=== PATIENT | female | born 1990 | race Caucasian/White ===

== ENCOUNTER 2023-07-27 19:50 | Outpatient (REF) | payer BC, SELFPAY ==
[2023-08-01 12:14] LABS: Age Gdln ACOG Testing Note (.); HPV Aptima Negative (Negative); IGP, Aptima HPV, rfx 16/18,45 Note (.)
== END 2023-07-27 19:51 | disposition home or self-care (01) ==
LOC: LAB 19:50
PROVIDERS: Visit Provider Obstetrics & Gynecology
DX: Z01.419 Encounter for gynecological examination (general) (routine) without abnormal findings (principal)
CPT/HCPCS: 87624; G0145

== ENCOUNTER 2024-01-03 12:29 | Outpatient (OUT) | payer BC, SELFPAY ==
--- OUTSIDE RECORDS SUMMARY | 2024-01-03 12:45 | XMS_ITS | CCD ---
Author Organization [facility] Care Team Providers Care Making Machine Operator Name Role Phone CARMEN VOGT Consulting Unavailable DEL, DR DAVID Perez Admitting Unavailable BELDON, CARMEN Primary Care Unavailable DEL, DR DAVID Perez Attending Unavailable JAMMIE, DR RONALD Perez Attending Unavailable JAMMIE, DR RONALD Perez Consulting Unavailable BELDON, CARMEN Primary Care Unavailable JAMMIE, DR RONALD Perez Admitting Unavailable CECE, DR CLOUD Attending Unavailable CECE, DR CLOUD Consulting Unavailable CECE, DR CLOUD Admitting Unavailable BELDON, CARMEN Primary Care Unavailable BELDON, CARMEN Primary Care Unavailable DEL, DR DAVID Perez Attending Unavailable DEL, DR DAVID Perez Consulting Unavailable DEL, DR DAVID Perez Admitting Unavailable Ronald AGUDELO Primary Care Physician [phone] NONE, XXXX Primary Care Physician UnavailCrystal Koehler Primary Care Physician [phone] Unavailable Primary Care Provider UnavailCHRISTAL Laura Attending Unavailable CHRISTAL DIANE Attending Unavailable AI BELLE Attending Unavailable Crystal Wolff Admitting Unavailable NewCrystal dawn Attending Unavailable LEESA SOSA Attending Unavailabl LEESA Shannon Attending Unavailabl Marissa Machado Attending Unavailable Cuba Koo Attending Unavailable Crystal Wolff Attending Unavailable Crystal Wolff Attending Unavailable Crystal Wolff Attending Unavailable Christal Diane Referring Unavailable Christal Diane Attending Unavailable Christal Diane Admitting Unavailable LEESA SOSA Attending UnavailLEESA Morales Admitting Unavailabl e Allergies Allergy Classification Reported Allergen(s) Allergy Type Date of Onset Reaction(s) Facility (1 source) Brompheniramine / Phenylpropanolamine Drug Allergy [facility] Repository (10 sources) Brompheniramine / Dextromethorphan / Phenylephrine; Translations: [brompheniramine/DM/ph enylephrine] Drug Allergy Weal (disorder) [facility] [place] Work Phone: (2 sources) Acetaminophen / diphenhydrAMINE / Phenylephrine Drug Allergy 10-04-19 [facility] Work Phone: (2 sources) Simple Syrup Propensity to adverse reactions 07-20-20 Unknown [facility] Healthcare Medications Current Medications Medication Drug Class(es) Dates Sig (Normalized) Sig (Original) amoxicillin 500 mg oral capsule (1 source) Penicillin-class Antibacterial Start: 09-02-2022 End: 09-12-2022 take 1 capsule by mouth every twelve hours amoxicillin 500 mg Cap 500 mg = 1 cap(s), Oral, q12hr, X 10 day(s), # 20 cap(s), Refills(s) 0, Pharmacy: [facility]/pharmacy #[id number], 178, cm, 09/02/22 12:01:00 EST, Height/Length Dosing, 102, kg, 09/02/22 12:01:00 EST, Weight Dosing Start Date: 09/02/22 Stop Date: 09/12/22 Status: Ordered baclofen 10 mg oral tablet (2 sources) gamma-Aminobutyric Acid-ergic Agonist Start: 2023 End: 05-15-2023 take 1 tablet by mouth three times daily baclofen 10 mg Tab 10 mg = 1 tab(s), Oral, TID, X 10 day(s), # 30 tab(s), Refills(s) 0, Pharmacy: [facility]/pharmacy #[id number], 178, cm, 05/05/23 12:17:00 EDT, Height/Length Dosing, 95.4, kg, 05/05/23 12:17:00 EDT, Weight Dosing Start Date: 05/05/23 Stop Date: 05/15/23 Status: Ordered busPIRone hydrochloride 5 mg oral tablet (1 source) Start: 10-26-2023 take 1 tablet by mouth twice daily busPIRone 5 mg Tab 5 mg = 1 tab(s), Oral, BID, Refills(s) 0 Start Date: 10/26/23 Status: Ordered cefuroxime 500 mg oral tablet (1 source) Cephalosporin Antibacterial Start: 09-07-2023 End: 09-14-2023 take 1 tablet by mouth twice daily cefuroxime 500 mg oral tablet 500 mg = 1 tab(s), Oral, BID, X 7 day(s), # 14 tab(s), Refills(s) 0, Pharmacy: [facility]/pharmacy #[id number], 178, cm, 09/07/23 11:44:00 EST, Height/Length Dosing, 105.9, kg, 09/07/23 11:44:00 EST, Weight Dosing Start Date: 09/07/23 Stop Date: 09/14/23 Status: Ordered copper 313 mg drug implant (6 sources) Copper-containing Intrauterine Device Start: 01-14-2020 ParaGard intrauteral device Refill(s) 0 Start Date: 01/14/20 Status: Ordered doxycycline hyclate 100 mg oral capsule (1 source) Tetracycline-class Drug Start: 08-28-2023 End: 09-04-2023 take 1 capsule by mouth twice daily doxycycline hyclate 100 mg Cap 100 mg = 1 cap(s), Oral, BID, X 7 day(s), # 14 cap(s), Refills(s) 0, Pharmacy: [facility]/pharmacy #[id number], 178, cm, 08/28/23 12:08:00 EST, Height/Length Dosing, 104, kg, 08/28/23 12:08:00 EST, Weight Dosing Start Date: 08/28/23 Stop Date: 09/04/23 Status: Ordered fluticasone propionate 0.05 mg/actuat metered dose nasal spray (5 sources) Corticosteroid Start: 09-22-2023 Flonase 0.05 mg/inh [place] 2 spray(s), Nasal, Daily, 16 gram, Refill(s) 5, each nostril, [facility]/pharmacy #[id number], 178, cm, 09/07/23 11:44:00 EST, Height/Length Dosing, 105.9, kg, 09/07/23 11:44:00 EST, Weight Dosing Start Date: 09/22/23 Status: Ordered Start: 08-28-2023 take 2 spray(s) nasa l route in the morning fluticasone (Flonase Allergy Relief) 50 MCG/ACT nasal spray Administer 2 sprays into affected nostril(s) in the morning. 0 08/28/2023 Active Start: 08-28-2023 Flonase 0.05 m g/inh [place] 2 spray(s), Nasal, Daily, 16 gram, Refill(s) 1, each nostril, [facility]/pharmacy #[id number], 178, cm, 08/28/23 12:08:00 EST, Height/Length Dosing, 104, kg, 08/28/23 12:08:00 EST, Weight Dosing Start Date: 08/28/23 Status: Ordered liothyronine sodium 0.005 mg oral tablet (6 sources) l-Triiodothyronine Start: 12-18-2021 take 1 tablet by mouth once daily liothyronine 5 mcg Tab 5 mcg = 1 tab(s), Oral, Daily, # 30 tab(s), Refills(s) 2, [id number] 178, cm, 12/18/21 13:00:00 EDT, Height/Length Dosing, 97.7, kg, 12/18/21 13:04:00 EDT, Weight Dosing Start Date: 12/18/21 Status: Ordered Start: 12-18-2021 take 1 tablet by yovani th once daily liothyronine 5 mcg Tab 5 mcg = 1 tab(s), Oral, Daily, # 30 tab(s), Refills(s) 2, [id number] 178, cm, 12/18/21 13:00:00 EDT, Height/Length Dosing, 97.7, kg, 12/18/21 13:04:00 EDT, Weight Dosing Start Date: 12/18/21 Status: Ordered ParaGard intrauteral device (1 source) Start: 01-14-2020 ParaGard intrauteral device Refill(s) 0 Start Date: 01/14/20 Status: Ordered phentermine hydrochloride 37.5 mg oral tablet (1 source) Sympathomimetic Amine Anorectic Start: 10-26-2023 take 1 tablet by mouth once daily phentermine 37.5 mg Tab 37.5 mg = 1 tab(s), Oral, Daily, # 30 tab(s), Refills(s) 0, Pharmacy: [facility], 178, cm, 10/26/23 11:33:00 EST, Height/Length Dosing, 106.2, kg, 10/26/23 11:33:00 EST, Weight Dosing Start Date: 10/26/23 Status: Ordered valACYclovir 1000 mg oral tablet (1 source) Herpesvirus Nucleoside Analog DNA Polymerase Inhibitor, Herpes Simplex Virus Nucleoside Analog DNA Polymerase Inhibitor, Herpes Zoster Virus Nucleoside Analog DNA Polymerase Inhibitor Start: 03-15-2023 End: 03-18-2023 take 2 tablets by mouth every twelve hours valacyclovir 1 g Tab 2 gm = 2 tab(s), Oral, q12hr, X 1 day(s), # 4 tab(s), Refills(s) 2, Pharmacy: [facility] #[id number], 178, cm, 03/15/23 16:13:00 EDT, Height/Length Dosing, 100.4, kg, 03/15/23 16:13:00 EDT, Weight Dosing Start Date: 03/15/23 Stop Date: 03/18/23 Status: Ordered Completed/Discontinued Medications Medication Drug Class(es) Dates Sig (Normalized) Sig (Original) amoxicillin 875 mg / clavulanate 125 mg oral tablet (2 sources) Penicillin-class Antibacterial Start: 10-26-2023 take 1 tablet by mouth once daily at bedtime amoxicillin-clav ulanate 875 mg-125 mg Tab 875 mg, Oral, q12hr, TAKE 1 TABLET (875 MG) BY MOUTH EVERY DAY IN THE MORNING AND AT BEDTIME Start Date: 10/26/23 Status: Ordered Start: 07-25-2023 End: 08-04-2023 Augmentin 875 mg-125 mg Tab 1 tab(s), Oral, BID for 10 day(s), 20 tab(s), Refill(s) 0, [facility] #[id number], 178, cm, 07/25/23 17:14:00 EST, Height/Length Dosing, 101.4, kg, 07/25/23 17:14:00 EST, Weight Dosing Start Date: 07/25/23 Stop Date: 08/04/23 Status: Ordered Problems Active Problems Problem Classification Problem Date Documented Date Episodic/Chronic Anxiety disorders (15 sources) Generalized anxiety disorder; Translations: [Anxiety] Onset: 10-04-2023 09-24-2021 Chronic Bacterial infection; unspecified site (1 source) Bacterial infectious disease; Translations: [Other specified bacterial agents as the cause of diseases classified elsewhere] Onset: 07-25-2023 Episodic Malaise and fatigue (11 sources) Other fatigue; Translations: [Fatigue] Onset: 12-10-2021 Resolved: 10-04-2023 07-17-2020 Episodic Menstrual disorders (11 sources) Irregular periods; Translations: [Irregular menstruation, unspecified] Onset: 10-04-2023 Resolved: 10-04-2023 09-25-2021 Chronic Mood disorders (4 sources) Depressive disorder; Translations: [Depression] Onset: 10-04-2023 09-07-2023 Chronic Nutritional deficiencies (1 source) Vitamin D deficiency, unspecified; Translations: [VITAMIN D DEFICIENCY UNSPECIFIED] Onset: 12-10-2021 Chronic Other circulatory disease (11 sources) Raynaud's phenomenon; Translations: [Raynaud's syndrome without gangrene] Onset: 10-04-2023 09-24-2021 Chronic Other non-traumatic joint disorders (11 sources) Hip pain; Translations: [Pain in right hip] Onset: 10-04-2023 07-17-2020 Episodic Other nutritional; endocrine; and metabolic disorders (12 sources) Body mass index 30+ - obesity 07-17-2020 Chronic Other nutritional; endocrine; and metabolic disorders (5 sources) Obese class I; Translations: [Body mass index (BMI) 32.0-32.9, adult] Onset: 09-02-2022 Chronic Other nutritional; endocrine; and metabolic disorders (1 source) Obesity; Translations: [Other obesity due to excess calories] Onset: 08-28-2023 Chronic Other nutritional; endocrine; and metabolic disorders (3 sources) Obesity caused by energy imbalance 08-28-2023 Chronic Other nutritional; endocrine; and metabolic disorders (1 source) Abnormal weight gain; Translations: [ABNORMAL WEIGHT GAIN] Onset: 12-10-2021 Episodic Other nutritional; endocrine; and metabolic disorders (8 sources) Weight gain 09-24-2021 Episodic Other screening for suspected conditions (not mental disorders or infectious disease) (14 sources) Encounter for screening for malignant neoplasm of cervix; Translations: [Thyroid function tests abnormal] Onset: 07-30-2021 Resolved: 10-04-2023 Episodic Other skin disorders (1 source) Nonscarring hair loss, unspecified; Translations: [NONSCARRING HAIR LOSS UNSPECIFIED] Onset: 12-10-2021 Episodic Other skin disorders (1 source) Xerosis cutis; Translations: [XEROSIS CUTIS] Onset: 12-10-2021 Episodic Other skin disorders (11 sources) Acne; Translations: [Acne, unspecified] Onset: 10-04-2023 09-25-2021 Episodic Other skin disorders (6 sources) Dry skin 09-24-2021 Episodic Other skin disorders (13 sources) Loss of hair; Translations: [Nonscarring hair loss, unspecified] Onset: 10-04-2023 Resolved: 10-04-2023 09-24-2021 Episodic Other upper respiratory disease (4 sources) Seasonal allergy; Translations: [Other seasonal allergic rhinitis] Onset: 10-04-2023 09-07-2023 Chronic Other upper respiratory disease (4 sources) Nasal discharge; Translations: [Other specified disorders of nose and nasal sinuses] Onset: 10-04-2023 09-07-2023 Episodic Other upper respiratory infections (2 sources) Chronic sinusitis; Translations: [Chronic sinusitis, unspecified] Onset: 10-04-2023 10-04-2023 Chronic Residual codes; unclassified (4 sources) Family history of breast cancer; Translations: [Family history of malignant neoplasm of breast] Onset: 10-04-2023 09-07-2023 Episodic Screening and history of mental health and substance abuse codes (4 sources) H/O: Disorder; Translations: [Personal history of nicotine dependence] Onset: 08-28-2023 Episodic Spondylosis; intervertebral disc disorders; other back problems (11 sources) Prolapsed lumbar intervertebral disc; Translations: [Other intervertebral disc displacement, lumbar region] Onset: 10-04-2023 08-19-2020 Chronic Spondylosis; intervertebral disc disorders; other back problems (20 sources) Low back pain; Translations: [Spinal stenosis of lumbar region] Onset: 10-04-2023 07-17-2020 Episodic Sprains and strains (9 sources) Sprain of foot; Translations: [Sprain of left foot] Onset: 2023 2023 Episodic Substance-related disorders (12 sources) Cigarette smoker ; Translations: [Nicotine dependence] Onset: 09-02-2022 01-14-2020 Chronic Unclassified (17 sources) Patient encounter status 07-17-2020 Unclassified (4 sources) Puncture wound of left foot 07-25-2023 Viral infection (12 sources) Human papilloma virus infection; Translations: [Herpesviral vesicular dermatitis] Onset: 03-15-2023 01-14-2020 Episodic Past or Other Problems Problem Classification Problem Date Documented Date Episodic/Chronic Open wounds of extremities (2 sources) Puncture wound of left foot; Translations: [Puncture wound without foreign body, left foot, initial encounter] Onset: 10-04-2023 Resolved: 10-04-2023 10-04-2023 Episodic Other upper respiratory infections (5 sources) Streptococcal sore throat; Translations: [Streptococcal pharyngitis] Onset: 09-02-2022 Resolved: 10-04-2023 Episodic Results Test Name Value Interpretation Reference Range Facility CT Maxillofacial w/o Contras ton 11-08-2023 CT Maxillofacial w/o Contrast Exam Date/Time: 11/07/2023 12:22 EDT Reason for Exam: [id number] Report IMPRESSION: RIGHT MAXILLARY SINUSITIS. CT MAXILLOFACIAL WITHOUT INTRAVENOUS CONTRAST MEDIUM. History: Chronic sinus infection.. Technical factors: CT maxillofacial was obtained and formatted as 1 mm contiguous axial images. Sagittal and coronal reconstruction obtained during postprocessing. Metallic cutaneous marker placed over right cheek. Comparison: None. Findings: Bilateral genital coronal sinus hypoplasia. Bilateral ethmoid, bilateral sphenoid, and left maxillary sinuses patent. Near-complete opacification right maxillary sinus. Nasal septum midline. Patent left ostiomeatal complex. Metallic cutaneous marker lies just lateral to right zygomatic maxillary junction. Mucosal thickening right ostiomeatal complex. Bilateral aeration mastoid air cells. Bilateral ocular globes, extraocular muscles, optic nerves, retrobulbar fat without anomaly. No fracture. No bone lesion. All CT scans at this facility use dose modulation, iterative reconstruction, and/or weight based dosing when appropriate to reduce radiation dose to as low as reasonably achievable. Report Ordering Provider: Christal Diane FINAL REPORT Dictated: 11/08/2023 6:19 pm Braden Harris MD Signed (Electronic Signature): 11/08/2023 6:19 pm Signed by: Braden Harris MD Transcribed by: TONI Technologist: [place] [facility] Consent for Treatmenton 10-27 Consent for Treatment [id number] #1.00TIFF [facility] Physician Orderon 11-04-2023 Physician Order [id number] #1.00TIFF [facility] Ambulatory Visit Summaryon 0 10-26-2023 Ambulatory Visit Summary COOPER SAGASTUMESSICA Elizabeth :1990 Visit Date:10/26/2023 Ambulatory Visit Instructions Your Diagnosis Encounter for weight management Weight gain BMI 33.0-33.9,adult Non-smoker Your Care Team Attending Physician - Crystal Motta Primary Care Physician - Crystal Motta This Is Your Medications List amoxicillin-clavulan ate (amoxicillin-clavula masood 875 mg-125 mg Tab) busPIRone (busPIRone 5 mg Tab) fluticasone nasal (Flonase 0.05 mg/inh [place]) Procedures Performed Insertion of IUD, LEEP (Loop electrosurgical excision procedure) of cervix. Discharge Vitals Heart Rate (Peripheral) 80 Respiratory Rate 18 Blood Pressure 128/78 Height 178 cm Height 70 in Weight 106.2 kg Weight 233.64 lb BMI 33.52 What to do next Scheduled Follow-Up Appointments Tuesday 12:00 PM EDT With: Where: [facility] 2023 11:20 AM EDT With: Crystal Motta Where: [facility] Family Medicine Office/Clini c Noteon 10-26-2023 Family Medicine Office/Clinic Note HPI Staff Bonita is a 33 year old female presenting for 1 month follow up SUDEEP 09/07/23 Nasal Drainage has been on 3 different ATB and given Kenalog injection if not any better will refer to ENT Pt saw ENT 10/07/23 and was started on Amoxicillin-Clavulan ate 875-125 BID for 1 month, has a CT scan on 11/07/23 and follow up appointment on 11/08/23 Pt states continues to have sinus pressure but doesn't have the foul smelling drainage is gone. pt would like to discuss weight loss options History of Present Illness pt presents today for weight management Review of Systems PHQ Score Initial Depression Screen Score: 0 SCORE ROS - Provider Constitutional: no fever, no chills, no sweats, no fatigue Respiratory: no shortness of breath, no cough, no orthopnea, no wheezing. Cardiovascular: no chest pain, no palpitations, no edema. Neurologic: no headache, no dizziness, no numbness, no weakness. Physical Exam Vitals & Measurements HR: 80(Peripheral) RR: 18 BP: 128/78 SpO2: 98% HT: 70 in HT: 178 cm WT: 106.2 kg WT: 233.64 lb BMI: 33.52 General: alert, no acute distress ENMT: oral mucosa moist, no pharyngeal erythema or exudate Cardiovascular: regular rate and rhythm, normal peripheral perfusion Respiratory: Lungs CTA, respirations non labored Extremities: no deformity, no trauma Neurological: oriented x 4, LOC appropriate for age, CN II-XII intact, motor strength equal & normal bilaterally, speech normal Assessment/Plan 1. Encounter for weight management (Z76.89: Persons encountering health services in other specified circumstances) pt wants to discuss losing weight. discussed options. will start adipex. medication agreement signed. all questions answered. RTC 4 weeks Ordered: phentermine, 37.5 mg = 1 tab(s), Oral, Daily, # 30 tab(s), Refills(s) 0, Pharmacy: [facility] #72, 178, cm, 10/26/23 11:33:00 EST, Height/Length Dosing, 106.2, kg, 10/26/23 11:33:00 EST, Weight Dosing 2. Weight gain (R63.5: Abnormal weight gain) pt having trouble losing weight Ordered: phentermine, 37.5 mg = 1 tab(s), Oral, Daily, # 30 tab(s), Refills(s) 0, Pharmacy: [facility], 178, cm, 10/26/23 11:33:00 EST, Height/Length Dosing, 106.2, kg, 10/26/23 11:33:00 EST, Weight Dosing 3. BMI 33.0-33.9,adult (Z68.33: Body mass index [BMI] 33.0-33.9, adult) BMI education complete Ordered: phentermine, 37.5 mg = 1 tab(s), Oral, Daily, # 30 tab(s), Refills(s) 0, Pharmacy: [facility], 178, cm, 10/26/23 11:33:00 EST, Height/Length Dosing, 106.2, kg, 10/26/23 11:33:00 EST, Weight Dosing 4. Non-smoker (Z78.9: Other specified health status) continue not smoking Ordered: phentermine, 37.5 mg = 1 tab(s), Oral, Daily, # 30 tab(s), Refills(s) 0, Pharmacy: [facility], 178, cm, 10/26/23 11:33:00 EST, Height/Length Dosing, 106.2, kg, 10/26/23 11:33:00 EST, Weight Dosing Follow-up No qualifying data available Problem List/Past Medical History Ongoing Abnormal thyroid function test Acne Anxiety BMI 32.0-32.9,adult Cigarette smoker Depression Encounter for weight management Family history of breast cancer Fatigue Former smoker Generalized anxiety disorder Hair loss Hair thinning Hip pain, bilateral HPV in female Irregular menses Low back pain Lumbar canal stenosis Lumbar herniated disc Nasal drainage Obesity due to excess calories Puncture wound of left foot Raynaud phenomenon Screening mammogram for breast cancer Seasonal allergies Sprain of left foot Weight gain Wellness examination Historical No qualifying data Procedure/Surgical History Insertion of IUD, LEEP (Loop electrosurgical excision procedure) of cervix. Medications amoxicillin-clavulan ate 875 mg-125 mg Tab, 875 mg, Oral, q12hr busPIRone 5 mg Tab, 5 mg= 1 tab(s), Oral, BID Flonase 0.05 mg/inh [place], 2 spray(s), Nasal, Daily, 5 refills phentermine 37.5 mg Tab, 37.5 mg= 1 tab(s), Oral, Daily Allergies Dimetapp Cold & Cough (Hives) Social History Alcohol - Denies Alcohol Use, 07/23/2020 Substance Abuse - Denies Substance Abuse, 01/14/2020 Tobacco - Denies Tobacco Use, 07/25/2023 Former smoker, quit more than 30 days ago Tobacco Use:. Never Smokeless Tobacco Use:. Cigarettes, Household tobacco concerns: No., 10/26/2023 Family History Cancer: Aunt and Uncle. Drug abuse: Mother. Drug overdose: Mother. Primary malignant neoplasm of female breast: Mother, Aunt and Grandparent. Thyroid Disease: Father. Immunizations Vaccine Date Status Comments influenza virus vaccine, inactivated - Not Given Patient Refuses SARS-CoV-2 mRNA (tozinameran 5y-11y) vac - Not Given Patient Refuses influenza virus vaccine, inactivated - Not Given Postpone due to refusal SARS-CoV-2 mRNA (tozinameran 5y-11y) vac - Not Given Postpone due to refusal measles/mumps/rubell a virus vaccine 01/16/2002 Recorded measles/mumps/rubell a virus vaccine 08/15/1991 Recorded Hib, unspecified fo (more content not included)... [facility] Comment on above: Result Comment: Elec tronically Signed By: New BECERRIL, Crystal Bernabe\.br\Date and Time Signed: 10/26/23 11:59 EST Medication Consenton Medication Consent [id number] #1.00TIFF [facility] Consultation Noteon 10-07-19 Consultation Note [id number] #1.00TIFF [facility] Physician Orderon 10-07-2023 Physician Order [id number] #1.00TIFF [facility] Physician Referralon 024 Physician Referral [id number] 1#1.00TIFF [facility] Physician Referralon 024 Physician Referral [id number] 0#1.00TIFF [facility] Ambulatory Visit Summaryon 0 09-07-2023 Ambulatory Visit Summary BONITA SAGASTUME :1990 Visit Date:09/07/2023 Ambulatory Visit Instructions Your Diagnosis Wellness examination Anxiety Depression Nasal drainage Seasonal allergies Family history of breast cancer Screening mammogram for breast cancer Fatigue Hair thinning Weight gain BMI 33.0-33.9,adult Non-smoker Your Care Team Attending Physician - Crystal Motta Primary Care Physician - Crystal Motta This Is Your Medications List cefuroxime (cefuroxime 500 mg oral tablet) fluticasone nasal (Flonase 0.05 mg/inh [place]) Procedures Performed Insertion of IUD, LEEP (Loop electrosurgical excision procedure) of cervix. Discharge Vitals Heart Rate (Peripheral) 74 Respiratory Rate 18 Blood Pressure 118/80 Height 178 cm Height 70 in Weight 105.9 kg Weight 232.98 lb BMI 33.42 What to do next Scheduled Follow-Up Appointments Tuesday 11:20 AM EST With: Crystal Motta Where: [facility] Invalid Interpretation Code Anxiety [facility] Auto Diffon 09-07-2023 Basophils/100 WBC (Bld) 0.3 % Normal 0.0-2.0 [facility] Comment on above: Order Comment: Order Added by Discern Expert. Performed By: #### 2 [id number] ####[facility] [id number] [place] [address] Basophils/Leukocytes Auto (Bld) [Pure # fraction] 0.0 E9/L Normal 0.0-0.2 [facility] Comment on above: Order Comment: Order Added by Discern Expert. Performed By: #### 2 [id number] ####[facility] [id number] [place] [address] Eosinophils/100 WBC (Bld) 2.8 % Normal 0.0-8.0 [facility] Comment on above: Order Comment: Order Added by Discern Expert. Performed By: #### 2 [id number] ####[address] [address] Eosinophils/Leukocyte s Auto (Bld) [Pure # fraction] 0.2 E9/L Normal 0.0-0.5 [facility] Comment on above: Order Comment: Order Added by Discern Expert. Performed By: #### 2 [id number] ####[address] [address] Lymphocytes/100 WBC (Bld) 29.8 % Normal 14.0-50.0 [facility] Comment on above: Order Comment: Order Added by Discern Expert. Performed By: #### 2 [id number] ####[address] [address] Lymphocytes/Leukocyte s Auto (Bld) [Pure # fraction] 2.0 E9/L Normal 1.0-4.0 [facility] Comment on above: Order Comment: Order Added by Discern Expert. Performed By: #### 2 349749, 3210496, 4143874, 20738345, 1810204, 3059112 ####[address] [address] Monocytes/100 WBC (Bld) 14.7 % High 4.0-14.0 [facility] Comment on above: Order Comment: Order Added by Discern Expert. Performed By: #### 2 359473, 7089519, 3732778, 67394045, 8781867, 7553331 ####[address] [address] Monocytes/Leukocytes Auto (Bld) [Pure # fraction] 1.0 E9/L Normal 0.2-1.0 [facility] Comment on above: Order Comment: Order Added by Discern Expert. Performed By: #### 2 067257, 0518514, 7887409, 73808337, 1551049, 6207013 ####[address] [place] [address] Neutrophils/100 WBC (Bld) 52.4 % Normal 36.0-75.0 [facility] Comment on above: Order Comment: Order Added by Discern Expert. Performed By: #### 2 015510, 3783786, 3429478, 32985873, 2044061, 9597924 ####[address] [place] [address] Neutrophils/Leukocyte s Auto (Bld) [Pure # fraction] 3.5 E9/L Normal 2.0-7.5 [facility] Comment on above: Order Comment: Order Added by Discern Expert. Performed By: #### 2 589230, 8196375, 3134274, 58918205, 9422120, 2463906 ####[address] [address] CBC w/ Auto Diffon Erythrocyte distribution width (RBC) [Ratio] 13.8 % Normal 10.9-14.2 [facility] Comment on above: Performed By: #### 2 129664, 5154436, 4713807, 29770118, 9646187, 4892343 ####[address] [address] Hematocrit (Bld) [Volume fraction] 40.5 % Normal 34.0-46.0 [facility] Comment on above: Performed By: #### 2 073287, 8814429, 3881893, 13348759, 2492509, 1584847 ####[facility] [address] [place] [address] Hemoglobin (Bld) [Mass/Vol] 13.4 g/dL Normal 12.0-16.0 [facility] Comment on above: Performed By: #### 2 099723, 1376649, 2434698, 28294235, 3537149, 5049533 ####[address] [place] [address] MCH (RBC) [Entitic mass] 30.0 pg Normal 27.0-34.0 [facility] Comment on above: Performed By: #### 2 599731, 4746885, 2565646, 39342143, 7728674, 6544643 ####[address] MCHC (RBC) [Mass/Vol] 33.1 g/dL Normal 31.4-36.0 [facility] Comment on above: Performed By: #### 2 619160, 5367330, 7714594, 47707042, 1337368, 9573954 ####[address] MCV (RBC) [Entitic vol] 90.6 fL Normal 80.0-100.0 [facility] Comment on above: Performed By: #### 2 079989, 7572973, 5161020, 03299112, 9404743, 1482230 ####[address] Platelet mean volume (Bld) [Entitic vol] 8.8 fL Normal 6.4-10.8 [facility] Comment on above: Performed By: #### 2 821408, 2577537, 9480562, 16728888, 0929016, 5975644 ####[address] [address] Platelets (Bld) [#/Vol] 232.0 E9/L Normal 150.0-500.0 [facility] Comment on above: Performed By: #### 2 892751, 8652001, 9674361, 96127238, 6844257, 3533778 ####[address] [address] RBC (Bld) [#/Vol] 4.5 E12/L Normal 4.3-5.9 [facility] Comment on above: Performed By: #### 2 705494, 4688423, 9616842, 08844250, 1258970, 5776637 ####[address] [address] WBC corrected for nucl RBC Auto (Bld) [#/Vol] 6.7 E9/L Normal 4.0-11.0 [facility] Comment on above: Performed By: #### 2 014058, 8034014, 7233651, 19182655, 6522530, 9554683 ####[facility] [address] [place] [address] CHEMISTRYOrdered By: SYSTEM SYSTEM on 09-07-2023 Albumin [Mass/Vol] 3.7 g/dL Normal 3.3 - 5.0 gm/dL Remisol Chem Albumin/Globulin [Mass ratio] 1.4 {ratio} Normal 1.1 - 2.2 [facility] Alk Phos 67 [iU]/d Normal 21 - 98 Int._Unit/L Remisol Chem ALT 20 [iU]/d Normal 6 - 46 Int._Unit/L Remisol Chem Anion gap [Moles/Vol] 9 mmol/L Normal 6 - 16 mEq/L R emisol Chem AST 19 [iU]/d Normal 5 - 43 Int._Unit/L Remisol Chem Bili Total 0.3 mg/dL Normal 0.0 - 1.1 mg/dL [facility] Calcium [Mass/Vol] 9.0 mg/dL Normal 8.9 - 11. 1 mg/dL [facility] Chloride [Moles/Vol] 108 mmol/L Normal 101 - 1 11 mmol/L [facility] Cholesterol [Mass/Vol] 128 mg/dL Normal 120 - 200 mg/dL [facility] Cholesterol in HDL [Mass/Vol] 61 mg/dL Invalid Interpretation Code Rem[facility] Comment on above: Result Comment: '>= 60 LOW RISK' '<= 40 HIGH RISK' Cholesterol in LDL [Mass/Vol] 61 mg/dL Normal <=129mg/dL [facility] Cholesterol in VLDL [Mass/Vol] 10 mg/dL Normal 7 - 40 mg/dL [facility] CO2 [Moles/Vol] 25 mmol/L Normal 21 - 31 mmol/L [facility] Creatinine [Mass/Vol] 0.9 mg/dL Normal 0.5 - 1.3 mg/dL [facility] eGFR mL/min/1.73 m2 Normal >=59mL/min/1. 73 m2 [facility] Globulin (S) [Mass/Vol] 2.7 g/dL Normal 1.4 - 4.0 gm/dL [facility] Glucose [Mass/Vol] 75 mg/dL Normal 55 - 199 mg/dL [facility] Potassium [Moles/Vol] 4.0 mmol/L Normal 3.5 - 5.3 mmol/L [facility] Protein [Mass/Vol] 6.4 g/dL Normal 6.0 - 7.8 gm/dL [facility] Sodium [Moles/Vol] 138 mmol/L Normal 135 - 145 mmol/L [facility] Triglyceride [Mass/Vol] 48 mg/dL Normal <=149mg/dL [facility] TSH Qn 0.80 m[IU]/L Normal 0.34 - 5.60 mcIU/mL [facility] Urea nitrogen [Mass/Vol] 16 mg/dL Normal 5 - 21 mg/dL [facility] Urea nitrogen/Creatinine [Mass ratio] 18 mg/mg Normal 10 - 20 [facility] CMPon 09-07-2023 Albumin [Mass/Vol] 3.7 g/dL Normal 3.3-5.0 [facility] Comment on above: Performed By: #### 2 319282, 5708385, 4576389, 42872325, 9353565, 5068695 ####[facility] [address] [place] [address] Albumin/Globulin [Mass ratio] 1.4 {ratio} Normal 1.1-2.2 [facility] Comment on above: Performed By: #### 2 011699, 5457797, 6829468, 68589791, 8960946, 6108243 ####[facility] [address] [place] [address] Alk Phos 67 Int._Unit/L Normal 21-98 [facility] Comment on above: Performed By: #### 2 435296, 0679280, 1493483, 07479652, 7659132, 4684231 ####[facility] [address] [place] [address] ALT 20 Int._Unit/L Normal 6-46 [facility] Comment on above: Performed By: #### 2 047446, 1357154, 9882019, 91444582, 2643997, 9090487 ####[facility] [address] [place] [address] Anion gap [Moles/Vol] 9 mmol/L Normal 6-16 [facility] Comment on above: Performed By: #### 2 708049, 9781413, 9828998, 46788960, 2882106, 0570340 ####[address] [address] AST 19 Int._Unit/L Normal 5-43 [facility] Comment on above: Performed By: #### 2 710203, 7679234, 9796975, 61321129, 6867566, 7365324 ####[address] [address] Bili Total 0.3 mg/dL Normal 0.0-1.1 [facility] Comment on above: Performed By: #### 2 861390, 6672856, 7526318, 98448315, 8676114, 0500880 ####[address] [place] [id number] BUN/Creat Ratio 18 No Units Normal 10-20 [facility] Comment on above: Performed By: #### 2 262755, 5019097, 2596886, 41376779, 5010062, 2897728 ####[address] [address] Calcium [Mass/Vol] 9.0 mg/dL Normal 8.9-11.1 [facility] Comment on above: Performed By: #### 2 256331, 8932595, 5576225, 20930142, 1708205, 9101933 ####[address] [place] [address] Chloride [Moles/Vol] 108 mmol/L Normal 101-111 [facility] Comment on above: Performed By: #### 2 579239, 7228024, 4140038, 36408007, 9058242, 0501733 ####[facility] [address] [place] [address] CO2 [Moles/Vol] 25 mmol/L Normal 21-31 [facility] Comment on above: Performed By: #### 2 028069, 1777027, 3409194, 33312710, 7205780, 0969864 ####[facility] [address] [place] [address] Creatinine [Mass/Vol] 0.9 mg/dL Normal 0.5-1.3 [facility] Comment on above: Performed By: #### 2 303315, 2271101, 7453682, 56463716, 9116444, 5306488 ####[facility] [address] [place] [address] Globulin (S) [Mass/Vol] 2.7 g/dL Normal 1.4-4.0 [facility] Comment on above: Performed By: #### 2 567590, 1725933, 2162126, 09881666, 8096525, 1860880 ####[facility] [address] [place] [address] Glucose [Mass/Vol] 75 mg/dL Normal 55-199 [facility] Comment on above: Performed By: #### 2 373061, 0247143, 7338882, 73005844, 7065086, 2579699 ####[facility] [address] [place] [address] Potassium [Moles/Vol] 4.0 mmol/L Normal 3.5-5.3 [facility] Comment on above: Performed By: #### 2 702562, 6317960, 5444282, 93308813, 8732430, 3892124 ####[facility] [address] [place] [address] Protein [Mass/Vol] 6.4 g/dL Normal 6.0-7.8 [facility] Comment on above: Performed By: #### 2 378911, 2246067, 3826584, 91607051, 6224120, 7238450 ####[facility] [address] [place] [address] Sodium [Moles/Vol] 138 mmol/L Normal 135-145 [facility] Comment on above: Performed By: #### 2 479973, 2745803, 9631478, 45412373, 4019055, 8434432 ####[facility] [address] [place] [address] Urea nitrogen [Mass/Vol] 16 mg/dL Normal 5-21 [facility] Comment on above: Performed By: #### 2 692902, 6598768, 8457935, 89164804, 3059447, 8574099 ####[facility] [address] [place] [address] Consenton 09-07-2023 Consent [id number]# 1.00TIFF Normal [facility] Family Medicine Office/Clini c Noteon 09-07-2023 Family Medicine Office/Clinic Note HPI Staff Bonita is a 33 year old female presenting to establish Establish Care: History: Any previous diagnosis: History of seeing any specialist: When was your last doctors visit: Last provider: Dr Agudelo Any recent labs: none in the last year Health Maintenance UTD: Colonoscopy: no Mammogram: no , Breast cancer runs high on mom's side, would like [facility] Pelvic/Pap: 07/2023 normal, Dr belle Acute: Current issues/complaints: Respiratory C/O: Onset: 2 months ago Body aches: no Chest congestion: no Chills: no Cough: no Sputum production: no Sore throat: Ear complaints: no bilateral ears feel full , 2 days ago hurt pulse in right ear , no discharge Eye itching/watering: no Fever: no Headache: no Nasal congestion: yes Nasal discharge: yes clear/ yellow Post nasal drainage: yes Poor appetite: no Reduced activity: no Sinus pain/pressure: yes Sneezing: no Wheezing: no Ill contacts: no Remedies tried: antibiotic 2 rounds, Flonase, allergy medication Questions/Concerns: pt had went to urgent care twice and has been on 2 rounds of antibiotics. pt denies of having any Kenalog injections. pt would like to discuss anxiety depression, would like referral to see a counselor. pt states she did take on a new position with work and is getting along fine with people at work but having a hard time at home and life feels over whelming. MARIPOSA: 19 PHQ-9: History of Present Illness pt presents today to establish care and for wellness visit. Review of Systems PHQ Score Initial Depression Screen Score: 5 SCORE Detailed Depression Screen Score: 16 Total Depression Screen Score: 21 ROS - Provider Constitutional: no fever, no chills, no sweats, no fatigue Respiratory: no shortness of breath, yes cough, no orthopnea, no wheezing. nasal congestion, foul smell in nose and bad tasts (like infection)when swallowing phlegm Cardiovascular: no chest pain, no palpitations, no edema. Neurologic: no headache, no dizziness, no numbness, no weakness. anxiety and depression tender breasts Physical Exam Vitals & Measurements HR: 74(Peripheral) RR: 18 BP: 118/80 SpO2: 99% HT: 70 in HT: 178 cm WT: 105.9 kg WT: 232.98 lb BMI: 33.42 General: alert, no acute distress ENMT: oral mucosa moist, no pharyngeal erythema or exudate, sinus tenderness Cardiovascular: regular rate and rhythm, normal peripheral perfusion Respiratory: Lungs CTA, respirations non labored Extremities: no deformity, no trauma Neurological: oriented x 4, LOC appropriate for age, CN II-XII intact, motor strength equal & normal bilaterally, speech normal Assessment/Plan 1. Wellness examination (Z00.00: Encounter for general adult medical examination without abnormal findings) pt presents today to establish care. due for wellness labs. pt has several complaints today. will draw labs and address some of the issues. Ordered: cefuroxime, 500 mg = 1 tab(s), Oral, BID, X 7 day(s), # 14 tab(s), Refills(s) 0, Pharmacy: [facility]/pharmacy #[id number], 178, cm, 09/07/23 11:44:00 EST, Height/Length Dosing, 105.9, kg, 09/07/23 11:44:00 EST, Weight Dosing triamcinolone, 40 mg = 1 mL, Injection, IntraMuscular, Once, Stop date 09/07/23 12:49:00 EST, Routine, Start date 09/07/23 12:49:00 EST, 09/07/23 12:49:00 EST CBC w/ Auto Diff Comprehensive Metabolic Panel [facility] External Ambulatory Referral Lab Specimen Collect 34539 Lipid Panel Thyroid Stimulating Hormone 2. Anxiety (F41.9: Anxiety disorder, unspecified) pt c/o worsening anxiety and depression. MARIPOSA and PQH -9 are positive today. her mother at an early age of over dose. but sttes her mom was bipolar and schizophrenic. She is requesting referral to psych and for counseling. will send to [facility] for referral. does not want to start medication at this time. Ordered: cefuroxime, 500 mg = 1 tab(s), Oral, BID, X 7 day(s), # 14 tab(s), Refills(s) 0, Pharmacy: [facility]/pharmacy #[id number], 178, cm, 09/07/23 11:44:00 EST, Height/Length Dosing, 105.9, kg, 09/07/23 11:44:00 EST, Weight Dosing triamcinolone, 40 mg = 1 mL, Injection, IntraMuscular, Once, Stop date 09/07/23 12:49:00 EST, Routine, Start date 09/07/23 12:49:00 EST, 09/07/23 12:49:00 EST CBC w/ Auto Diff Comprehensive Metabolic Panel [facility] External Ambulatory Referral Lab Specimen Collect 10410 Lipid Panel Thyroid Stimulating Hormone 3. Depression (F32.A: Depression, unspecified) see above Ordered: cefuroxime, 500 mg = 1 tab(s), Oral, BID, X 7 day(s), # 14 tab(s), Refills(s) 0, Pharmacy: [facility]/pharmacy #[id number], 178, cm, 09/07/23 11:44:00 EST, Height/Length Dosing, 105.9, kg, 09/07/23 11:44:00 EST, Weight Dosing triamcinolone, 40 mg = 1 mL, Injection, IntraMuscular, Once, Stop date 09/07/23 12:49:00 EST, Routine, Start date 09/07/23 12:49:00 EST, 09/07/23 12:49:00 EST CBC w/ Auto Diff Comprehensive Metabolic Panel [facility] External Ambulatory Referral Lab Specimen Collect 20950 Lipid Panel Thyroid Stimulating Hormone 4. Nasal drain (more content not included)... Normal [facility] Comment on above: Result Comment: Elec tronically Signed By: Crystal Motta\.albertina\Date and Time Signed: 09/07/23 16:30 EST HEMATOLOGYOrdered By: SYSTEM SYSTEM on 09-07-2023 Basophils/100 WBC (Bld) 0.3 % Normal 0.0 - 2.0 % [facility] Basophils/Leukocytes Auto (Bld) [Pure # fraction] 0.0 E9/L Normal 0.0 - 0.2 E9/L [facility] Eosinophils/100 WBC (Bld) 2.8 % Normal 0.0 - 8.0 % [facility] Eosinophils/Leukocyte s Auto (Bld) [Pure # fraction] 0.2 E9/L Normal 0.0 - 0.5 E9/L [facility] Lymphocytes/100 WBC (Bld) 29.8 % Normal 14.0 - 50.0 % [facility] Lymphocytes/Leukocyte s Auto (Bld) [Pure # fraction] 2.0 E9/L Normal 1.0 - 4.0 E9/L [facility] Monocytes/100 WBC (Bld) 14.7 % High 4.0 - 14.0 % [facility] Monocytes/Leukocytes Auto (Bld) [Pure # fraction] 1.0 E9/L Normal 0.2 - 1.0 E9/L [facility] Neutrophils/100 WBC (Bld) 52.4 % Normal 36.0 - 75.0 % [facility] Neutrophils/Leukocyte s Auto (Bld) [Pure # fraction] 3.5 E9/L Normal 2.0 - 7.5 E9/L [facility] HEMATOLOGYOrdered By: Rochelle Holguin on 09-07-2023 Erythrocyte distribution width (RBC) [Ratio] 13.8 % Normal 10.9 - 14.2 % [facility] Hematocrit (Bld) [Volume fraction] 40.5 % Normal 34.0 - 46.0 % [facility] Hemoglobin (Bld) [Mass/Vol] 13.4 g/dL Normal 12.0 - 16.0 gm/dL [facility] MCH (RBC) [Entitic mass] 30.0 pg Normal 27.0 - 34.0 pg [facility] MCHC (RBC) [Mass/Vol] 33.1 g/dL Normal 31.4 - 36.0 gm/dL [facility] MCV (RBC) [Entitic vol] 90.6 fL Normal 80.0 - 100.0 fL [facility] Platelet mean volume (Bld) [Entitic vol] 8.8 fL Normal 6.4 - 10.8 fL [facility] Platelets (Bld) [#/Vol] 232.0 E9/L Normal 150.0 - 500.0 E9/L [facility] RBC (Bld) [#/Vol] 4.5 E12/L Normal 4.3 - 5.9 E12/L [facility] WBC corrected for nucl RBC Auto (Bld) [#/Vol] 6.7 E9/L Normal 4.0 - 11.0 E9/L [facility] Lipid Panelon 09-07-2023 Cholesterol [Mass/Vol] 128 mg/dL Normal 120-200 [facility] Comment on above: Performed By: #### 2 593267, 3048825, 4050117, 18811711, 7853046, 2688926 ####[facility] [address] [place] [address] Cholesterol in HDL [Mass/Vol] 61 mg/dL Invalid Interpretation Code [facility] Comment on above: Result Comment: '>= 60 LOW RISK' '<= 40 HIGH RISK' Performed By: #### 2 666474, 7856741, 7623242, 97889506, 7423167, 1242607 ####[facility] [address] [place] [address] Cholesterol in LDL [Mass/Vol] 61 mg/dL Normal <=129 [facility] Comment on above: Performed By: #### 2 601095, 9629529, 5740490, 26184721, 1097775, 6275091 ####[facility] [address] [place] [address] Cholesterol in VLDL [Mass/Vol] 10 mg/dL Normal 7-40 [facility] Comment on above: Performed By: #### 2 321829, 7704175, 1995189, 25895022, 4572304, 8660653 ####[facility] [address] [place] [address] Triglyceride [Mass/Vol] 48 mg/dL Normal <=149 [facility] Comment on above: Performed By: #### 2 753839, 1884081, 3711154, 50135931, 3518444, 3196766 ####[facility] [address] [place] [address] Physician Orderon 09-07-2023 Physician Order [id number]# 1.00TIFF Normal [facility] TSHon 09-07-2023 TSH Qn 0.80 m[IU]/L Normal 0.34-5.60 [facility] Comment on above: Performed By: #### 2 051516, 7610247, 6649233, 96177662, 4550865, 3749501 ####[facility] [address] [place] [address] eGFRon 09-07-2023 GFR/1.73 sq M.predicted among non-blacks MDRD (S/P/Bld) [Vol rate/Area] mL/min/{1.73_m2} Normal >=59 [facility] Comment on above: Order Comment: Order added by Discern Expert. Performed By: #### 2 514303, 5572901, 1886227, 77475488, 2910722, 5564146 ####[facility] [address] [place] [address] Family Medicine Office/Clini c Noteon 08-28-2023 Family Medicine Office/Clinic Note Chief Complaint sinus infection that is not going away HPI Staff Bonita is a 33 year old female here for a sinus infection was seen here July 25 for a sinus infection and symptoms have not gotten any better symptoms for over a month headache, sinus pressure, nasal drainage, stuffy nose History of Present Illness TANIKABONITA is a 33 Years White Female presenting to clinic today with sinus issues seen 07/25/23 with same symptoms given augmentin x10 days per patient, symptoms have not improved postnasal drip worsening no fever, chills, difficulty breathing taking allergy med daily, sinus rinse daily Review of Systems PHQ Score Initial Depression Screen Score: 0 SCORE Negative except as above Physical Exam Vitals & Measurements T: 36.6 ?C(Oral) HR: 59(Peripheral) BP: 114/70 SpO2: 96% HT: 70 in HT: 178 cm WT: 104 kg WT: 228.8 lb BMI: 32.82 Gen: No acute distress, sitting comfortably in chair HEENT: Posterior pharynx slightly erythematous, moist mucous membranes, TMs and external ear canals normal, +tender b/l maxillary sinus tenderness, no tonsillar enlargement Cardio: RRR, no murmur/rubs/gallops Resp: CTAB, no wheezing/rales/rhonc hi Assessment/Plan 1. Chronic sinusitis of both maxillary sinuses (J32.0: Chronic maxillary sinusitis) doxycycline x7 days prescribed flonase prescribed trial mucinex drink plenty of fluids use humidifier make appt with PCP if no improvement Ordered: doxycycline, 100 mg = 1 cap(s), Oral, BID, X 7 day(s), # 14 cap(s), Refills(s) 0, Pharmacy: [facility]/pharmacy #[id number], 178, cm, 08/28/23 12:08:00 EST, Height/Length Dosing, 104, kg, 08/28/23 12:08:00 EST, Weight Dosing fluticasone nasal, 2 spray(s), Nasal, Daily, 16 gram, Refill(s) 1, each nostril, [facility]/pharmacy #[id number], 178, cm, 08/28/23 12:08:00 EST, Height/Length Dosing, 104, kg, 08/28/23 12:08:00 EST, Weight Dosing 2. BMI 32.0-32.9,adult (Z68.32: Body mass index [BMI] 32.0-32.9, adult) The standard range for ages 18 and older is >=18.5 and < 25 kg/m2. Your BMI today was above this range, this falls in the overweight to obese category and there are medical benefits to weight loss. We can offer counselling, referral, and/or medical support in addressing this problem. Your BMI and weight management will be followed at subsequent visits. Ordered: Body Mass Index (BMI) documented 3008F 3. Obesity due to excess calories (E66.09: Other obesity due to excess calories) increase whole foods, decrease processed foods exercise at least 2.5 hours weekly 4. Former smoker (Z87.891: Personal history of nicotine dependence) stable Follow-up With When Contact Information Janna Koo MD, FAM, MED Only if needed [address] [place] [phone] Additional Instructions: Problem List/Past Medical History Ongoing Abnormal thyroid function test Acne BMI 32.0-32.9,adult Cigarette smoker Former smoker Generalized anxiety disorder Hair loss Hip pain, bilateral HPV in female Irregular menses Low back pain Lumbar canal stenosis Lumbar herniated disc Obesity due to excess calories Puncture wound of left foot Raynaud phenomenon Sprain of left foot Historical No qualifying data Procedure/Surgical History Insertion of IUD, LEEP (Loop electrosurgical excision procedure) of cervix. Medications doxycycline hyclate 100 mg Cap, 100 mg= 1 cap(s), Oral, BID Flonase 0.05 mg/inh [place], 2 spray(s), Nasal, Daily, 1 refills ParaGard intrauteral device Allergies Dimetapp Cold & Cough (Hives) Social History Alcohol - Denies Alcohol Use, 07/23/2020 Substance Abuse - Denies Substance Abuse, 01/14/2020 Tobacco - Denies Tobacco Use, 07/25/2023 Former smoker, quit more than 30 days ago Tobacco Use:. Never Smokeless Tobacco Use:. Cigarettes, 08/28/2023 Family History Drug abuse: Mother. Drug overdose: Mother. Thyroid Disease: Father. Immunizations Vaccine Date Status Comments influenza virus vaccine, inactivated - Not Given Patient Refuses SARS-CoV-2 mRNA (tozinameran 5y-11y) vac - Not Given Patient Refuses influenza virus vaccine, inactivated - Not Given Postpone due to refusal SARS-CoV-2 mRNA (tozinameran 5y-11y) vac - Not Given Postpone due to refusal measles/mumps/rubell a virus vaccine 01/16/2002 Recorded measles/mumps/rubell a virus vaccine 08/15/1991 Recorded Hib, unspecified formulation 08/15/1991 Recorded Hib, unspecified formulation [address] [facility] Comment on above: Result Comment: Elec tronically Signed By: Janna Koo MD\.br\Date and Time Signed: 08/28/23 12:37 EST Ambulatory Visit Summaryon 1 09-24-2022 Ambulatory Visit Summary BONITA SAGASTUME :1990 Visit Date:07/25/2023 Ambulatory Visit Instructions Your Diagnosis Body mass index [BMI] 32.0-32.9, adult Your Care Team Attending Physician - IAN LANDERS, ANASTACIO Primary Care Physician - NONE, XXXX This Is Your Medications List copper (ParaGard intrauteral device) liothyronine (liothyronine 5 mcg Tab) Procedures Performed Insertion of IUD, LEEP (Loop electrosurgical excision procedure) of cervix. Discharge Vitals Temperature (Oral) 36.6 ?C Heart Rate (Peripheral) 71 Blood Pressure 118/76 Height 178 cm Height 70 in Weight 101.4 kg Weight 223.08 lb BMI 32 Medications What How Much When Instructions Unchanged copper (ParaGard intrauteral device) Unchanged liothyronine (liothyronine 5 mcg Tab) 1 Tablets By Mouth Every day Allergies Dimetapp Cold & Cough (Hives) Problems Ongoing - Any problem that you are currently receiving treatment for. Abnormal thyroid function test Acne BMI 30.0-30.9,adult Body mass index (BMI) of 31.0 to 31.9 in adult Cigarette smoker Dry skin Fatigue Generalized anxiety disorder Hair loss Hip pain, bilateral HPV in female Irregular menses Low back pain Lumbar canal stenosis Lumbar herniated disc Preventative health care Raynaud phenomenon Screening for cardiovascular condition Sprain of left foot Weight gain Patient Survey You may receive a survey via text or e-mail asking about your office visit. Please share your experience with us by completing your survey. We appreciate your feedback and thank you for choosing us for your care. [facility] Family Medicine Office/Clini c Noteon 07-25-2023 Family Medicine Office/Clinic Note Chief Complaint Current pt headache, sinus congestion, ear pain HPI Staff Bonita, 33 yo female here today with sinus infection Symptoms began about 2 wks ago Complains of sinus congestion, ear pain, headache, Pt has taken mucinex History of Present Illness Reviewed and agree with above documented HPI by medical imaging technologist. Portions of this record may have been created with voice recognition artificial intelligence software, specifically [employer], [employer] and or [employer]. Substitutions may have occurred due to the inherent limitations of voice recognition and artificial intelligence software. Patient is a 33-year-old female who presents to convenient care, for sinus pressure, sinus drainage, bilateral ear pressure, sinus headache, patient states she does have a history of sinus infection, symptoms for started she has been taking mqdd-hnh-zcgktga Mucinex without any relief, states she has not had a cough, states symptoms started greater than 2 weeks ago, states that she has been eating and drinking, has her sense of taste and smell intact, not concerned about being exposed to COVID-19, or strep throat. Patient denies any worsening headache of her life, dizziness, fevers, chills, nausea or vomiting, difficulty swallowing, sore throat, cough, chest pain, shortness of breath, dyspnea exertion, or weakness. Review of Systems PHQ Score Initial Depression Screen Score: 0 SCORE Physical Exam Vitals & Measurements T: 36.6 ?C(Oral) HR: 71(Peripheral) BP: 118/76 SpO2: 97% HT: 70 in HT: 178 cm WT: 101.4 kg WT: 223.08 lb BMI: 32 General: Well developed, well nourished, in no acute distress, patient does appears ill but not septic, no respiratory distress is noted. Patient answers questions appropriately and in complete sentences, and follows commands appropriately. Head/Face: Normocephalic/atraum atic, positive frontal sinus tenderness positive maxillary sinus tenderness with pressure and palpation. No facial swelling or cellulitis. Eyes: Pupils equal, round, and reactive to light. Conjunctivae and sclerae normal, Ears: TMs are bulging, left greater than right, no signs otitis media or otitis externa. Hearing is intact. Nose: No deformity, discharge, inflammation, or lesions Mouth: Mucous membranes moist. Normal oropharynx, and posterior pharynx postnasal drip with erythremia and without exudates, lesions, or enlarge tonsils. Neck: anterior cervical adenopathy L side no other adenopathy. Lungs: Normal respiratory effort, respiratory wheezing noted in all lung sharma, without any Rales, crackles, or decreased breath sounds. Cardio: regular rate and rhythm, no murmur, no chest pain. No chest wall tenderness. Extremity: Patient is able to move all 4 extremities equally without any pain or weakness. Neurologic: Grossly normal Skin: No rashes, ulcerations, or suspicious lesions Lymph Nodes: no lad Mental Status: alert, active Assessment/Plan No swabs were indicated at this time. 33-year-old female presents to [facility], for acute bacterial sinusitis, symptoms started over 2 weeks ago, patient did not appear ill or septic, no respiratory disorder or difficulty swallowing was noted. Patient instructed take icxk-biv-yukppau ibuprofen Tylenol together every 8 hours with food, for body aches, headaches, fevers. Drink plenty water stay hydrated. Given a prescription for Augmentin. Follow-up with primary care provider. 1. Acute bacterial sinusitis (J01.90: Acute sinusitis, unspecified) See above Ordered: amoxicillin-clavulan ate, 1 tab(s), Oral, BID for 10 day(s), 20 tab(s), Refill(s) 0, [id number], 178, cm, 07/25/23 17:14:00 EST, Height/Length Dosing, 101.4, kg, 07/25/23 17:14:00 EST, Weight Dosing 2. Body mass index [BMI] 32.0-32.9, adult (Z68.32: Body mass index [BMI] 32.0-32.9, adult) The standard range for ages 18 and older is >=18.5 and < 25 kg/m2. Your BMI today was above this range, this falls in the overweight to obese category and there are medical benefits to weight loss. We can offer counselling, referral, and/or medical support in addressing this problem. Your BMI and weight management will be followed at subsequent visits. Other specified bacterial agents as the cause of diseases classified elsewhere (B96.89: Other specified bacterial agents as the cause of diseases classified elsewhere) Follow-up With When Contact Information NONE, XXXX [phone] Additional Instructions: Patient Education BMI for Adults Sinus Infection, Adult, Qgna-an-Ocxq Problem List/Past Medical History Ongoing Abnormal thyroid function test Acne Acute bacterial sinusitis BMI 30.0-30.9,adult Body mass index (BMI) of 31.0 to 31.9 in adult Cigarette smoker Dry skin Fatigue Generalized anxiety disorder Hair loss Hip pain, bilateral HPV in female Irregular menses Low back pain Lumbar canal stenosis Lumbar herniated disc Preventative health care Raynaud p (more content not included)... [facility] Comment on above: Result Comment: Elec tronically Signed By: ANASTACIO SOSA PA-C\.albertina\Date and Time Signed: 07/25/23 17:27 EST Patient Educationon 07-25-20 Patient Education Infectious Disease Sinus Infection, Adult A sinus infection is soreness and swelling (inflammation) of your sinuses. Sinuses are hollow spaces in the bones around your face. They are located: ? Around your eyes. ? In the middle of your forehead. ? Behind your nose. ? In your cheekbones. Your sinuses and nasal passages are lined with a fluid called mucus. Mucus drains out of your sinuses. Swelling can trap mucus in your sinuses. This lets germs (bacteria, virus, or fungus) grow, which leads to infection. Most of the time, this condition is caused by a virus. What are the causes? ? Allergies. ? Asthma. ? Germs. ? Things that block your nose or sinuses. ? Growths in the nose (nasal polyps). ? Chemicals or irritants in the air. ? A fungus. This is rare. What increases the risk? ? Having a weak body defense system (immune system). ? Doing a lot of swimming or diving. ? Using nasal sprays too much. ? Smoking. What are the signs or symptoms? The main symptoms of this condition are pain and a feeling of pressure around the sinuses. Other symptoms include: ? Stuffy nose (congestion). This may make it hard to breathe through your nose. ? Runny nose (drainage). ? Soreness, swelling, and warmth in the sinuses. ? A cough that may get worse at night. ? Being unable to smell and taste. ? Mucus that collects in the throat or the back of the nose (postnasal drip). This may cause a sore throat or bad breath. ? Being very tired (fatigued). ? A fever. How is this diagnosed? ? Your symptoms. ? Your medical history. ? A physical exam. ? Tests to find out if your condition is short-term (acute) or long-term (chronic). Your doctor may: ? Check your nose for growths (polyps). ? Check your sinuses using a tool that has a light on one end (endoscope). ? Check for allergies or germs. ? Do imaging tests, such as an MRI or CT scan. How is this treated? Treatment for this condition depends on the cause and whether it is short-term or long-term. ? If caused by a virus, your symptoms should go away on their own within 10 days. You may be given medicines to relieve symptoms. They include: ? Medicines that shrink swollen tissue in the nose. ? A spray that treats swelling of the nostrils. ? Rinses that help get rid of thick mucus in your nose (nasal saline washes). ? Medicines that treat allergies (antihistamines). ? Uycb-wpm-stjsolv pain relievers. ? If caused by bacteria, your doctor may wait to see if you will get better without treatment. You may be given antibiotic medicine if you have: ? A very bad infection. ? A weak body defense system. ? If caused by growths in the nose, surgery may be needed. Follow these instructions at home: Medicines ? Take, use, or apply uxnk-wnn-utchcxx and prescription medicines only as told by your doctor. These may include nasal sprays. ? If you were prescribed an antibiotic medicine, take it as told by your doctor. Do not stop taking it even if you start to feel better. Hydrate and humidify ? Drink enough water to keep your pee (urine) pale yellow. ? Use a cool mist humidifier to keep the humidity level in your home above 50%. ? Breathe in steam for 10?15 minutes, 3?4 times a day, or as told by your doctor. You can do this in the bathroom while a hot shower is running. ? Try not to spend time in cool or dry air. Rest ? Rest as much as you can. ? Sleep with your head raised (elevated). ? Make sure you get enough sleep each night. General instructions ? Put a warm, moist washcloth on your face 3?4 times a day, or as often as told by your doctor. ? Use nasal saline washes as often as told by your doctor. ? Wash your hands often with soap and water. If you cannot use soap and water, use hand weigh and charge worker. ? Do not smoke. Avoid being around people who are smoking (secondhand smoke). ? Keep all follow-up visits. Contact a doctor if: ? You have a fever. ? Your symptoms get worse. ? Your symptoms do not get better within 10 days. Get help right away if: ? You have a very bad headache. ? You cannot stop vomiting. ? You have very bad pain or swelling around your face or eyes. ? You have trouble seeing. ? You feel confused. ? Your neck is stiff. ? You have trouble breathing. These symptoms may be an emergency. Get help right away. Call 911. ? Do not wait to see if the symptoms will go away. ? Do not drive yourself to the hospital. Summary ? A sinus infection is swelling of your sinuses. Sinuses are hollow spaces in the bones around your face. ? This condition is caused by tissues in your nose that become inflamed or swollen. This traps germs. These can lead to infection. ? If you were prescribed an antibiotic medicine, take it as told by your doctor. Do not stop taking it even if you start to feel better. ? Keep all follow-up visits (more content not included)... Normal [facility] Family Medicine Office/Clini c Corey 2023 Family Medicine Office/Clinic Note Chief Complaint EST pain in ball of left foot HPI Staff 33 year old female presents with ball of foot pain 2 - 3 days ago the ball of her foot is hurting to walk on it states she wears steal toe boots 13 hours a day for work History of Present Illness Reviewed and agree with above documented HPI by medical imaging technologist. Portions of this record may have been created with voice recognition artificial intelligence software, specifically [employer], [employer] and or [employer]. Substitutions may have occurred due to the inherent limitations of voice recognition and artificial intelligence software. Patient is a 33-year-old female with no significant past medical history, presents to [facility], for left foot pain, started about 2 to 3 days ago, patient states she does wear steel toed, states she works 13-hour shifts, 6 days a week, for the past 2 to 3 days she has been doing some prolonged walking, states she has no significant history of injury or trauma, most of the pain from prolonged walking. Patient states the pain is mostly on her ball of her foot, only on her left foot but not the right foot. Patient states she has no significant past medical history with left foot injury or surgical procedures. Patient denies any fevers, chills, nausea, right foot pain, any other musculoskeletal pain, sore throat, cough, chest pain, shortness of breath, or weakness. Review of Systems PHQ Score Initial Depression Screen Score: 0 Physical Exam Vitals & Measurements T: 37 ?C(Oral) HR: 62(Peripheral) BP: 120/78 SpO2: 98% HT: 70 in HT: 178 cm WT: 95.4 kg WT: 209.88 lb BMI: 30.11 General: Well developed, well nourished, in no acute distress patient does not appear ill or septic. Head/Face: Normocephalic/atraum atic no upper respiratory infections noted. Lungs: Normal respiratory effort and clear to auscultation throughout, no wheezing, no rales Cardio: regular rate and rhythm, no murmur Pulses: Normal capillary refill Extremity: No clubbing, cyanosis, edema, or deformity, with normal ROM in both upper and lower bilateral extremities thickened swollen of the ball of the left foot, plantar surface, compared to the right, tender on exam, the skin is slightly red, without ecchymosis or abrasions or puncture wounds. Patient is able to her toes, has flexion extension intact. With no worsening pain. There is no pain that radiates to the top of the foot or toes. Foot exam is within normal limits. No other musculoskeletal tenderness noted on examination. The skin is intact again without any ecchymosis, red streaks, swelling, edema, crepitus, deformity, dislocation, or cellulitis noted on examination. Patient is neurovascular intact. Neurologic: Grossly normal Skin: No rashes, ulcerations, or suspicious lesions Lymph Nodes: no lad Mental Status: not assessed Assessment/Plan Left foot imaging for any possible acute findings. Patient declines any pain medication at this time. Reassessed patient at the return for imaging, states she has no worsening pain. Discussed with patient no acute findings noted imaging, read by the radiologist. 33-year-old female presented to [facility], for left foot sprain, secondary to prolonged walking, and standing, no history injuries or trauma, no cellulitis, crepitus, deformity, bony tenderness, dislocation, edema, joint bleeding, or cellulitis noted on examination. No puncture wounds, abrasions, or ulcerations were noted on examination. Patient was given a prescription of baclofen, instructed on ice therapy, consider purchasing a new pair of boots or buying insults or her new boot, patient agreed with plan. Patient was given a work excuse note. 1. Sprain of left foot (S93.602A: Unspecified sprain of left foot, initial encounter) See above Ordered: baclofen, 10 mg = 1 tab(s), Oral, TID, X 10 day(s), # 30 tab(s), Refills(s) 0, Pharmacy: [facility]/pharmacy #[id number], 178, cm, 05/05/23 12:17:00 EDT, Height/Length Dosing, 95.4, kg, 05/05/23 12:17:00 EDT, Weight Dosing XR Foot 3+ Views Left 2. BMI 30.0-30.9,adult (Z68.30: Body mass index [BMI] 30.0-30.9, adult) The standard range for ages 18 and older is >=18.5 and < 25 kg/m2. Your BMI today was above this range, this falls in the overweight to obese category and there are medical benefits to weight loss. We can offer counselling, referral, and/or medical support in addressing this problem. Your BMI and weight management will be followed at subsequent visits. Follow-up With When Contact Information NONE, XXXX [phone] Additional Instructions: Patient Education BMI for Adults Foot Sprain Problem List/Past Medical History Ongoing Abnormal thyroid function test Acne BMI 30.0-30.9,adult Body mass index (BMI) of 31.0 to 31.9 in adult Cigarette smoker Dry skin Fatigue Generalized anxiety disorder Hair loss Hip pain, bilateral HPV in female Irregular menses Low back pain Lumbar canal stenosis Lumbar herniated disc P (more content not included)... Normal [facility] Comment on above: Result Comment: Elec tronically Signed By: IAN LANDERS, ANASTACIO\.br\Date and Time Signed: 05/05/23 14:21 EDT Patient Educationon 05-05-20 Patient Education Nutrition BMI for Adults What is BMI? Body mass index (BMI) is a number that is calculated from a person's weight and height. BMI can help estimate how much of a person's weight is composed of fat. BMI does not measure body fat directly. Rather, it is an alternative to procedures that directly measure body fat, which can be difficult and expensive. BMI can help identify people who may be at higher risk for certain medical problems. What are BMI measurements used for? BMI is used as a screening tool to identify possible weight problems. It helps determine whether a person is obese, overweight, a healthy weight, or underweight. BMI is useful for: ? Identifying a weight problem that may be related to a medical condition or may increase the risk for medical problems. ? Promoting changes, such as changes in diet and exercise, to help reach a healthy weight. BMI screening can be repeated to see if these changes are working. How is BMI calculated? BMI involves measuring your weight in relation to your height. Both height and weight are measured, and the BMI is calculated from those numbers. This can be done either in [place] ([place] or metric measurements. Note that charts and online BMI calculators are available to help you find your BMI quickly and easily without having to do these calculations yourself. To calculate your BMI in [place] measurements: 1. Measure your weight in pounds (lb). 2. Multiply the number of pounds by 703. ? For example, for a person who weighs 180 lb, multiply that number by 703, which equals 126,540. 3. Measure your height in inches. Then multiply that number by itself to get a measurement called inches squared. ? For example, for a person who is 70 inches tall, the inches squared measurement is 70 inches x 70 inches, which equals 4,900 inches squared. 4. Divide the total from step 2 (number of lb x 703) by the total from step 3 (inches squared): 126,540 ? 4,900 = 25.8. This is your BMI. To calculate your BMI in metric measurements: 1. Measure your weight in kilograms (kg). 2. Measure your height in meters (m). Then multiply that number by itself to get a measurement called meters squared. ? For example, for a person who is 1.75 m tall, the meters squared measurement is 1.75 m x 1.75 m, which is equal to 3.1 meters squared. 3. Divide the number of kilograms (your weight) by the meters squared number. In this example: 70 ? 3.1 = 22.6. This is your BMI. What do the results mean? BMI charts are used to identify whether you are underweight, normal weight, overweight, or obese. The following guidelines will be used: ? Underweight: BMI less than 18.5. ? Normal weight: BMI between 18.5 and 24.9. ? Overweight: BMI between 25 and 29.9. ? Obese: BMI of 30 or above. Keep these notes in mind: ? Weight includes both fat and muscle, so someone with a muscular build, such as an athlete, may have a BMI that is higher than 24.9. In cases like these, BMI is not an accurate measure of body fat. ? To determine if excess body fat is the cause of a BMI of 25 or higher, further assessments may need to be done by a health care provider. ? BMI is usually interpreted in the same way for men and women. Where to find more information For more information about BMI, including tools to quickly calculate your BMI, go to these websites: ? Centers for Disease Control and Prevention: www.cdc.gov ? [place] [employer]: www.heart.org ? National Heart, Lung, and Blood [place]: www.nhlbi.nih.gov Summary ? Body mass index (BMI) is a number that is calculated from a person's weight and height. ? BMI may help estimate how much of a person's weight is composed of fat. BMI can help identify those who may be at higher risk for certain medical problems. ? BMI can be measured using Ivorian measurements or metric measurements. ? BMI charts are used to identify whether you are underweight, normal weight, overweight, or obese. This information is not intended to replace advice given to you by your health care provider. Make sure you discuss any questions you have with your health care provider. Document Revised: 05/07/2020 Document Reviewed: 03/14/2020 [employer] Patient Education ? 2022 [employer] Orthopedics Foot Sprain A foot sprain is an injury to one of the ligaments in the feet. Ligaments are strong tissues that connect bones to each other. The ligament can be stretched too much. In some cases, it may tear. A tear can be either partial or complete. The severity of the sprain depends on how much of the ligament was damaged or torn. What are the causes? This condition is usually caused by suddenly twisting or pivoting your foot. What increases the risk? You are more likely to develop this condition if: ? You play a sport, such as basketball or football. ? You exercise or play a sport without first warming up your muscles. ? Y (more content not included)... Normal [facility] Provider Letteron 2023 Provider Letter 2023 BONITA BERRIOSLLNER [address] [place] [address] [place] [id number] : 1990 To Whom It May Concern, Please excuse above patient from work. Date of Illness: From: 2023 To: 05/08/2023 May Return to Work On: 05/09 Sincerely, GEREMIAS CASTRO [facility] [address] [place] [address], [place] [address] [facility] XR Foot 3+ Views Lefton XR Foot 3+ Views Left Exam Date/Time: 2023 12:45 EDT Reason for Exam: Pain, Non Traumatic Report IMPRESSION: No acute osseous findings. EXAMINATION/TECHNIQU E: XR Foot 3+ Views Left HISTORY: Pain on the ball of the left foot for 3 days. No recent injury. Wears steel toe boots. COMPARISON: None RESULT: No acute fracture. No dislocation. Joint spaces appear maintained with small osteophytes at the first MTP joint and within the midfoot. Small posterior calcaneal enthesophyte. Soft tissues unremarkable. No other significant abnormality. Ordering Provider: ANASTACIO SOSA FINAL REPORT Dictated: 2023 12:48 pm Bebeto Quintero MD. Signed (Electronic Signature): 2023 12:48 pm Signed by: Bebeto Quintero MD Transcribed by: TONI Technologist: MAGGIE Technical Comments Radiation Dose: Ka,r in mGy = . DAP = . Normal [facility] Ambulatory Visit Summaryon 0 03-15-2023 Ambulatory Visit Summary BONITA SAGASTUME :1990 Visit Date:03/15/2023 Ambulatory Visit Instructions Your Diagnosis Herpes labialis Body mass index (BMI) of 31.0 to 31.9 in adult Your Care Team Attending Physician - Marissa JETT CNP Primary Care Physician - Ronald AGUDELO DO This Is Your Medications List valacyclovir (valacyclovir 1 g Tab) Contact prescribing physician if questions or concerns copper (ParaGard intrauteral device) liothyronine (liothyronine 5 mcg Tab) Procedures Performed Insertion of IUD, LEEP (Loop electrosurgical excision procedure) of cervix. Discharge Vitals Temperature (Oral) 36.5 ?C Heart Rate (Peripheral) 62 Blood Pressure 112/72 Height 178 cm Height 70 in Weight 100.4 kg Weight 220.88 lb BMI 31.69 What to do next You Need to Schedule the Following Appointments Follow Up with Ronald AGUDELO DO, FAM When: Where: [address] [place] [address]- Medications What How Much When Instructions New valacyclovir (valacyclovir 1 g Tab) 2 Tablets By Mouth Every 12 hours Duration: 1 Days Refills: 2 Pickup at [facility] #[id number] Unchanged copper (ParaGard intrauteral device) Contact prescribing physician if questions or concerns Unchanged liothyronine (liothyronine 5 mcg Tab) 1 Tablets By Mouth Every day Contact prescribing physician if questions or concerns Pharmacy Information [facility] #[id number]: [address] [place], [place] [id number] [phone] Allergies Dimetapp Cold & Cough (Hives) Problems Ongoing - Any problem that you are currently receiving treatment for. Abnormal thyroid function test Acne Body mass index (BMI) of 31.0 to 31.9 in adult Cigarette smoker Dry skin Fatigue Generalized anxiety disorder Hair loss Hip pain, bilateral HPV in female Irregular menses Low back pain Lumbar canal stenosis Lumbar herniated disc Preventative health care Raynaud phenomenon Screening for cardiovascular condition Weight gain Education Materials Cold Sore A cold sore, also called a fever blister, is a small, fluid-filled sore that forms inside of the mouth or on the lips, gums, nose, chin, or cheeks. Cold sores can spread to other parts of the body, such as the eyes, fingers, or genitals. Cold sores can spread from person to person (are contagious) until the sores crust over completely. Most cold sores go away within 2 weeks. What are the causes? Cold sores are caused by a virus (herpes simplex virus type 1, HSV-1). The virus can spread from person to person through close contact, such as through: ? Kissing. ? Touching the affected area. ? Sharing personal items such as lip balm, razors, a drinking glass, or eating utensils. What increases the risk? ? Being tired, stressed, or sick. ? Having your period (menstruating). ? Being . ? Taking certain medicines. ? Being out in cold weather or getting too much sun. What are the signs or symptoms? Symptoms of a cold sore go through different stages: ? Tingling, itching, or burning is felt 1?2 days before the cold sore appears. ? Fluid-filled blisters appear on the lips, inside the mouth, on the nose, or on the cheeks. ? The blisters start to ooze clear fluid. ? The blisters dry up, and a yellow crust appears in their place. ? The crust falls off. In some cases, other symptoms can develop along with cold sores. These can include: ? Fever. ? Sore throat. ? Headache. ? Muscle aches. ? Swollen neck glands. How is this treated? There is no cure for cold sores or the virus that causes them. There is also no vaccine to prevent the virus. Most cold sores go away on their own without treatment within 2 weeks. Your doctor may prescribe medicines to: ? Help with pain. ? Keep the virus from growing. ? Help you heal faster. Medicines may be in the form of creams, gels, pills, or a shot. Follow these instructions at home: Medicines ? Take or apply nmhb-uuw-mpubkte and prescription medicines only as told by your doctor. ? Use a cotton-tip swab to apply creams or gels to your sores. ? Ask your doctor if you can take lysine supplements. These may help with healing. Sore care ? Do not touch the sores or pick the scabs. ? Wash your hands often with soap and water for at least 20 seconds. Do not touch your eyes without washing your hands first. ? Keep the sores clean and dry. ? If told, put ice on the sores. To do this: ? Put ice in a plastic bag. ? Place a towel between your skin and the bag. ? Leave the ice on for 20 minutes, 2?3 times a day. ? Take off the ice if your skin turns bright red. This is very important. If you cannot feel pain, heat, or cold, you have a greater risk of damage to the area. Eating and drinking ? Eat a soft, bland diet. Avoid eating hot, co (more content not included)... Normal [facility] Medicine Office/Clini c Noteon 03-15-2023 Family Medicine Office/Clinic Note Chief Complaint cold sore on bottom lip HPI Staff 32 yr old female here for cold sore on bottom lip Denies other symptoms hx of cold sores History of Present Illness I have reviewed and verified the staff HPI to be accurate for this encounter. Patient presents in office for concern of cold sore outbreak. Symptoms x4 days. States some of lesions to start in the last day or 2. Complains of tingling and pain to area. Patient has a history of cold sores. Has been more stressed out lately. Denies fever. Denies recent upper respiratory symptoms. Denies oral mucosal sores or lesions. No sirr-ugc-jhsymeh medications used. Review of Systems PHQ Score Initial Depression Screen Score: 0 Physical Exam Vitals & Measurements T: 36.5 ?C(Oral) HR: 62(Peripheral) BP: 112/72 SpO2: 98% HT: 70 in HT: 178 cm WT: 100.4 kg WT: 220.88 lb BMI: 31.69 General: Well developed, well nourished, in no acute distress Mouth: No pharyngeal erythema or edema. No oral sores or lesions to oral mucosa. Neck: no adenopathy Lungs: Normal respiratory effort and clear to auscultation Cardio: regular rate and rhythm, no murmur Skin: Patient with 4 scattered cold sore lesions to lower lip. No active drainage. No significant swelling. Mild yellow crusting over areas. Mental Status: Alert and oriented x3. Normal mood and affect Assessment/Plan 1. Herpes labialis (B00.1: Herpesviral vesicular dermatitis) Will treat with valacyclovir. Discussed with patient oral herpes is most effectively treated with antiviral immediately after initial onset of symptoms. Discussed we will put 2 refills on medication to use for future outbreaks, but may wish to follow-up with PCP for further refills in the future. Avoid scratching or picking at lesions. Follow-up with PCP if not gradually improving over the next week. 2. Body mass index (BMI) of 31.0 to 31.9 in adult (Z68.31: Body mass index [BMI] 31.0-31.9, adult) The standard range for ages 18 and older is >=18.5 and < 25 kg/m2. Your BMI today was above this range, this falls in the overweight to obese category and there are medical benefits to weight loss. We can offer counselling, referral, and/or medical support in addressing this problem. Your BMI and weight management will be followed at subsequent visits. Orders: valacyclovir, 2 gm = 2 tab(s), Oral, q12hr, X 1 day(s), # 4 tab(s), Refills(s) 2, Pharmacy: [facility] #[id number], 178, cm, 03/15/23 16:13:00 EDT, Height/Length Dosing, 100.4, kg, 03/15/23 16:13:00 EDT, Weight Dosing Follow-up With When Contact Information Ronald AGUDELO DO, [facility] [address] [facility] [address] [place] [phone] Additional Instructions: Patient Education Cold Sore, Jkqk-ew-Gkjt BMI for Adults Problem List/Past Medical History Ongoing Abnormal thyroid function test Acne Body mass index (BMI) of 31.0 to 31.9 in adult Cigarette smoker Dry skin Fatigue Generalized anxiety disorder Hair loss Hip pain, bilateral HPV in female Irregular menses Low back pain Lumbar canal stenosis Lumbar herniated disc Preventative health care Raynaud phenomenon Screening for cardiovascular condition Weight gain Historical No qualifying data Procedure/Surgical History Insertion of IUD, LEEP (Loop electrosurgical excision procedure) of cervix. Medications liothyronine 5 mcg Tab, 5 mcg= 1 tab(s), Oral, Daily, 2 refills, Not taking ParaGard intrauteral device valacyclovir 1 g Tab, 2 gm= 2 tab(s), Oral, q12hr, 2 refills Allergies Dimetapp Cold & Cough (Hives) Social History Alcohol - Denies Alcohol Use, 07/23/2020 Substance Abuse - Denies Substance Abuse, 01/14/2020 Tobacco - High Risk, 07/28/2020 5-9 cigarettes (between 1/4 to 1/2 pack)/day in last 30 days Tobacco Use:. Never Smokeless Tobacco Use:. Cigarettes, Yes, 03/15/2023 Family History Drug abuse: Mother. Drug overdose: Mother. Thyroid Disease: Father. Immunizations Vaccine Date Status Comments influenza virus vaccine, inactivated - Not Given Postpone due to refusal SARS-CoV-2 mRNA (tozinameran 5y-11y) vac - Not Given Postpone due to refusal measles/mumps/rubell a virus vaccine 01/16/2002 Recorded measles/mumps/rubell a virus vaccine 08/15/1991 Recorded Hib, unspecified formulation 08/15/1991 Recorded Hib, unspecified formulation 1990 Recorded Normal [facility] Comment on above: Result Comment: Elec tronically Signed By: Marissa JETT CNP\.albertina\Date and Time Signed: 03/15/23 16:47 EDT Patient Educationon 03-15-20 Patient Education Infectious Disease Cold Sore A cold sore, also called a fever blister, is a small, fluid-filled sore that forms inside of the mouth or on the lips, gums, nose, chin, or cheeks. Cold sores can spread to other parts of the body, such as the eyes, fingers, or genitals. Cold sores can spread from person to person (are contagious) until the sores crust over completely. Most cold sores go away within 2 weeks. What are the causes? Cold sores are caused by a virus (herpes simplex virus type 1, HSV-1). The virus can spread from person to person through close contact, such as through: ? Kissing. ? Touching the affected area. ? Sharing personal items such as lip balm, razors, a drinking glass, or eating utensils. What increases the risk? ? Being tired, stressed, or sick. ? Having your period (menstruating). ? Being . ? Taking certain medicines. ? Being out in cold weather or getting too much sun. What are the signs or symptoms? Symptoms of a cold sore go through different stages: ? Tingling, itching, or burning is felt 1?2 days before the cold sore appears. ? Fluid-filled blisters appear on the lips, inside the mouth, on the nose, or on the cheeks. ? The blisters start to ooze clear fluid. ? The blisters dry up, and a yellow crust appears in their place. ? The crust falls off. In some cases, other symptoms can develop along with cold sores. These can include: ? Fever. ? Sore throat. ? Headache. ? Muscle aches. ? Swollen neck glands. How is this treated? There is no cure for cold sores or the virus that causes them. There is also no vaccine to prevent the virus. Most cold sores go away on their own without treatment within 2 weeks. Your doctor may prescribe medicines to: ? Help with pain. ? Keep the virus from growing. ? Help you heal faster. Medicines may be in the form of creams, gels, pills, or a shot. Follow these instructions at home: Medicines ? Take or apply cjjl-jcs-uabplug and prescription medicines only as told by your doctor. ? Use a cotton-tip swab to apply creams or gels to your sores. ? Ask your doctor if you can take lysine supplements. These may help with healing. Sore care ? Do not touch the sores or pick the scabs. ? Wash your hands often with soap and water for at least 20 seconds. Do not touch your eyes without washing your hands first. ? Keep the sores clean and dry. ? If told, put ice on the sores. To do this: ? Put ice in a plastic bag. ? Place a towel between your skin and the bag. ? Leave the ice on for 20 minutes, 2?3 times a day. ? Take off the ice if your skin turns bright red. This is very important. If you cannot feel pain, heat, or cold, you have a greater risk of damage to the area. Eating and drinking ? Eat a soft, bland diet. Avoid eating hot, cold, or salty foods. These can hurt your mouth. ? Use a straw if it hurts to drink out of a glass. ? Eat foods that have a lot of lysine in them. These include meat, fish, and dairy products. ? Avoid sugary foods, chocolates, nuts, and grains. These foods have a high amount of a substance (arginine) that can cause the virus to grow. Lifestyle ? Do not kiss, have oral sex, or share personal items until your sores heal. ? Stress, poor sleep, and being out in the sun can trigger a cold sore. Make sure you: ? Do activities that help you relax, such as deep breathing exercises or meditation. ? Get enough sleep. ? Put sunscreen on your lips before you go out in the sun. Contact a doctor if: ? You have symptoms for more than 2 weeks. ? You have pus coming from the sores. ? You have redness that is spreading. ? You have pain or irritation in your eye. ? You get sores on your genitals. ? Your sores do not heal within 2 weeks. ? You get cold sores often. Get help right away if: ? You have a fever and your symptoms suddenly get worse. ? You have a headache and confusion. ? You have tiredness (fatigue). ? You do not want to eat as much as normal (loss of appetite). ? You have a stiff neck or are sensitive to light. Summary ? A cold sore is a small, fluid-filled sore that forms inside of the mouth or on the lips, gums, nose, chin, or cheeks. ? Cold sores can spread from person to person (are contagious) until the sores crust over completely. Most cold sores go away within 2 weeks. ? Wash your hands often. Do not touch your eyes without washing your hands first. ? Do not kiss, have oral sex, or share personal items until your sores heal. ? Contact a doctor if your sores do not heal within 2 weeks. This information is not intended to replace advice given to you by your health care provider. Make sure you discuss any questions you have with your health care provider. Document Revised: 05/26/2022 Document Reviewed: 05/26/2022 [employer] Patient Education ? 2022 [employer]. Nutrition BMI for Adults What is BMI? Body (more content not included)... Normal [facility] MARGO EIA W/REFLEX 5 BIOMARKER Son 12-08-2021 MARGO Direct Negative Normal Negative [facility] Comment on above: Performed By: #### A NARF #### [facility] [address] [address] [address] Bharat Taylor INSULINon 12-08-2021 Insulin 0.9 uIU/mL Critically low 2.6-24.9 [facility] Comment on above: Performed By: #### I NSULIN #### [facility] [address] [place] [address] Dr. Bharat Taylor CBC AUTO DIFFon 12-07-2021 BASO # 0.0 103/ul Normal 0.0-0.1 [facility] Comment on above: Performed By: #### C BC #### [facility] [address] [place] [address] Dr. Bharat Taylor Basophils/100 WBC (Bld) 0.6 % Normal 0.2-2.0 [facility] Comment on above: Performed By: #### C BC #### [facility] [address] [place] [address] Dr. Bharat Taylor EO # 0.1 103/ul Normal 0.0-0.7 [facility] Comment on above: Performed By: #### C BC #### [facility] [address] [place] [address] Dr. Bharat Taylor Eosinophils/100 WBC (Bld) 2.7 % Normal 0.9-7.0 [facility] Comment on above: Performed By: #### C BC #### [facility] [address] [place] [address] Dr. Bharat Taylor Erythrocyte distribution width (RBC) [Ratio] 12.5 % Normal 11.0-15.0 [facility] Comment on above: Performed By: #### C BC #### [facility] [address] [place] [address] Dr. Bharat Taylor Hematocrit (Bld) [Volume fraction] 42.4 % Normal 36.0-48.0 [facility] Comment on above: Performed By: #### C BC #### [facility] [address] [place] [address] Dr. Bharat Taylor Hemoglobin (Bld) [Mass/Vol] 14.2 g/dL Normal 12.0-16.0 [facility] Comment on above: Performed By: #### C BC #### [facility] [address] [place] [address] Dr. Bharat Taylor IG # 0.01 10e3/ul Normal 0.00-0.03 [facility] Comment on above: Performed By: #### C BC #### [facility] [address] [place] [address] Dr. Bharat Taylor IG % 0.2 % Normal 0.0-0.5 [facility] Comment on above: Performed By: #### C BC #### [facility] [address] [place] [address] Dr. Bharat Taylor LYMPH # 1.6 103/ul Normal 1.2-3.8 [facility] Comment on above: Performed By: #### C BC #### [facility] [address] [place] [address] Dr. Bharta Taylor Lymphocytes/100 WBC (Bld) 30.5 % Normal 20.5-60.0 [facility] Comment on above: Performed By: #### C BC #### [facility] [address] [place] [address] Dr. Bharat Taylor MANUAL DIFF REQ NO Normal [facility] Comment on above: Performed By: #### C BC #### [facility] [address] [place] [address] Dr. Bharat Taylor MCH (RBC) [Entitic mass] 31.1 pg Normal 26.7-34.0 [facility] Comment on above: Performed By: #### C BC #### [facility] [address] [place] [address] Dr. Bharat Taylor MCHC (RBC) [Mass/Vol] 33.5 g/dL Normal 29.9-35.2 [facility] Comment on above: Performed By: #### C BC #### [facility] [address] [place] [address] Dr. Bharat Taylor MCV (RBC) [Entitic vol] 92.8 fL Normal 81.0-99.0 [facility] Comment on above: Performed By: #### C BC #### [facility] [address] [place] [address] Dr. Bharat Taylor MONO # 1.0 103/ul Critically high 0.3-0.8 [facility] Comment on above: Performed By: #### C BC #### [facility] [address] [place] [address] Dr. Bharat Taylor Monocytes/100 WBC (Bld) 18.0 % Critically high 1.7-12.0 [facility] Comment on above: Performed By: #### C BC #### [facility] [address] [place] [address] Dr. Bharat Taylor NEUT # 2.5 103/ul Normal 1.4-6.5 [facility] Comment on above: Performed By: #### C BC #### [facility] [address] [place] [address] Dr. Bharat Taylor Neutrophils/100 WBC (Bld) 48.0 % Normal 43.0-75.0 [facility] Comment on above: Performed By: #### C BC #### [facility] [address] [place] [address] Dr. Bharat Taylor Platelet mean volume (Bld) [Entitic vol] 9.4 fL Critically low 9.5-13.5 [facility] Comment on above: Performed By: #### C BC #### [facility] [address] [place] [address] Dr. Bharat Taylor PLT 196 103/ul Normal 150-450 [facility] Comment on above: Performed By: #### C BC #### [facility] [address] [place] [address] Dr. Bharat Taylro RBC 4.57 106/ul Normal 4.20-5.40 [facility] Comment on above: Performed By: #### C BC #### [facility] [address] [place] [address] Dr. Bharat Taylor WBC 5.3 103/ul Normal 4.0-11.0 [facility] Comment on above: Performed By: #### C BC #### [facility] [address] [place] [address] Dr. Bharat Taylor CRPon 12-07-2021 CRP 1.0 mg/dL Normal <=1.0 [facility] Comment on above: Performed By: #### F T3, TSH, CMP, LIPID, CRP #### [facility] [address] [address] [address] Bharat Taylor FREE T3on 12-07-2021 FREE T3 2.03 pg/mlL Critically low 2.77-5.27 [facility] Comment on above: Performed By: #### F T3, TSH, CMP, LIPID, CRP #### [facility] [address] [address] [address] Bharat Taylor FREE T4on 12-07-2021 Free T4 [Mass/Vol] 1.02 ng/dL Normal 0.78-2.19 [facility] Comment on above: Performed By: #### V ITAD, FT4 #### [facility] [address] [address] [address] Bharat Taylor LIPID PROFILEon 12-07-2021 CHOL-HDL RATIO NORM SEE BELOW Normal [facility] Comment on above: Result Comment: 3.3 - 4.4 LOW RISK 4.4 - 7.1 AVERAGE RISK 7.1 - 11.0 MODERATE RISK >11.0 HIGH RISK Performed By: #### F T3, TSH, CMP, LIPID, CRP #### [facility] [address] [address] [address] Bharat Taylor Cholesterol [Mass/Vol] 121 mg/dL Normal <=200 [facility] Comment on above: Performed By: #### F T3, TSH, CMP, LIPID, CRP #### [facility] [address] [address] [address] Bharat Taylor Cholesterol in HDL [Mass/Vol] 61 mg/dL Critically high 40-60 [facility] Comment on above: Performed By: #### F T3, TSH, CMP, LIPID, CRP #### [facility] [address] [address] [address] Bharat Taylor Cholesterol in LDL [Mass/Vol] 53.4 mg/dL Normal [facility] Comment on above: Performed By: #### F T3, TSH, CMP, LIPID, CRP #### [facility] [address] [address] [address] Bharat Taylor Cholesterol.total/Cho lesterol in HDL [Mass ratio] 2.0 {ratio} Normal [facility] Comment on above: Performed By: #### F T3, TSH, CMP, LIPID, CRP #### [facility] [address] [address] [address] Bharat Taylor HDL NORMAL > or = 60 mg/dl - LOW CARDIOVASCULAR RISK <40 mg/dl - HIGH CARDIOVASCULAR RISK Normal [facility] Comment on above: Performed By: #### F T3, TSH, CMP, LIPID, CRP #### [facility] [address] [address] [address] Bharat Taylor LDL CALC NORMAL SEE BELOW Normal [facility] Comment on above: Result Comment: <100 mg/dl OPTIMAL 100 - 129 mg/dl NEAR OR ABOVE OPTIMAL 130 - 159 mg/dl BORDERLINE HIGH 160 - 189 mg/dl HIGH >190 mg/dl VERY HIGH Performed By: #### F T3, TSH, CMP, LIPID, CRP #### [facility] [address] [address] [address] Bharat Taylor Triglyceride [Mass/Vol] 33 mg/dL Normal <=150 [facility] Comment on above: Performed By: #### F T3, TSH, CMP, LIPID, CRP #### [facility] [address] [address] [address] Bharat Taylor VLDL CALC 6.6 mg/dL Normal [facility] Comment on above: Performed By: #### F T3, TSH, CMP, LIPID, CRP #### [facility] [address] [address] [address] Bharat Taylor PROF 14(COMP METB)on 022 Albumin [Mass/Vol] 3.5 g/dL Normal 3.4-5.0 [facility] Comment on above: Performed By: #### F T3, TSH, CMP, LIPID, CRP #### [facility] [address] [address] [address] Bharat Taylor Albumin/Globulin [Mass ratio] 1.0 {ratio} Normal [facility] Comment on above: Performed By: #### F T3, TSH, CMP, LIPID, CRP #### [facility] [address] [address] [address] Bharat Tayolr ALP [Catalytic activity/Vol] 69 U/L Normal 46-116 [facility] Comment on above: Performed By: #### F T3, TSH, CMP, LIPID, CRP #### [facility] [address] [address] [address] Bharat Taylor ALT [Catalytic activity/Vol] 23 U/L Normal 14-59 [facility] Comment on above: Performed By: #### F T3, TSH, CMP, LIPID, CRP #### [facility] [address] [address] [address] Bharat Taylor Anion gap [Moles/Vol] 12.6 mmol/L Normal [facility] Comment on above: Performed By: #### F T3, TSH, CMP, LIPID, CRP #### [facility] [address] [place] [address] Dr. Bharat Taylor AST [Catalytic activity/Vol] 15 U/L Normal 15-37 [facility] Comment on above: Performed By: #### F T3, TSH, CMP, LIPID, CRP #### [facility] [address] [place] [address] Dr. Bharat Taylor Bilirubin [Mass/Vol] 0.4 mg/dL Normal 0.2-1.3 [facility] Comment on above: Performed By: #### F T3, TSH, CMP, LIPID, CRP #### [facility] [address] [place] [address] Dr. Bharat Taylor Calcium [Mass/Vol] 8.4 mg/dL Critically low 8.5-10.1 [facility] Comment on above: Performed By: #### F T3, TSH, CMP, LIPID, CRP #### [facility] [address] [place] [address] Dr. Bharat Taylor Chloride [Moles/Vol] 104 mmol/L Normal 98-107 [facility] Comment on above: Performed By: #### F T3, TSH, CMP, LIPID, CRP #### [facility] [address] [place] [address] Dr. Bharat Taylor CO2 [Moles/Vol] 26.7 mmol/L Normal 22.0-30.0 [facility] Comment on above: Performed By: #### F T3, TSH, CMP, LIPID, CRP #### [facility] [address] [address] [address] Bharat Taylor Creatinine [Mass/Vol] 0.69 mg/dL Normal 0.52-1.04 [facility] Comment on above: Performed By: #### F T3, TSH, CMP, LIPID, CRP #### [facility] [address] [place] [address] Dr. Bharat Taylor EGFR-AF [place] >60 Normal >=60 [facility] Comment on above: Performed By: #### F T3, TSH, CMP, LIPID, CRP #### [facility] Laboratory [address] [place] [address] Dr. Bharat Taylor EGFR-NON AF SOUTH [place]ESE >60 Normal >=60 [facility] Comment on above: Performed By: #### F T3, TSH, CMP, LIPID, CRP #### [facility] [address] [place] [address] Dr. Bharat Taylor Globulin (S) [Mass/Vol] 3.6 g/dL Normal [facility] Comment on above: Performed By: #### F T3, TSH, CMP, LIPID, CRP #### [facility] [address] [place] [address] Dr. Bharat Taylor Glucose [Mass/Vol] 89 mg/dL Normal 74-106 [facility] Comment on above: Performed By: #### F T3, TSH, CMP, LIPID, CRP #### [facility] [address] [place] [address] Dr. Bharat Taylor Potassium [Moles/Vol] 4.3 mmol/L Normal 3.4-5.0 [facility] Comment on above: Performed By: #### F T3, TSH, CMP, LIPID, CRP #### [facility] [address] [place] [address] Dr. Bharat Taylor Protein [Mass/Vol] 7.1 g/dL Normal 6.1-8.2 [facility] Comment on above: Performed By: #### F T3, TSH, CMP, LIPID, CRP #### [facility] [address] [address] [address] Bharat Taylor Sodium [Moles/Vol] 139 mmol/L Normal 137-145 [facility] Comment on above: Performed By: #### F T3, TSH, CMP, LIPID, CRP #### [facility] [address] [place] [address] Dr. Bharat Taylor Urea nitrogen [Mass/Vol] 8.0 mg/dL Normal 7.0-18.0 [facility] Comment on above: Performed By: #### F T3, TSH, CMP, LIPID, CRP #### [facility] [address] [place] [address] Dr. Bharat Taylor Urea nitrogen/Creatinine [Mass ratio] 11.6 mg/mg Normal [facility] Comment on above: Performed By: #### F T3, TSH, CMP, LIPID, CRP #### [facility] [address] [place] [address] Dr. Bharat Taylor TSHon 12-07-2021 TSH 0.662 uIU/mL Normal 0.470-4.680 [facility] Comment on above: Performed By: #### F T3, TSH, CMP, LIPID, CRP #### [facility] [address] [place] [address] Dr. Bharat Taylor TSH RANGE SEE BELOW Normal [facility] Comment on above: Result Comment: <0.3 4 UIU/ml HYPERTHYROID 0.34-5.60 UIU/ml EUTHYROID >5.60 UIU/ml HYPOTHYROID Performed By: #### F T3, TSH, CMP, LIPID, CRP #### [facility] [address] [place] [address] Dr. Bharat Taylor VITAMIN D 25 OHon 12-07-2021 VIT D 25-OH 26.9 ng/mL Normal [facility] Comment on above: Performed By: #### V ITAD, FT4 #### [facility] [address] [place] [address] Dr. Bharat Taylor VIT D RANGES SEE BELOW Normal [facility] Comment on above: Result Comment: <20 ng/mL Vit D deficient 20 - <30 ng/mL Vit D insufficient 30 - 100 ng/mL Vit D sufficient >100 ng/mL Potential Toxicity Performed By: #### V ITAD, FT4 #### [facility] [address] [place] [address] Dr. Bharat Taylor PAP ACOG PANEL 2: 30 to 65on 08-04-2021 . . Normal [facility] Comment on above: Result Comment: Perf ormed at: WB Performed By: #### V ITAD, FT4 #### [facility] [address] [place] [address] Dr. Bharat Taylor Age Gdln ACOG Testing 30-65 Normal [facility] Comment on above: Performed By: #### V ITAD, FT4 #### [facility] [address] [place] [address] Dr. Bharat Taylor DIAGNOSIS: Comment Normal [facility] Comment on above: Result Comment: NEGA TIVE FOR INTRAEPITHELIAL LESION OR MALIGNANCY. Performed at: WB Performed By: #### V ITAD, FT4 #### [facility] [address] [place] [address] Dr. Bharat Taylor HPV Aptima Negative Normal Negative [facility] Comment on above: Result Comment: This nucleic acid amplification test detects fourteen high-risk HPV types (16,18,31,33,35,39,45,51,52,56,58,59,66,68) without differentiation. Performed at: =G Performed By: #### V ITAD, FT4 #### [facility] [address] [place] [address] Dr. Bharat Taylor Methodology: Comment Normal [facility] Comment on above: Result Comment: This liquid based ThinPrep(R) pap test was screened with the use of an image guided system. Performed at: WB Performed By: #### V ITAD, FT4 #### [facility] [address] [place] [address] Dr. Bharat Taylor Note: Comment Normal [facility] Comment on above: Result Comment: The Pap smear is a screening test designed to aid in the detection of premalignant and malignant conditions of the uterine cervix. It is not a diagnostic procedure and should not be used as the sole means of detecting cervical cancer. Both false-positive and false-negative reports do occur. . Performed at: WB Performed By: #### V ITAD, FT4 #### [facility] [address] [address] [address] Bharat Taylor Performed by: Comment Normal [facility] Comment on above: Result Comment: Jory Falcon, Roller Mechanic (ASCP) Performed at: WB Performed By: #### V ITAD, FT4 #### [facility] [address] [place], [place] [address] Dr. Bharat Taylor Specimen adequacy: Comment Normal [facility] Comment on above: Result Comment: Sati sfactory for evaluation. Endocervical and/or squamous metaplastic cells (endocervical component) are present. Performed at: WB Performed By: #### V ITAD, FT4 #### [facility] [address] [address] [address] Bharat Taylor Vital Signs Date Time Vital Sign Value Performing Clinician Facility 08-28-2023 12:06-0500 Blood Pressure Location [place] Gudimella [facility] 08-28-2023 12:06-0500 Body temperature 97.88 [degF] [place] Gudimella [facility] 08-28-2023 12:06-0500 Diastolic blood pressure 70 mm[Hg] [place] Gudimella [facility] 08-28-2023 12:06-0500 Heart rate 59 /min [place] Gudimella [facility] 08-28-2023 12:06-0500 SaO2% (BldA) [Mass fraction] 96 % [place] Gudimella [facility] 08-28-2023 12:06-0500 Systolic blood pressure 114 mm[Hg] [place] Gudimella [facility] 07-25-2023 17:10-0500 Blood Pressure Location ANASTACIO SOSA [facility] 07-25-2023 17:10-0500 Body temperature 97.88 [degF] [place] S[place] [facility] 07-25-2023 17:10-0500 Diastolic blood pressure 76 mm[Hg] [place] [facility] 07-25-2023 17:10-0500 Heart rate 71 /[facility] 07-25-2023 17:10-0500 SaO2% (BldA) [Mass fraction] 97 % [facility] 07-25-2023 17:10-0500 Systolic blood pressure 118 mm[Hg] [place] [facility] 2023 12:15-0400 Blood Pressure Location [place] [facility] 2023 12:15-0400 Body temperature 98.6 [degF] [place] [facility] 2023 12:15-0400 Diastolic blood pressure 78 mm[Hg] [place] [facility] 2023 12:15-0400 Heart rate 62 /min [place] [facility] 2023 12:15-0400 SaO2% (BldA) [Mass fraction] 98 % [place] [facility] 2023 12:15-0400 Systolic blood pressure 120 mm[Hg] [place] [facility] 03-15-2023 16:09-0400 Blood Pressure Location Marissa JETT [facility] 03-15-2023 16:09-0400 Body temperature 97.7 [degF] Marissa JETT [facility] 03-15-2023 16:09-0400 Diastolic blood pressure 72 mm[Hg] Marissa JETT [facility] 03-15-2023 16:09-0400 Heart rate 62 /min Marissa JETT [facility] 03-15-2023 16:09-0400 SaO2% (BldA) [Mass fraction] 98 % Marissa JETT [facility] 03-15-2023 16:09-0400 Systolic blood pressure 112 mm[Hg] Marissa JETT [facility] 09-02-2022 11:57-0500 Blood Pressure Location Barbara PhanizeZero Locus [facility] 09-02-2022 11:57-0500 Body temperature 98.06 [degF] Barbara Orzech [facility] 09-02-2022 11:57-0500 Diastolic blood pressure 78 mm[Hg] Barbara Orzech [facility] 09-02-2022 11:57-0500 Heart rate 88 /min Barbara Orzech [facility] 09-02-2022 11:57-0500 SaO2% (BldA) [Mass fraction] 97 % Barbara Orzech [facility] 09-02-2022 11:57-0500 Systolic blood pressure 124 mm[Hg] Barbara Orzech [facility] 12-18-2021 13:02-0400 Blood Pressure Location Ronald AGUDELO [facility] 12-18-2021 13:02-0400 Body temperature 97.7 [degF] Ronald AGUDELO [facility] 12-18-2021 13:02-0400 Diastolic blood pressure 78 mm[Hg] Ronald JAMMIE [facility] 12-18-2021 13:02-0400 Systolic blood pressure 126 mm[Hg] Ronald JAMMIE [facility] Encounters Encounter Date Encounter Type Care Provider Facility Start: 11-24-2023 ambulatory Crystal L New Facility: [facility] Start: 11-21-2023 End: 11-21-2023 ambulatory CHRISTAL H TIMMIS Not Available Start: 11-07-2023 End: 11-08-2023 ambulatory Christal H Timmis Facility:[facility] Start: 11-07-2023 End: 11-07-2023 Patient encounter procedure Christal H Timmis [facility] Start: 10-26-2023 End: 10-27-2023 ambulatory Crystal L New Facility:[facility] Start: 10-07-2023 Bamboo flowsheet Christal almonte MD Work Phone: [facility] Start: 10-07-2023 Bamboo flowsheet Christal almonte MD Work Phone: [facility] Start: 10-07-2023 End: 10-07-2023 ambulatory CHRISTAL H TIMMIS Not Available Start: 10-06-2023 Chart abstracting Christal contreras MD Work Phone: [facility] Start: 09-07-2023 End: 09-08-2023 ambulatory Crystal L New Facility:[facility] Start: 09-07-2023 End: 09-07-2023 Lab Drop off Crystal L New [facility] Start: 09-06-2023 ambulatory Crystal New Facility:[facility] Start: 08-28-2023 End: 08-29-2023 ambulatory [place] Gudimella Facility:[facility] Start: 08-28-2023 End: 08-28-2023 Patient encounter procedure [place] Gudimella [facility] Start: 07-27-2023 End: 07-27-2023 ambulatory AI BELLE Not Available Start: 07-25-2023 End: 07-26-2023 ambulatory PA-C ANASTACIO SOSA Facility:[facility] Start: 07-25-2023 End: 07-25-2023 Patient encounter procedure ANASTACIO SOSA [facility] Start: 2023 End: 05-06-2023 ambulatory PA-C ANASTACIO SOSA Facility:[facility] Start: 2023 End: 2023 Patient encounter procedure ANASTACIO SOSA [facility] Start: 03-15-2023 End: 03-16-2023 ambulatory Marissa JETT Facility:[facility] Start: 03-15-2023 End: 03-15-2023 Patient encounter procedure Marissa JETT [facility] Start: 09-02-2022 End: 09-02-2022 Patient encounter procedure Barbara Moreno [facility] Start: 12-18-2021 End: 12-18-2021 Patient encounter procedure Ronald AGUDELO [facility] Start: 12-10-2021 Encounter for genera l adult medical examination without abnormal findings DR RONALD AGUDELO [facility] Start: 12-07-2021 End: 12-08-[address] RONALD AGUDELO Facility:[facility] Start: 12-07-2021 End: 12-08-2021 Encounter for general adult medical examination without abnormal findings DR RONALD AGUDELO Facility:[facility] Start: 07-30-2021 End: 07-30-[address] AI BELLE Facility:[facility] Start: 01-12-2021 ambulatory CARMEN VOGT Facility: [facility] Start: 12-30-2020 ambulatory CARMEN ROBERTS Facility:[facility] Procedures Date Procedure Procedure Detail Performing Clinician Start: 07-30-2021 Microscopic observat ion [Identifier] in Cervix by Cyto stain Christal Diane MD Work Phone: Insertion of intraut erine contraceptive device Ronald AGUDELO Loop electrosurgical excision procedure of cervix Ronald AGUDELO Plan of Treatment Date Care Activity Detail Author Start: 07-30-2026 Screening for malign ant neoplasm of cervix [facility] Start: 10-07-2023 End: 10-07-2023 Patient encounter procedure 10/07/2023 9:20 AM EST [facility] [address] [facility] [address] [place] [address] Christal Diane MD [address] [facility] [address] [place] [address] [facility] Start: 04-29-2023 Influenza vaccination Influenza Vacc ine (#1) [facility] Immunizations Immunization Date Immunization Notes Care Provider Fa cility 01-16-2002 measles, mumps and rubella virus vaccine Barbara Moreno [facility] 08-15-1991 Hib, unspecified formulation Barbara Fryshoutr [facility] 08-15-1991 measles, mumps and rubella virus vaccine Barbara Phanishoutr [facility] 1990 Hib, unspecified formulation Barbara Phanishoutr [facility] NEGATED: Highlighted row has not occurred!2023 influenza virus vaccine, unspecified formulation ANASTACIO FRYTIZ [facility] NEGATED: Highlighted row has not occurred!2023 SARS-CoV-2 mRNA (tozinameran 5y-11y) vaccine ANASTACIO SOSA [facility] NEGATED: Highlighted row has not occurred!09-02-2022 influenza virus vaccine, unspecified formulation [place] Phanishoutr [facility] NEGATED: Highlighted row has not occurred!09-02-2022 SARS-CoV-2 mRNA (tozinameran 5y-11y) vaccine [facility] Payers Date Payer Category Payer Unknown BCBS BCBS xxxxxx [id number] 2020-Present [phone] [address] [place] [address] [id number] 2020 Unknown [id number] 1990 Unknown [id number] [id number] 1990 Unknown [id number] [id number]3 1990 Unknown [id number] 2.16.840.1.740821.3.579.2.593 1990 Unknown [id number] 2.16.840.1.176563.3.579.2.593 1990 Unknown [id number] 2.16.840.1.271229.3.579.2.1259 1990 Unknown [id number] 2.16.840.1.871860.3.579.2.1259 1990 Unknown [id number] 2.16.840.1.802669.3.579.2.1259 1990 Unknown [id number] 2.16.840.1.425191.3.579.2.727 1990 Unknown [id number] 2.16.840.1.451046.3.579.2.727 1990 Unknown [id number] 2.16.840.1.781744.3.579.2.72 1990 Unknown [id number] 2.16.840.1.300216.3.579.2.72 1990 Unknown [id number] 2.16.840.1.471155.3.579.2.727 1990 Unknown [id number] 2.16.840.1.854713.3.579.2.727 1990 Unknown [id number] 2.16.840.1.945270.3.579.2.72 1990 Unknown [id number] 2.16.840.1.044789.3.579.2.72 1990 Unknown [id number] 2.16.840.1.622768.3.579.2.727 1990 Unknown [id number] [id number] 1959 Unknown [id number] Social History Date Type Detail Facility Start: 12-18-2021 End: 2023 Tobacco smoking status Light tobacco smoker (finding) [facility] Tobacco smoking status Never [facility] Start: 10-04-2023 Sex Assigned At Female F [facility] Start: 07-25-2023 End: 10-26-2023 Tobacco smoking status Ex-smoker (finding) [facility] Start: 10-04-2023 Tobacco smoking status NHIS Occasional tobacco smoker [facility] History of tobacco use Cigarette Smoker [facility] Start: 10-04-2023 Tobacco use and exposure Smokeless tobacco non-user [facility] Start: 10-04-2023 Alcohol intake Ex-drinker (finding) [facility] Start: 10-04-2023 History of Social function [facility] Start: 1990 Sex Assigned At Not on file [facility] Functional Status Date Assessment Result Facility 08-28-2023 Functional Status N/A [facility] 07-25-2023 Functional Status N/A [facility] 2023 Functional Status N/A [facility] 03-15-2023 Functional Status N/A [facility] 09-02-2022 Functional Status N/A [facility] Clinical Notes 09-25-2021 to 09-15-2023 LaboratoryLaboratory Note Date & Type Note Facility 09-15-2023 Note Consult received for patient's positive depression screen. Through chart review it is noted that patient has requested a referral for counseling and this was sent to [facility] Health. SW will remain available. [facility] 08-28-2023 Hospital Discharge instructions Follow Up Care 08/28/2023 10:18:17 With:Janna Koo MD, [facility] Address: [address] [place] [phone] When: only if needed [facility] 07-25-2023 Hospital Discharge instructions Patient Education 07/25/2023 17:27:25 BMI for Adults BMI for Adults What is BMI? Body mass index (BMI) is a number that is calculated from a person's weight and height. BMI can help estimate how much of a person's weight is composed of fat. BMI does not measure body fat directly. Rather, it is an alternative to procedures that directly measure body fat, which can be difficult and expensive. BMI can help identify people who may be at higher risk for certain medical problems. What are BMI measurements used for? BMI is used as a screening tool to identify possible weight problems. It helps determine whether a person is obese, overweight, a healthy weight, or underweight. BMI is useful for: Identifying a weight problem that may be related to a medical condition or may increase the risk for medical problems. Promoting changes, such as changes in diet and exercise, to help reach a healthy weight. BMI screening can be repeated to see if these changes are working. How is BMI calculated? BMI involves measuring your weight in relation to your height. Both height and weight are measured, and the BMI is calculated from those numbers. This can be done either in [place]vorian ([place] or metric measurements. Note that charts and online BMI calculators are available to help you find your BMI quickly and easily without having to do these calculations yourself. To calculate your BMI in [place]vorian ([place] measurements: 1.Measure your weight in pounds (lb). 2.Multiply the number of pounds by 703. For example, for a person who weighs 180 lb, multiply that number by 703, which equals 126,540. 3.Measure your height in inches. Then multiply that number by itself to get a measurement called inches squared. For example, for a person who is 70 inches tall, the inches squared measurement is 70 inches x 70 inches, which equals 4,900 inches squared. 4.Divide the total from step 2 (number of lb x 703) by the total from step 3 (inches squared): 126,540 4,900 = 25.8. This is your BMI. To calculate your BMI in metric measurements: 1.Measure your weight in kilograms (kg). 2.Measure your height in meters (m). Then multiply that number by itself to get a measurement called meters squared. For example, for a person who is 1.75 m tall, the meters squared measurement is 1.75 m x 1.75 m, which is equal to 3.1 meters squared. 3.Divide the number of kilograms (your weight) by the meters squared number. In this example: 70 3.1 = 22.6. This is your BMI. What do the results mean? BMI charts are used to identify whether you are underweight, normal weight, overweight, or obese. The following guidelines will be used: Underweight: BMI less than 18.5. Normal weight: BMI between 18.5 and 24.9. Overweight: BMI between 25 and 29.9. Obese: BMI of 30 or above. Keep these notes in mind: Weight includes both fat and muscle, so someone with a muscular build, such as an athlete, may have a BMI that is higher than 24.9. In cases like these, BMI is not an accurate measure of body fat. To determine if excess body fat is the cause of a BMI of 25 or higher, further assessments may need to be done by a health care provider. BMI is usually interpreted in the same way for men and women. Where to find more information For more information about BMI, including tools to quickly calculate your BMI, go to these websites: Centers for Disease Control and Prevention: www.cdc.gov [place] [employer]: www.heart.org National Heart, Lung, and Blood P[place]ps: www.nhlbi.nih.gov Summary Body mass index (BMI) is a number that is calculated from a person's weight and height. BMI may help estimate how much of a person's weight is composed of fat. BMI can help identify those who may be at higher risk for certain medical problems. BMI can be measured using Ivorian measurements or metric measurements. BMI charts are used to identify whether you are underweight, normal weight, overweight, or obese. This information is not intended to replace advice given to you by your health care provider. Make sure you discuss any questions you have with your health care provider. Document Revised: 05/07/2020 Document Reviewed: 03/14/2020 [employer] Patient Education 2022 [place]. 07/25/2023 17:27:20 Sinus Infection, Adult, [id number] Sinus Infection, Adult A sinus infection is soreness and swelling (inflammation) of your sinuses. Sinuses are hollow spaces in the bones around your face. They are located: Around your eyes. In the middle of your forehead. Behind your nose. In your cheekbones. Your sinuses and nasal passages are lined with a fluid called mucus. Mucus drains out of your sinuses. Swelling can trap mucus in your sinuses. This lets germs (bacteria, virus, or fungus) grow, which leads to infection. Most of the time, this condition is caused by a virus. What are the causes? Allergies. Asthma. Germs. Things that block your nose or sinuses. Growths in the nose (nasal polyps). Chemicals or irritants in the air. A fungus. This is rare. What increases the risk? Having a weak body defense system (immune system). Doing a lot of swimming or diving. Using nasal sprays too much. Smoking. What are the signs or symptoms? The main symptoms of this condition are pain and a feeling of pressure around the sinuses. Other symptoms include: Stuffy nose (congestion). This may make it hard to breathe through your nose. Runny nose (drainage). Soreness, swelling, and warmth in the sinuses. A cough that may get worse at night. Being unable to smell and taste. Mucus that collects in the throat or the back of the nose (postnasal drip). This may cause a sore throat or bad breath. Being very tired (fatigued). A fever. How is this diagnosed? Your symptoms. Your medical history. A physical exam. Tests to find out if your condition is short-term (acute) or long-term (chronic). Your doctor may: ?Check your nose for growths (polyps). ?Check your sinuses using a tool that has a light on one end (endoscope). ?Check for allergies or germs. ?Do imaging tests, such as an MRI or CT scan. How is this treated? Treatment for this condition depends on the cause and whether it is short-term or long-term. If caused by a virus, your symptoms should go away on their own within 10 days. You may be given medicines to relieve symptoms. They include: ?Medicines that shrink swollen tissue in the nose. ?A spray that treats swelling of the nostrils. ?Rinses that help get rid of thick mucus in your nose (nasal saline washes). ?Medicines that treat allergies (antihistamines). ?Badr-spe-okwsnff pain relievers. If caused by bacteria, your doctor may wait to see if you will get better without treatment. You may be given antibiotic medicine if you have: ?A very bad infection. ?A weak body defense system. If caused by growths in the nose, surgery may be needed. Follow these instructions at home: Medicines Take, use, or apply dkia-ggk-znfzqtg and prescription medicines only as told by your doctor. These may include nasal sprays. If you were prescribed an antibiotic medicine, take it as told by your doctor. Do not stop taking it even if you start to feel better. Hydrate and humidify Drink enough water to keep your pee (urine) pale yellow. Use a cool mist humidifier to keep the humidity level in your home above 50%. Breathe in steam for 10 15 minutes, 3 4 times a day, or as told by your doctor. You can do this in the bathroom while a hot shower is running. Try not to spend time in cool or dry air. Rest Rest as much as you can. Sleep with your head raised (elevated). Make sure you get enough sleep each night. General instructions Put a warm, moist washcloth on your face 3 4 times a day, or as often as told by your doctor. Use nasal saline washes as often as told by your doctor. Wash your hands often with soap and water. If you cannot use soap and water, use hand weigh and charge worker. Do not smoke. Avoid being around people who are smoking (secondhand smoke). Keep all follow-up visits. Contact a doctor if: You have a fever. Your symptoms get worse. Your symptoms do not get better within 10 days. Get help right away if: You have a very bad headache. You cannot stop vomiting. You have very bad pain or swelling around your face or eyes. You have trouble seeing. You feel confused. Your neck is stiff. You have trouble breathing. These symptoms may be an emergency. Get help right away. Call 911. Do not wait to see if the symptoms will go away. Do not drive yourself to the hospital. Summary A sinus infection is swelling of your sinuses. Sinuses are hollow spaces in the bones around your face. This condition is caused by tissues in your nose that become inflamed or swollen. This traps germs. These can lead to infection. If you were prescribed an antibiotic medicine, take it as told by your doctor. Do not stop taking it even if you start to feel better. Keep all follow-up visits. This information is not intended to replace advice given to you by your health care provider. Make sure you discuss any questions you have with your health care provider. Document Revised: 07/20/2022 Document Reviewed: 07/20/2022 [employer] Patient Education 2022 [employer]. Follow Up Care 07/25/2023 10:17:49 With:NONE, XXXX Address: [phone] When: Unknown [facility] 2023 Hospital Discharge instructions Patient Education 2023 14:20:14 BMI for Adults BMI for Adults What is BMI? Body mass index (BMI) is a number that is calculated from a person's weight and height. BMI can help estimate how much of a person's weight is composed of fat. BMI does not measure body fat directly. Rather, it is an alternative to procedures that directly measure body fat, which can be difficult and expensive. BMI can help identify people who may be at higher risk for certain medical problems. What are BMI measurements used for? BMI is used as a screening tool to identify possible weight problems. It helps determine whether a person is obese, overweight, a healthy weight, or underweight. BMI is useful for: Identifying a weight problem that may be related to a medical condition or may increase the risk for medical problems. Promoting changes, such as changes in diet and exercise, to help reach a healthy weight. BMI screening can be repeated to see if these changes are working. How is BMI calculated? BMI involves measuring your weight in relation to your height. Both height and weight are measured, and the BMI is calculated from those numbers. This can be done either in [place] ([place] or metric measurements. Note that charts and online BMI calculators are available to help you find your BMI quickly and easily without having to do these calculations yourself. To calculate your BMI in [place] measurements: 1.Measure your weight in pounds (lb). 2.Multiply the number of pounds by 703. For example, for a person who weighs 180 lb, multiply that number by 703, which equals 126,540. 3.Measure your height in inches. Then multiply that number by itself to get a measurement called inches squared. For example, for a person who is 70 inches tall, the inches squared measurement is 70 inches x 70 inches, which equals 4,900 inches squared. 4.Divide the total from step 2 (number of lb x 703) by the total from step 3 (inches squared): 126,540 4,900 = 25.8. This is your BMI. To calculate your BMI in metric measurements: 1.Measure your weight in kilograms (kg). 2.Measure your height in meters (m). Then multiply that number by itself to get a measurement called meters squared. For example, for a person who is 1.75 m tall, the meters squared measurement is 1.75 m x 1.75 m, which is equal to 3.1 meters squared. 3.Divide the number of kilograms (your weight) by the meters squared number. In this example: 70 3.1 = 22.6. This is your BMI. What do the results mean? BMI charts are used to identify whether you are underweight, normal weight, overweight, or obese. The following guidelines will be used: Underweight: BMI less than 18.5. Normal weight: BMI between 18.5 and 24.9. Overweight: BMI between 25 and 29.9. Obese: BMI of 30 or above. Keep these notes in mind: Weight includes both fat and muscle, so someone with a muscular build, such as an athlete, may have a BMI that is higher than 24.9. In cases like these, BMI is not an accurate measure of body fat. To determine if excess body fat is the cause of a BMI of 25 or higher, further assessments may need to be done by a health care provider. BMI is usually interpreted in the same way for men and women. Where to find more information For more information about BMI, including tools to quickly calculate your BMI, go to these websites: Centers for Disease Control and Prevention: www.cdc.gov [place] [employer]: www.heart.org National Heart, Lung, and Blood [place]: www.nhlbi.nih.gov Summary Body mass index (BMI) is a number that is calculated from a person's weight and height. BMI may help estimate how much of a person's weight is composed of fat. BMI can help identify those who may be at higher risk for certain medical problems. BMI can be measured using Ivorian measurements or metric measurements. BMI charts are used to identify whether you are underweight, normal weight, overweight, or obese. This information is not intended to replace advice given to you by your health care provider. Make sure you discuss any questions you have with your health care provider. Document Revised: 05/07/2020 Document Reviewed: 03/14/2020 [employer] Patient Education 2022 [employer]. 2023 14:20:11 Foot Sprain Foot Sprain A foot sprain is an injury to one of the ligaments in the feet. Ligaments are strong tissues that connect bones to each other. The ligament can be stretched too much. In some cases, it may tear. A tear can be either partial or complete. The severity of the sprain depends on how much of the ligament was damaged or torn. What are the causes? This condition is usually caused by suddenly twisting or pivoting your foot. What increases the risk? You are more likely to develop this condition if: You play a sport, such as basketball or football. You exercise or play a sport without first warming up your muscles. You start a new workout or sport. You suddenly increase how long or hard you exercise or play a sport. You have injured your foot or ankle before. What are the signs or symptoms? Symptoms of this condition start soon after an injury and include: Pain, especially in the arch of your foot. Bruising. Swelling. Being unable to walk or use your foot to support body weight. How is this diagnosed? This condition is diagnosed with a medical history and physical exam. You may also have imaging tests, such as: X-rays to check for broken bones (fractures). An MRI to see if the ligament is torn. How is this treated? Treatment for this condition depends on the severity of the sprain. Mild sprains and major sprains can be treated with: Rest, ice, pressure (compression), and elevation (RICE). Elevation means raising your injured foot. Keeping your foot in a fixed position (immobilization) for a period of time. This is done if your ligament is overstretched or partially torn. Your health care provider will apply a bandage, splint, or walking boot to keep your foot from moving until it heals. Using crutches or a scooter for a few weeks to avoid bearing weight on your foot while it is healing. Physical therapy exercises to improve movement and strength in your foot. Major sprains may also be treated with: Surgery. This is done if your ligament is fully torn and a procedure is needed to reconnect it to the bone. A cast or splint. This will be needed after surgery. A cast or splint will need to stay on your foot while it heals. Follow these instructions at home: If you have a bandage, splint, or boot: Wear it as told by your health care provider. Remove it only as told by your health care provider. Loosen it if your toes tingle, become numb, or turn cold and blue. Keep it clean and dry. If you have a cast: Do not put pressure on any part of the cast until it is fully hardened. This may take several hours. Do not stick anything inside the cast to scratch your skin. Doing that increases your risk for infection. Check the skin around the cast every day. Tell your health care provider about any concerns. You may put lotion on dry skin around the edges of the cast. Do not put lotion on the skin underneath the cast. Keep it clean and dry. Bathing Do not take baths, swim, or use a hot tub until your health care provider approves. Ask your health care provider if you may take showers. You may only be allowed to take sponge baths. If the bandage, splint, boot, or cast is not waterproof: ?Do not let it get wet. ?Cover it with a watertight covering when you take a bath or shower. Managing pain, stiffness, and swelling If directed, put ice on the injured area. To do this: ?If you have a removable bandage, splint, or boot, remove it as told by your health care provider. ?Put ice in a plastic bag. ?Place a towel between your skin and the bag, or between your cast and the bag. ?Leave the ice on for 20 minutes, 2 3 times per day. ?Remove the ice if your skin turns bright red. This is very important. If you cannot feel pain, heat, or cold, you have a greater risk of damage to the area. Move your toes often to reduce stiffness and swelling. Elevate the injured area above the level of your heart while you are sitting or lying down. Activity Do not use the injured foot to support your body weight until your health care provider says that you can. Use crutches or a scooter as told by your health care provider. Ask your health care provider what activities are safe for you. Do exercises as told by your health care provider. Gradually increase how much and how far you walk until your health care provider says it is safe to return to full activity. Driving Ask your health care provider if the medicine prescribed to you requires you to avoid driving or using machinery. Ask your health care provider when it is safe to drive if you have a bandage, splint, boot, or cast on your foot. General instructions Take ehue-tte-myaiubn and prescription medicines only as told by your health care provider. When you can walk without pain, wear supportive shoes that have stiff soles. Do not wear flip-flops. Do not walk barefoot. Keep all follow-up visits. This is important. Contact a health care provider if: Medicine does not help your pain. Your bruising or swelling gets worse or does not get better with treatment. Your splint, boot, or cast is damaged. Get help right away if: You develop severe numbness or tingling in your foot. Your foot turns blue, white, or cao, and it feels cold. Summary A foot sprain is an injury to one of the ligaments in the feet. Ligaments are strong tissues that connect bones to each other. You may need a bandage, splint, boot, or cast to support your foot while it heals. Sometimes, surgery may be needed. You may need physical therapy exercises to improve movement and strength in your foot. This information is not intended to replace advice given to you by your health care provider. Make sure you discuss any questions you have with your health care provider. Document Revised: 12/05/2020 Document Reviewed: 12/05/2020 [employer] Patient Education 2022 [employer]. Follow Up Care 2023 11:35:27 With:NONE, XXXX Address: [phone] When: Unknown [facility] 03-15-2023 Hospital Discharge instructions Patient Education 03/15/2023 16:47:12 Cold Sore, [id number] Cold Sore A cold sore, also called a fever blister, is a small, fluid-filled sore that forms inside of the mouth or on the lips, gums, nose, chin, or cheeks. Cold sores can spread to other parts of the body, such as the eyes, fingers, or genitals. Cold sores can spread from person to person (are contagious) until the sores crust over completely. Most cold sores go away within 2 weeks. What are the causes? Cold sores are caused by a virus (herpes simplex virus type 1, HSV-1). The virus can spread from person to person through close contact, such as through: Kissing. Touching the affected area. Sharing personal items such as lip balm, razors, a drinking glass, or eating utensils. What increases the risk? Being tired, stressed, or sick. Having your period (menstruating). Being . Taking certain medicines. Being out in cold weather or getting too much sun. What are the signs or symptoms? Symptoms of a cold sore go through different stages: Tingling, itching, or burning is felt 1 2 days before the cold sore appears. Fluid-filled blisters appear on the lips, inside the mouth, on the nose, or on the cheeks. The blisters start to ooze clear fluid. The blisters dry up, and a yellow crust appears in their place. The crust falls off. In some cases, other symptoms can develop along with cold sores. These can include: Fever. Sore throat. Headache. Muscle aches. Swollen neck glands. How is this treated? There is no cure for cold sores or the virus that causes them. There is also no vaccine to prevent the virus. Most cold sores go away on their own without treatment within 2 weeks. Your doctor may prescribe medicines to: Help with pain. Keep the virus from growing. Help you heal faster. Medicines may be in the form of creams, gels, pills, or a shot. Follow these instructions at home: Medicines Take or apply kgiv-vmo-ajrahzd and prescription medicines only as told by your doctor. Use a cotton-tip swab to apply creams or gels to your sores. Ask your doctor if you can take lysine supplements. These may help with healing. Sore care Do not touch the sores or pick the scabs. Wash your hands often with soap and water for at least 20 seconds. Do not touch your eyes without washing your hands first. Keep the sores clean and dry. If told, put ice on the sores. To do this: ?Put ice in a plastic bag. ?Place a towel between your skin and the bag. ?Leave the ice on for 20 minutes, 2 3 times a day. ?Take off the ice if your skin turns bright red. This is very important. If you cannot feel pain, heat, or cold, you have a greater risk of damage to the area. Eating and drinking Eat a soft, bland diet. Avoid eating hot, cold, or salty foods. These can hurt your mouth. Use a straw if it hurts to drink out of a glass. Eat foods that have a lot of lysine in them. These include meat, fish, and dairy products. Avoid sugary foods, chocolates, nuts, and grains. These foods have a high amount of a substance (arginine) that can cause the virus to grow. Lifestyle Do not kiss, have oral sex, or share personal items until your sores heal. Stress, poor sleep, and being out in the sun can trigger a cold sore. Make sure you: ?Do activities that help you relax, such as deep breathing exercises or meditation. ?Get enough sleep. ?Put sunscreen on your lips before you go out in the sun. Contact a doctor if: You have symptoms for more than 2 weeks. You have pus coming from the sores. You have redness that is spreading. You have pain or irritation in your eye. You get sores on your genitals. Your sores do not heal within 2 weeks. You get cold sores often. Get help right away if: You have a fever and your symptoms suddenly get worse. You have a headache and confusion. You have tiredness (fatigue). You do not want to eat as much as normal (loss of appetite). You have a stiff neck or are sensitive to light. Summary A cold sore is a small, fluid-filled sore that forms inside of the mouth or on the lips, gums, nose, chin, or cheeks. Cold sores can spread from person to person (are contagious) until the sores crust over completely. Most cold sores go away within 2 weeks. Wash your hands often. Do not touch your eyes without washing your hands first. Do not kiss, have oral sex, or share personal items until your sores heal. Contact a doctor if your sores do not heal within 2 weeks. This information is not intended to replace advice given to you by your health care provider. Make sure you discuss any questions you have with your health care provider. Document Revised: 05/26/2022 Document Reviewed: 05/26/2022 [employer] Patient Education 2022 [employer]. 03/15/2023 16:47:05 BMI for Adults BMI for Adults What is BMI? Body mass index (BMI) is a number that is calculated from a person's weight and height. BMI can help estimate how much of a person's weight is composed of fat. BMI does not measure body fat directly. Rather, it is an alternative to procedures that directly measure body fat, which can be difficult and expensive. BMI can help identify people who may be at higher risk for certain medical problems. What are BMI measurements used for? BMI is used as a screening tool to identify possible weight problems. It helps determine whether a person is obese, overweight, a healthy weight, or underweight. BMI is useful for: Identifying a weight problem that may be related to a medical condition or may increase the risk for medical problems. Promoting changes, such as changes in diet and exercise, to help reach a healthy weight. BMI screening can be repeated to see if these changes are working. How is BMI calculated? BMI involves measuring your weight in relation to your height. Both height and weight are measured, and the BMI is calculated from those numbers. This can be done either in [place] ([place] or metric measurements. Note that charts and online BMI calculators are available to help you find your BMI quickly and easily without having to do these calculations yourself. To calculate your BMI in [place] measurements: 1.Measure your weight in pounds (lb). 2.Multiply the number of pounds by 703. For example, for a person who weighs 180 lb, multiply that number by 703, which equals 126,540. 3.Measure your height in inches. Then multiply that number by itself to get a measurement called inches squared. For example, for a person who is 70 inches tall, the inches squared measurement is 70 inches x 70 inches, which equals 4,900 inches squared. 4.Divide the total from step 2 (number of lb x 703) by the total from step 3 (inches squared): 126,540 4,900 = 25.8. This is your BMI. To calculate your BMI in metric measurements: 1.Measure your weight in kilograms (kg). 2.Measure your height in meters (m). Then multiply that number by itself to get a measurement called meters squared. For example, for a person who is 1.75 m tall, the meters squared measurement is 1.75 m x 1.75 m, which is equal to 3.1 meters squared. 3.Divide the number of kilograms (your weight) by the meters squared number. In this example: 70 3.1 = 22.6. This is your BMI. What do the results mean? BMI charts are used to identify whether you are underweight, normal weight, overweight, or obese. The following guidelines will be used: Underweight: BMI less than 18.5. Normal weight: BMI between 18.5 and 24.9. Overweight: BMI between 25 and 29.9. Obese: BMI of 30 or above. Keep these notes in mind: Weight includes both fat and muscle, so someone with a muscular build, such as an athlete, may have a BMI that is higher than 24.9. In cases like these, BMI is not an accurate measure of body fat. To determine if excess body fat is the cause of a BMI of 25 or higher, further assessments may need to be done by a health care provider. BMI is usually interpreted in the same way for men and women. Where to find more information For more information about BMI, including tools to quickly calculate your BMI, go to these websites: Centers for Disease Control and Prevention: www.cdc.gov [place] [employer]: www.heart.org National Heart, Lung, and Blood [place]: www.nhlbi.nih.gov Summary Body mass index (BMI) is a number that is calculated from a person's weight and height. BMI may help estimate how much of a person's weight is composed of fat. BMI can help identify those who may be at higher risk for certain medical problems. BMI can be measured using Ivorian measurements or metric measurements. BMI charts are used to identify whether you are underweight, normal weight, overweight, or obese. This information is not intended to replace advice given to you by your health care provider. Make sure you discuss any questions you have with your health care provider. Document Revised: 05/07/2020 Document Reviewed: 03/14/2020 [employer] Patient Education 2022 [employer]. Follow Up Care 03/15/2023 15:38:21 With:Ronald AGUDELO DO [facility] Address: [address] [place] [phone] When: Unknown [facility] 09-02-2022 Hospital Discharge instructions Patient Education 09/02/2022 12:22:15 Strep Throat, Adult Strep Throat, Adult Strep throat is an infection in the throat that is caused by bacteria. It is common during the cold months of the year. It mostly affects children who are 5 15 years old. However, people of all ages can get it at any time of the year. This infection spreads from person to person (is contagious) through coughing, sneezing, or having close contact. Your health care provider may use other names to describe the infection. It can be called tonsillitis (if there is swelling of the tonsils), or pharyngitis (if there is swelling at the back of the throat). What are the causes? This condition is caused by the Streptococcus pyogenes bacteria. What increases the risk? You are more likely to develop this condition if: You care for school-age children, or are around school-age children. Children are more likely to get strep throat and may spread it to others. You spend time in crowded places where the infection can spread easily. You have close contact with someone who has strep throat. What are the signs or symptoms? Symptoms of this condition include: Fever or chills. Redness, swelling, or pain in the tonsils or throat. Pain or difficulty when swallowing. White or yellow spots on the tonsils or throat. Tender glands in the neck and under the jaw. Bad smelling breath. Red rash all over the body. This is rare. How is this diagnosed? This condition is diagnosed by tests that check for the presence and the amount of bacteria that cause strep throat. They are: Rapid strep test. Your throat is swabbed and checked for the presence of bacteria. Results are usually ready in minutes. Throat culture test. Your throat is swabbed. The sample is placed in a cup that allows infections to grow. Results are usually ready in 1 or 2 days. How is this treated? This condition may be treated with: Medicines that kill germs (antibiotics). Medicines that relieve pain or fever. These include: ?Ibuprofen or acetaminophen. ?Aspirin, only for patients who are over the age of 18. ?Throat lozenges. ?Throat sprays. Follow these instructions at home: Medicines Take hsqo-pmy-ggudlgy and prescription medicines only as told by your health care provider. Take your antibiotic medicine as told by your health care provider. Do not stop taking the antibiotic even if you start to feel better. Eating and drinking If you have trouble swallowing, try eating soft foods until your sore throat feels better. Drink enough fluid to keep your urine pale yellow. To help relieve pain, you may have: ?Warm fluids, such as soup and tea. ?Cold fluids, such as frozen desserts or popsicles. General instructions Gargle with a salt-water mixture 3 4 times a day or as needed. To make a salt-water mixture, completely dissolve 1 tsp (3 6 g) of salt in 1 cup (237 mL) of warm water. Get plenty of rest. Stay home from work or school until you have been taking antibiotics for 24 hours. Avoid smoking or being around people who smoke. Keep all follow-up visits as told by your health care provider. This is important. How is this prevented? Do not share food, drinking cups, or personal items that could cause the infection to spread to other people. Wash your hands well with soap and water, and make sure that all people in your house wash their hands well. Have family members tested if they have a sore throat or fever. They may need an antibiotic if they have strep throat. Contact a health care provider if: The glands in your neck continue to get bigger. You develop a rash, cough, or earache. You cough up a thick mucus that is green, yellow-brown, or bloody. You have pain or discomfort that does not get better with medicine. Your symptoms seem to be getting worse and not better. You have a fever. Get help right away if: You have new symptoms, such as vomiting, severe headache, stiff or painful neck, chest pain, or shortness of breath. You have severe throat pain, drooling, or changes in your voice. You have swelling of the neck, or the skin on the neck becomes red and tender. You have signs of dehydration, such as tiredness (fatigue), dry mouth, and decreased urination. You become increasingly sleepy, or you cannot wake up completely. Your joints become red or painful. Summary Strep throat is an infection in the throat that is caused by the Streptococcus pyogenes bacteria. This infection is spread from person to person (is contagious) through coughing, sneezing, or having close contact. Take your medicines, including antibiotics, as told by your health care provider. Do not stop taking the antibiotic even if you start to feel better. To prevent the spread of germs, wash your hands well with soap and water. Have others do the same. Do not share food, drinking cups, or personal items. Get help right away if you have new symptoms, such as vomiting, severe headache, stiff or painful neck, chest pain, or shortness of breath. This information is not intended to replace advice given to you by your health care provider. Make sure you discuss any questions you have with your health care provider. Document Released: 08/12/2001 Document Revised: 11/02/2019 Document Reviewed: 11/02/2019 [employer] Patient Education 2020 [employer]. 09/02/2022 12:22:11 Tobacco Use Disorder Tobacco Use Disorder Tobacco use disorder (TUD) occurs when a person craves, seeks, and uses tobacco, regardless of the consequences. This disorder can cause problems with mental and physical health. It can affect your ability to have healthy relationships, and it can keep you from meeting your responsibilities at work, home, or school. Tobacco may be: Smoked as a cigarette or cigar. Inhaled using e-cigarettes. Smoked in a pipe or hookah. Chewed as smokeless tobacco. Inhaled into the nostrils as snuff. Tobacco products contain a dangerous chemical called nicotine, which is very addictive. Nicotine triggers hormones that make the body feel stimulated and works on areas of the brain that make you feel good. These effects can make it hard for people to quit nicotine. Tobacco contains many other unsafe chemicals that can damage almost every organ in the body. Smoking tobacco also puts others in danger due to fire risk and possible health problems caused by breathing in secondhand smoke. What are the signs or symptoms? Symptoms of TUD may include: Being unable to slow down or stop your tobacco use. Spending an abnormal amount of time getting or using tobacco. Craving tobacco. Cravings may last for up to 6 months after quitting. Tobacco use that: ?Interferes with your work, school, or home life. ?Interferes with your personal and social relationships. ?Makes you give up activities that you once enjoyed or found important. Using tobacco even though you know that it is: ?Dangerous or bad for your health or someone else's health. ?Causing problems in your life. Needing more and more of the substance to get the same effect (developing tolerance). Experiencing unpleasant symptoms if you do not use the substance (withdrawal). Withdrawal symptoms may include: ?Depressed, anxious, or irritable mood. ?Difficulty concentrating. ?Increased appetite. ?Restlessness or trouble sleeping. Using the substance to avoid withdrawal. How is this diagnosed? This condition may be diagnosed based on: Your current and past tobacco use. Your health care provider may ask questions about how your tobacco use affects your life. A physical exam. You may be diagnosed with TUD if you have at least two symptoms within a 12-month period. How is this treated? This condition is treated by stopping tobacco use. Many people are unable to quit on their own and need help. Treatment may include: Nicotine replacement therapy (NRT). NRT provides nicotine without the other harmful chemicals in tobacco. NRT gradually lowers the dosage of nicotine in the body and reduces withdrawal symptoms. NRT is available as: ?Tuux-tkq-bczxkqq gums, lozenges, and skin patches. ?Prescription mouth inhalers and nasal sprays. Medicine that acts on the brain to reduce cravings and withdrawal symptoms. A type of talk therapy that examines your triggers for tobacco use, how to avoid them, and how to cope with cravings (behavioral therapy). Hypnosis. This may help with withdrawal symptoms. Joining a support group for others coping with TUD. The best treatment for TUD is usually a combination of medicine, talk therapy, and support groups. Recovery can be a long process. Many people start using tobacco again after stopping (relapse). If you relapse, it does not mean that treatment will not work. Follow these instructions at home: Lifestyle Do not use any products that contain nicotine or tobacco, such as cigarettes and e-cigarettes. Avoid things that trigger tobacco use as much as you can. Triggers include people and situations that usually cause you to use tobacco. Avoid drinks that contain caffeine, including coffee. These may worsen some withdrawal symptoms. Find ways to manage stress. Wanting to smoke may cause stress, and stress can make you want to smoke. Relaxation techniques such as deep breathing, meditation, and yoga may help. Attend support groups as needed. These groups are an important part of long-term recovery for many people. General instructions Take xigo-xve-vetfdnt and prescription medicines only as told by your health care provider. Check with your health care provider before taking any new prescription or qtwd-eug-cbhasyc medicines. Decide on a friend, family member, or smoking quit-line (such as 3-340-LZAL-NOW in the [place] that you can call or text when you feel the urge to smoke or when you need help coping with cravings. Keep all follow-up visits as told by your health care provider and therapist. This is important. Contact a health care provider if: You are not able to take your medicines as prescribed. Your symptoms get worse, even with treatment. Summary Tobacco use disorder (TUD) occurs when a person craves, seeks, and uses tobacco regardless of the consequences. This condition may be diagnosed based on your current and past tobacco use and a physical exam. Many people are unable to quit on their own and need help. Recovery can be a long process. The most effective treatment for TUD is usually a combination of medicine, talk therapy, and support groups. This information is not intended to replace advice given to you by your health care provider. Make sure you discuss any questions you have with your health care provider. Document Released: 04/20/2005 Document Revised: 08/02/2018 Document Reviewed: 08/02/2018 [employer] Patient Education 2020 [employer]. 09/02/2022 12:22:10 BMI for Adults BMI for Adults Body mass index (BMI) is a number that is calculated from a person's weight and height. BMI may help to estimate how much of a person's weight is composed of fat. BMI can help identify those who may be at higher risk for certain medical problems. How is BMI used with adults? BMI is used as a screening tool to identify possible weight problems. It is used to check whether a person is obese, overweight, healthy weight, or underweight. How is BMI calculated? BMI measures your weight and compares it to your height. This can be done either in [place] ([place] or metric measurements. Note that charts are available to help you find your BMI quickly and easily without having to do these calculations yourself. To calculate your BMI in [place] ([place] measurements, your health care provider will: 1.Measure your weight in pounds (lb). 2.Multiply the number of pounds by 703. For example, for a person who weighs 180 lb, multiply that number by 703, which equals 126,540. 3.Measure your height in inches (in). Then multiply that number by itself to get a measurement called inches squared. For example, for a person who is 70 in tall, the inches squared measurement is 70 in x 70 in, which equals 4900 inches squared. 4.Divide the total from Step 2 (number of lb x 703) by the total from Step 3 (inches squared): 126,540 4900 = 25.8. This is your BMI. To calculate your BMI in metric measurements, your health care provider will: 1.Measure your weight in kilograms (kg). 2.Measure your height in meters (m). Then multiply that number by itself to get a measurement called meters squared. For example, for a person who is 1.75 m tall, the meters squared measurement is 1.75 m x 1.75 m, which is equal to 3.1 meters squared. 3.Divide the number of kilograms (your weight) by the meters squared number. In this example: 70 3.1 = 22.6. This is your BMI. How is BMI interpreted? To interpret your results, your health care provider will use BMI charts to identify whether you are underweight, normal weight, overweight, or obese. The following guidelines will be used: Underweight: BMI less than 18.5. Normal weight: BMI between 18.5 and 24.9. Overweight: BMI between 25 and 29.9. Obese: BMI of 30 and above. Please note: Weight includes both fat and muscle, so someone with a muscular build, such as an athlete, may have a BMI that is higher than 24.9. In cases like these, BMI is not an accurate measure of body fat. To determine if excess body fat is the cause of a BMI of 25 or higher, further assessments may need to be done by a health care provider. BMI is usually interpreted in the same way for men and women. Why is BMI a useful tool? BMI is useful in two ways: Identifying a weight problem that may be related to a medical condition, or that may increase the risk for medical problems. Promoting lifestyle and diet changes in order to reach a healthy weight. Summary Body mass index (BMI) is a number that is calculated from a person's weight and height. BMI may help to estimate how much of a person's weight is composed of fat. BMI can help identify those who may be at higher risk for certain medical problems. BMI can be measured using Ivorian measurements or metric measurements. To interpret your results, your health care provider will use BMI charts to identify whether you are underweight, normal weight, overweight, or obese. This information is not intended to replace advice given to you by your health care provider. Make sure you discuss any questions you have with your health care provider. Document Released: 04/26/2005 Document Revised: 07/28/2018 Document Reviewed: 06/28/2018 [employer] Patient Education 2020 [employer]. Follow Up Care 09/02/2022 11:42:01 With:Ronald AGUDELO DO, FAM Address: [address] [address]- When: Unknown [facility] 09-25-2021 Evaluation + Plan note Future Scheduled TestsTestosterone Level Total 09/25/21 [facility] 09-25-2021 Evaluation + Plan note Future Scheduled TestsTestosterone Level Total 09/25/21 [facility] Evaluation + Plan note Future Appointments Appointment Date:10/05/2023 11:20:00 AM Scheduled Provider:Crystal Motta Location:[facility] Appointment Type:[facility] Evaluation + Plan note Future Appointments Appointment Date:11/24/2023 11:20:00 AM Scheduled Provider:Crystla Motta Location:[facility] Appointment Type:[facility] Hospital course Narrative No data available for this section [facility] Hospital Discharge instructions No data available for this section [facility] Progress note No data available for this section [facility] Summary Purpose Family History No Family History Records Found No data available for this section No data available for this section No data available for this section No data available for this section No Family History Records FoundNo Family History Records Found Advance Directives No Advanced Directives Records FoundNo Advanced Directives Records FoundNo Advanced Directives Records Found Additional Source Comments INFORMATION SOURCE (unrecogn ized section and content) DATE CREATED AUTHOR 12/11/2021 [facility] DATE CREATED AUTHOR AUTHOR'S ORGANIZ ATION 11/21/2023 [facility] EPIC DATE CREATED AUTHOR AUTHOR'S ORGANIZ ATION 11/24/2023 [facility] Patient Care team informatio n (unrecognized section and content) Personnel Name: Ronald AGUDELO DO Address: Address: [address] [place], [place] [id number]- Personnel Name: Ronald AGUDELO DO Chris Address: Address: [address] [place] [address]- Personnel Name: NONE, XXXX Address: Address: [facility] Personnel Name: NONE, XXXX Address: Address: [facility] Personnel Name: NONE, XXXX Address: Address: [facility] Personnel Name: NONE, XXXX Address: Address: [facility] Personnel Name: Crystal Motta Address: Address: [address] [place] [address]- Personnel Name: Crystal Motta Address: Address: [address] [place] [address]- FOR RECORDS PERTAINING TO PATIENTS WHO ARE OR HAVE BEEN ENROLLED IN A CHEMICAL DEPENDENCY/SUBSTANCEABUSE PROGRAM, SOME INFORMATION MAY BE OMITTED. This clinical summary was aggregated from multiple sources. Caution should be exercised in using it in the provision of clinical care. This summary normalizes information from multiple sources, and as a consequence, information in this document may materially change the coding, format and clinical context of patient data. In addition, data may be omitted in some cases. CLINICAL DECISIONS SHOULD BE BASED ON THE PRIMARY CLINICAL RECORDS. [employer] [facility]. provides no warranty or guarantee of the accuracy or completeness of information in this document.
--- NOTE | 2024-01-03 13:03 | XR_ITS ---
The [address] [address] Patient Name: BONITA SAGASTUME MRN: [id number] date: 1990 Sex: F Assigned Patient Location: [facility] Current Patient Location: Accession/Order Number: [id number] Exam Date: 01/03/2024 13:10 Report Date: 01/04/2024 06:51 At the request of: LUIGI DIANE Procedure: XR chest 2V EXAMINATION: XR chest 2V HISTORY: Preop exam COMPARISON: No relevant comparison available. FINDINGS: LUNGS: No significant pulmonary parenchymal abnormalities. VASCULATURE: No increased pulmonary vasculature. PLEURA: No pneumothorax, effusion, or pleural thickening. CARDIAC: No cardiomegaly or cardiac silhouette abnormality. MEDIASTINUM: No visible mass or adenopathy. BONES: No fracture or visible bone lesion. OTHER: Negative. XR/XR chest 2V IMPRESSION: 1. Normal examination. Electronically authenticated by: JULIO CESAR WILLIAMSON Date: 01/04/2024 06:51
--- NOTE | 2024-01-03 13:15 | P.GSHP_ITS ---
History of Present Illness History of Present Illness Chief complaint: chronic sinusitis Narrative: Patient presents for preadmission testing. The patient states she's had three sinus infections in the past year and continues to have sinus congestion and drainage. She denies sore throat, fever, nausea, vomiting, or any other complaints. Review of Systems ROS Narrative REVIEW OF SYSTEMS: Negative except as stated in HPI, ten or more systems reviewed. Constitutional: No fever , chills, weakness ENT: No sore throat or epistaxis Cardiovascular: No edema, chest pain, palpitations, or activity intolerance Respiratory: No shortness of breath, cough, or wheezing Musculoskeletal: No joint pain or swelling Gastrointestinal: No abdominal pain, constipation, diarrhea, or vomiting Genitourinary: No dysuria or hematuria Neurological: No numbness, tingling, weakness, or headache Psychiatric: No mood changes PFSH [facility] Medical History (Updated 01/03/24 @ 12:58 by Isela Velasquez NP) Herniated disc Seasonal allergies ?J30.2 - Other seasonal allergic rhinitis (ICD-10) Back pain ?M54.9 - Dorsalgia, unspecified (ICD-10) Arthritis ?M19.90 - Unspecified osteoarthritis, unspecified site (ICD-10) Insomnia ?G47.00 - Insomnia, unspecified (ICD-10) PTSD (post-traumatic stress disorder) ?F43.10 - Post-traumatic stress disorder, unspecified (ICD-10) Depression ?F32.A - Depression, unspecified (ICD-10) Anxiety ?F41.9 - Anxiety disorder, unspecified (ICD-10) Electronic cigarette use ?Z78.9 - Other specified health status (ICD-10) COVID-19 ?U07.1 - COVID-19 (ICD-10) Migraine ?G43.909 - Migraine, unspecified, not intractable, without status migrainosus (ICD-10) Abdominal bloating ?R14.0 - Abdominal distension (gaseous) (ICD-10) Thyroid disorder ?E07.9 - Disorder of thyroid, unspecified (ICD-10) Vaginal Pap smear with ASC-US ?R87.620 - Atypical squamous cells of undetermined significance on cytologic smear of vagina (ASC-US) (ICD-10) Ethmoid sinusitis ?J32.2 - Chronic ethmoidal sinusitis (ICD-10) Maxillary sinusitis ?J32.0 - Chronic maxillary sinusitis (ICD-10) History of LEEP (loop electrosurgical excision procedure) of cervix complicating in second trimester ?O34.42 - Maternal care for other abnormalities of cervix, second trimester (ICD-10) ?Z98.890 - Other specified postprocedural states (ICD-10) Family History (Updated 01/03/24 @ 12:58 by Isela Velasquez NP) Other Family history of aneurysm Family history of bone cancer Family history of breast cancer Family history of diabetes mellitus Social History (Updated 01/03/24 @ 12:51 by Isela Velasquez NP) Within the past year, how often did you have a drink containing alcohol: monthly or less Smoking status: Current every day smoker What tobacco products do you use: cigarettes Cigarettes per day: 7 Years smoked: 4 Smoking pack-years: 1.40 Do you use any of these nicotine containing products: vaping products Non-prescribed substance use: denies use 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 Highest level of school completed/degree received: high school graduate Meds Home Medications and Allergies Home Medications ?Medication ?Instructions ?Recorded ?Confirmed ?Type bupropion HCl 150 mg 24 hr tablet, 150 mg PO DAILY 01/03/24 01/03/24 History extended release buspirone 15 mg tablet 15 mg PO BID 01/03/24 01/03/24 History cetirizine 10 mg capsule (All Day 10 mg PO DAILY PRN allergy symptoms 01/03/24 01/03/24 History Allergy (cetirizine)) copper 380 square mm intrauterine intrauterine 01/03/24 History device (ParaGard T 380A) Allergies Allergy/AdvReac Type Severity Reaction Status Date / Time brompheniramine Allergy Rash Verified 01/03/24 12:48 [From [employer]etapp Cold-Allergy (PE)] phenylephrine Allergy Rash Verified 01/03/24 12:48 [From [employer]etapp Cold-Allergy (PE)] Exam Narrative Exam Narrative: Constitutional: Awake, alert, comfortable, well-appearing, nontoxic, interactive, vital signs as charted Head: Normocephalic, atraumatic Eyes: Conjunctiva and lids normal to inspection, pupils normal ENT: Tympanic membranes pearly cao, nonerythematous, noninjected, naris patent, posterior oropharynx clear, oral mucosa moist Neck: Supple, normal appearance, normal range of motion, no meningeal signs, no lymphadenopathy Respiratory: No respiratory distress, breath sounds clear Cardiovascular: Regular rate and rhythm, strong and regular heart tones Musculoskeletal: Normal gait, no swelling or edema Skin: No rashes or induration, no lesions, only visible skin inspected Neuro: No neurological deficits, normal sensation Psychiatric: Oriented ?3, normal affect Assessment and Plan Assessment and Plan (1) Ethmoid sinusitis: (2) Maxillary sinusitis: Plan Right maxillary antrostomy, anterior ethmoidectomy scheduled with Dr. Laboy 01/10/2024.
[2024-01-03 14:03] LABS: Basophils Absolute Auto 0.1 10^3/uL (0.0-0.1); Basophils Percent Auto 0.7 % (0.2-2.0); Eosinophils Absolute Auto 0.2 10^3/uL (0.0-0.7); Eosinophils Percent Auto 2.3 % (0.9-7.0); Hematocrit 39.8 % (36.0-48.0); Hemoglobin 13.3 g/dL (12.0-16.0); Immature Granulocytes Abs Auto 0.02 10^3/uL (0.00-0.03); Immature Granulocytes Pct Auto 0.3 % (0.0-0.5); Lymphocytes Percent Auto 27.2 % (20.5-60.0); Mean Corpuscular HGB Conc 33.4 g/dL (29.9-35.2); Mean Corpuscular Volume 92.8 fL (81.0-99.0); Mean Platelet Volume 10.5 fL (9.5-13.5); Neutrophils Absolute Auto 4.3 10^3/uL (1.4-6.5); Neutrophils Percent Auto 56.5 % (43.0-75.0); Platelet Count 236 10^3/uL (150-450); Red Blood Count 4.29 10^6/uL (4.20-5.40); Red Cell Distribution Width 12.6 % (11.0-15.0); White Blood Count 7.5 10^3/uL (4.0-11.0)
[2024-01-03 14:19] LABS: INR 1.05; Partial Thromboplastin Time 29.1 sec (22.3-36.2); Prothrombin Time 11.1 sec (9.0-11.6)
== END 2024-01-03 12:30 | disposition home or self-care (01) ==
LOC: PST 12:30
PROVIDERS: PCP Nurse Practitioner; Visit Provider Otolaryngology
DX: Z01.810 Encounter for preprocedural cardiovascular examination (principal); Z01.812 Encounter for preprocedural laboratory examination; Z01.818 Encounter for other preprocedural examination; J32.0 Chronic maxillary sinusitis; J32.2 Chronic ethmoidal sinusitis
CPT/HCPCS: 71046; 85025; 85610; 85730; G0463

== ENCOUNTER 2024-01-10 09:40 | Day surgery (SDC) | payer BC, SELFPAY ==
[2024-01-03 13:10] VITALS: BP 110/70; PULSE 70; TEMP 36.4; O2SAT 97; BMI 32.4
[2024-01-10] VITALS (15 sets, daily range): BP systolic 102–115; BP diastolic 59–93; PULSE 50–91; TEMP 36.3; O2SAT 95–100; BMI 31.9
--- NOTE | 2024-01-10 | OP_ITS ---
OPERATION DATE: 01/10/2024 PRIMARY CARE PROVIDER: CHANCE Castro SURGEON: Christal Laboy M.D. PREOPERATIVE DIAGNOSIS: Chronis sinusitis. POSTOPERATIVE DIAGNOSIS: Chronis sinusitis and deviated nasal septum. PROCEDURE: Septoplasty, right maxillary antrostomy. ANESTHESIA: General endotracheal. COMPLICATIONS: None. FINDINGS: Deviated nasal septum obstructing access to the posterior lateral nasal wall and posterior nasal cavity, and purulent fluid filling the right maxillary sinus with dense middle meatus bone consistent osteitis and chronic inflammation. INDICATIONS: This 33-year-old woman presented with chronic maxillary and ethmoid sinusitis unresponsive to aggressive medical management. Her CT scan showed a mild deviated septum and appeared to allow adequate access to the lateral nasal wall and posterior nasal cavity; however, intra-operatively, it was evident that there was not adequate access to safely proceed with procedure as scheduled; therefore, septoplasty was performed. PROCEDURE: Patient identified in the holding are and taken back to the OR where she was placed in the supine position. After induction of general endotracheal anesthesia, the table was turned, the head elevated and Afrin soaked pledgets placed in the right nose. After waiting adequate time for hemostasis, the right nose was copiously irrigated. The nose was noted to be narrow, but an attempt was made to proceed with the procedure without doing a septoplasty. A curved scissor to the right was used to incise the anterior portion of the middle turbinate; however, it was evident that septoplasty would be needed to proceed further safely. Therefore, the septum was injected with lidocaine 1% with 1:100,000 epinephrine and, after waiting adequate time for hemostasis, a left sided Rudi incision was made. The mucoperiosteal/mucoperichondrial flap was elevated on the left hand side. The bony cartilaginous junction was . The mucoperiosteal flap was elevated on the right hand side. The bony septum was then removed using a cutting and grabbing Eryn forceps, and a small spur to the right was removed using a chisel to improve access to the right nasal cavity. This significantly improved access to the nasal cavity, and attention was returned to the sinuses. The anterior portion of the middle turbinate was then completely incised and removed with an ethmoid forcep. The uncinate process was incised with a sickle knife and removed with an ethmoid forcep. The natural ostium of the maxillary sinus was identified; however, the bone around the natural ostium was markedly thickened and not easily opened. Using side biting forceps and straight cutting forceps, eventually an adequate antrostomy was made for the sinus to be suctioned, and a large amount of white, milky fluid was suctioned from the maxillary sinus. The sinus was then copiously irrigated with normal saline. The antrostomy was further opened with straight cutting and side biting forceps. Then, the posterior root of the middle turbinate, as well as the posterior portion of the antrostomy, were cauterized to minimize the risk of postoperative bleeding. The right nose was then copiously irrigated and attention returned to the septum. The septal flap was copiously irrigated. The incision closed with an interrupted 5-0 chromic suture, and then bilateral ventilating silastic splits were coated with antibiotic and sutured in place using a 2-0 nylon transseptal stitch. The patient was the awakened and taken to the recovery room in good condition. LISA
[2024-01-10] MEDS: LACTATED RINGER'S SOLUTION 1,000 ML 50 ML IV (10:10)
[2024-01-10 10:14] LABS: HCG Qualitative NEGATIVE (NEGATIVE)
[2024-01-10] MEDS: OXYMETAZOLINE HCL 0.05% NASAL SPRAY 30 SPRAY NS (12:03)
[2024-01-10] MEDS: BACITRACIN OINTMENT 28.4 GM TUBE 1 APPLIC TOPICAL (13:00)
[2024-01-10] MEDS: LIDOCAINE HCL 1%-EPINEPHRINE 1:100,000 20 ML MDV 16 ML INJ (13:00)
[2024-01-10] MEDS: HYDROMORPHONE HCL 0.5 MG/0.5 ML SYRINGE IV (13:26)
[2024-01-10] MEDS: ONDANSETRON PF 4 MG/2 ML VIAL IV (13:42)
[2024-01-10] MEDS: ACETAMINOPHEN 300 MG/ 30 MG CODEINE TABLET 1 TAB PO (14:30)
== END 2024-01-10 15:38 | disposition home or self-care (01) ==
PROVIDERS: PCP Nurse Practitioner; Visit Provider Otolaryngology
PROC: (CPT 160; principal; 2024-01-10 10:55)
DX: J32.0 Chronic maxillary sinusitis (principal); J32.2 Chronic ethmoidal sinusitis; J34.2 Deviated nasal septum; J30.2 Other seasonal allergic rhinitis; M19.90 Unspecified osteoarthritis, unspecified site; F43.10 Post-traumatic stress disorder, unspecified; F32.A Depression, unspecified; F41.9 Anxiety disorder, unspecified; Z86.16 Personal history of COVID-19; E07.9 Disorder of thyroid, unspecified; F17.210 Nicotine dependence, cigarettes, uncomplicated
CPT/HCPCS: 30520; 31267; 36415; 84703; 88300; 88304; J1094; J1170; J2704

== ENCOUNTER 2024-11-19 18:15 | Outpatient (REF) | payer BC, SELFPAY ==
--- OUTSIDE RECORDS SUMMARY | 2024-11-19 18:24 | XMS_ITS | CCD ---
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 Name Role Phone LILLYKERCARMEN Consulting Unavailable DEL, DR DAVID Perez Admitting Unavailable ALEJANDRA, CARMEN Primary Care Unavailable DEL, DR DAVID Perez Attending Unavailable JAMMIE, DR TRAN Perez Attending Unavailable JAMMIE, DR TRAN Perez Consulting Unavailable BELMIKAEL, [facility] Primary Care Unavailable JAMMIE, DR TRAN Perez Admitting Unavailable YOSHI, DR CLOUD Attending Unavailable YOSHI, DR CLOUD Consulting Unavailable YOSHI, DR CLOUD Admitting Unavailable BELDON, [facility] Primary Care Unavailable BELDON, [facility] Primary Care Unavailable DEL, DR DAVID Perez Attending Unavailable DEL, DR DAVID Perez Consulting Unavailable DEL, DR DAVID Perez Admitting Unavailable Tran AGUDELO Primary Care Physician [phone] NONE, XXXX Primary Care Physician UnavailCatherine Koehler Primary Care Physician [phone] Unavailable Primary Care Provider Unavailmayra e Timmis Jr, Luigi H Attending Unavailable Timmis Jr, Luigi H Admitting Unavailable TIMMIS, LUIGI H Attending Unavailable TIMMIS, LUIGI H Attending Unavailable AI BELLE Attending Unavailable TIMMIS, LUIGI H Attending Unavailable SHOAIB CATHERINE Referring Unavailable TIMMIS, LUIGI H Attending Unavailable TIMMIS, LUIGI H Attending Unavailable CURTIS STAFFORD Primary Care Physician Timmis, Luigi H Admitting Unavailable Timmis, Luigi H Attending Unavailable Timmis, Luigi H Referring Unavailable ShoaibJONE Admitting Unavailable Shoaib, JONE Bernabe Attending Unavailable ANASTACIO SOSA Attending Unavailable Cuba Koo Attending Unavailable CURTIS STAFFORD Attending Unavailabl e Shoaib, JONE Bernabe Attending Unavailable Shoaib, PLACEMENT OFFICER Catherine Bernabe Attending Unavailable Shoaib, PLACEMENT OFFICER Catherine Bernabe Attending Unavailable CURTIS STAFFORD Attending CURTIS Nixon Admitting UnavailCatherine Colmenares MD Unavailable Curtis Stafford MD Unavailable [phone] LUIGI DIANE Attending Unavailable CURTIS STAFFORD Admitting UnavailCURTIS Rich Attending CURTIS Nixon Referring UnavailMichelle Valdez Attending Unavailable Allergies Allergy Classification Reported Allergen(s) Allergy Type Date of Onset Reaction(s) Facility (1 source) Brompheniramine / Phenylpropanolamine Drug Allergy [facility] Repository (15 sources) Brompheniramine / Dextromethorphan / Phenylephrine; Translations: [brompheniramine/DM/ph enylephrine] Drug Allergy Weal (disorder) [facility] [place] Work Phone: (8 sources) Acetaminophen / diphenhydrAMINE / Phenylephrine Drug Allergy 10-04-19 24 [facility] Work Phone: (8 sources) Simple Syrup Propensity to adverse reactions 07-20-20 23 Unknown [facility] Healthcare (1 source) Brompheniramine Drug Allergy 09-09-19 [facility] Repository (1 source) Phenylephrine Drug Allergy 09-09-19 [facility] Repository Medications Current Medications Medication Drug Class(es) Dates Sig (Normalized) Sig (Original) amoxicillin 500 mg oral capsule (1 source) Penicillin-class Antibacterial Start: 09-02-2022 End: 09-12-2022 take 1 capsule by mouth every twelve hours amoxicillin 500 mg Cap 500 mg = 1 cap(s), Oral, q12hr, X 10 day(s), # 20 cap(s), Refills(s) 0, Pharmacy: [facility]/pharmacy #[id number], 178, cm, 09/02/22 12:01:00 [...] day(s), # 30 tab(s), Refills(s) 0, Pharmacy: [facility]/pharmacy #[id number], 178, cm, 05/05/23 12:17:00 EDT, Height/Length Dosing, 95.4, kg, 05/05/23 12:17:00 EDT, Weight Dosing Start Date: 05/05/23 Stop Date: 05/15/23 Status: Ordered brompheniramine maleate 0.4 mg/ml / dextromethorphan hydrobromide 2 mg/ml / pseudoephedrine hydrochloride 6 mg/ml oral solution (1 source) alpha-Adrenergic Agonist, Uncompetitive K-ysuxhe-R-aspartat e Receptor Antagonist, Sigma-1 Agonist Start: 09-07-2024 End: 09-12-2024 take 10 mL by mouth four times daily Bromfed DM oral syrup 10 mL, Oral, QID for 5 day(s), 200 mL, Refill(s) 0, [facility]/pharmacy #[id number], 178, cm, 09/07/24 15:44:00 EST, Height/Length Dosing, 108.1, kg, 09/07/24 15:44:00 EST, Weight Dosing Start Date: 09/07/24 Stop Date: 09/12/24 Status: Ordered 24 hr buPROPion hydrochloride 150 mg extended release oral tablet (10 sources) Aminoketone Start: 05-23-2024 take 1 tablet by mouth once daily in the morning buPROPion 150 mg/24 hours XL Tab TAKE 1 TABLET BY MOUTH EVERY DAY IN THE MORNING FOR 30 DAYS Start Date: 05/23/24 Status: Ordered Start: 12-29-2023 take 1 tablet by yovani th every twenty-four hours in the morning buPROPion XL (Wellbutrin XL) 150 MG 24 hr tablet Take 150 mg by mouth in the morning. 12/29/2023 Active busPIRone hydrochloride 15 mg oral tablet (10 sources) Start: 05-02-2024 take 1 tablet by mouth in the morning busPIRone (Buspar) 15 MG tablet Take 15 mg by mouth in the morning and 15 mg before bedtime. 12/29/2023 Active Start: 10-26-2023 take 1 tablet by yovani th twice daily busPIRone 5 mg Tab 5 mg = 1 tab(s), Oral, BID, Refills(s) 0 Start Date: 10/26/23 Status: Ordered cefuroxime 500 mg oral tablet (1 source) Cephalosporin Antibacterial Start: 09-07-2023 End: 09-14-2023 take 1 tablet by mouth twice daily cefuroxime 500 mg oral tablet 500 mg = 1 tab(s), Oral, BID, X 7 day(s), # 14 tab(s), Refills(s) 0, Pharmacy: [facility]/pharmacy #[id number], 178, cm, 09/07/23 11:44:00 EST, Height/Length Dosing, 105.9, kg, 09/07/23 11:44:00 EST, Weight Dosing Start Date: 09/07/23 Stop Date: 09/14/23 Status: Ordered copper 313 mg drug implant (8 sources) Copper-containing Intrauterine Device Start: 01-14-2020 ParaGard intrauteral device Refill(s) 0 Start Date: 01/14/20 Status: Ordered copper (Paragard ) IUD by Intrauterine route 1 (one) time 10/30/2018 insertion paragard by yoshi Active doxycycline hyclate 100 mg oral capsule (1 source) Tetracycline-class Drug Start: 08-28-2023 End: 09-04-2023 take 1 capsule by mouth twice daily doxycycline hyclate 100 mg Cap 100 mg = 1 cap(s), Oral, BID, X 7 day(s), # 14 cap(s), Refills(s) 0, Pharmacy: [facility]/pharmacy #[id number], 178, cm, 08/28/23 12:08:00 EST, Height/Length Dosing, 104, kg, 08/28/23 12:08:00 EST, Weight Dosing Start Date: 08/28/23 Stop Date: 09/04/23 Status: Ordered fluticasone propionate 0.05 mg/actuat metered dose nasal spray (8 sources) Corticosteroid Start: 09-22-2023 Flonase 0.05 mg/inh Sadorus 2 spray(s), Nasal, Daily, 16 gram, Refill(s) 5, each nostril, [facility]/pharmacy #[id number], 178, cm, 09/07/23 11:44:00 EST, Height/Length Dosing, 105.9, kg, 09/07/23 11:44:00 EST, Weight Dosing Start Date: 09/22/23 Status: Ordered Start: 08-28-2023 take 2 spray(s) nasa l route in the morning fluticasone (Flonase Allergy Relief) 50 MCG/ACT nasal spray Administer 2 sprays into affected nostril(s) in the morning. 0 08/28/2023 Active Start: 08-28-2023 Flonase 0.05 m g/inh Sadorus 2 spray(s), Nasal, Daily, 16 gram, Refill(s) 1, each nostril, [facility]/pharmacy #[id number], 178, cm, 08/28/23 12:08:00 EST, Height/Length Dosing, 104, kg, 08/28/23 12:08:00 EST, Weight Dosing Start Date: 08/28/23 Status: Ordered gabapentin 100 mg oral capsule (3 sources) Anti-epileptic Agent Start: 05-23-2024 take 1 capsule by mouth three times daily gabapentin 100 mg Cap 100 mg = 1 cap(s), Oral, TID, # 90 cap(s), Refills(s) 0, Pharmacy: [facility] #[id number], 178, cm, 05/23/24 13:10:00 EDT, Height/Length Dosing, 105.6, kg, 05/23/24 13:10:00 EDT, Weight Dosing Start Date: 05/23/24 Status: Ordered liothyronine sodium 0.005 mg oral tablet (6 sources) l-Triiodothyronine Start: 12-18-2021 take 1 tablet by mouth once daily liothyronine 5 mcg Tab 5 mcg = 1 tab(s), Oral, Daily, # 30 tab(s), Refills(s) 2, Pharmacy: [facility]/pharmacy #[id number], 178, cm, 12/18/21 13:00:00 EDT, Height/Length Dosing, 97.7, kg, 12/18/21 13:04:00 EDT, Weight Dosing Start Date: 12/18/21 Status: Ordered Start: 12-18-2021 take 1 tablet by yovani once daily liothyronine 5 mcg Tab 5 mcg = 1 tab(s), Oral, Daily, # 30 tab(s), Refills(s) 2, Pharmacy: [facility]/pharmacy #[id number], 178, cm, 12/18/21 13:00:00 EDT, Height/Length [...] Daily, # 30 tab(s), Refills(s) 0, Pharmacy: [facility] #[id number], 178, cm, 10/26/23 11:33:00 EST, Height/Length Dosing, 106.2, kg, 10/26/23 11:33:00 EST, Weight Dosing Start Date: 10/26/23 Status: Ordered predniSONE 10 mg oral tablet (3 sources) Start: 05-23-2024 End: 06-08-2024 take 1 tablet by mouth once daily, then take 4 tablets by mouth once daily predniSONE 10 mg Tab 10 mg, Oral, As Directed, 4 QDx4 days; 3 QDx4 d; 2 QDx4 d; 1 QDx4d; d/c, X 16 day(s), # 40 tab(s), Refills(s) 0, Pharmacy: [facility] #[id number], 178, cm, 05/23/24 13:10:00 EDT, Height/Length Dosing, 105.6, kg, 05/23/24 13:10:00 EDT, Weight Dosing Start Date: 05/23/24 Stop Date: 06/08/24 Status: Ordered valACYclovir 1000 mg oral tablet (1 source) Herpesvirus Nucleoside Analog DNA Polymerase Inhibitor, Herpes Simplex Virus Nucleoside Analog DNA Polymerase Inhibitor, Herpes Zoster Virus Nucleoside Analog DNA Polymerase Inhibitor Start: 03-15-2023 End: 03-18-2023 take 2 tablets by mouth every twelve hours valacyclovir 1 g Tab 2 gm = 2 tab(s), Oral, q12hr, X 1 day(s), # 4 tab(s), Refills(s) 2, Pharmacy: [id number], 178, cm, 03/15/23 16:13:00 EDT, Height/Length Dosing, [...] for 10 day(s), 20 tab(s), Refill(s) 0, [id number], 178, cm, 07/25/23 17:14:00 EST, Height/Length Dosing, 101.4, kg, 07/25/23 17:14:00 EST, Weight Dosing Start Date: 07/25/23 Stop Date: 08/04/23 Status: Ordered Problems Active Problems Problem Classification Problem Date Documented Date Episodic/Chronic Anxiety disorders (20 sources) Generalized anxiety disorder; Translations: [Anxiety] Onset: 10-04-2023 09-24-2021 Chronic Bacterial infection; unspecified site (1 source) Bacterial infectious disease; Translations: [Other specified bacterial agents as the cause of diseases classified elsewhere] Onset: 07-25-2023 Episodic Contraceptive and procreative management (2 sources) Patient encounter status; Translations: [Encounter for insertion of intrauterine contraceptive device] 11-19-2024 Episodic Menstrual disorders (20 sources) Irregular periods; Translations: [Irregular menstruation, unspecified] Onset: 10-04-2023 Resolved: 10-04-2023 09-25-2021 Chronic Mood disorders (14 sources) Depressive disorder; Translations: [Depression] Onset: 10-04-2023 09-07-2023 Chronic Nutritional deficiencies (1 source) Vitamin D deficiency, unspecified; Translations: [VITAMIN D DEFICIENCY UNSPECIFIED] Onset: 12-10-2021 Chronic Other circulatory disease (20 sources) Raynaud's phenomenon; Translations: [Raynaud's syndrome without gangrene] Onset: 10-04-2023 09-24-2021 Chronic Other congenital anomalies (1 source) Congenital deformity of hip joint; Translations: [Other specified congenital deformities of hip] Onset: 05-23-2024 Chronic Other non-traumatic joint disorders (4 sources) Disorder of hip joint 05-23-2024 Episodic Other nutritional; endocrine; and metabolic disorders (16 sources) Body mass index 30+ - obesity 07-17-2020 Chronic Other nutritional; endocrine; and metabolic disorders (5 sources) Obese class I; Translations: [Body mass index (BMI) 32.0-32.9, adult] Onset: 09-02-2022 Chronic Other nutritional; endocrine; and metabolic disorders (1 source) Obesity; Translations: [Other obesity due to excess calories] Onset: 08-28-2023 Chronic Other nutritional; endocrine; and metabolic disorders (7 sources) Obesity caused by energy imbalance 08-28-2023 Chronic Other nutritional; endocrine; and metabolic disorders (1 source) Abnormal weight gain; Translations: [ABNORMAL WEIGHT GAIN] Onset: 12-10-2021 Episodic Other nutritional; endocrine; and metabolic disorders (12 sources) Weight gain 09-24-2021 Episodic Other skin disorders (1 source) Nonscarring hair loss, unspecified; Translations: [NONSCARRING HAIR LOSS UNSPECIFIED] Onset: 12-10-2021 Episodic Other skin disorders (1 source) Xerosis cutis; Translations: [XEROSIS CUTIS] Onset: 12-10-2021 Episodic Other skin disorders (6 sources) Dry skin 09-24-2021 Episodic Other upper respiratory disease (14 sources) Seasonal allergy; Translations: [Other seasonal allergic rhinitis] Onset: 10-04-2023 09-07-2023 Chronic Other upper respiratory disease (2 sources) Deviated nasal septum; Translations: [Deviated nasal septum] 06-20-2024 Episodic Other upper respiratory disease (2 sources) Disorder of nasal cavity; Translations: [Other specified disorders of nose and nasal sinuses] 06-20-2024 Episodic Other upper respiratory infections (14 sources) Chronic sinusitis; Translations: [Chronic sinusitis, unspecified] Onset: 10-04-2023 10-04-2023 Chronic Screening and history of mental health and substance abuse codes (8 sources) H/O: Disorder; Translations: [Personal history of nicotine dependence] Onset: 08-28-2023 Episodic Spondylosis; intervertebral disc disorders; other back problems (20 sources) Prolapsed lumbar intervertebral disc; Translations: [Other intervertebral disc displacement, lumbar region] Onset: 10-04-2023 08-19-2020 Chronic Substance-related disorders (20 sources) Cigarette smoker ; Translations: [Nicotine dependence] Onset: 09-02-2022 01-14-2020 Chronic Unclassified (20 sources) Patient encounter status 07-17-2020 Unclassified (8 sources) Puncture wound of left foot 07-25-2023 Past or Other Problems Problem Classification Problem Date Documented Date Episodic/Chronic Malaise and fatigue (20 sources) Other fatigue; Translations: [Fatigue] Onset: 12-10-2021 Resolved: 10-04-2023 07-17-2020 Episodic Open wounds of extremities (8 sources) Puncture wound of left foot; Translations: [Puncture wound without foreign body, left foot, initial encounter] Onset: 10-04-2023 Resolved: 10-04-2023 10-04-2023 Episodic Other non-traumatic joint disorders (20 sources) Hip pain; Translations: [Pain in right hip] Onset: 10-04-2023 07-17-2020 Episodic Other screening for suspected conditions (not mental disorders or infectious disease) (20 sources) Encounter for screening for malignant neoplasm of cervix; Translations: [Thyroid function tests abnormal] Onset: 07-30-2021 Resolved: 10-04-2023 Episodic Other skin disorders (20 sources) Acne; Translations: [Acne, unspecified] Onset: 10-04-2023 09-25-2021 Episodic Other skin disorders (20 sources) Loss of hair; Translations: [Nonscarring hair loss, unspecified] Onset: 10-04-2023 Resolved: 10-04-2023 09-24-2021 Episodic Other upper respiratory disease (14 sources) Nasal discharge; Translations: [Other specified disorders of nose and nasal sinuses] Onset: 10-04-2023 09-07-2023 Episodic Other upper respiratory disease (6 sources) Nasal obstruction; Translations: [Other specified disorders of nose and nasal sinuses] Onset: 02-22-2024 02-22-2024 Episodic Other upper respiratory infections (12 sources) Streptococcal sore throat; Translations: [Streptococcal pharyngitis] Onset: 09-02-2022 Resolved: 10-04-2023 Episodic Residual codes; unclassified (14 sources) Family history of breast cancer; Translations: [Family history of malignant neoplasm of breast] Onset: 10-04-2023 09-07-2023 Episodic Spondylosis; intervertebral disc disorders; other back problems (20 sources) Low back pain; Translations: [Spinal stenosis of lumbar region] Onset: 10-04-2023 07-17-2020 Episodic Sprains and strains (19 sources) Sprain of foot; Translations: [Sprain of left foot] Onset: 2023 2023 Episodic Viral infection (20 sources) Human papilloma virus infection; Translations: [Herpesviral vesicular dermatitis] Onset: 03-15-2023 01-14-2020 Episodic Results Test Name Value Interpretation Reference Range Facility Ambulatory Visit Summaryon 0 09-07-2024 Ambulatory Visit Summary Ambulatory Visit Summary DOMINIQUE GILL :1990 Visit Date:09/07/2024 Ambulatory Visit Instructions Your Diagnosis Viral URI with cough Your Care Team Attending Physician - Angeles Buckner Primary Care Physician - KATIE ANSARI This Is Your Medications List brompheniramine/dext romethorphan/PSE (Bromfed DM oral syrup) Contact prescribing physician if questions or concerns buPROPion (buPROPion 150 mg/24 hours XL Tab) Procedures Performed Augmentation rhinoplasty, Insertion of IUD, LEEP (Loop electrosurgical excision procedure) of cervix. Discharge Vitals Temperature (Temporal Artery) 36.7 ???C Heart Rate (Peripheral) 74 Respiratory Rate 20 Blood Pressure 112/70 Height 178 cm Height 70 in Weight 108.1 kg Weight 238.319 lb BMI 34.12 What to do next You Need to Schedule the Following Appointments Follow Up with CATHY FLETCHER, JEFFERY WILSON When: Medications What How Much When Why Instructions New brompheniramine/ dextromethorphan/ PSE (Bromfed DM oral syrup) 10 Milliliter By Mouth 4 times a day Viral URI with cough Duration: 5 Days Pickup at [facility]/pharmacy #[id number] Unchanged buPROPion (buPROPion 150 mg/ 24 hours XL Tab) TAKE 1 TABLET BY MOUTH EVERY DAY IN THE MORNING FOR 30 DAYS Contact prescribing physician if questions or concerns Pharmacy Information [facility]/pharmacy #[id number]: [address], [place] [id number] [phone] Allergies Dimetapp Cold & Cough (Hives) Problems Ongoing - Any problem that you are currently receiving treatment for. Abnormal thyroid function test Acne Anxiety BMI 32.0-32.9,adult Cigarette smoker Depression Encounter for weight management Family history of breast cancer Fatigue Former smoker Generalized anxiety disorder Hair loss Hair thinning Hip dysplasia Hip pain, bilateral HPV in female Irregular menses Low back pain Lumbar canal stenosis Lumbar disc herniation Lumbar herniated disc Nasal drainage Obesity due to excess calories Puncture wound of left foot Raynaud phenomenon Screening mammogram for breast cancer Seasonal allergies Sprain of left foot Weight gain Wellness examination Patient Survey You may receive a survey via text or e-mail asking about your office visit. Please share your experience with us by completing your survey. We appreciate your feedback and thank you for choosing us for your care. Normal [facility] Family Medicine Office/Clini c Noteon 09-07-2024 Family Medicine Office/Clinic Note Family Medicine Office/Clinic Note Chief Complaint sinus congestion HPI Staff 34 year old female presents for a a productive cough, sinus congestions for two weeks. Pt states that her throat has been hurting for 1 day. Pt denies having a fever. History of Present Illness I have reviewed and verified the staff HPI to be accurate for this encounter. Portions of this record have been created with voice recognition software. Occasional wrong-word or ???fbcum-g-gjys??? substitutions may have occurred due to the inherent limitations of voice recognition software. 34-year-old female presents with complaints of productive cough, sinus congestion for the last 2 weeks. She started today with a sore throat. She denies any fever or chills. No chest pain, wheezing or shortness of breath. Patient has not been using any jikq-oll-ydeozyd medications for her symptoms. She denies that her throat hurts all the time just mainly when she coughs. She denies she has been missing work due to her symptoms. No known sick contacts. Review of Systems PHQ Score Initial Depression Screen Score: 0 SCORE ROS negative unless otherwise stated in HPI. Physical Exam Vitals & Measurements T: 36.7 ???C(Temporal Artery) HR: 74(Peripheral) RR: 20 BP: 112/70 SpO2: 95% HT: 70 in HT: 178 cm WT: 108.1 kg WT: 238.319 lb BMI: 34.12 General: Well developed, well nourished, in no acute distress not ill-appearing Eyes: Pupils equal, round, and reactive to light. Conjunctivae and sclerae normal, and extraocular movements intact glasses Ears: No deformity or lesion of external ear. Canals and TM appear normal bilaterally. TM???s intact, not inflamed, with normal light reflex. Hearing grossly normal to conversational speech Nose: mild nasal mucosa inflammation and edema Mouth: Mucous membranes moist. Normal oropharynx, and erythematous posterior pharynx without lesions or exudates. Tongue normal tonsils 1+, uvula midline, no drooling or signs of peritonsillar abscess Neck: no adenopathy Lungs: clear to auscultation throughout, no wheezing, no rales. No respiratory distress dry cough noted Cardio: regular rate and rhythm, no murmur Abdomen: not assessed Musculoskeletal: not assessed Extremity: not assessed Neurologic: not assessed Skin: No rashes, ulcerations, or suspicious lesions Mental Status: Alert and oriented x3. Normal mood and affect Assessment/Plan Discussed with patient she has Dimetapp listed as an allergy. Patient states that was from her childhood. Patient states she has taken Sudafed in the past and will see how she does with the Bromfed DM. She will stop it gives her any reaction. Declines need for work note. 1. Viral URI with cough (J06.9: Acute upper respiratory infection, unspecified) Discussed exam and hx are consistent with viral illness. Advised of typical duration. Discussed antibiotics unfortunately do not treat viral illnesses, it will take time to run course- usually 7-14 days. Fluids/rest encouraged, PRN tylenol/ibuprofen for any pain. May use scribed Bromfed-DM 2 teaspoons every 6 hours as needed for nasal congestion and cough for symptomatic tx. Follow up with PCP if not improving over next 3-5 days or significantly worsening symptoms. Patient and/or parent verbalized understanding of tx plan. Ordered: brompheniramine/dext romethorphan/PSE, 10 mL, Oral, QID for 5 day(s), 200 mL, Refill(s) 0, [facility]/pharmacy #[id number], 178, cm, 09/07/24 15:44:00 EST, Height/Length Dosing, 108.1, kg, 09/07/24 15:44:00 EST, Weight Dosing Follow-up With When Contact Information CATHY FLETCHER, JEFFERY WILSON Additional Instructions: Patient Education Viral Respiratory Infection, Adep-Xz-Xrtr Cough, Adult, Raap-xr-Bkud Problem List/Past Medical History Ongoing Abnormal thyroid function test Acne Anxiety BMI 32.0-32.9,adult Cigarette smoker Depression Encounter for weight management Family history of breast cancer Fatigue Former smoker Generalized anxiety disorder Hair loss Hair thinning Hip dysplasia Hip pain, bilateral HPV in female Irregular menses Low back pain Lumbar canal stenosis Lumbar disc herniation Lumbar herniated disc Nasal drainage Obesity due to excess calories Puncture wound of left foot Raynaud phenomenon Screening mammogram for breast cancer Seasonal allergies Sprain of left foot Weight gain Wellness examination Historical No qualifying data Procedure/Surgical History Augmentation rhinoplasty, Insertion of IUD, LEEP (Loop electrosurgical excision procedure) of cervix. Medications Bromfed DM oral syrup, 10 mL, Oral, QID buPROPion 150 mg/24 hours XL Tab Allergies Dimetapp Cold & Cough (Hives) Social History Alcohol - Denies Alcohol Use, 07/23/2020 Substance Abuse - Denies Substance Abuse, 01/14/2020 Tobacco - Denies Tobacco Use, 07/25/2023 Former smoker, quit more than 30 days ago Tobacco Use:. Current vaping or e-cigarette use Smokeless Tobacco Use:. Ciga (more content not included)... Normal [facility] Comment on above: Result Comment: Elec tronically Signed By: Araceli FLETCHER, Angeles\.br\Date and Time Signed: 09/07/24 20:12 EST MRI Spine Lumbar w/o Contras ton 06-12-2024 MRI Spine Lumbar w/o Contrast Exam Date/Time: 06/06/2024 13:10 EDT Reason for Exam: M51.26;Spinal stenosis Report IMPRESSION: SIGNIFICANTLY DIMINISHED L4-5 DISC HERNIATION FROM 08/18/2020. OTHERWISE, LITTLE INTERVAL CHANGE, DESCRIBED IN DETAIL. EXAM: MRI Spine Lumbar w/o Contrast DATE: 06/06/2024 12:26 PM CLINICAL HISTORY: Spinal stenosis, M51.26. COMPARISON: 08/18/2020 TECHNIQUE: Multiplanar MR imaging of the lumbar spine was performed without contrast. FINDINGS: The spine is visualized from T11-12 through S2, on the diagnostic sagittal sequences. Alignment: Lumbar lordosis is maintained. Vertebral body heights and alignment are within normal limits. Bone marrow signal/fracture: Unremarkable. Conus: The conus is within normal limits of signal intensity and morphology. Paraspinal soft tissues: Small simple left renal cyst. Paraspinal soft tissues are otherwise unremarkable. Lower thoracic spine: Visualized lower thoracic canal and foramina are without significant narrowing. L1-2: Mild diffuse disc bulging with a very small broad-based central disc protrusion and minimal hypertrophic facet and ligamentum flavum changes, which results in borderline central spinal stenosis. L2-3: Mild disc space narrowing, mild diffuse disc bulging with a very small broad-based central disc protrusion and minimal hypertrophic facet and ligamentum flavum changes, which results in borderline central spinal stenosis. L3-4: Moderate diffuse disc bulging with a small broad-based central disc protrusion and minimal hypertrophic facet and ligamentum flavum changes, which results in opmh-sj-vkhxuhwn central spinal stenosis. L4-5: Moderate diffuse disc bulging with significantly diminished central disc protrusion from 08/18/2020 and mild hypertrophic facet and ligamentum flavum changes, which results in mild central spinal stenosis and mild to moderate left lateral Report recess and neural foraminal narrowing. L5-1: Small broad-based central disc protrusion and minimal hypertrophic facet and ligamentum flavum changes, without central spinal stenosis or neural foraminal narrowing. Sacrum and iliac wings: Unremarkable. Ordering Provider: CURTIS STAFFORD FINAL REPORT Dictated: 06/12/2024 1:06 pm Ramiro Bourgeois MD Signed (Electronic Signature): 06/12/2024 1:06 pm Signed by: Bk SENA, Ramiro Estrella Transcribed by: TONI Technologist: EDWIGE Technical Comments None Normal [facility] MARGO w/Reflex if POSon 2023 Nuclear Ab Ql (S) Negative Invalid Interpretation Code Negative [facility] Comment on above: Result Comment: Perf ormed at: [facility] [address] [id number] PhD Roosevelt Howard Performed By: #### 1 [id number] #### [facility] [address] [place] [address] BECKA and PE, Serumon 05-25-20 24 Albumin [Mass/Vol] 3.7 g/dL Invalid Interpretation Code 2.9-4.4 [facility] Comment on above: Performed By: #### 1 [id number] #### [facility] [address] [place] [address] Albumin/Globulin [Mass ratio] 1.2 {ratio} Invalid Interpretation Code 0.7-1.7 [facility] Comment on above: Performed By: #### 1 [id number] #### [facility] [address] [place] [address] Alpha 1 globulin Elph [Mass/Vol] 0.2 g/dL Invalid Interpretation Code 0.0-0.4 [facility] Comment on above: Performed By: #### 1 [id number] #### [facility] [address] [place] [address] Alpha 2 globulin Elph [Mass/Vol] 0.6 g/dL Invalid Interpretation Code 0.4-1.0 [facility] Comment on above: Performed By: #### 1 [id number] #### [facility] [address] [place] [address] Beta globulin Elph [Mass/Vol] 0.9 g/dL Invalid Interpretation Code 0.7-1.3 [facility] Comment on above: Performed By: #### 1 [id number] #### [facility] [address] [place] [address] Gamma globulin Elph [Mass/Vol] 1.5 g/dL Invalid Interpretation Code 0.4-1.8 [facility] Comment on above: Performed By: #### 1 [id number] #### [facility] [address] [place] [address] Globulin (S) [Mass/Vol] 3.3 g/dL Invalid Interpretation Code 2.2-3.9 [facility] Comment on above: Performed By: #### 1 [id number] #### [facility] [address] [place] [address] IgA [Mass/Vol] 452 mg/dL High 87-352 [facility] Comment on above: Performed By: #### 1 [id number] #### [facility] [address] [place] [address] IgG [Mass/Vol] 1425 mg/dL Invalid Interpretation Code 586-1602 [facility] Comment on above: Performed By: #### 1 [id number] #### [facility] [address] [place] [address] IgM [Mass/Vol] 164 mg/dL Invalid Interpretation Code 26-217 [facility] Comment on above: Performed By: #### 1 [id number] #### [facility] [address] [place] [address] Interpretation IEP [Interp] Comment Invalid Interpretation Code [facility] Comment on above: Result Comment: No m onoclonality detected. Performed By: #### 1 [id number] #### [facility] [address] [place] [address] Laboratory comment Arash (Report) Comment Invalid Interpretation Code [facility] Comment on above: Result Comment: Prot ein electrophoresis scan will follow via computer, mail, or regional manager delivery. Performed at: [facility] [id number] PhD Roosevelt Howard Performed By: #### 1 [id number] #### [facility] [address] [place] [address] Protein [Mass/Vol] 7.0 g/dL Invalid Interpretation Code 6.0-8.5 [facility] Comment on above: Performed By: #### 1 [id number] #### [facility] [address] [place] [address] Protein.monoclonal Elph [Mass/Vol] Not Observed Invalid Interpretation Code Not Observed [facility] Comment on above: Performed By: #### 1 [id number] #### [facility] [address] [place] [address] RF Quanton 05-25-2024 Rheumatoid factor Qn [IU]/mL Invalid Interpretation Code <14.0 [facility] Comment on above: Result Comment: Perf ormed at: [facility] [address] [id number] PhD Roosevelt Howard Performed By: #### 1 [id number] #### [facility] [address] [place] [address] XR Hip Bilat 2 Views + Pelvi son 05-25-2024 XR Hip Bilat 2 Views + Pelvis Exam Date/Time: 05/23/2024 14:48 EDT Reason for Exam: Q65.89;Hip pain Report IMPRESSION: NO ACUTE OSSEOUS ABNORMALITY. EXAMINATION: XR Hip Bilat 2 Views + Pelvis HISTORY: Hip pain COMPARISONS: None available TECHNIQUE: Frontal and lateral views of the hip. FINDINGS: No acute proximal femur fracture. No hip dislocation. Joint space of the hip is maintained. Visualized bones of the pelvis are within normal limits. Degenerative changes of the lower lumbar spine. An IUD projects over the pelvis. Soft tissues are within normal limits. Ordering Provider: CURTIS STAFFORD FINAL REPORT Dictated: 05/25/2024 3:57 pm Sergey David DO Signed (Electronic Signature): 05/25/2024 3:57 pm Signed by: Sergey David DO Transcribed by: TONI Technologist: MACARENA Technical Comments Radiation Dose: Kar in mGy = . DAP = . Normal [facility] Ambulatory Visit Summaryon 0 05-23-2024 Ambulatory Visit Summary Ambulatory Visit Summary DOMINIQUE GILL :1990 Visit Date:05/23/2024 Ambulatory Visit Instructions Your Diagnosis Lumbar disc herniation Lumbar canal stenosis Low back pain Hip dysplasia Neuropathy Your Care Team Attending Physician - KATIE ANSARI Primary Care Physician - Catherine Motta This Is Your Medications List buPROPion (buPROPion 150 mg/24 hours XL Tab) busPIRone (busPIRone 5 mg Tab) fluticasone nasal (Flonase 0.05 mg/inh Sadorus) gabapentin (gabapentin 100 mg Cap) predniSONE (predniSONE 10 mg Tab) Procedures Performed Augmentation rhinoplasty, Insertion of IUD, LEEP (Loop electrosurgical excision procedure) of cervix. Discharge Vitals Heart Rate (Peripheral) 79 Respiratory Rate 16 Blood Pressure 118/62 Height 178 cm Height 70 in Weight 105.6 kg Weight 232.32 lb BMI 33.33 What to do next You Need to Complete the Following MARGO w/Reflex if POS, Blood, Routine collect, 05/23/24, Order for future visit, Lab Collect, Neuropathy, Print Label By Order Location C-Reactive Protein High Sensitivity, Blood, Routine collect, 05/23/24, Order for future visit, Lab Collect, Neuropathy, Print Label By Order Location BECKA and PE, Serum, Blood, Routine collect, 05/23/24, Order for future visit, Lab Collect, Neuropathy, Print Label By Order Location Rheumatoid Factor Quantitative, Blood, Routine collect, 05/23/24, Order for future visit, Lab Collect, Neuropathy, Print Label By Order Location Sedimentation Rate Automated, Blood, Routine collect, 05/23/24, Order for future visit, Lab Collect, Neuropathy, Print Label By Order Location Vitamin B12 Level, Blood, Routine collect, 05/23/24, Order for future visit, Lab Collect, Neuropathy, Print Label By Order Location MRI Spine Lumbar w/o Contrast, 05/23/24, Routine, Order for Future Visit, Transport Mode: Ambulatory, Reason: Spinal stenosis, No, No, Lumbar disc herniation Lumbar canal stenosis Low back pain, pp_set_radiology_sub specialty, [facility] XR Hip 2-3 Views Left, 05/23/24, Routine, Order for future visit, Transport Mode: Ambulatory, Reason: Hip pain, No, Hip dysplasia, pp_set_radiology_sub specialty, [facility] XR Hip 2-3 Views Right, 05/23/24, Routine, Order for future visit, Transport Mode: Ambulatory, Reason: Hip pain, No, Hip dysplasia, pp_set_radiology_sub specialty, [facility] Medications What How Much When Why Instructions New gabapentin (gabapentin 100 mg Cap) 1 Capsules By Mouth 3 times a day Neuropathy Pickup at [facility] New predniSONE (predniSONE 10 mg Tab) 10 Milligram By Mouth As Directed Lumbar disc herniation Lumbar canal stenosis Low back pain Duration: 16 Days 4 QDx4 days; 3 QDx4 d; 2 QDx4 d; 1 QDx4d; d/ c Pickup at [facility] Unchanged buPROPion (buPROPion 150 mg/ 24 hours XL Tab) TAKE 1 TABLET BY MOUTH EVERY DAY IN THE MORNING FOR 30 DAYS Unchanged busPIRone (busPIRone 5 mg Tab) 1 Tablets By Mouth 2 times a day Unchanged fluticasone nasal (Flonase 0.05 mg/ inh Sadorus) 2 Sprays Nasal Inhalation Every day Chronic sinusitis of both maxillary sinuses each nostril Pharmacy Information -[facility]: [address] [place] [id number] [phone] Allergies Dimetapp Cold & Cough (Hives) Problems Ongoing - Any problem that you are currently receiving treatment for. Abnormal thyroid function test Acne Anxiety BMI 32.0-32.9,adult Cigarette smoker Depression Encounter for weight management Family history of breast cancer Fatigue Former smoker Generalized anxiety disorder Hair loss Hair thinning Hip dysplasia Hip pain, bilateral HPV in female Irregular menses Low back pain Lumbar canal stenosis Lumbar disc herniation Lumbar herniated disc Nasal drainage Obesity due to excess calories Puncture wound of left foot Raynaud phenomenon Screening mammogram for breast cancer Seasonal allergies Sprain of left foot Weight gain Wellness examination Patient Survey You may receive a survey via text or e-mail asking about your office visit. Please share your experience with us by completing your survey. We appreciate your feedback and thank you for choosing us for your care. Normal [facility] CHEMISTRYOrdered By: SYSTEM SYSTEM on 05-23-2024 Cobalamin (Vitamin B12) [Mass/Vol] 618 pg/mL Normal 50 - 1500 pg/mL Remisol Chem CRP High sensitivity method [Mass/Vol] 0.08 mg/dL Normal <=0.75mg/dL Remisol Chem Family Medicine Office/Clini c Noteon 05-23-2024 Family Medicine Office/Clinic Note Family Medicine Office/Clinic Note HPI Staff complaints of _ pt state had a herniated disk a few years ago has always felt pain and now it feeling like it was when it first start Onset: 3 weeks ago Characteristics: lower lumbar pain 01/05 OTC tried: no meds History of Present Illness Dominique is a 34 year old female who presents for an acute visit. She has a history of a significant disc herniation in the lumbar spine in 2019. She did see Dr Ryan at that time and he suggested surgery, however, this was not an option for her at the time as she has to continue working. 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 She was doing better, however, she recently restarted with lumbar back pain, and it's causing tingling in her legs and severe low back pain. She did go to pain management and they did some injections, and this helped a little bit. She does not want pain medication and has some at home. Additionally, her bilateral hips go in and out of place all the time. She does have a grandfather who had bone cancer. Otherwise, she has no additional issues today. The staff HPI was reviewed and accurate. OARRS reviewed. She is very hesitant to take any medications but will trial GBP and prednisone until we figure out whats going on with her back. Review of Systems PHQ Score Initial Depression Screen Score: 6 SCORE Physical Exam Vitals & Measurements HR: 79(Peripheral) RR: 16 BP: 118/62 SpO2: 98% HT: 70 in HT: 178 cm WT: 105.6 kg WT: 232.32 lb BMI: 33.33 Bilateral leg numbness/tingling/bu rning Lumbar spine: no gross deformity. + leg lift Assessment/Plan 1. Lumbar disc herniation (M51.26: Other intervertebral disc displacement, lumbar region) MRI lumbar spine Consider referral to Dr Jorge Ordered: predniSONE, 10 mg, Oral, As Directed, 4 QDx4 days; 3 QDx4 d; 2 QDx4 d; 1 QDx4d; d/c, X 16 day(s), # 40 tab(s), Refills(s) 0, Pharmacy: -[facility], 178, cm, 05/23/24 13:10:00 EDT, Height/Length Dosing, 105.6, kg, 05/23/24 13:10:00 EDT, Weight Dosing MRI Spine Lumbar w/o Contrast 2. Lumbar canal stenosis (M48.061: Spinal stenosis, lumbar region without neurogenic claudication) see 1 Ordered: predniSONE, 10 mg, Oral, As Directed, 4 QDx4 days; 3 QDx4 d; 2 QDx4 d; 1 QDx4d; d/c, X 16 day(s), # 40 tab(s), Refills(s) 0, Pharmacy: -[facility], 178, cm, 05/23/24 13:10:00 EDT, Height/Length Dosing, 105.6, kg, 05/23/24 13:10:00 EDT, Weight Dosing MRI Spine Lumbar w/o Contrast 3. Low back pain (M54.5: Low back pain) GBP TID PRN Prednisone as prescribed Labs ordered Ordered: predniSONE, 10 mg, Oral, As Directed, 4 QDx4 days; 3 QDx4 d; 2 QDx4 d; 1 QDx4d; d/c, X 16 day(s), # 40 tab(s), Refills(s) 0, Pharmacy: -[facility], 178, cm, 05/23/24 13:10:00 EDT, Height/Length Dosing, 105.6, kg, 05/23/24 13:10:00 EDT, Weight Dosing MRI Spine Lumbar w/o Contrast 4. Hip dysplasia (Q65.89: Other specified congenital deformities of hip) Xrays of bilat hips Ordered: XR Hip 2-3 Views Left XR Hip 2-3 Views Right Neuropathy (G62.9: Polyneuropathy, unspecified) labs Ordered: gabapentin, 100 mg = 1 cap(s), Oral, TID, # 90 cap(s), Refills(s) 0, Pharmacy: -[facility], 178, cm, 05/23/24 13:10:00 EDT, Height/Length Dosing, 105.6, kg, 05/23/24 13:10:00 EDT, Weight Dosing MARGO w/Reflex if POS C-Reactive Protein High Sensitivity BECKA and PE, Serum Rheumatoid Factor Quantitative Sedimentation Rate Automated Vitamin B12 Level Follow-up No qualifying data available Problem List/Past Medical History Ongoing Abnormal thyroid function test Acne Anxiety BMI 32.0-32.9,adult Cigarette smoker Depression Encounter for weight management Family history of breast cancer Fatigue Former smoker Generalized anxiety disorder Hair loss Hair thinning Hip dysplasia Hip pain, bilateral HPV in female Irregular menses Low back pain Lumbar canal stenosis Lumbar disc herniation Lumbar herniated disc Nasal drainage Obesity due to excess calories Puncture wound of left foot Raynaud phenomenon Screening mammogram for breast cancer Seasonal allergies Sprain of left foot Weight gain Wellness examination Historical No qualifying data Procedure/Surgical History Augmentation rhinoplasty, Insertion of IUD, LEEP (Loop electrosurgical excision procedure) of cervix. Medications buPROPion 150 mg/24 hours XL Tab busPIRone 5 mg Tab, 5 mg= 1 tab(s), Oral, BID Flonase 0.05 mg/inh Sadorus, 2 spray(s), Nasal, Daily, 5 refills gabapentin 100 mg Cap, 100 mg= 1 cap(s), Oral, TID predniSONE 10 mg Tab, 10 mg, Oral, As Directed Allergies Dimetapp Cold & Cough (Hives) Social History Alcohol - Denies Alcohol Use, 07/23/2020 Substance Abuse - Denies Substance Abuse, 01/14/2020 Tobacco - Denies Tobacco Use, 07/25/2023 Former smoker, quit more than 30 days ago Tobacco Use:. Never Smokeless Tobacco Use:. Cigarettes, Household tobacco concerns: No., 09 (more content not included)... [facility] Comment on above: Result Comment: Elec tronically Signed By: CATHY FLETCHER, KATIE\.br\Date and Time Signed: 05/23/24 14:16 EDT HEMATOLOGYOrdered By: Andres Saul on 05-23-2024 ESR (Bld) [Velocity] 8 mm/h Normal 0 - 34 mm/hr [facility] HemeAutoSS Consultation Noteon 02-22-20 Consultation Note [id number] #1.00TIFF [facility] Operative Reporton Operative Report [id number]# 1.00TIFF [facility] Consultation Noteon 01-17-20 Consultation Note [id number] #1.00TIFF [facility] [place] 01-10-2024 L Specimen: [id number] Received: 01/12/24 Status: RICHARDSON Gooden Num: [id number] Spec Type: Surgical Subm Dr: LUIGI DIANE MD Tissues: A Sinus Contents/Biopsy (RT SINUS CONTENTS) B Nasal Septum (SEPTUM) Procedures: HE, Gross/Micro L4, Level 1 Gross Age/ Patient Sex Location Account Attending Physician BrijeshDominique jones 33/F [facility] [id number] LUIGI DIANE MD SPEC NUM: [id number] RECD: 01/12/24 STATUS: RICHARDSON GOODEN NUM: [id number] ARIES: 01/10/[address]: LUIGI DIANE MD ENTERED: 01/12/[address] [facility] DR: Flaquito Otero SPEC TYPE: Surgical DEPT: SOULEYMANE MENDEZ ORDERED: HE, Gross/Micro L4, Level 1 Gross ORDERED: HE, Gross/Micro L4, Level 1 Gross Pathological Diagnosis A, right sinus content, right maxillary antrostomy: -Severe chronic sinusitis, demonstrating apparent severe chronic inflammation of the markedly thickened sinus glandular mucosa, including patchy mildly associated squamous metaplasia of the maturing type, otherwise also without malignancy, epithelial atypia, or any other features of fungal elements identifiable B, nasal septum, right septoplasty excision: -Multiple irregularly thickened nasal cartilage fragments, compatible with deviated nasal septum. Gross only examination Gross Description A. Received in formalin, labeled with the patient's name, date of and right sinus contents are multiple fragments of cook-pink tissue and possible cartilaginous tissue measuring in aggregate 2.2 x 1.5 x 0.3 cm, entirely submitted in A1. B. Received in formalin, labeled with the patient's name, date of and septum are multiple cook-white unremarkable cartilaginous tissue fragments measuring in aggregate 3.5 x 1.4 x 0.9 cm. The specimen is for gross only evaluation. No sections are submitted to histology. Specimen: [id number] Received: 01/12/24 Status: RICHARDSON Gooden Num: [id number] Spec Type: Surgical Subm Dr: LUIGI DIANE MD Tissues: A Sinus Contents/Biopsy (RT SINUS CONTENTS) B Nasal Septum (SEPTUM) Procedures: EDUARDO, Gross/Micro L4, Level 1 Gross Patient: BrijeshDominique T [id number] (Continued) Specimen: [id number] Received: 01/12/24 (Continued) Gross Description (Continued) Signed (signature on file) John Taylor MD 01/13/242046 Specimen: [id number] Received: 01/12/24 Status: RICHARDSON Gooden Num: [id number] Spec Type: Surgical Subm Dr: LUIGI DIANE MD Tissues: A Sinus Contents/Biopsy (RT SINUS CONTENTS) B Nasal Septum (SEPTUM) Procedures: EDUARDO, Gross/Micro L4, Level 1 Gross Patient: Dominique Coley [id number] (Continued) Specimen: [id number] Received: 01/12/24 (Continued) Gross Description (Continued) Clinical history: Nasal sinus obstruction, recurrent nasal and or sinus infections. CPT Codes 93654, 10249 Specimen: [id number] Received: 01/12/24 Status: RICHARDSON Gooden Num: [id number] Spec Type: Surgical Subm Dr: LUIGI DIANE MD Tissues: A Sinus Contents/Biopsy (RT SINUS CONTENTS) B Nasal Septum (SEPTUM) Procedures: HE, Gross/Micro L4, Level 1 Gross Patient: Dominique Coley [id number] (Continued) Signed (signature on file) Chin-Arun Taylor MD 01/13/242046 Normal [facility] RAD - MISCon 01-04-2024 RAD - MIS [id number] #1.00TIFF Normal [facility] CT Maxillofacial w/o Contras ton 11-08-2023 CT [...] low as reasonably achievable. Report Ordering Provider: Luigi Diane FINAL REPORT Dictated: 11/08/2023 6:19 pm Braden Harris MD Signed (Electronic Signature): 11/08/2023 6:19 pm Signed by: Braden Harris MD Transcribed by: TONI Technologist: SB [facility] Consent for Treatmenton 10-27 Consent for Treatment [id number] #1.00TIFF [facility] Physician Orderon 11-04-2023 Physician Order [id number] #1.00TIFF [facility] Ambulatory Visit Summaryon 0 10-26-2023 Ambulatory Visit Summary TANIKASELENA PAYNEMARIBEL Johnson :1990 Visit Date:10/26/2023 Ambulatory Visit Instructions Your Diagnosis Encounter for weight management Weight gain BMI 33.0-33.9,adult Non-smoker Your Care Team Attending Physician - Catherine Motta Primary Care Physician - Catherine Motta This Is Your Medications List amoxicillin-clavulan ate (amoxicillin-clavula masood 875 mg-125 mg Tab) busPIRone (busPIRone 5 mg Tab) fluticasone nasal (Flonase 0.05 mg/inh Sadorus) Procedures Performed Insertion of IUD, LEEP (Loop electrosurgical excision procedure) of cervix. Discharge Vitals Heart Rate (Peripheral) 80 Respiratory Rate 18 Blood Pressure 128/78 Height 178 cm Height 70 in Weight 106.2 kg Weight 233.64 lb BMI 33.52 What to do next Scheduled Follow-Up Appointments Tuesday 12:00 PM EDT With: Where: [facility] 2023 11:20 AM EDT With: Catherine Motta Where: [facility] [place] Normal [facility] Medicine Office/Clini c Noteon 10-26-2023 Family Medicine Office/Clinic Note HPI Staff Dominique is a 33 year old female presenting [...] Daily, # 30 tab(s), Refills(s) 0, Pharmacy: -[facility], 178, cm, 10/26/23 11:33:00 EST, Height/Length Dosing, 106.2, kg, 10/26/23 11:33:00 EST, Weight Dosing 2. Weight gain (R63.5: Abnormal weight gain) pt having trouble losing weight Ordered: phentermine, 37.5 mg = 1 tab(s), Oral, Daily, # 30 tab(s), Refills(s) 0, Pharmacy: -[facility], 178, cm, 10/26/23 11:33:00 EST, Height/Length Dosing, 106.2, kg, 10/26/23 11:33:00 EST, Weight Dosing 3. BMI 33.0-33.9,adult (Z68.33: Body mass index [BMI] 33.0-33.9, adult) BMI education complete Ordered: phentermine, 37.5 mg = 1 tab(s), Oral, Daily, # 30 tab(s), Refills(s) 0, Pharmacy: -[facility], 178, cm, 10/26/23 11:33:00 EST, Height/Length Dosing, 106.2, kg, 10/26/23 11:33:00 EST, Weight Dosing 4. Non-smoker (Z78.9: Other specified health status) continue not smoking Ordered: phentermine, 37.5 mg = 1 tab(s), Oral, Daily, # 30 tab(s), Refills(s) 0, Pharmacy: -[facility], 178, cm, 10/26/23 11:33:00 EST, Height/Length [...] 1 tab(s), Oral, BID Flonase 0.05 mg/inh Sadorus, 2 spray(s), Nasal, Daily, 5 refills phentermine [...] Hib, unspecified fo (more content not included)... [facility] Comment on above: Result Comment: Elec tronically Signed By: Catherine Motta\.albertina\Date and Time Signed: 10/26/23 11:59 EST Medication Consenton 024 Medication Consent [id number] #1.00TIFF [facility] Consultation Noteon 10-07-19 Consultation Note [id number] #1.00TIFF [facility] Physician Orderon 10-07-2023 Physician Order [id number] #1.00TIFF Normal [facility] Physician Referralon 024 Physician Referral [id number] 1#1.00TIFF Normal [facility] Physician Referralon 024 Physician Referral [id number] 0#1.00TIFF Normal [facility] Ambulatory Visit Summaryon 0 09-07-2023 Ambulatory Visit Summary DOMINIQUE GILL :1990 Visit Date:09/07/2023 Ambulatory Visit Instructions Your Diagnosis Wellness examination Anxiety Depression Nasal drainage Seasonal allergies Family history of breast cancer Screening mammogram for breast cancer Fatigue Hair thinning Weight gain BMI 33.0-33.9,adult Non-smoker Your Care Team Attending Physician - Catherine Motta Primary Care Physician - Catherine Motta This Is Your Medications List cefuroxime (cefuroxime 500 mg oral tablet) fluticasone nasal (Flonase 0.05 mg/inh Sadorus) Procedures Performed Insertion of IUD, LEEP (Loop electrosurgical excision procedure) of cervix. Discharge Vitals Heart Rate (Peripheral) 74 Respiratory Rate 18 Blood Pressure 118/80 Height 178 cm Height 70 in Weight 105.9 kg Weight 232.98 lb BMI 33.42 What to do next Scheduled Follow-Up Appointments Tuesday 11:20 AM EST With: Catherine Motta Where: [facility] [place] Invalid Interpretation Code Anxiety [facility] Auto Diffon 09-07-2023 Basophils/100 WBC (Bld) 0.3 % Normal 0.0-2.0 [facility] Comment on above: Order Comment: Order Added by Discern Expert. Performed By: #### 2 564624, 1845425, 2099069, 85531710, 1842404, 6730784 ####[facility] [address] [place] [address] Basophils/Leukocytes Auto (Bld) [Pure # fraction] 0.0 E9/L Normal 0.0-0.2 [facility] Comment on above: Order Comment: Order Added by Discern Expert. Performed By: #### 2 844100, 5657437, 0751860, 31270395, 8343400, 8945265 ####[facility] [address] [place] [address] Eosinophils/100 WBC (Bld) 2.8 % Normal 0.0-8.0 [facility] Comment on above: Order Comment: Order Added by Discern Expert. Performed By: #### 2 640464, 8594608, 1516898, 27104825, 1880701, 7388502 ####[facility] [address] [place] [address] Eosinophils/Leukocyte s Auto (Bld) [Pure # fraction] 0.2 E9/L Normal 0.0-0.5 [facility] Comment on above: Order Comment: Order Added by Felicia Expert. Performed By: #### 2 164948, 0443848, 6627917, 24567615, 8312427, 4100045 ####[address] [place] [address] Lymphocytes/100 WBC (Bld) 29.8 % Normal 14.0-50.0 [facility] Comment on above: Order Comment: Order Added by Felicia Expert. Performed By: #### 2 584869, 0876137, 9208131, 09749265, 5040236, 7069000 ####[address] [place] [address] Lymphocytes/Leukocyte s Auto (Bld) [Pure # fraction] 2.0 E9/L Normal 1.0-4.0 [facility] Comment on above: Order Comment: Order Added by Felicia Expert. Performed By: #### 2 496422, 8868012, 0085746, 28884154, 6279161, 8352452 ####[facility] [address] [place] [address] Monocytes/100 WBC (Bld) 14.7 % High 4.0-14.0 [facility] Comment on above: Order Comment: Order Added by Felicia Expert. Performed By: #### 2 621616, 7273221, 5770994, 84780262, 6234349, 7730706 ####[address] [address] Monocytes/Leukocytes Auto (Bld) [Pure # fraction] 1.0 E9/L Normal 0.2-1.0 [facility] Comment on above: Order Comment: Order Added by Discern Expert. Performed By: #### 2 570280, 8883572, 7766057, 59854903, 4845045, 6467252 ####[address] [address] Neutrophils/100 WBC (Bld) 52.4 % Normal 36.0-75.0 [facility] Comment on above: Order Comment: Order Added by Discern Expert. Performed By: #### 2 067630, 7556448, 9417255, 36720043, 3930373, 2706264 ####[address] [address] Neutrophils/Leukocyte s Auto (Bld) [Pure # fraction] 3.5 E9/L Normal 2.0-7.5 [facility] Comment on above: Order Comment: Order Added by Discern Expert. Performed By: #### 2 307573, 4072433, 1762278, 70724604, 5374098, 2720999 ####[address] [address] CBC w/ Auto Diffon Erythrocyte distribution width (RBC) [Ratio] 13.8 % Normal 10.9-14.2 [facility] Comment on above: Performed By: #### 2 599097, 1566586, 3294719, 86826074, 3002278, 8718372 ####[address] [place] [address] Hematocrit (Bld) [Volume fraction] 40.5 % Normal 34.0-46.0 [facility] Comment on above: Performed By: #### 2 651620, 0865907, 5070508, 14905336, 6804611, 7765398 ####[facility] [address] [place] [address] Hemoglobin (Bld) [Mass/Vol] 13.4 g/dL Normal 12.0-16.0 [facility] Comment on above: Performed By: #### 2 775914, 1871496, 1993169, 32262000, 6815223, 2794629 ####[address] MCH (RBC) [Entitic mass] 30.0 pg Normal 27.0-34.0 [facility] Comment on above: Performed By: #### 2 038357, 9018824, 9078340, 51765445, 1220547, 3810348 ####[address] MCHC (RBC) [Mass/Vol] 33.1 g/dL Normal 31.4-36.[address] [facility] Comment on above: Performed By: #### 2 909330, 9963552, 6177595, 50690330, 1095771, 3979835 ####[address] MCV (RBC) [Entitic vol] 90.6 fL Normal 80.0-100.0 [facility] Comment on above: Performed By: #### 2 940324, 4909023, 5700025, 31713986, 7112168, 0017599 ####[address] Platelet mean volume (Bld) [Entitic vol] 8.8 fL Normal 6.4-10.8 [facility] Comment on above: Performed By: #### 2 716964, 2112701, 5875619, 80602080, 0398093, 8472251 ####[address] [address] Platelets (Bld) [#/Vol] 232.0 E9/L Normal 150.0-500.0 [facility] Comment on above: Performed By: #### 2 039398, 8270457, 0027072, 26062917, 3211513, 0033431 ####[facility] [address] [place] [address] RBC (Bld) [#/Vol] 4.5 E12/L Normal 4.3-5.9 [facility] Comment on above: Performed By: #### 2 667966, 5995978, 6807077, 90127710, 9454641, 3884646 ####[facility] [address] [place] [address] WBC corrected for nucl RBC Auto (Bld) [#/Vol] 6.7 E9/L Normal 4.0-11.0 [facility] Comment on above: Performed By: #### 2 856513, 3660106, 0208486, 51696196, 3861421, 1943306 ####[facility] [address] [place] [address] CHEMISTRYOrdered By: SYSTEM SYSTEM on 09-07-2023 Albumin [...] 09-07-2023 Albumin [Mass/Vol] 3.7 g/dL Normal 3.3-5.0 [facility] Comment on above: Performed By: #### 2 019799, 1315841, 3305853, 52267219, 9099955, 2692905 ####[facility] [address] [place] [address] Albumin/Globulin [Mass ratio] 1.4 {ratio} Normal 1.1-2.2 [facility] Comment on above: Performed By: #### 2 994780, 8367091, 5428985, 35861404, 9096468, 7876044 ####[facility] [address] [place] [address] Alk Phos 67 Int._Unit/L Normal 21-98 [facility] Comment on above: Performed By: #### 2 541242, 8122179, 5364767, 44730973, 8174667, 5056380 ####[facility] [address] [place] [address] ALT 20 Int._Unit/L Normal 6-46 [facility] Comment on above: Performed By: #### 2 064250, 6220712, 9860811, 13077999, 9498852, 5892259 ####[facility] [address] [place] [address] Anion gap [Moles/Vol] 9 mmol/L Normal 6-[address] [facility] Comment on above: Performed By: #### 2 657492, 2090802, 0635378, 12051238, 7840687, 5993310 ####[facility] [address] [place] [address] AST 19 Int._Unit/L Normal 5-43 [facility] Comment on above: Performed By: #### 2 705293, 0793569, 3082138, 16082179, 9533451, 2150013 ####[facility] [address] [place] [address] Bili Total 0.3 mg/dL Normal 0.0-1.1 [facility] Comment on above: Performed By: #### 2 630396, 0966496, 1984055, 07843623, 8806638, 4953981 ####[facility] [address] [place] [address] BUN/Creat Ratio 18 No Units Normal 10-20 [facility] Comment on above: Performed By: #### 2 641258, 6905172, 1356971, 52086850, 4203362, 0499818 ####[facility] [address] [place] [address] Calcium [Mass/Vol] 9.0 mg/dL Normal 8.9-11.1 [facility] Comment on above: Performed By: #### 2 845220, 5817713, 9937427, 67277626, 5405871, 1240737 ####[facility] [address] [place] [address] Chloride [Moles/Vol] 108 mmol/L Normal 101-111 [facility] Comment on above: Performed By: #### 2 219842, 9824337, 2594766, 86297152, 1108994, 3172521 ####[facility] [address] [place] [address] CO2 [Moles/Vol] 25 mmol/L Normal 21-31 [facility] Comment on above: Performed By: #### 2 868670, 8433215, 2023426, 55271974, 5949156, 1555640 ####[facility] [address] [place] [address] Creatinine [Mass/Vol] 0.9 mg/dL Normal 0.5-1.[address] [facility] Comment on above: Performed By: #### 2 777983, 5293478, 7691754, 45879708, 7994324, 2180081 ####[facility] [address] [place] [address] Globulin (S) [Mass/Vol] 2.7 g/dL Normal 1.4-4.0 [facility] Comment on above: Performed By: #### 2 986624, 2068233, 3360019, 59445301, 5522246, 0529327 ####[facility] [address] [place] [address] Glucose [Mass/Vol] 75 mg/dL Normal 55-199 [facility] Comment on above: Performed By: #### 2 738625, 3063060, 7855364, 79648075, 0261693, 5898123 ####[facility] [address] [place] [address] Potassium [Moles/Vol] 4.0 mmol/L Normal 3.5-5.[address] [facility] Comment on above: Performed By: #### 2 976399, 6890392, 9861473, 91673062, 7205308, 2395430 ####[facility] [address] [place] [address] Protein [Mass/Vol] 6.4 g/dL Normal 6.0-7.8 [facility] Comment on above: Performed By: #### 2 752448, 1149760, 0821933, 29653623, 8615405, 2323635 ####[facility] [address] [place] [address] Sodium [Moles/Vol] 138 mmol/L Normal 135-145 [facility] Comment on above: Performed By: #### 2 426830, 3218340, 8007518, 02771682, 3598937, 2502846 ####[facility] [address] [place] [address] Urea nitrogen [Mass/Vol] 16 mg/dL Normal 5-21 [facility] Comment on above: Performed By: #### 2 033855, 7087964, 6374786, 60819491, 1116013, 5466878 ####[facility] [address] [place] [address] Consenton 09-07-2023 Consent [id number]# 1.00TIFF Normal [facility] Family Medicine Office/Clini c Noteon 09-07-2023 Family Medicine Office/Clinic Note HPI Staff Dominique is a 33 year old female presenting to establish Establish Care: History: Any previous diagnosis: History of seeing any specialist: When was your last doctors visit: Last provider: Dr Agudelo Any recent labs: none in the last year Health Maintenance UTD: Colonoscopy: no Mammogram: no , Breast cancer runs high on mom's side, would like TBH Pelvic/Pap: 07/2023 normal, Dr belle Acute: Current [...] day(s), # 14 tab(s), Refills(s) 0, Pharmacy: [facility]/pharmacy #[id number], 178, cm, 09/07/23 11:44:00 EST, Height/Length Dosing, 105.9, kg, 09/07/23 11:44:00 EST, Weight Dosing triamcinolone, 40 mg = 1 mL, Injection, IntraMuscular, Once, Stop date 09/07/23 12:49:00 EST, Routine, Start date 09/07/23 12:49:00 EST, 09/07/23 12:49:00 EST CBC w/ Auto Diff Comprehensive Metabolic Panel [facility] [place] Ambulatory Referral Lab Specimen Collect 27106 Lipid Panel Thyroid Stimulating Hormone 2. Anxiety (F41.9: Anxiety disorder, unspecified) pt c/o worsening anxiety and depression. MARIPOSA and PQH -9 are positive today. her mother at an early age of over dose. but sttes her mom was bipolar and schizophrenic. She is requesting referral to psych and for counseling. will send to [facility] for referral. does not want to start medication at this time. Ordered: cefuroxime, 500 mg = 1 tab(s), Oral, BID, X 7 day(s), # 14 tab(s), Refills(s) 0, Pharmacy: [facility]/pharmacy #[id number], 178, cm, 09/07/23 11:44:00 EST, Height/Length Dosing, 105.9, kg, 09/07/23 11:44:00 EST, Weight Dosing triamcinolone, 40 mg = 1 mL, Injection, IntraMuscular, Once, Stop date 09/07/23 12:49:00 EST, Routine, Start date 09/07/23 12:49:00 EST, 09/07/23 12:49:00 EST CBC w/ Auto Diff Comprehensive Metabolic Panel [facility] [place] Ambulatory Referral Lab Specimen Collect 75015 Lipid Panel Thyroid Stimulating Hormone 3. Depression (F32.A: Depression, unspecified) see above Ordered: cefuroxime, 500 mg = 1 tab(s), Oral, BID, X 7 day(s), # 14 tab(s), Refills(s) 0, Pharmacy: [facility]/pharmacy #[id number], 178, cm, 09/07/23 11:44:00 EST, Height/Length Dosing, 105.9, kg, 09/07/23 11:44:00 EST, Weight Dosing triamcinolone, 40 mg = 1 mL, Injection, IntraMuscular, Once, Stop date 09/07/23 12:49:00 EST, Routine, Start date 09/07/23 12:49:00 EST, 09/07/23 12:49:00 EST CBC w/ Auto Diff Comprehensive Metabolic Panel [facility] [place] Ambulatory Referral Lab Specimen Collect 16592 Lipid Panel Thyroid Stimulating Hormone 4. Nasal drain (more content not included)... Normal [facility] Comment on above: Result Comment: Elec tronically Signed By: Catherine Motta\.br\Date and Time Signed: 09/07/23 16:30 EST HEMATOLOGYOrdered [...] 13.8 % Normal 10.9 - 14.2 % FT HemeAutoSS Hematocrit (Bld) [Volume fraction] 40.5 % Normal 34.0 - 46.0 % FT HemeAutoSS Hemoglobin (Bld) [Mass/Vol] 13.4 g/dL Normal 12.0 - 16.0 gm/dL FT HemeAutoSS MCH (RBC) [Entitic mass] 30.0 pg Normal 27.0 - 34.0 pg FT HemeAutoSS MCHC (RBC) [Mass/Vol] 33.1 g/dL Normal 31.4 - 36.0 gm/dL FT HemeAutoSS MCV (RBC) [Entitic vol] 90.6 fL Normal 80.0 - 100.0 fL FT HemeAutoSS Platelet mean volume (Bld) [Entitic vol] 8.8 fL Normal 6.4 - 10.8 fL [facility] [place] HemeAutoSS Platelets (Bld) [#/Vol] 232.0 E9/L Normal 150.0 - 500.0 E9/L FT HemeAutoSS RBC (Bld) [#/Vol] 4.5 E12/L Normal 4.3 - 5.9 E12/L FT HemeAutoSS WBC corrected for nucl RBC Auto (Bld) [#/Vol] 6.7 E9/L Normal 4.0 - 11.0 E9/L [facility] [place] HemeAutoSS Lipid Panelon 09-07-2023 Cholesterol [Mass/Vol] 128 mg/dL Normal 120-200 [facility] Comment on above: Performed By: #### 2 455641, 0306938, 7400589, 89980688, 3894196, 2809259 ####[facility] [address] [place] [address] Cholesterol in HDL [Mass/Vol] 61 mg/dL Invalid Interpretation Code [facility] Comment on above: Result Comment: '>= 60 LOW RISK' '<= 40 HIGH RISK' Performed By: #### 2 875598, 7368831, 2396264, 84473893, 6315348, 4346660 ####[facility] [address] [place] [address] Cholesterol in LDL [Mass/Vol] 61 mg/dL Normal <=129 [facility] Comment on above: Performed By: #### 2 963287, 9769156, 4680179, 27392950, 4754144, 4275355 ####[facility] [address] [place] [address] Cholesterol in VLDL [Mass/Vol] 10 mg/dL Normal 7-40 [facility] Comment on above: Performed By: #### 2 735097, 0418830, 7001099, 04200851, 9858916, 4195429 ####[address] [place] [address] Triglyceride [Mass/Vol] 48 mg/dL Normal <=149 [facility] Comment on above: Performed By: #### 2 894434, 7078504, 5802379, 20695636, 7455940, 1110742 ####[address] [place] [address] Physician Orderon 09-07-2023 Physician Order [id number]# 1.00TIFF Normal [facility] TSHon 09-07-2023 TSH Qn 0.80 m[IU]/L Normal 0.34-5.60 [facility] Comment on above: Performed By: #### 2 824078, 3832998, 4179497, 56629549, 7365133, 7344070 ####[facility] [address] [place] [address] eGFRon 09-07-2023 GFR/1.73 sq M.predicted among non-blacks MDRD (S/P/Bld) [Vol rate/Area] mL/min/{1.73_m2} Normal >=59 [facility] Comment on above: Order Comment: Order added by Discern Expert. Performed By: #### 2 143007, 4140803, 1034390, 04734800, 6729053, 3668390 ####[facility] [address] [place] [address] Family Medicine Office/Clini c Noteon 08-28-2023 Family Medicine Office/Clinic Note Chief Complaint sinus infection that is not going away HPI Staff Dominique is a 33 year old female here for a sinus infection was seen here July 25 for a sinus infection and symptoms have not gotten any better symptoms for over a month headache, sinus pressure, nasal drainage, stuffy nose History of Present Illness TANIKADOMINIQUE FLORES is a 33 Years White Female presenting [...] day(s), # 14 cap(s), Refills(s) 0, Pharmacy: [facility]pharmacy #[id number], 178, cm, 08/28/23 12:08:00 EST, Height/Length Dosing, 104, kg, 08/28/23 12:08:00 EST, Weight Dosing fluticasone nasal, 2 spray(s), Nasal, Daily, 16 gram, Refill(s) 1, each nostril, [facility]pharmacy #[id number], 178, cm, 08/28/23 12:08:00 EST, Height/Length [...] Koo MD, FAM, MED Only if needed [address] [place] [phone] Additional Instructions: Problem List/Past Medical History Ongoing [...] 1 cap(s), Oral, BID Flonase 0.05 mg/inh Sadorus, 2 spray(s), Nasal, Daily, 1 refills ParaGard [...] Hib, unspecified formulation 1990 Recorded Normal [facility] Comment on above: Result Comment: Elec tronically Signed By: Janna Koo MD\.br\Date and Time Signed: 08/28/23 12:37 EST Ambulatory Visit Summaryon 1 09-24-2022 Ambulatory Visit Summary DOMINIQUE GILL :1990 Visit Date:07/25/2023 Ambulatory Visit Instructions Your [...] for choosing us for your care. Kip Pires [facility] Medicine Office/Clini c Noteon 07-25-2023 Family Medicine Office/Clinic Note Chief Complaint Current pt headache, sinus congestion, ear pain HPI Staff Dominique, 33 yo female here today with sinus infection Symptoms began about 2 wks ago Complains of sinus congestion, ear pain, headache, Pt has taken mucinex History of Present Illness Reviewed and agree with above documented HPI by medical device assembler. Portions of this record may have been created with voice recognition artificial intelligence software, specifically [employer], [employer] and or [employer]. Substitutions may have occurred due to the inherent limitations of voice recognition and artificial intelligence software. Patient is a 33-year-old female who presents to [facility] care, for sinus pressure, sinus drainage, bilateral ear pressure, sinus headache, patient states she does have a history of sinus infection, symptoms for started she has been taking mdmp-akr-ddbckzm Mucinex without any relief, states she has [...] at this time. 33-year-old female presents to [facility] care, for acute bacterial sinusitis, symptoms started over 2 weeks ago, patient did not appear ill or septic, no respiratory disorder or difficulty swallowing was noted. Patient instructed take vrcz-amo-bskxlvs ibuprofen Tylenol together every 8 hours with food, for body aches, headaches, fevers. Drink plenty water stay hydrated. Given a prescription for Augmentin. Follow-up with primary care provider. 1. Acute bacterial sinusitis (J01.90: Acute sinusitis, unspecified) See above Ordered: amoxicillin-clavulan ate, 1 tab(s), Oral, BID for 10 day(s), 20 tab(s), Refill(s) 0, [id number], 178, cm, 07/25/23 17:14:00 EST, Height/Length Dosing, [...] With When Contact Information NONE, XXXX [phone] Additional Instructions: Patient Education BMI for Adults Sinus Infection, Adult, Oyqn-nh-Wmvh Problem List/Past Medical History Ongoing Abnormal thyroid function test Acne Acute bacterial sinusitis BMI 30.0-30.9,adult Body mass index (BMI) of 31.0 to 31.9 in adult Cigarette smoker Dry skin Fatigue Generalized anxiety disorder Hair loss Hip pain, bilateral HPV in female Irregular menses Low back pain Lumbar canal stenosis Lumbar herniated disc Preventative health care Natacha p (more content not included)... Normal [facility] Comment on above: Result Comment: Elec tronically Signed By: IAN LANDERS, ANASTACIO\.br\Date and Time Signed: 07/25/23 17:27 EST Patient [...] ? Medicines that treat allergies (antihistamines). ? Cbbh-jyc-udybnhr pain relievers. ? If caused by bacteria, your doctor may wait to see if you will get better without treatment. You may be given antibiotic medicine if you have: ? A very bad infection. ? A weak body defense system. ? If caused by growths in the nose, surgery may be needed. Follow these instructions at home: Medicines ? Take, use, or apply kgqx-sgb-usytcnj and prescription medicines only as told by [...] cannot use soap and water, use hand health systems analyst. ? Do not smoke. Avoid being around [...] follow-up visits (more content not included)... Normal [facility] MARGO EIA W/REFLEX 5 BIOMARKER Son 12-08-2021 MARGO Direct Negative Normal Negative [facility] Comment on above: Performed By: #### A NARF #### [facility] [address] [address] [address] Bharat Taylor INSULINon 12-08-2021 Insulin 0.9 uIU/mL Critically low 2.6-24.9 [facility] Comment on above: Performed By: #### I NSULIN #### [facility] [address] [address] [address] Bharat Taylor CBC AUTO DIFFon 12-07-2021 BASO # 0.0 103/ul Normal 0.0-0.1 [facility] Comment on above: Performed By: #### C BC #### [facility] [address] [place] [address] Dr. Bharat Taylor Basophils/100 WBC (Bld) 0.6 % Normal 0.2-2.0 [facility] Comment on above: Performed By: #### C BC #### [facility] [address] [place] [address] Dr. Bharat Taylor EO # 0.1 103/ul Normal 0.0-0.7 [facility] Comment on above: Performed By: #### C BC #### [facility] [address] [place] [address] Dr. Bharat Taylor Eosinophils/100 WBC (Bld) 2.7 % Normal 0.9-7.0 [facility] Comment on above: Performed By: #### C BC #### [facility] [address] [place] [address] Dr. Bharat Taylor Erythrocyte distribution width (RBC) [Ratio] 12.5 % Normal 11.0-15.0 [facility] Comment on above: Performed By: #### C BC #### [facility] [address] [place] [address] Dr. Bharat Taylor Hematocrit (Bld) [Volume fraction] 42.4 % Normal 36.0-48.0 [facility] Comment on above: Performed By: #### C BC #### [facility] [address] [place] [address] Dr. Bharat Taylor Hemoglobin (Bld) [Mass/Vol] 14.2 g/dL Normal 12.0-16.0 [facility] Comment on above: Performed By: #### C BC #### [facility] [address] [place] [address] Dr. Bharat Taylor IG # 0.01 10e3/ul Normal 0.00-0.03 [facility] Comment on above: Performed By: #### C BC #### [facility] [address] [place] [address] Dr. Bharat Taylor IG % 0.2 % Normal 0.0-0.5 [facility] Comment on above: Performed By: #### C BC #### [facility] [address] [place] [address] Dr. Bharat Taylor LYMPH # 1.6 103/ul Normal 1.2-3.8 [facility] Comment on above: Performed By: #### C BC #### [facility] [address] [place] [address] Dr. Bharat Taylor Lymphocytes/100 WBC (Bld) 30.5 % Normal 20.5-60.0 [facility] Comment on above: Performed By: #### C BC #### [facility] [address] [place] [address] Dr. Bharat Taylor MANUAL DIFF REQ NO Normal [facility] Comment on above: Performed By: #### C BC #### [facility] [address] [place] [address] Dr. Bharat Taylor MCH (RBC) [Entitic mass] 31.1 pg Normal 26.7-34.0 [facility] Comment on above: Performed By: #### C BC #### [facility] [address] [place] [address] Dr. Bharat Taylor MCHC (RBC) [Mass/Vol] 33.5 g/dL Normal 29.9-35.2 [facility] Comment on above: Performed By: #### C BC #### [facility] [address] [place] [address] Dr. Bharat Taylor MCV (RBC) [Entitic vol] 92.8 fL Normal 81.0-99.0 [facility] Comment on above: Performed By: #### C BC #### [facility] [address] [place] [address] Dr. Bharat Taylor MONO # 1.0 103/ul Critically high 0.3-0.8 [facility] Comment on above: Performed By: #### C BC #### [facility] [address] [place] [address] Dr. Bharat Taylor Monocytes/100 WBC (Bld) 18.0 % Critically high 1.7-12.0 [facility] Comment on above: Performed By: #### C BC #### [facility] [address] [place] [address] Dr. Bharat Taylor NEUT # 2.5 103/ul Normal 1.4-6.5 [facility] Comment on above: Performed By: #### C BC #### [facility] [address] [place] [address] Dr. Bharat Taylor Neutrophils/100 WBC (Bld) 48.0 % Normal 43.0-75.0 [facility] Comment on above: Performed By: #### C BC #### [facility] [address] [place] [address] Dr. Bharat Taylor Platelet mean volume (Bld) [Entitic vol] 9.4 fL Critically low 9.5-13.5 [facility] Comment on above: Performed By: #### C BC #### [facility] [address] [place] [address] Dr. Bharat Taylor PLT 196 103/ul Normal 150-450 [facility] Comment on above: Performed By: #### C BC #### [facility] [address] [place] [address] Dr. Bharat Taylor RBC 4.57 106/ul Normal 4.20-5.40 [facility] Comment on above: Performed By: #### C BC #### [facility] [address] [place] [address] Dr. Bharat Taylor WBC 5.3 103/ul Normal 4.0-11.0 [facility] Comment on above: Performed By: #### C BC #### [facility] [address] [place] [address] Dr. Bharat Taylor CRPon 12-07-2021 CRP 1.0 mg/dL Normal <=1.0 [facility] Comment on above: Performed By: #### F T3, TSH, CMP, LIPID, CRP #### [facility] [address] [place] [address] Dr. Bharat Taylor FREE T3on 12-07-2021 FREE T3 2.03 pg/mlL Critically low 2.77-5.27 [facility] Comment on above: Performed By: #### F T3, TSH, CMP, LIPID, CRP #### [facility] [address] [address] [address] Bharat Taylor FREE T4on 12-07-2021 Free T4 [Mass/Vol] 1.02 ng/dL Normal 0.78-2.19 [facility] Comment on above: Performed By: #### V ITAD, FT4 #### [facility] [address] [address] [address] Bharat Taylor LIPID PROFILEon 12-07-2021 CHOL-HDL RATIO NORM SEE BELOW Normal [facility] Comment on above: Result Comment: 3.3 - 4.4 LOW RISK 4.4 - 7.1 AVERAGE RISK 7.1 - 11.0 MODERATE RISK >11.0 HIGH RISK Performed By: #### F T3, TSH, CMP, LIPID, CRP #### [facility] [address] [address] [address] Bharat Taylor Cholesterol [Mass/Vol] 121 mg/dL Normal <=200 [facility] Comment on above: Performed By: #### F T3, TSH, CMP, LIPID, CRP #### [facility] [address] [address] [address] Bharat Taylor Cholesterol in HDL [Mass/Vol] 61 mg/dL Critically high 40-60 [facility] Comment on above: Performed By: #### F T3, TSH, CMP, LIPID, CRP #### [facility] [address] [address] [address] Bharat Taylor Cholesterol in LDL [Mass/Vol] 53.4 mg/dL Normal [facility] Comment on above: Performed By: #### F T3, TSH, CMP, LIPID, CRP #### [facility] [address] [address] [address] Bharat Taylor Cholesterol.total/Cho lesterol in HDL [Mass ratio] 2.0 {ratio} Normal [facility] Comment on above: Performed By: #### F T3, TSH, CMP, LIPID, CRP #### [facility] [address] [address] [address] Bharat Taylor HDL NORMAL > or = 60 mg/dl - LOW CARDIOVASCULAR RISK <40 mg/dl - HIGH CARDIOVASCULAR RISK Normal [facility] Comment on above: Performed By: #### F T3, TSH, CMP, LIPID, CRP #### [facility] [address] [address] [address] Bharat Taylor LDL CALC NORMAL SEE BELOW Normal [facility] Comment on above: Result Comment: <100 mg/dl OPTIMAL 100 - 129 mg/dl NEAR OR ABOVE OPTIMAL 130 - 159 mg/dl BORDERLINE HIGH 160 - 189 mg/dl HIGH >190 mg/dl VERY HIGH Performed By: #### F T3, TSH, CMP, LIPID, CRP #### [facility] [address] [address] [address] Bharat Taylor Triglyceride [Mass/Vol] 33 mg/dL Normal <=150 [facility] Comment on above: Performed By: #### F T3, TSH, CMP, LIPID, CRP #### [facility] [address] [address] [address] Bharat Taylor VLDL CALC 6.6 mg/dL Normal [facility] Comment on above: Performed By: #### F T3, TSH, CMP, LIPID, CRP #### [facility] [address] [address] [address] Bharat Taylor PROF 14(COMP METB)on 022 Albumin [Mass/Vol] 3.5 g/dL Normal 3.4-5.0 [facility] Comment on above: Performed By: #### F T3, TSH, CMP, LIPID, CRP #### [facility] [address] [address] [address] Bharat Taylor Albumin/Globulin [Mass ratio] 1.0 {ratio} Normal [facility] Comment on above: Performed By: #### F T3, TSH, CMP, LIPID, CRP #### [facility] [address] [address] [address] Bharat Taylor ALP [Catalytic activity/Vol] 69 U/L Normal 46-116 [facility] Comment on above: Performed By: #### F T3, TSH, CMP, LIPID, CRP #### [facility] [address] [address] [address] Bharat Taylor ALT [Catalytic activity/Vol] 23 U/L Normal 14-59 [facility] Comment on above: Performed By: #### F T3, TSH, CMP, LIPID, CRP #### [facility] [address] [address] [address] Bharat Taylor Anion gap [Moles/Vol] 12.6 mmol/L Normal [facility] Comment on above: Performed By: #### F T3, TSH, CMP, LIPID, CRP #### [facility] [address] [address] [address] Bharat Taylor AST [Catalytic activity/Vol] 15 U/L Normal 15-37 [facility] Comment on above: Performed By: #### F T3, TSH, CMP, LIPID, CRP #### [facility] [address] [place] [address] Dr. Bharat Taylor Bilirubin [Mass/Vol] 0.4 mg/dL Normal 0.2-1.3 [facility] Comment on above: Performed By: #### F T3, TSH, CMP, LIPID, CRP #### [facility] [address] [place] [address] Dr. Bharat Taylor Calcium [Mass/Vol] 8.4 mg/dL Critically low 8.5-10.1 [facility] Comment on above: Performed By: #### F T3, TSH, CMP, LIPID, CRP #### [facility] [address] [address] [address] Bharat Taylor Chloride [Moles/Vol] 104 mmol/L Normal 98-107 [facility] Comment on above: Performed By: #### F T3, TSH, CMP, LIPID, CRP #### [facility] [address] [place] [address] Dr. Bharat Taylor CO2 [Moles/Vol] 26.7 mmol/L Normal 22.0-30.0 [facility] Comment on above: Performed By: #### F T3, TSH, CMP, LIPID, CRP #### [facility] [address] [place] [address] Dr. Bharat Taylor Creatinine [Mass/Vol] 0.69 mg/dL Normal 0.52-1.04 [facility] Comment on above: Performed By: #### F T3, TSH, CMP, LIPID, CRP #### [facility] [address] [address] [address] Bharat Taylor EGFR-AF ENGLISH >60 Normal >=60 [facility] Comment on above: Performed By: #### F T3, TSH, CMP, LIPID, CRP #### [facility] [address] [address] [address] Bharat Taylor EGFR-NON AF ENGLISH >60 Normal >=60 [facility] Comment on above: Performed By: #### F T3, TSH, CMP, LIPID, CRP #### [facility] [address] [address] [address] Bharat Taylor Globulin (S) [Mass/Vol] 3.6 g/dL Normal [facility] Comment on above: Performed By: #### F T3, TSH, CMP, LIPID, CRP #### [facility] [address] [address] [address] Bharat Taylor Glucose [Mass/Vol] 89 mg/dL Normal 74-106 [facility] Comment on above: Performed By: #### F T3, TSH, CMP, LIPID, CRP #### [facility] [address] [address] [address] Bharat Taylor Potassium [Moles/Vol] 4.3 mmol/L Normal 3.4-5.0 [facility] Comment on above: Performed By: #### F T3, TSH, CMP, LIPID, CRP #### [facility] [address] [address] [address] Bharat Taylor Protein [Mass/Vol] 7.1 g/dL Normal 6.1-8.2 [facility] Comment on above: Performed By: #### F T3, TSH, CMP, LIPID, CRP #### [facility] [address] [address] [address] Bharat Taylor Sodium [Moles/Vol] 139 mmol/L Normal 137-145 [facility] Comment on above: Performed By: #### F T3, TSH, CMP, LIPID, CRP #### [facility] [address] [address] [address] Bharat Taylor Urea nitrogen [Mass/Vol] 8.0 mg/dL Normal 7.0-18.0 [facility] Comment on above: Performed By: #### F T3, TSH, CMP, LIPID, CRP #### [facility] [address] [place] [address] Dr. Bharat Taylor Urea nitrogen/Creatinine [Mass ratio] 11.6 mg/mg Normal [facility] Comment on above: Performed By: #### F T3, TSH, CMP, LIPID, CRP #### [facility] [address] [place] [address] Dr. Bharat Taylor TSHon 12-07-2021 TSH 0.662 uIU/mL Normal 0.470-4.680 [facility] Comment on above: Performed By: #### F T3, TSH, CMP, LIPID, CRP #### [facility] [address] [place] [address] Dr. Bharat Taylor TSH RANGE SEE BELOW Normal [facility] Comment on above: Result Comment: <0.3 4 UIU/ml HYPERTHYROID 0.34-5.60 UIU/ml EUTHYROID >5.60 UIU/ml HYPOTHYROID Performed By: #### F T3, TSH, CMP, LIPID, CRP #### [facility] [address] [place] [address] Dr. Bharat Taylor VITAMIN D 25 OHon 12-07-2021 VIT D 25-OH 26.9 ng/mL Normal [facility] Comment on above: Performed By: #### V ITAD, FT4 #### [facility] [address] [place] [address] Dr. Bharat Taylor VIT D RANGES SEE BELOW Normal [facility] Comment on above: Result Comment: <20 ng/mL Vit D deficient 20 - <30 ng/mL Vit D insufficient 30 - 100 ng/mL Vit D sufficient >100 ng/mL Potential Toxicity Performed By: #### V ITAD, FT4 #### [facility] [address] [place] [address] Dr. Bharat Taylor PAP ACOG PANEL 2: 30 to 65on 08-04-2021 . . Normal [facility] Comment on above: Result Comment: Perf ormed at: WB Performed By: #### V ITAD, FT4 #### [facility] [address] [place] [address] Dr. Bharat Taylor Age Gdln ACOG Testing 30-65 Normal [facility] Comment on above: Performed By: #### V ITAD, FT4 #### [facility] [address] [place] [address] Dr. Bharat Taylor DIAGNOSIS: Comment Normal [facility] Comment on above: Result Comment: NEGA TIVE FOR INTRAEPITHELIAL LESION OR MALIGNANCY. Performed at: WB Performed By: #### V ITAD, FT4 #### [facility] [address] [place] [address] Dr. Bharat Taylor HPV Aptima Negative Normal Negative [facility] Comment on above: Result Comment: This nucleic acid amplification test detects fourteen high-risk HPV types (16,18,31,33,35,39,45,51,52,56,58,59,66,68) without differentiation. Performed at: =G Performed By: #### V ITAD, FT4 #### [facility] [address] [place] [address] Dr. Bharat Taylor Methodology: Comment Normal [facility] Comment on above: Result Comment: This liquid based ThinPrep(R) pap test was screened with the use of an image guided system. Performed at: WB Performed By: #### V ITAD, FT4 #### [facility] [address] [place] [address] Dr. Bharat Taylor Note: Comment Normal [facility] Comment on above: Result Comment: The [...] Performed By: #### V ITAD, FT4 #### [facility] [address] [place], [place] [address] Dr. Bharat Taylor Performed by: Comment Normal [facility] Comment on above: Result Comment: Jory Falcon, Electroencephalographic Technician (ASCP) Performed at: WB Performed By: #### V ITAD, FT4 #### [facility] [address] [place], [place] [address] Dr. Bharat Taylor Specimen adequacy: Comment Normal [facility] Comment on above: Result Comment: Sati sfactory for evaluation. Endocervical and/or squamous metaplastic cells (endocervical component) are present. Performed at: WB Performed By: #### V ITAD, FT4 #### [facility] [address] [place], [place] [address] Dr. Bharat Taylor Vital Signs Date Time Vital Sign Value Performing Clinician Faci lity 11-19-2024 14:14-0400 Body mass index (BMI) [Ratio] 34.15 kg/m2 Ankita ARCUHLETA Work Phone: [facility] 11-19-2024 14:14-0400 Body weight 107.96 kg Ankita ARCHULETA Work Phone: [facility] 11-19-2024 14:14-0400 Diastolic blood pressure 68 mm[Hg] Ankita ARCHULETA Work Phone: [facility] 11-19-2024 14:14-0400 Systolic blood pressure 102 mm[Hg] Ankita ARCHULETA Work Phone: [facility] 09-07-2024 15:41-0500 Blood Pressure Location Michelle Charles [facility] 09-07-2024 15:41-0500 Body temperature 98.06 [degF] Michelle Charles [facility] 09-07-2024 15:41-0500 Diastolic blood pressure 70 mm[Hg] Michelle Charles [facility] 09-07-2024 15:41-0500 Heart rate 74 /min Michelle Charles [facility] 09-07-2024 15:41-0500 Respiratory rate 20 /min Michelle Charles [facility] 09-07-2024 15:41-0500 SaO2% (BldA) [Mass fraction] 95 % Michelle Patricker [facility] 09-07-2024 15:41-0500 Systolic blood pressure 112 mm[Hg] Michelle Charlse [facility] 06-20-2024 13:39-0400 Body height 177.8 cm Luigi Diane MD Work Phone: [facility] 06-20-2024 13:39-0400 Body mass index (BMI) [Ratio] 33.72 kg/m2 Luigi Diane MD Work Phone: [facility] 06-20-2024 13:39-0400 Body weight 106.59 kg Luigi Diane MD Work Phone: [facility] 06-20-2024 13:39-0400 Diastolic blood pressure 63 mm[Hg] Luigi Diane MD Work Phone: [facility] 06-20-2024 13:39-0400 Systolic blood pressure 98 mm[Hg] Luigi Diane MD Work Phone: [facility] 05-23-2024 12:56-0400 Blood Pressure Location CURTIS STAFFORD [facility] 05-23-2024 12:56-0400 Diastolic blood pressure 62 mm[Hg] CURTIS STAFFORD [facility] 05-23-2024 12:56-0400 Heart rate 79 /min CURTIS STAFFORD [facility] 05-23-2024 12:56-0400 Respiratory rate 16 /min CURTIS CATHY [facility] 05-23-2024 12:56-0400 SaO2% (BldA) [Mass fraction] 98 % CURTIS CATHY [facility] 05-23-2024 12:56-0400 Systolic blood pressure 118 mm[Hg] CURTIS CATHY [facility] 08-28-2023 12:06-0500 Blood Pressure Location Cuba Gudimella [facility] 08-28-2023 12:06-0500 Body temperature 97.88 [degF] Cuba Gudimella [facility] 08-28-2023 12:06-0500 Diastolic blood pressure 70 mm[Hg] Cuba Gudimella [facility] 08-28-2023 12:06-0500 Heart rate 59 /min [place] Gudimella [facility] 08-28-2023 12:06-0500 SaO2% (BldA) [Mass fraction] 96 % [place] Gudimella [facility] 08-28-2023 12:06-0500 Systolic blood pressure 114 mm[Hg] [place] Gudimella [facility] 07-25-2023 17:10-0500 Blood Pressure Location ANASTACIO SOSA [facility] 07-25-2023 17:10-0500 Body temperature 97.88 [degF] ANASTACIO SOSA [facility] 07-25-2023 17:10-0500 Diastolic blood pressure 76 mm[Hg] ANASTACIO SOSA [facility] 07-25-2023 17:10-0500 Heart rate 71 /min [place] S[facility]A [facility] 07-25-2023 17:10-0500 SaO2% (BldA) [Mass fraction] 97 % [place] [facility] 07-25-2023 17:10-0500 Systolic blood pressure 118 mm[Hg] [place] S[facility] 2023 12:15-0400 Blood Pressure Location ANASTACIO SOSA [facility] 2023 12:15-0400 Body temperature 98.6 [degF] [place] [facility] 2023 12:15-0400 Diastolic blood pressure 78 mm[Hg] [place] S[facility] 2023 12:15-0400 Heart rate 62 /min [place] [facility] 2023 12:15-0400 SaO2% (BldA) [Mass fraction] 98 % [place] [facility] 2023 12:15-0400 Systolic blood pressure 120 mm[Hg] [place] [facility] 03-15-2023 16:09-0400 Blood Pressure Location Marissa JETT [facility] 03-15-2023 16:09-0400 Body temperature 97.7 [degF] Marissa JETT [facility] 03-15-2023 16:09-0400 Diastolic blood pressure 72 mm[Hg] Marissa JETT [facility] 03-15-2023 16:09-0400 Heart rate 62 /min Marissa JETT [facility] 03-15-2023 16:09-0400 SaO2% (BldA) [Mass fraction] 98 % Marissa JETT [facility] 03-15-2023 16:09-0400 Systolic blood pressure 112 mm[Hg] Marissa JETT [facility] 09-02-2022 11:57-0500 Blood Pressure Location Barbara [employer] [facility] 09-02-2022 11:57-0500 Body temperature 98.06 [degF] Barbara Orzech [facility] 09-02-2022 11:57-0500 Diastolic blood pressure 78 mm[Hg] Barbara Orzech [facility] 09-02-2022 11:57-0500 Heart rate 88 /min Barbara Orzech [facility] 09-02-2022 11:57-0500 SaO2% (BldA) [Mass fraction] 97 % Barbara Orzech [facility] 09-02-2022 11:57-0500 Systolic blood pressure 124 mm[Hg] Barbara Orzech [facility] 12-18-2021 13:02-0400 Blood Pressure Location Tran AGUDELO [facility] 12-18-2021 13:02-0400 Body temperature 97.7 [degF] Tran AGUDELO [facility] 12-18-2021 13:02-0400 Diastolic blood pressure 78 mm[Hg] Tran AGUDELO [facility] 12-18-2021 13:02-0400 Systolic blood pressure 126 mm[Hg] Tran AGUDELO [facility] Encounters Encounter Date Encounter Type Care Provider Facility Start: 11-19-2024 End: 11-19-2024 Bamboo flowsheet Ankita ARCHULETA Work Phone: [facility] Start: 11-19-2024 End: 11-19-2024 Bamboo flowsheet Ankita ARCHULETA Work Phone: [facility] Start: 11-19-2024 End: 11-19-2024 Patient encounter procedure Ankita ARCHULETA Work Phone: [facility] Start: 11-19-2024 End: 11-19-2024 Periodic preventive med est patient 18-39 yrs Ankita ARCHULETA Work Phone: [facility] Comment on above: Well woman exam with routine gynecological exam; Encounter for intrauterine device placement; Menorrhagia with regular cycle Start: 09-07-2024 End: 09-07-2024 ambulatory Michelle Charles Facility:[facility] Start: 09-07-2024 End: 09-07-2024 Patient encounter procedure Michelle Charles [facility] Start: 06-20-2024 End: 06-20-2024 Bamboo flowsheet Luigi Diane MD Work Phone: [facility] Start: 06-20-2024 End: 06-20-2024 Leena flowssydnie Diane MD Work Phone: [facility] Start: 06-20-2024 End: 06-20-2024 ambulatory LUIGI H TIMMIS Not Available Start: 06-20-2024 End: 06-20-2024 Office outpatient visit 15 minutes Luigi Diane MD Work Phone: [facility] Comment on above: DNS (deviated nasal septum) (Primary Dx); Nasal valve blockage Start: 06-06-2024 End: 06-06-2024 ambulatory CURTIS STAFFORD Facility:[facility] Start: 06-06-2024 End: 06-06-2024 Patient encounter procedure CURTIS STAFFORD [facility] Start: 05-23-2024 ambulatory CURTIS STAFFORD Fa cility:[facility] Start: 05-23-2024 End: 05-23-2024 Patient encounter procedure CURTIS STAFFORD [facility] Start: 05-23-2024 End: 05-23-2024 ambulatory CURTIS STAFFORD Facility:[facility] Start: 05-23-2024 End: 05-23-2024 Patient encounter procedure CURTIS STAFFORD [facility] Start: 02-22-2024 End: 02-22-2024 ambulatory LUIGI H TIMMIS Not Available Start: 01-25-2024 End: 01-25-2024 ambulatory LUIGI H TIMMIS Not Available Start: 01-17-2024 End: 01-17-2024 ambulatory LUIGI H TIMMIS Not Available Start: 01-10-2024 End: 01-10-2024 ambulatory Luigi H Timmis Jr Facility:[facility] Start: 11-24-2023 End: 11-24-2023 ambulatory PLACEMENT OFFICER Catherine Wolff Facility:[facility] Shanda Start: 11-21-2023 End: 11-21-2023 ambulatory LUIGI H TIMMIS Not Available Start: 11-07-2023 End: 11-07-2023 ambulatory Luigi Renato Timmis Facility:[facility] Start: 11-07-2023 End: 11-07-2023 Patient encounter procedure Luigi Schaffers [facility] Start: 10-26-2023 End: 10-26-2023 ambulatory PLACEMENT OFFICER Catherine L Shoaib Facility:[facility] Start: 10-07-2023 Bamboo flowsheet Luigi H José Miguel is Work Phone: [facility] Start: 10-07-2023 Bamboo flowsheet [facility]dez [facility] Start: 10-07-2023 End: 10-07-2023 ambulatory LUIGI H TIMMIS Not Available Start: 10-06-2023 Chart abstracting Luigi Lugo mis [facility] Start: 09-07-2023 End: 09-07-2023 Lab Drop off Catherine L Shoaib [facility] Start: 09-07-2023 End: 09-07-2023 ambulatory PLACEMENT OFFICER Catherine L Shoaib Facility:[facility] Start: 09-06-2023 ambulatory Luigi Timmis Facility: [facility] Shanda Start: 08-28-2023 End: 08-28-2023 ambulatory [place] Gudimella Facility:[facility] Start: 08-28-2023 End: 08-28-2023 Patient encounter procedure Cuba Gudimella [facility] Start: 07-27-2023 End: 07-27-2023 ambulatory AI BELLE Not Available Start: 07-25-2023 End: 07-25-2023 ambulatory ANASTACIO SOSA Facility:[facility] Start: 07-25-2023 End: 07-25-2023 Patient encounter procedure ANASTACIO SOSA [facility] Start: 2023 End: 2023 Patient encounter procedure ANASTACIO SOSA [facility] Start: 03-15-2023 End: 03-15-2023 Patient encounter procedure Marissa JETT [facility] Start: 09-02-2022 End: 09-02-2022 Patient encounter procedure Barbara Moreno [facility] Start: 12-18-2021 End: 12-18-2021 Patient encounter procedure Tran AGUDELO [facility] Start: 12-10-2021 Encounter for genera l adult medical examination without abnormal findings DR TRAN AGUDELO [facility] Start: 12-07-2021 End: 12-08-[address] TRAN AGUDELO Facility:[facility] Start: 12-07-2021 End: 12-08-2021 Encounter for general adult medical examination without abnormal findings DR TRAN AGUDELO Facility:[facility] Start: 07-30-2021 End: 07-30-[address] AI BELLE Facility:[facility] Start: 01-12-2021 ambulatory CARMEN VOGT Facility: [facility] Start: 12-30-2020 ambulatory CARMEN ROBERTS Facility:[facility] 1 Procedures Date Procedure Procedure Detail Performing Clinician Start: 07-30-2021 Microscopic observat ion [Identifier] in Cervix by Cyto stain Luigi Diane MD Work Phone: Augmentation rhinoplasty DEEDEE STAFFORD Insertion of intraut erine contraceptive device Tran AGUDELO Loop electrosurgical excision procedure of cervix Tran AGUDELO Plan of Treatment Date Care Activity Detail Author Start: 07-30-2026 Screening for malign ant neoplasm of cervix [facility] Start: 11-20-2025 End: 11-20-2025 Patient encounter procedure 11/20/2025 3:00 PM EDT Office Visit [facility] [address] [place] [place] [phone] Ankita Miranda, PA [address] [place], [place] [id number] [facility] Start: 12-05-2024 End: 12-05-2024 Professional / ancillary services management 12/05/2024 3:00 PM EDT Ancillary Procedure [facility] [address] [place] [phone] [facility] Start: 11-19-2024 End: 11-19-2025 DHEA DHEA Lab Routine Menorrhagia with regular cycle Expected: 11/19/2024 (Approximate), Expires: 11/19/2025 [facility] Comment on above: Expected: 11/19/2024 (Approximate), Expires: 11/19/2025 Start: 11-19-2024 End: 11-19-2024 Patient encounter procedure 11/19/2024 2:00 PM EDT Office Visit [facility] [address] [place] [phone] Ankita Miranda, PA [address] [place] [address] Arrived [facility] Comment on above: Arrived Start: 11-19-2024 End: 11-19-2025 US Pelvis transvaginal US pelvis transvaginal Imaging Routine Encounter for intrauterine device placement Expected: 11/19/2024 (Approximate), Expires: 11/19/2025 [facility] Comment on above: Expected: 11/19/2024 (Approximate), Expires: 11/19/2025 Start: 10-07-2023 End: 10-07-2023 Patient encounter procedure 10/07/2023 9:20 AM EST Office Visit [facility] [address] [place] [phone] Luigi Diane MD [address] [facility] [address] [place] [address] [facility] Start: 04-29-2023 Influenza vaccination Influenza Vacc ine (#1) [facility] CBC W Auto Different ial panel - Blood CBC and differential Lab Routine Menorrhagia with regular cycle Ordered: 11/19/2024 [facility] Comment on above: Ordered: 11/19/2024 Cytology Cervical or vaginal smear or scraping study Pap Smear Pathology and Cytology Routine Well woman exam with routine gynecological exam Ordered: 11/19/2024 [facility] Work Phone: Comment on above: Ordered: 11/19/2024 DHEA-sulfate DHEA-sulfate Lab Routine Menorrhagia with regular cycle Ordered: 11/19/2024 [facility] Comment on above: Ordered: 11/19/2024 Follicle stimulating hormone Follicle stimulating hormone Lab Routine Menorrhagia with regular cycle Ordered: 11/19/2024 [facility] Comment on above: Ordered: 11/19/2024 hCG, quantitative, hCG, quantitative, Lab Routine Menorrhagia with regular cycle Ordered: 11/19/2024 [facility] Comment on above: Ordered: 11/19/2024 Hemoglobin A1c/Hemoglobin.total in Blood Hemoglobin A1c Lab Routine Menorrhagia with regular cycle Ordered: 11/19/2024 [facility] Comment on above: Ordered: 11/19/2024 Human papilloma viru s DNA [Presence] in Unspecified specimen by Probe with amplification HPV DNA probe, amplified Microbiology Routine Well woman exam with routine gynecological exam Ordered: 11/19/2024 [facility] Comment on above: Ordered: 11/19/2024 Luteinizing hormone Luteinizing hormone Lab Routine Menorrhagia with regular cycle Ordered: 11/19/2024 [facility] Comment on above: Ordered: 11/19/2024 Thyrotropin [Units/volume] in Serum or Plasma TSH Lab Routine Menorrhagia with regular cycle Ordered: 11/19/2024 [facility] Comment on above: Ordered: 11/19/2024 Thyroxine (T4) free [Mass/volume] in Serum or Plasma T4, free Lab Routine Menorrhagia with regular cycle Ordered: 11/19/2024 [facility] Comment on above: Ordered: 11/19/2024 Immunizations Immunization Date Immunization Notes Care Provider [place] 01-16-2002 measles, mumps and rubella virus vaccine Barbara Orzech [facility] 08-15-1991 Hib, unspecified formulation Barbara Orzech [facility] 08-15-1991 measles, mumps and rubella virus vaccine Barbara Orzech [facility] 1990 Hib, unspecified formulation Barbara Orzech [facility] NEGATED: Highlighted row has not occurred!2023 influenza virus vaccine, unspecified formulation [employer] [facility] NEGATED: Highlighted row has not occurred!2023 SARS-CoV-2 mRNA (tozinameran 5y-11y) vaccine [facility] NEGATED: Highlighted row has not occurred!09-02-2022 influenza virus vaccine, unspecified formulation Barbara Orzech [facility] NEGATED: Highlighted row has not occurred!09-02-2022 SARS-CoV-2 mRNA (tozinameran 5y-11y) vaccine [employer] [facility] Payers Date Payer Category Payer Self-pay 2020 [facility] er [id number] 2020 Unknown BCBS BCBS xxxxxx [id number] 2020-Present [phone] [address] [place] [address] [id number] 2020 Unknown [id number] 1990 Unknown [id number] 2.16.840.1.839024.3.57 9.2.593 1990 Unknown [id number] 2.16.840.1.121761.3.57 9.2.593 1990 Unknown [id number] 2.16.840.1.166362.3.57 9.2.593 1990 Unknown [id number] 2.16.840.1.346036.3.57 9.2.593 1990 Unknown [id number] 2.16.840.1.707831.3.57 9.2.1259 1990 Unknown [id number] 2.16.840.1.201433.3.57 9.2.1259 1990 Unknown [id number] 2.16.840.1.868983.3.57 9.2.1259 1990 Unknown [id number] 2.16.840.1.550086.3.57 9.2.1259 1990 Unknown [id number] 2.16.840.1.733401.3.57 9.2.1259 1990 Unknown [id number] 2.16.840.1.147269.3.57 9.2.1259 1990 Unknown [id number] 2.16.840.1.448239.3.57 9.2.727 1990 Unknown [id number] 2.16.840.1.763130.3.57 9.2.727 1990 Unknown [id number] 2.16.840.1.046348.3.57 9.2.727 1990 Unknown [id number] 2.16.840.1.252102.3.57 9.2.727 1990 Unknown [id number] 2.16.840.1.685872.3.57 9.2.727 1990 Unknown [id number] 2.16.840.1.408487.3.57 9.2.727 1990 Unknown [id number] 2.16.840.1.882995.3.57 9.2.727 1990 Unknown [id number] 2.16.840.1.549773.3.57 9.2.727 1990 Unknown [id number] 2.16.840.1.106047.3.57 9.2.72 1990 Unknown [id number] 2.16.840.1.831917.3.57 9.2.1259 1990 Unknown [id number] 2.16.840.1.250229.3.57 9.2.727 1990 Unknown [id number] 2.16.840.1.503228.3.57 9.2.727 1959 Unknown [id number] Unknown [id number] 2.16.840.1.441398.3.57 9.2.531 Social History Date Type Detail Facility Start: 12-18-2021 End: 2023 Tobacco smoking status Light tobacco smoker (finding) [facility] Tobacco smoking status Never [facility] Start: 10-04-2023 End: 06-20-2024 Sex Assigned At Female [facility] Start: 07-25-2023 End: 09-07-2024 Tobacco smoking status Ex-smoker (finding) [facility] Start: 10-04-2023 Tobacco smoking status NHIS Occasional tobacco smoker [facility] History of tobacco use Cigarette Smoker [facility] Start: 10-04-2023 Tobacco use and exposure Smokeless tobacco non-user [facility] Start: 10-04-2023 End: 11-19-2024 Alcohol intake Ex-drinker (finding) [facility] Start: 10-04-2023 End: 06-20-2024 History of Social function [facility] Start: 1990 Sex Assigned At Not on file [facility] Functional Status Date Assessment Result Facility 09-07-2024 Functional Status N/A [facility] 05-23-2024 Functional Status N/A [facility] [place] 08-28-2023 Functional Status N/A [facility] 07-25-2023 Functional Status N/A [facility] 2023 Functional Status N/A [facility] 03-15-2023 Functional Status N/A [facility] 09-02-2022 Functional Status N/A [facility] Clinical Notes 09-25-2021 to 11-19-2024 GEREMIAS Austin - 11/19/2024 2:00 PM Randi Diane MD - 06/20/2024 1:30 PM EDTRadiologyRadiologyLaboratoryLaboratory Note Date & Type Note Facility 11-19-2024 History of Present illness Narrative Reason for Appointment: Patient ID: Dominique Gill is a 34 y.o. female who presents for Gynecologic Exam Patient presents today for Annual Exam. MEDICATIONS Current Outpatient Medications Medication Instructions buPROPion XL (WELLBUTRIN XL) 150 mg, Every morning busPIRone (BUSPAR) 15 mg, 2 times daily copper (Paragard) IUD Intrauterine, Once, 10/30/2018 insertion paragard by yoshi ALLERGIES Allergies Allergen Reactions Jewrlthiwdgjlfk-El-Ourl Other Reaction(s): Hives Simple Syrup Unknown PROBLEMS Active Ambulatory Problems Diagnosis Date Noted Acne 10/04/2023 Anxiety 10/04/2023 Cigarette smoker 10/04/2023 Depression ([facility]) 10/04/2023 Family history of breast cancer 10/04/2023 Generalized anxiety disorder ([facility]) 10/04/2023 Hip pain, bilateral 10/04/2023 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 Low back pain 10/04/2023 Lumbar canal stenosis 10/04/2023 Lumbar herniated disc 10/04/2023 Nasal drainage 10/04/2023 Raynaud phenomenon 10/04/2023 Seasonal allergies 10/04/2023 Sprain of left foot 10/04/2023 Chronic infection of sinus 10/04/2023 Nasal obstruction 02/22/2024 Chronic maxillary antritis 02/22/2024 Resolved Ambulatory Problems Diagnosis Date Noted Abnormal thyroid function test 10/04/2023 Acute bacterial sinusitis 10/04/2023 Fatigue 10/04/2023 Irregular menses 10/04/2023 Loss of hair 10/04/2023 Puncture wound of left foot 10/04/2023 Past Medical History: Diagnosis Date H/O LEEP 02/05/2019 Headache History of colposcopy 11/27/2018 HISTORY PAST MEDICAL HISTORY SOCIAL HISTORY Past Medical History: Diagnosis Date Abnormal thyroid function test 10/04/2023 Acute bacterial sinusitis 10/04/2023 Fatigue 10/04/2023 H/O LEEP 02/05/2019 Headache History of colposcopy 11/27/2018 HGSIL Irregular menses 10/04/2023 Social History Tobacco Use Smoking status: Some Days Types: Cigarettes Smokeless tobacco: Never Substance Use Topics Alcohol use: Not Currently Drug use: Never FAMILY HISTORY Family History Problem Relation Name Age of Onset Cancer Mother Joanie Tineo Drug abuse Mother Joanie Tineo Thyroid disease Father Aldo Gill Cancer Maternal Grandmother Ric Tineo SURGICAL HISTORY Past Surgical History: Procedure Laterality Date CERVICAL BIOPSY W/ LOOP ELECTRODE EXCISION 02/05/2019 SINUS SURGERY 01/10/2024 septoplasty, RT MMA, 01/10/24, [place] REVIEW OF SYSTEMS Review of Systems: Review of Systems Constitutional: Negative. HENT: Negative. Eyes: Negative. Respiratory: Negative. Cardiovascular: Negative. Gastrointestinal: Negative. Genitourinary: Negative. Musculoskeletal: Negative. Skin: Negative. Neurological: Negative. All other systems reviewed and are negative. Hematological: Negative. Endocrine: Negative. Allergic/Immunologic: Negative. OBJECTIVE Objective: Physical Exam Constitutional: Appearance: Normal appearance. Genitourinary: Right Adnexa: not tender and no mass present. Left Adnexa: not tender and no mass present. No cervical discharge. Breasts: Breasts are soft. Right: Normal. Left: Normal. HENT: Head: Normocephalic. Nose: Nose normal. Mouth/Throat: Mouth: Mucous membranes are moist. Cardiovascular: Rate and Rhythm: Normal rate. Pulmonary: Effort: Pulmonary effort is normal. Abdominal: General: Bowel sounds are normal. Palpations: Abdomen is soft. Musculoskeletal: General: Normal range of motion. Cervical back: Normal range of motion. Neurological: General: No focal deficit present. Mental Status: She is alert. Skin: General: Skin is warm and dry. Psychiatric: Mood and Affect: Mood normal. Vitals and nursing note reviewed. Exam conducted with a shovel log loader operator present. Vitals: Estimated body mass index is 34.15 kg/m as calculated from the following: Height as of 06/20/24: 5' 10 . Weight as of this encounter: 238 lb. BP: 102/68 No LMP recorded. Patient has had an implant. ASSESSMENT & PLAN ICD-10-CM 1. Well woman exam with routine gynecological exam Z01.419 Pap Smear HPV DNA probe, amplified Annual Exam: Patient presents today for an annual exam. Patient states over past year patient has had increased mood swings and heavy bleeding. States paragard in since 2019. Pap was obtained without difficulty. Orders Placed This Encounter Procedures HPV DNA probe, amplified Patient given order for iud placement and labs. She will follow up with DR Belle to discuss options Follow Up: Patient is to return in one year for annual unless needed otherwise. Documented by Kaylene Veloz MA on behalf of: GEREMIAS Austin documented in this encounter [facility] 09-07-2024 Hospital Discharge instructions Patient Education 09/07/2024 20:08:25 Viral Respiratory Infection, Krhh-Oj-Hgph Viral Respiratory Infection A viral respiratory infection is an illness that affects parts of the body that are used for breathing. These include the lungs, nose, and throat. It is caused by a germ called a virus. Some examples of this kind of infection are: A cold. The flu (influenza). A respiratory syncytial virus (RSV) infection. What are the causes? This condition is caused by a virus. It spreads from person to person. You can get the virus if: You breathe in droplets from someone who is sick. You come in contact with people who are sick. You touch mucus or other fluid from a person who is sick. What are the signs or symptoms? Symptoms of this condition include: A stuffy or runny nose. A sore throat. A cough. Shortness of breath. Trouble breathing. Yellow or green fluid in the nose. Other symptoms may include: A fever. Sweating or chills. Tiredness (fatigue). Achy muscles. A headache. How is this treated? This condition may be treated with: Medicines that treat viruses. Medicines that make it easy to breathe. Medicines that are sprayed into the nose. Acetaminophen or NSAIDs, such as ibuprofen, to treat fever. Follow these instructions at home: Managing pain and congestion Take knej-jrr-tdxvxyg and prescription medicines only as told by your doctor. If you have a sore throat, gargle with salt water. Do this 3 4 times a day or as needed. ?To make salt water, dissolve 1 tsp (3 6 g) of salt in 1 cup (237 mL) of warm water. Make sure that all the salt dissolves. Use nose drops made from salt water. This helps with stuffiness (congestion). It also helps soften the skin around your nose. Take 2 tsp (10 mL) of honey at bedtime to lessen coughing at night. ?Do not give honey to children who are younger than 1 year old. Drink enough fluid to keep your pee (urine) pale yellow. General instructions Rest as much as possible. Do not drink alcohol. Do not smoke or use any products that contain nicotine or tobacco. If you need help quitting, ask your doctor. Keep all follow-up visits. How is this prevented? Get a flu shot every year. Ask your doctor when you should get your flu shot. Do not let other people get your germs. If you are sick: ?Wash your hands with soap and water often. Wash your hands after you cough or sneeze. Wash hands for at least 20 seconds. If you cannot use soap and water, use hand health systems analyst. ?Cover your mouth when you cough. Cover your nose and mouth when you sneeze. ?Do not share cups or eating utensils. ?Clean commonly used objects often. Clean commonly touched surfaces. ?Stay home from work or school. Avoid contact with people who are sick during cold and flu season. This is in fall and winter. Get help if: Your symptoms last for 10 days or longer. Your symptoms get worse over time. You have very bad pain in your face or forehead. Parts of your jaw or neck get very swollen. You have shortness of breath. Get help right away if: You feel pain or pressure in your chest. You have trouble breathing. You faint or feel like you will faint. You keep vomiting and it gets worse. You feel confused. These symptoms may be an emergency. Get help right away. Call your local emergency services (911 in the [place] Do not wait to see if the symptoms will go away. Do not drive yourself to the hospital. Summary A viral respiratory infection is an illness that affects parts of the body that are used for breathing. Examples of this illness include a cold, the flu, and a respiratory syncytial virus (RSV) infection. The infection can cause a runny nose, cough, sore throat, and fever. Follow what your doctor tells you about taking medicines, drinking lots of fluid, washing your hands, resting at home, and avoiding people who are sick. This information is not intended to replace advice given to you by your health care provider. Make sure you discuss any questions you have with your health care provider. Document Revised: 11/19/2021 Document Reviewed: 11/19/2021 [email or web address] Patient Education 2023 [employer]. 09/07/2024 20:08:24 Cough, Adult, Xkjj-wu-Jgzb Cough, Adult A cough helps to clear your throat and lungs. It may be a sign of an illness or another condition. A short-term (acute) cough may last 2 3 weeks. A long-term (chronic) cough may last 8 or more weeks. Many things can cause a cough. They include: Illnesses such as: ?An infection in your throat or lungs. ?Asthma or other heart or lung problems. ?Gastroesophageal reflux. This is when acid comes back up from your stomach. Breathing in things that bother (irritate) your lungs. Allergies. Postnasal drip. This is when mucus runs down the back of your throat. Smoking. Some medicines. Follow these instructions at home: Medicines Take fowp-cuk-smgqkjb and prescription medicines only as told by your doctor. Talk with your doctor before you take cough medicine (cough suppressants). Eating and drinking Do not drink alcohol. Do not drink caffeine. Drink enough fluid to keep your pee (urine) pale yellow. Lifestyle Stay away from cigarette smoke. Do not smoke or use any products that contain nicotine or tobacco. If you need help quitting, ask your doctor. Stay away from things that make you cough. These may include perfume, candles, cleaning products, or campfire smoke. General instructions Watch for any changes to your cough. Tell your doctor about them. Always cover your mouth when you cough. If the air is dry in your home, use a cool mist vaporizer or humidifier. If your cough is worse at night, try using extra pillows to raise your head up higher while you sleep. Rest as needed. Contact a doctor if: You have new symptoms. Your symptoms get worse. You cough up pus. You have a fever that does not go away. Your cough does not get better after 2 3 weeks. Cough medicine does not help, and you are not sleeping well. You have pain that gets worse or is not helped with medicine. You are losing weight and do not know why. You have night sweats. Get help right away if: You cough up blood. You have trouble breathing. Your heart is beating very fast. These symptoms may be an emergency. Get help right away. Call 911. Do not wait to see if the symptoms will go away. Do not drive yourself to the hospital. This information is not intended to replace advice given to you by your health care provider. Make sure you discuss any questions you have with your health care provider. Document Revised: 04/15/2023 Document Reviewed: 04/15/2023 [employer] Patient Education 2023 [employer]. Follow Up Care 09/07/2024 14:20:19 With:KATIE ANSARI FAM Address:Unknown When: Unknown With:KATEI ANSARI FAM Address:Unknown When: Unknown [facility] 09-07-2024 Note Patient Education ENT Cough, Adult A cough helps to clear your throat and lungs. It may be a sign of an illness or another condition. A short-term (acute) cough may last 2?3 weeks. A long-term (chronic) cough may last 8 or more weeks. Many things can cause a cough. They include: ??? Illnesses such as: ? An infection in your throat or lungs. ? Asthma or other heart or lung problems. ? Gastroesophageal reflux. This is when acid comes back up from your stomach. ??? Breathing in things that bother (irritate) your lungs. ??? Allergies. ??? Postnasal drip. This is when mucus runs down the back of your throat. ??? Smoking. ??? Some medicines. Follow these instructions at home: Medicines ??? Take qucm-ogx-berdoas and prescription medicines only as told by your doctor. ??? Talk with your doctor before you take cough medicine (cough suppressants). Eating and drinking ??? Do not drink alcohol. ??? Do not drink caffeine. ??? Drink enough fluid to keep your pee (urine) pale yellow. Lifestyle ??? Stay away from cigarette smoke. ??? Do not smoke or use any products that contain nicotine or tobacco. If you need help quitting, ask your doctor. ??? Stay away from things that make you cough. These may include perfume, candles, cleaning products, or campfire smoke. General instructions ??? Watch for any changes to your cough. Tell your doctor about them. ??? Always cover your mouth when you cough. ??? If the air is dry in your home, use a cool mist vaporizer or humidifier. ??? If your cough is worse at night, try using extra pillows to raise your head up higher while you sleep. ??? Rest as needed. Contact a doctor if: ??? You have new symptoms. ??? Your symptoms get worse. ??? You cough up pus. ??? You have a fever that does not go away. ??? Your cough does not get better after 2?3 weeks. ??? Cough medicine does not help, and you are not sleeping well. ??? You have pain that gets worse or is not helped with medicine. ??? You are losing weight and do not know why. ??? You have night sweats. Get help right away if: ??? You cough up blood. ??? You have trouble breathing. ??? Your heart is beating very fast. These symptoms may be an emergency. Get help right away. Call 911. ??? Do not wait to see if the symptoms will go away. ??? Do not drive yourself to the hospital. This information is not intended to replace advice given to you by your health care provider. Make sure you discuss any questions you have with your health care provider. Document Revised: 04/15/2023 Document Reviewed: 04/15/2023 [employer] Patient Education ? 2023 [email or web address] Infectious Disease Viral Respiratory Infection A viral respiratory infection is an illness that affects parts of the body that are used for breathing. These include the lungs, nose, and throat. It is caused by a germ called a virus. Some examples of this kind of infection are: ??? A cold. ??? The flu (influenza). ??? A respiratory syncytial virus (RSV) infection. What are the causes? This condition is caused by a virus. It spreads from person to person. You can get the virus if: ??? You breathe in droplets from someone who is sick. ??? You come in contact with people who are sick. ??? You touch mucus or other fluid from a person who is sick. What are the signs or symptoms? Symptoms of this condition include: ??? A stuffy or runny nose. ??? A sore throat. ??? A cough. ??? Shortness of breath. ??? Trouble breathing. ??? Yellow or green fluid in the nose. Other symptoms may include: ??? A fever. ??? Sweating or chills. ??? Tiredness (fatigue). ??? Achy muscles. ??? A headache. How is this treated? This condition may be treated with: ??? Medicines that treat viruses. ??? Medicines that make it easy to breathe. ??? Medicines that are sprayed into the nose. ??? Acetaminophen or NSAIDs, such as ibuprofen, to treat fever. Follow these instructions at home: Managing pain and congestion ??? Take evsq-sno-pvmpymw and prescription medicines only as told by your doctor. ??? If you have a sore throat, gargle with salt water. Do this 3?4 times a day or as needed. ? To make salt water, dissolve ??1 tsp (3?6 g) of salt in 1 cup (237 mL) of warm water. Make sure that all the salt dissolves. ??? Use nose drops made from salt water. This helps with stuffiness (congestion). It also helps soften the skin around your nose. ??? Take 2 tsp (10 mL) of honey at bedtime to lessen coughing at night. ? Do not give honey to children who are younger than 1 year old. ??? Drink enough fluid to keep your pee (urine) pale yellow. General instructions ??? Rest as much as possible. ??? Do not drink alcohol. ??? Do not smoke or use any products that contain nicotine or tobacco. If you need help quitting, ask your doctor. ??? Keep all follow-up visits. How is this pr (more content not included)... [facility] 06-20-2024 History of Present illness Narrative Subjective Patient ID: Dominique Gill is a 34 y.o. female who presents for Sinusitis (4 month check ) Not using flonase. Still has some RT nasal obstruction. 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 Low back pain 10/04/2023 Lumbar canal stenosis 10/04/2023 Lumbar herniated disc 10/04/2023 Nasal drainage 10/04/2023 Raynaud phenomenon 10/04/2023 Seasonal allergies 10/04/2023 Sprain of left foot 10/04/2023 Chronic infection of sinus 10/04/2023 Nasal obstruction 02/22/2024 Chronic maxillary antritis 02/22/2024 Resolved Ambulatory Problems Diagnosis Date Noted Abnormal thyroid function test 10/04/2023 Acute bacterial sinusitis 10/04/2023 Fatigue 10/04/2023 Irregular menses 10/04/2023 Loss of hair 10/04/2023 Puncture wound of left foot 10/04/2023 Past Medical History: Diagnosis Date H/O LEEP 02/05/2019 Headache History of colposcopy 11/27/2018 Past Surgical History: Procedure Laterality Date CERVICAL BIOPSY W/ LOOP ELECTRODE EXCISION 02/05/2019 SINUS SURGERY 01/10/2024 septoplasty, RT MMA, 01/10/24, [place] Allergies Allergen Reactions Ohcqdqjuhzahhgl-Jn-Ciit Other Reaction(s): Hives Simple Syrup Unknown Current Outpatient Medications on File Prior to Visit Medication Sig Dispense Refill buPROPion XL (Wellbutrin XL) 150 MG 24 hr tablet Take 150 mg by mouth in the morning. busPIRone (Buspar) 15 MG tablet Take 15 mg by mouth in the morning and 15 mg before bedtime. No current facility-administered medications on file prior to visit. Objective Last Recorded Vitals Vitals: 06/20/24 1339 BP: 98/63 ENT Physical Exam Nose Nose comments: Chandler nose patent, but more open on left than RT. Nasal valve collapses a bit Assessment/Plan Diagnoses and all orders for this visit: DNS (deviated nasal septum) Nasal valve blockage At this point Dominiqeu wants to hold off on referral to Dr Foy. If she changes her mind in the future she'll let us know. Recommend using flonase on RT as prescribed documented in this encounter [facility] 05-23-2024 Evaluation + Plan note Future Scheduled TestsMRI Spine Lumbar w/o Contrast 05/23/24 [facility] 05-23-2024 Evaluation + Plan note Diagnostic Tests PendingANA w/Reflex if POS 05/23/24IFE and PE, Serum 05/23/24Rheumatoid Factor Quantitative 05/23/24 Future Scheduled TestsMRI Spine Lumbar w/o Contrast 05/23/24 [facility] 01-04-2024 Note [id number] [facility] 09-15-2023 Note Consult received for patient's positive depression screen. Through chart review it is noted that patient has requested a referral for counseling and this was sent to [facility]. SW will remain available. [facility] 08-28-2023 Hospital Discharge instructions Follow Up Care 08/28/2023 10:18:17 With:Janna Koo MD, [facility] Address: [address] [place] [phone] When: only if needed [facility] 07-25-2023 Hospital Discharge instructions Patient Education [...] numbers. This can be done either in [place] ([place] or metric measurements. Note that charts and online BMI calculators are available to help you find your BMI quickly and easily without having to do these calculations yourself. To calculate your BMI in [place] ([place] measurements: 1.Measure your weight in pounds [...] Centers for Disease Control and Prevention: www.cdc.gov [place] [employer]: www.heart.org National Heart, Lung, and Blood [place]: www.nhlbi.nih.gov Summary Body mass index (BMI) is a number that is calculated from a person's weight and height. BMI may help estimate how much of a person's weight is composed of fat. BMI can help identify those who may be at higher risk for certain medical problems. BMI can be measured using [place] measurements or metric measurements. BMI charts are used to identify whether you are underweight, normal weight, overweight, or obese. This information is not intended to replace advice given to you by your health care provider. Make sure you discuss any questions you have with your health care provider. Document Revised: 05/07/2020 Document Reviewed: 03/14/2020 [email or web address] Patient Education 2022 [employer]. 07/25/2023 17:27:20 Sinus Infection, Adult, Msbp-bn-Qdbq Sinus Infection, Adult A sinus infection is [...] saline washes). ?Medicines that treat allergies (antihistamines). ?Azcn-hgt-ifjxhtx pain relievers. If caused by bacteria, your doctor may wait to see if you will get better without treatment. You may be given antibiotic medicine if you have: ?A very bad infection. ?A weak body defense system. If caused by growths in the nose, surgery may be needed. Follow these instructions at home: Medicines Take, use, or apply smxh-kdy-ysddmxj and prescription medicines only as told by [...] cannot use soap and water, use hand health systems analyst. Do not smoke. Avoid being around people [...] provider. Document Revised: 07/20/2022 Document Reviewed: 07/20/2022 [email or web address] Patient Education 2022 [employer]. Follow Up Care 07/25/2023 10:17:49 With:NONE, XXXX Address: [phone] When: Unknown [facility] 2023 Hospital Discharge instructions [...] numbers. This can be done either in [place] ([place] or metric measurements. Note that charts and online BMI calculators are available to help you find your BMI quickly and easily without having to do these calculations yourself. To calculate your BMI in [place] ([place] measurements: 1.Measure your weight in pounds [...] Centers for Disease Control and Prevention: www.cdc.gov [place] [employer]: www.heart.org National Heart, Lung, and Blood [place]: www.nhlbi.nih.gov Summary Body mass index (BMI) is a number that is calculated from a person's weight and height. BMI may help estimate how much of a person's weight is composed of fat. BMI can help identify those who may be at higher risk for certain medical problems. BMI can be measured using [place] measurements or metric measurements. BMI charts are used to identify whether you are underweight, normal weight, overweight, or obese. This information is not intended to replace advice given to you by your health care provider. Make sure you discuss any questions you have with your health care provider. Document Revised: 05/07/2020 Document Reviewed: 03/14/2020 [email or web address] Patient Education 2022 [employer]. 2023 14:20:11 Foot Sprain Foot Sprain A [...] cast on your foot. General instructions Take llva-mko-rszwjrj and prescription medicines only as told by [...] provider. Document Revised: 12/05/2020 Document Reviewed: 12/05/2020 [email or web address] Patient Education 2022 [employer]. Follow Up Care 2023 11:35:27 With:NONE, XXXX Address: [phone] When: Unknown [facility] 03-15-2023 Hospital Discharge instructions Patient Education 03/15/2023 16:47:12 Cold Sore, Vzzt-ib-Zman Cold Sore A cold sore, also called [...] instructions at home: Medicines Take or apply nncs-pdm-zynuqzv and prescription medicines only as told by [...] provider. Document Revised: 05/26/2022 Document Reviewed: 05/26/2022 [email or web address] Patient Education 2022 [employer]. 03/15/2023 16:47:05 BMI for Adults BMI for [...] numbers. This can be done either in [place] ([place] or metric measurements. Note that charts and online BMI calculators are available to help you find your BMI quickly and easily without having to do these calculations yourself. To calculate your BMI in [place] ([place] measurements: 1.Measure your weight in pounds [...] Centers for Disease Control and Prevention: www.cdc.gov [place] [employer]: www.heart.org National Heart, Lung, and Blood [place]: www.nhlbi.nih.gov Summary Body mass index (BMI) is a number that is calculated from a person's weight and height. BMI may help estimate how much of a person's weight is composed of fat. BMI can help identify those who may be at higher risk for certain medical problems. BMI can be measured using [place] measurements or metric measurements. BMI charts are used to identify whether you are underweight, normal weight, overweight, or obese. This information is not intended to replace advice given to you by your health care provider. Make sure you discuss any questions you have with your health care provider. Document Revised: 05/07/2020 Document Reviewed: 03/14/2020 [email or web address] Patient Education 2022 [employer]. Follow Up Care 03/15/2023 15:38:21 With:Tran AGUDELO DO, FAM Address: [address] [place], [place] [phone]- When: Unknown [facility] 09-02-2022 Hospital Discharge instructions [...] Follow these instructions at home: Medicines Take vzcc-lor-wyykyld and prescription medicines only as told by [...] 08/12/2001 Document Revised: 11/02/2019 Document Reviewed: 11/02/2019 [email or web address] Patient Education 2020 [email or web address] 09/02/2022 12:22:11 Tobacco Use Disorder Tobacco Use [...] reduces withdrawal symptoms. NRT is available as: ?Agxd-ttm-cdyyjdr gums, lozenges, and skin patches. ?Prescription mouth [...] recovery for many people. General instructions Take njre-uyu-epqeikm and prescription medicines only as told by your health care provider. Check with your health care provider before taking any new prescription or aycu-jqt-tgaquss medicines. Decide on a friend, family member, or smoking quit-line (such as 1-218-GYZL-NOW in the [place] that you can call [...] 04/20/2005 Document Revised: 08/02/2018 Document Reviewed: 08/02/2018 [email or web address] Patient Education 2020 [employer]. 09/02/2022 12:22:10 BMI for Adults BMI for [...] height. This can be done either in [place] ([place] or metric measurements. Note that charts are available to help you find your BMI quickly and easily without having to do these calculations yourself. To calculate your BMI in [place] ([place] measurements, your health care provider will: [...] medical problems. BMI can be measured using [place]an measurements or metric measurements. To interpret your [...] 04/26/2005 Document Revised: 07/28/2018 Document Reviewed: 06/28/2018 [email or web address] Patient Education 2020 [employer]. Follow Up Care 09/02/2022 11:42:01 With:Tran AGUDELO DO [facility] Address: [address] [place], [place] [phone]- When: Unknown [facility] 09-25-2021 Evaluation + Plan note Future Scheduled TestsTestosterone Level Total 09/25/21 [facility] 09-25-2021 Evaluation + Plan note Future Scheduled TestsTestosterone Level Total 09/25/21 [facility] Evaluation + Plan note Future Appointments Appointment Date:10/05/2023 11:20:00 AM Scheduled Provider:Catherine Motta Location:[facility] Appointment Type:[facility] Evaluation + Plan note Future Appointments Appointment Date:11/24/2023 11:20:00 AM Scheduled Provider:Catherine Motta Location:[facility] Appointment Type:[facility] Evaluation note Diagnosis DNS (deviated nasal septum)- Primary Deviated nasal septum Nasal valve blockage [facility] Diagnosis Well woman exam with routine gynecological exam Routine gynecological examination Encounter for intrauterine device placement Insertion of intrauterine contraceptive device Menorrhagia with regular cycle [facility] Narrative No data available for this section [facility] Discharge instructions No data available for this section [facility] Progress note No data available for this section [facility] Summary Purpose Family History No Family History Records Found No data available for this section No data available for this section No data available for this section No data available for this section No Family History Records FoundNo Family History Records Found No data available for this section No data available for this section No Family History Records FoundNo Family History Records FoundNo Family History Records Found No data available for this section No Family History Records Found No data available for this section No Family History Records Found Advance Directives No Advanced Directives Records FoundNo Advanced Directives Records FoundNo Advanced Directives Records FoundNo Advanced Directives Records FoundNo Advanced Directives Records FoundNo Advanced Directives Records FoundNo Advanced Directives Records FoundNo Advanced Directives Records Found Additional Source Comments INFORMATION SOURCE (unrecogn ized section and content) DATE CREATED AUTHOR 12/11/2021 [facility] DATE CREATED AUTHOR AUTHOR'S ORGANIZ ATION 01/14/2024 [facility] DATE CREATED AUTHOR AUTHOR'S ORGANIZ ATION 02/23/2024 [facility] EPIC DATE CREATED AUTHOR AUTHOR'S ORGANIZ ATION 05/26/2024 [facility] DATE CREATED AUTHOR AUTHOR'S ORGANIZ ATION 05/27/2024 [facility] [place] DATE CREATED AUTHOR AUTHOR'S ORGANIZ ATION 06/22/2024 [facility] DATE CREATED AUTHOR AUTHOR'S ORGANIZ ATION 09/12/2024 [place] [facility] Patient Care team informatio n (unrecognized section and content) 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 Start Date End Date Catherine Wolff MD [address] [place], [place] [id number] Referring Physician Family Medicine 02/22/24 Curtis Stafford MD [address] [place], [place] [id number] Referring Physician Family Medicine 06/20/24 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 Start Date End Date Catherine Wolff MD [address] [place], [place] [id number] Referring Physician Family Medicine 02/22/24 Curtis Stafford MD [address] [place], [place] [id number] Referring Physician Family Medicine 06/20/24 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 Start Date End Date Catherine Wolff MD [address] [place], [place] [id number] Referring Physician Family Medicine 02/22/24 Curtis Stafford MD [address] [place] [id number] Referring Physician Family Medicine 06/20/24 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 [facility] [employer] provides no warranty or guarantee of the accuracy or completeness of information in this document.
== END 2024-11-19 18:16 | disposition home or self-care (01) ==
LOC: LAB 18:15
PROVIDERS: PCP Nurse Practitioner; Visit Provider Physician Assistant
DX: Z01.419 Encounter for gynecological examination (general) (routine) without abnormal findings (principal)
CPT/HCPCS: 87624; 88175

== ENCOUNTER 2024-12-05 16:03 | Outpatient (OUT) | payer BC, SELFPAY ==
[2024-12-05 16:34] LABS: Basophils Absolute Auto 0.1 10^3/uL (0.0-0.1); Basophils Percent Auto 0.8 % (0.2-2.0); Eosinophils Absolute Auto 0.2 10^3/uL (0.0-0.7); Eosinophils Percent Auto 3.2 % (0.9-7.0); Hematocrit 41.3 % (36.0-48.0); Immature Granulocytes Abs Auto 0.01 10^3/uL (0.00-0.03); Immature Granulocytes Pct Auto 0.2 % (0.0-0.5); Lymphocytes Absolute Auto 1.7 10^3/uL (1.2-3.8); Lymphocytes Percent Auto 28.4 % (20.5-60.0); Mean Corpuscular HGB Conc 33.9 g/dL (29.9-35.2); Mean Corpuscular Hemoglobin 31.2 pg (26.7-34.0); Mean Platelet Volume 10.3 fL (9.5-13.5); Monocytes Absolute Auto 0.7 10^3/uL (0.3-0.8); Monocytes Percent Auto 11.2 % (1.7-12.0); Neutrophils Absolute Auto 3.4 10^3/uL (1.4-6.5); Neutrophils Percent Auto 56.2 % (43.0-75.0); Platelet Count 243 10^3/uL (150-450); Red Blood Count 4.49 10^6/uL (4.20-5.40)
[2024-12-05 16:55] LABS: Estimated Average Glucose 91 mg/dL; Glycohemoglobin A1C 4.8 % (4.5-6.2)
[2024-12-05 17:06] LABS: Thyroid Stimulating Hormone 0.856 uIU/mL (0.358-3.740)
[2024-12-05 17:07] LABS: HCG Quantitative 3 mIU/mL
[2024-12-05 17:26] LABS: Free T4 0.93 ng/dL (0.76-1.46)
[2024-12-07 04:07] LABS: DHEA-Sulfate 92.4 ug/dL (84.8-378.0); FSH 7.8 mIU/mL (.); Luteinizing Hormone(LH) 9.9 mIU/mL (.)
== END 2024-12-05 16:04 | disposition home or self-care (01) ==
LOC: LAB 16:04
PROVIDERS: PCP Nurse Practitioner; Visit Provider Physician Assistant
DX: N92.0 Excessive and frequent menstruation with regular cycle (principal)
CPT/HCPCS: 36415; 82626; 82627; 83001; 83002; 83036; 84439; 84443; 84702; 85025

== ENCOUNTER 2025-02-10 15:45 | Emergency (ER) | payer BC, SELFPAY ==
[2025-02-10 15:48] VITALS: BP 118/77; PULSE 73; TEMP 36.6; O2SAT 97; BMI 33.0
--- OUTSIDE RECORDS SUMMARY | 2025-02-10 15:53 | XMS_ITS | CCD ---
Author Organization [facility] ion [facility] Care Team Providers Care Typing Teacher Name Role Phone LILLYKERCARMEN Consulting Unavailable DEL, DR DAVID Perez Admitting Unavailable BELMIKAEL, CARMEN Primary Care Unavailable DEL, DR DAVID Perez Attending Unavailable JAMMIE, DR TRAN Perez Attending Unavailable JAMMIE, DR TRAN Perez Consulting Unavailable BELMIKAEL, [facility] Primary Care Unavailable JAMMIE, DR TRAN Perez Admitting Unavailable YOSHI, DR CLOUD Attending Unavailable YOSHI, DR CLOUD Consulting Unavailable YOSHI, DR CLOUD Admitting Unavailable BELDON, [facility] Primary Care Unavailable BELDON, [facility] Primary Care Unavailable DEL, DR DAVID Perez Attending Unavailable DEL, DR DAVID Perez Consulting Unavailable DEL, DR DAVID Perez Admitting Unavailable Tran AGUDELO Primary Care Physician NONE, XXXX Primary Care Physician UnavailCatherine Koehler Primary Care Physician Unavailable Primary Care Provider Unavailmayra e Parishmis Jr Luigi Renato Attending Unavailable Timmis Jr, Luigi H Admitting Unavailable TIMMIS, LUIGI H Attending Unavailable TIMMIS, LUIGI H Attending Unavailable AI BELLE Attending Unavailable TIMMIS, LUIGI H Attending Unavailable SHOAIBCATHERINE Referring Unavailable TIMMIS, LUIGI H Attending Unavailable TIMMIS, LUIGI H Attending Unavailable CURTIS STAFFORD Primary Care Physician Timmis, Luigi H Admitting Unavailable Timmis, Luigi H Attending Unavailable Timmis, Luigi H Referring Unavailable ShoaibJONE Admitting Unavailable Shoaib, JONE Bernabe Attending Unavailable ANASTACIO SOSA Attending Unavailable Cuba Koo Attending Unavailable CURTIS STAFFORD Attending Unavailabl e Shoaib, JONE Bernabe Attending Unavailable Shoaib, AGENCY SERVICE REPRESENTATIVEPaloma Bernabe Attending Unavailable Shoaib, JONE Bernabe Attending Unavailable CURTIS STAFFORD Attending Unavailabl e CURTIS STAFFORD Admitting UnavailCatherine Colmenares MD Unavailable Curtis Stafford MD Unavailable LUIGI DIANE Attending Unavailable ANKITA ALVARADO Attending Unavailable CATHY, AGENCY SERVICE REPRESENTATIVEIrisC CURTIS Brown Attending Unav ailable [facility], [facility] Attending Unav ailable CATHY, AGENCY SERVICE REPRESENTATIVEIrisC CURTIS Brown Attending Unav ailable CATHY, AGENCY SERVICE REPRESENTATIVEIrisC CURTIS Brown Admitting Unav ailable CATHY, CHANCE Brown Attending Unav ailable CATHY, AGENCY SERVICE REPRESENTATIVEIrisC CURTIS Brown Referring Unav ailable Michelle Charles Attending Unavailable CATHY [facility] CURTIS Brown Attending Unav ailable Allergies Allergy Classification Reported Allergen(s) Allergy Type Date of Onset Reaction(s) Facility (1 source) Brompheniramine / Phenylpropanolamine Drug Allergy [facility] Repository (16 sources) Brompheniramine / Dextromethorphan / Phenylephrine; Translations: [brompheniramine/DM/ph enylephrine] Drug Allergy Weal (disorder) [facility] [place] Work Phone: (10 sources) Acetaminophen / diphenhydrAMINE / Phenylephrine Drug Allergy 10-04-19 24 [facility] Work Phone: (10 sources) Simple Syrup Propensity to adverse reactions 07-20-20 23 Unknown [facility] Healthcare (1 source) Brompheniramine Drug Allergy 09-09-19 [facility] Repository (1 source) Phenylephrine Drug Allergy 09-09-19 21 [facility] Repository Medications Current Medications Medication Drug Class(es) Dates Sig (Normalized) Sig (Original) amoxicillin 500 mg oral capsule (1 source) Penicillin-class Antibacterial Start: 09-02-2022 End: 09-12-2022 take 1 capsule by mouth every twelve hours amoxicillin 500 mg Cap 500 mg = 1 cap(s), Oral, q12hr, X 10 day(s), # 20 cap(s), Refills(s) 0, Pharmacy: [facility]/pharmacy #[id number], 178, cm, 09/02/22 12:01:00 EST, [...] day(s), # 30 tab(s), Refills(s) 0, [id number], 178, cm, 05/05/23 12:17:00 EDT, Height/Length Dosing, 95.4, kg, 05/05/23 12:17:00 EDT, Weight Dosing Start Date: 05/05/23 Stop Date: 05/15/23 Status: Ordered brompheniramine maleate 0.4 mg/ml / dextromethorphan hydrobromide 2 mg/ml / pseudoephedrine hydrochloride 6 mg/ml oral solution (1 source) alpha-Adrenergic Agonist, Uncompetitive P-gyhtrq-O-aspartat e Receptor Antagonist, Sigma-1 Agonist Start: 09-07-2024 End: 09-12-2024 take 10 mL by mouth four times daily Bromfed DM oral syrup 10 mL, Oral, QID for 5 day(s), 200 mL, Refill(s) 0, [facility]/pharmacy #[id number], 178, cm, 09/07/24 15:44:00 EST, Height/Length Dosing, 108.1, kg, 09/07/24 15:44:00 EST, Weight Dosing Start Date: 09/07/24 Stop Date: 09/12/24 Status: Ordered 24 hr buPROPion hydrochloride 150 mg extended release oral tablet (13 sources) Aminoketone Start: 05-23-2024 take 1 tablet by mouth once daily in the morning buPROPion 150 mg/24 hours XL Tab TAKE 1 TABLET BY MOUTH EVERY DAY IN THE MORNING FOR 30 DAYS Start Date: 05/23/24 Status: Ordered Repeat number: 1 Start: 12-29-2023 take 1 tablet by yovani th every twenty-four hours in the morning buPROPion XL (Wellbutrin XL) 150 MG 24 hr tablet Take 150 mg by mouth in the morning. 12/29/2023 Active busPIRone hydrochloride 15 mg oral tablet (12 sources) Start: 12-29-2023 take 1 tablet by mouth in the [...] day(s), # 14 tab(s), Refills(s) 0, Pharmacy: [facility]/pharmacy #[id number], 178, cm, 09/07/23 11:44:00 EST, Height/Length Dosing, 105.9, kg, 09/07/23 11:44:00 EST, Weight Dosing Start Date: 09/07/23 Stop Date: 09/14/23 Status: Ordered copper 313 mg drug implant (10 sources) Copper-containing Intrauterine Device Start: 01-14-2020 ParaGard [...] day(s), # 14 cap(s), Refills(s) 0, Pharmacy: [facility]/pharmacy #[id number], 178, cm, 08/28/23 12:08:00 EST, Height/Length Dosing, 104, kg, 08/28/23 12:08:00 EST, Weight Dosing Start Date: 08/28/23 Stop Date: 09/04/23 Status: Ordered fluticasone propionate 0.05 mg/actuat metered dose nasal spray (8 sources) Corticosteroid Start: 09-22-2023 Flonase 0.05 mg/inh Baker 2 spray(s), Nasal, Daily, 16 gram, Refill(s) 5, each nostril, [facility]/pharmacy #[id number], 178, cm, 09/07/23 11:44:00 EST, Height/Length Dosing, 105.9, kg, 09/07/23 11:44:00 EST, Weight Dosing Start Date: 09/22/23 Status: Ordered Start: 08-28-2023 take 2 spray(s) nasa l route in the morning fluticasone (Flonase Allergy Relief) 50 MCG/ACT nasal spray Administer 2 sprays into affected nostril(s) in the morning. 0 08/28/2023 Active Start: 08-28-2023 Flonase 0.05 m g/inh Baker 2 spray(s), Nasal, Daily, 16 gram, Refill(s) 1, each nostril, [facility]/pharmacy #[id number], 178, cm, 08/28/23 12:08:00 EST, Height/Length Dosing, 104, kg, 08/28/23 12:08:00 EST, Weight Dosing Start Date: 08/28/23 Status: Ordered gabapentin 100 mg oral capsule (3 sources) Anti-epileptic Agent Start: 05-23-2024 take 1 capsule by mouth three times daily gabapentin 100 mg Cap 100 mg = 1 cap(s), Oral, TID, # 90 cap(s), Refills(s) 0, Pharmacy: [facility] #37, 178, cm, 05/23/24 13:10:00 EDT, Height/Length Dosing, 105.6, kg, 05/23/24 13:10:00 EDT, Weight Dosing Start Date: 05/23/24 Status: Ordered liothyronine sodium 0.005 mg oral tablet (6 sources) l-Triiodothyronine Start: 12-18-2021 take 1 tablet by mouth once daily liothyronine 5 mcg Tab 5 mcg = 1 tab(s), Oral, Daily, # 30 tab(s), Refills(s) 2, [id number], 178, cm, 12/18/21 13:00:00 EDT, Height/Length Dosing, 97.7, kg, 12/18/21 13:04:00 EDT, Weight Dosing Start Date: 12/18/21 Status: Ordered Start: 12-18-2021 take 1 tablet by yovani th once daily liothyronine 5 mcg Tab 5 mcg = 1 tab(s), Oral, Daily, # 30 tab(s), Refills(s) 2, [id number], 178, cm, 12/18/21 13:00:00 EDT, Height/Length Dosing, 97.7, kg, 12/18/21 13:04:00 EDT, Weight Dosing Start Date: 12/18/21 Status: Ordered ParaGard intrauteral device (1 source) Start: 01-14-2020 ParaGard intrauteral device Refill(s) 0 Start Date: 01/14/20 Status: Ordered phentermine hydrochloride 37.5 mg oral tablet (2 sources) Sympathomimetic Amine Anorectic Start: 12-20-2024 take 1 tablet by mouth once daily Adipex-P 37.5 mg Tab 37.5 mg = 1 tab(s), Oral, Daily, # 30 tab(s), Refills(s) 1, [id number], 178, cm, 12/20/24 11:40:00 EDT, Height/Length Dosing, 110.6, kg, 12/20/24 11:40:00 EDT, Weight Dosing Start Date: 12/20/24 Status: Ordered Quantity: 30.0 Unit: tab(s) Repeat number: 2 Indication: Obesity, unspecified Start: 10-26-2023 take 1 tablet by yovani once daily phentermine 37.5 mg Tab 37.5 mg = 1 tab(s), Oral, Daily, # 30 tab(s), Refills(s) 0, Pharmacy: [facility] #[id number], 178, cm, 10/26/23 11:33:00 EST, Height/Length [...] day(s), # 40 tab(s), Refills(s) 0, Pharmacy: [facility] #37, 178, cm, 05/23/24 13:10:00 EDT, Height/Length [...] day(s), # 4 tab(s), Refills(s) 2, Pharmacy: [facility] #[id number], 178, cm, 03/15/23 16:13:00 EDT, Height/Length Dosing, [...] BID for 10 day(s), 20 tab(s), Refill(s) [id number], 178, cm, 07/25/23 17:14:00 EST, Height/Length Dosing, [...] insertion of intrauterine contraceptive device] 11-19-2024 Episodic Malaise and fatigue (20 sources) Other fatigue; Translations: [Fatigue] Onset: 12-10-2021 Resolved: 10-04-2023 07-17-2020 Episodic Menstrual disorders (20 sources) Irregular periods; Translations: [Irregular menstruation, unspecified] Onset: 10-04-2023 Resolved: 10-04-2023 09-25-2021 Chronic Mood disorders (17 sources) Depressive disorder; Translations: [Depression] Onset: 10-04-2023 [...] Onset: 05-23-2024 Chronic Other non-traumatic joint disorders (20 sources) Hip pain; Translations: [Pain in right hip] Onset: 10-04-2023 07-17-2020 Episodic Other non-traumatic joint disorders (5 sources) Disorder of hip joint 05-23-2024 Episodic Other nutritional; endocrine; and metabolic disorders (17 sources) Body mass index 30+ - obesity 07-17-2020 Chronic Other nutritional; endocrine; and metabolic disorders (5 sources) Obese class I; Translations: [Body mass index (BMI) 32.0-32.9, adult] Onset: 09-02-2022 Chronic Other nutritional; endocrine; and metabolic disorders (2 sources) Obesity; Translations: [Other obesity due to excess calories] Onset: 08-28-2023 Chronic Other nutritional; endocrine; and metabolic disorders (8 sources) Obesity caused by energy imbalance 08-28-2023 Chronic Other nutritional; endocrine; and metabolic disorders (1 source) Abnormal weight gain; Translations: [ABNORMAL WEIGHT GAIN] Onset: 12-10-2021 Episodic Other nutritional; endocrine; and metabolic disorders (13 sources) Weight gain 09-24-2021 Episodic Other screening [...] CUTIS] Onset: 12-10-2021 Episodic Other skin disorders (20 sources) Acne; Translations: [Acne, unspecified] Onset: 10-04-2023 09-25-2021 Episodic Other skin disorders (6 sources) Dry skin 09-24-2021 Episodic Other skin disorders (20 sources) Loss of hair; Translations: [Nonscarring hair loss, unspecified] Onset: 10-04-2023 Resolved: 10-04-2023 09-24-2021 Episodic Other upper respiratory disease (17 sources) Seasonal allergy; Translations: [Other seasonal allergic rhinitis] Onset: 10-04-2023 09-07-2023 Chronic Other upper respiratory disease (17 sources) Nasal discharge; Translations: [Other specified disorders of nose and nasal sinuses] Onset: 10-04-2023 09-07-2023 Episodic Other upper respiratory disease (2 sources) Deviated nasal septum; Translations: [Deviated nasal septum] 06-20-2024 Episodic Other upper respiratory disease (2 sources) Disorder of nasal cavity; Translations: [Other specified disorders of nose and nasal sinuses] 06-20-2024 Episodic Other upper respiratory infections (18 sources) Chronic sinusitis; Translations: [Chronic sinusitis, unspecified] Onset: 10-04-2023 10-04-2023 Chronic Residual codes; unclassified (17 sources) Family history of breast cancer; Translations: [Family history of malignant neoplasm of breast] Onset: 10-04-2023 09-07-2023 Episodic Screening and history of mental health and substance abuse codes (9 sources) H/O: Disorder; Translations: [Personal history of nicotine dependence] Onset: 08-28-2023 Episodic Spondylosis; intervertebral disc disorders; other back problems (20 sources) Prolapsed lumbar intervertebral disc; Translations: [Other intervertebral disc displacement, lumbar region] Onset: 10-04-2023 08-19-2020 Chronic Spondylosis; intervertebral disc disorders; other back problems (20 sources) Low back pain; Translations: [Spinal stenosis of lumbar region] Onset: 10-04-2023 07-17-2020 Episodic Sprains and strains (20 sources) Sprain of foot; Translations: [Sprain of left foot] Onset: 2023 2023 Episodic Substance-related disorders (20 sources) Cigarette smoker ; Translations: [Nicotine dependence] Onset: 09-02-2022 01-14-2020 Chronic Unclassified (20 sources) Patient encounter status 07-17-2020 Unclassified (9 sources) Puncture wound of left foot 07-25-2023 Viral infection (20 sources) Human papilloma virus infection; Translations: [Herpesviral vesicular dermatitis] Onset: 03-15-2023 01-14-2020 Episodic Past or Other Problems Problem Classification Problem Date Documented Date Episodic/Chronic Open wounds of extremities (10 sources) Puncture wound of left foot; Translations: [Puncture wound without foreign body, left foot, initial encounter] Onset: 10-04-2023 Resolved: 10-04-2023 10-04-2023 Episodic Other upper respiratory disease (8 sources) Nasal obstruction; Translations: [Other specified disorders of nose and nasal sinuses] Onset: 02-22-2024 02-22-2024 Episodic Other upper respiratory infections (14 sources) Streptococcal sore throat; Translations: [Streptococcal pharyngitis] Onset: 09-02-2022 Resolved: 10-04-2023 Episodic Results Test Name Value Interpretation Reference Range Facility Ambulatory Visit Summary 0 01-17-2025 Ambulatory Visit Summary Ambulatory Visit Summary DOMINIQUE GILL :1990 Visit Date:01/17/2025 Ambulatory Visit Instructions Your Diagnosis BMI 32.0-32.9,adult Obesity due to excess calories Cold sore Obese Your Care Team Attending Physician - KATIE ANSARI Primary Care Physician - KATIE ANSARI This Is Your Medications List phentermine (Adipex-P 37.5 mg Tab) valacyclovir (valacyclovir 1 g Tab) Procedures Performed Augmentation rhinoplasty, Insertion of IUD, LEEP (Loop electrosurgical excision procedure) of cervix. Discharge Vitals Heart Rate (Peripheral) 65 Blood Pressure 118/68 Height 178 cm Height 70 in Weight 107.3 kg Weight 236.556 lb BMI 33.87 What to do next Scheduled Follow-Up Appointments Tuesday 1:40 PM EDT With: KATIE ANSARI Where: [address] [place] [address]- Medications What How Much When Why Instructions New valacyclovir (valacyclovir 1 g Tab) 1 Tablets By Mouth 2 times a day Cold sore Refills: 6 Pickup at [facility]/pharmacy #[id number] Unchanged phentermine (Adipex-P 37.5 mg Tab) 1 Tablets By Mouth Every day Obese Pickup at [facility]/pharmacy #[id number] Pharmacy Information [facility]/pharmacy #[id number]: [address], [place] [phone] Allergies Dimetapp Cold & Cough (Hives) Problems Ongoing - Any problem that you are currently receiving treatment for. Abnormal thyroid function test Acne Anxiety BMI 32.0-32.9,adult Cigarette smoker Cold sore Depression Encounter for weight management Family history of breast cancer Fatigue Former smoker Generalized anxiety disorder Hair loss Hair thinning Hip dysplasia Hip pain, bilateral HPV in female Irregular menses Low back pain Lumbar canal stenosis Lumbar disc herniation Lumbar herniated disc Nasal drainage Obese Obesity due to excess calories Puncture wound [...] for choosing us for your care. [facility] Family Medicine Office/Clini c Noteon 01-17-2025 Family Medicine Office/Clinic Note Family Medicine Office/Clinic Note Chief Complaint Adipex f/u HPI Staff Weight management Current weight: Weight @ LV: 243 Sleeping well:Yes, 6-8 hours Chest pain:No Tremors:No Headaches:Yes Heart fluttering:No Blurred Vision:No History of Present Illness Dominique is a 34 year old female who presents for an adipex follow up. She restarted Adipex last month and since starting it again, she has lost 10lbs. She is doing really well on this medication and feel motivated and energized. She is exercising and at work she is walking >10,000 steps per day. Additionally, she has been following a low calorie diet. Her goal is to lose at least an additional 30lbs. No adverse side effects reported this time (had caused anxiety in the past). OARRS reviewed. Cold sore: lower lip cold sore started a few days ago. She reports she generally gets one 1-2x per day and she takes OTC Lysine. The Lysine does not seem to be taking it away this time and she is wondering about something prescribed. I will have her continue the Lysine and start a course of an antiviral. Staff HPI reviewed and accurate. Review of Systems PHQ Score Initial Depression Screen Score: 0 SCORE Physical Exam Vitals & Measurements HR: 65(Peripheral) BP: 118/68 SpO2: 99% HT: 70 in HT: 178 cm WT: 236.556 lb WT: 107.3 kg BMI: 33.87 lower lip: cold sore noted General: alert, no acute distress ENMT: TM's clear, oral mucosa moist, no pharyngeal erythema or exudate Cardiovascular: regular rate and rhythm, normal peripheral perfusion Respiratory: Lungs CTA, respirations non labored Extremities: no deformity, no trauma Neurological: oriented x 4, LOC appropriate for age, CN II-XII intact, motor strength equal & normal bilaterally, sensation equal & normal bilaterally, speech normal Assessment/Plan 1. BMI 32.0-32.9,adult (Z68.32: Body mass index [BMI] 32.0-32.9, adult) refill adipex fu 3 months continue exercise and low calorie diet as tolerated 2. Obesity due to excess calories (E66.09: Other obesity due to excess calories) see 1 3. 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) continue lysine OTC valacyclovir as prescribed fu 2 weeks if no improvement Ordered: valacyclovir, 1 gm = 1 tab(s), Oral, BID, # 20 tab(s), Refills(s) 6, Pharmacy: [facility]/pharmacy #[id number], 178, cm, 01/17/25 11:08:00 EDT, Height/Length Dosing, 107.3, kg, 01/17/25 11:08:00 EDT, Weight Dosing Obese (E66.9: Obesity, unspecified) Ordered: phentermine, 37.5 mg = 1 tab(s), Oral, Daily, # 30 tab(s), Refills(s) 3, Pharmacy: [facility]/pharmacy #[id number], 178, cm, 01/17/25 11:08:00 EDT, Height/Length Dosing, 107.3, kg, 01/17/25 11:08:00 EDT, Weight Dosing Follow-up No qualifying data available Problem List/Past Medical History Ongoing Abnormal thyroid function test Acne Anxiety BMI 32.0-32.9,adult Cigarette smoker Cold sore Depression Encounter for weight management Family history of breast cancer Fatigue Former smoker Generalized anxiety disorder Hair loss Hair thinning Hip dysplasia Hip pain, bilateral HPV in female Irregular menses Low back pain Lumbar canal stenosis Lumbar disc herniation Lumbar herniated disc Nasal drainage Obese Obesity due to excess calories Puncture wound of left foot Raynaud phenomenon Screening mammogram for breast cancer Seasonal allergies Sprain of left foot Weight gain Wellness examination Historical No qualifying data Procedure/Surgical History Augmentation rhinoplasty, Insertion of IUD, LEEP (Loop electrosurgical excision procedure) of cervix. Medications Adipex-P 37.5 mg Tab, 37.5 mg= 1 tab(s), Oral, Daily, 3 refills valacyclovir 1 g Tab, 1 gm= 1 tab(s), Oral, BID, 6 refills Allergies Dimetapp Cold & Cough (Hives) Social History Alcohol - Denies Alcohol Use, 07/23/2020 Substance Abuse - Denies Substance Abuse, 01/14/2020 Tobacco - Denies Tobacco Use, 07/25/2023 Former smoker, quit more than 30 days ago Tobacco Use:. Current vaping or e-cigarette use Smokeless Tobacco Use:. Cigarettes, Household tobacco concerns: No., 01/17/2025 Family History Cancer: Aunt and Uncle. Drug [...] Hib, unspecified formulation 1990 Recorded [facility] Comment on above: Result Comment: Elec tronically Signed By: KATIE ANSARI\.br\Date and Time Signed: 01/17/25 11:28 EDT Ambulatory Visit Summaryon 0 12-20-2024 Ambulatory Visit Summary Ambulatory Visit Summary DOMINIQUE GILL :1990 Visit Date:12/20/2024 Ambulatory Visit Instructions Your Diagnosis Obese, Obese Your Care Team Attending Physician - KATIE ANSARI Primary Care Physician - KATIE ANSARI This Is Your Medications List buPROPion (buPROPion 150 mg/24 hours XL Tab) phentermine (Adipex-P 37.5 mg Tab) Procedures Performed Augmentation rhinoplasty, Insertion of IUD, LEEP (Loop electrosurgical excision procedure) of cervix. Discharge Vitals Heart Rate (Peripheral) 70 Blood Pressure 120/66 Height 178 cm Height 70 in Weight 110.6 kg Weight 243.831 lb BMI 34.91 What to do next Scheduled Follow-Up Appointments Tuesday. 2024 11:00 AM EDT With: KATIE ANSARI Where: [facility] [address] [place] [address]- Medications What How Much When Why Instructions New phentermine (Adipex-P 37.5 mg Tab) 1 Tablets By Mouth Every day Obese Refills: 1 Pickup at [facility]/pharmacy #[id number] Unchanged buPROPion (buPROPion 150 mg/ 24 hours XL Tab) TAKE 1 TABLET BY MOUTH EVERY DAY IN THE MORNING FOR 30 DAYS Pharmacy Information [facility]/pharmacy #[id number]: [address], [place] [phone] Allergies Dimetapp Cold & Cough (Hives) Problems [...] disc herniation Lumbar herniated disc Nasal drainage Obese Obesity due to excess calories Puncture wound [...] for choosing us for your care. Normal [facility] Family Medicine Office/Clini c Noteon 12-20-2024 Family Medicine Office/Clinic Note Family Medicine Office/Clinic Note Chief Complaint Weight issue HPI Staff Pt would like to discuss weight loss issues. -Pt notes she isn't a big medication person. -She walks over 10305 steps a day and still can't seem to lose weight. History of Present Illness Dominique is a 34 year old female who presents for a follow up. She has 3 children and her youngest is 7. She had a large blood test done recently per [employer] HE[employer]Y and there was apparently nothing wrong with any of her blood - including thyroid. She had the labs at [place] and I do not have the record for review today. I did review labs I had done in the past and I did not identify anything wrong in her blood to tell us why she is having issues with weight. Her goal weight is 190lbs. She is walking > 21842 steps per day and she is eating a healthy and well balanced diet and she has gained 20lbs in the last 2 years. She is feeling sluggish and frustrated. She was on adipex in the past and lost 10lbs, she had to stop the med because of anxiousness. I am going to again retrial adipex as she is no longer on the medications for psych she was on in the past when she trialed the adipex. OARRS reviewed and staff HPI reviewed. Review of Systems PHQ Score Initial Depression Screen Score: 0 SCORE Physical Exam Vitals & Measurements HR: 70(Peripheral) BP: 120/66 SpO2: 97% HT: 178 cm HT: 70 in WT: 110.6 kg WT: 243.831 lb BMI: 34.91 General: alert, no acute distress ENMT: TM's clear, oral mucosa moist, no pharyngeal erythema or exudate Cardiovascular: regular rate and rhythm, normal peripheral perfusion Respiratory: Lungs CTA, respirations non labored Extremities: no deformity, no trauma Neurological: oriented x 4, LOC appropriate for age, CN II-XII intact, motor strength equal & normal bilaterally, sensation equal & normal bilaterally, speech normal Assessment/Plan 1. Obese, (E66.9: Obesity, unspecified)Obese start adipex as discussed fu 1 month Ordered: phentermine, 37.5 mg = 1 tab(s), Oral, Daily, # 30 tab(s), Refills(s) 1, Pharmacy: [facility]/pharmacy #[id number], 178, cm, 12/20/24 11:40:00 EDT, Height/Length Dosing, 110.6, kg, 12/20/24 11:40:00 EDT, Weight Dosing Follow-up No qualifying data available [...] disc herniation Lumbar herniated disc Nasal drainage Obese Obesity due to excess calories Puncture wound of left foot Raynaud phenomenon Screening mammogram for breast cancer Seasonal allergies Sprain of left foot Weight gain Wellness examination Historical No qualifying data Procedure/Surgical History Augmentation rhinoplasty, Insertion of IUD, LEEP (Loop electrosurgical excision procedure) of cervix. Medications Adipex-P 37.5 mg Tab, 37.5 mg= 1 tab(s), Oral, Daily, 1 refills buPROPion 150 mg/24 hours XL Tab, Not taking Allergies Dimetapp Cold & Cough (Hives) Social History Alcohol - Denies Alcohol Use, 07/23/2020 Substance Abuse - Denies Substance Abuse, 01/14/2020 Tobacco - Denies Tobacco Use, 07/25/2023 Former smoker, quit more than 30 days ago Tobacco Use:. Current vaping or e-cigarette use Smokeless Tobacco Use:. Cigarettes, Household tobacco concerns: No., 12/20/2024 Family History Cancer: Aunt and Uncle. Drug [...] Recorded Hib, unspecified formulation 1990 Recorded Normal [facility] Comment on above: Result Comment: Elec tronically Signed By: KATIE ANSARI\.br\Date and Time Signed: 12/20/24 11:51 EDT ALL CBC WITH AUTO DIFFon BASOPHILS ABSOLUTE AUTO 0.1 [facility] Basophils/100 WBC (Bld) 0.8 % 0.2 - 2.0 % [facility] Eosinophils/100 WBC (Bld) 3.2 % 0.9 - 7.0 % [facility] Erythrocyte distribution width (RBC) [Ratio] 12 % 11.0 - 15.0 % [facility] Hematocrit (Bld) [Volume fraction] 41.3 % 36.0 - 48.0 % [facility] Hemoglobin (Bld) [Mass/Vol] 14 g/dL 12.0 - 16.0 g/dL [facility] IMMATURE GRANULOCYTES ABS AUTO 0.01 [facility] Immature granulocytes/100 WBC (Bld) 0.2 % 0.0 - 0.5 % [facility] LYMPHOCYTES ABSOLUTE AUTO 1.7 [facility] Lymphocytes/100 WBC (Bld) 28.4 % 20.5 - 60.0 % [facility] MCH (RBC) [Entitic mass] 31.2 pg 26.7 - 34.0 pg [facility] MCHC (RBC) [Mass/Vol] 33.9 g/dL 29.9 - 35.2 g/dL [facility] MCV (RBC) [Entitic vol] 92 fL 81.0 - 99.0 fL [facility] MONOCYTES ABSOLUTE AUTO 0.7 [facility] Monocytes/100 WBC (Bld) 11.2 % 1.7 - 12.0 % [facility] NEUTROPHILS ABSOLUTE AUTO 3.4 [facility] Neutrophils/100 WBC (Bld) 56.2 % 43.0 - 75.0 % [facility] Platelet mean volume (Bld) [Entitic vol] 10.3 fL 9.5 - 13.5 fL [facility] TBH EO # 0.2 [facility]H PLT 243 [facility] RBC 4.49 [facility] WBC 6 [facility] CLINISYNC [facility] US PELVIS TRANSVAGINALon US PELVIS TRANSVAGINAL EXAM: US PELVIS TRANSVAGINAL HISTORY: IUD check, irregular and heavy menstrual cycles, worsening PMS. COMPARISON: None available. TECHNIQUE: Two-dimensional transvaginal grayscale ultrasound imaging of the pelvis was performed. Color flow Doppler imaging of the ovaries was also performed. FINDINGS: UTERUS 10.3 x 3.5 x 7.3 cm The uterus is anteverted in position and demonstrates a normal, homogeneous echotexture. ENDOMETRIUM 0.6 cm The endometrium demonstrates a normal, homogeneous echotexture. The IUD is in the appropriate position within the endometrium. RIGHT OVARY 3.2 x 1.9 x 2.6 cm The right ovary demonstrates a normal echotexture. There is normal color Doppler flow. LEFT OVARY 3.1 x 1.9 x 2.8 cm The left ovary demonstrates a normal echotexture. There is normal color Doppler flow. No fluid is present within the cul-de-sac. IMPRESSION: 1. Unremarkable ultrasound of the pelvis. 2. IUD appropriate in position within the endometrium. 3. Normal color Doppler flow within the bilateral ovaries. Interpreted by: Electronically signed by ERIC SIBLEY II, MD, PHD at 07-Dec-2024 06:24:45 AM [facility] Normal Not Available Comment on above: Order Comment: US PE LVIS TRANSVAGINAL No LMP recorded. Patient has had an implant. 238 lb IGP,APTIMA HPV,AGE GDLNon AGE GDLN ACOG TESTING Note . [facility] Comment on above: TESTS RESULT FLAG UN ITS REF RANGE LAB Clinician Provided Cytology Information Source.............Cervix;Endocervix No. of containers..01 ThinPrep Vial Age Algo ACOG Maegan... 30-65 01 FLAG LEGEND: L-Low Normal,H-High Normal,LL-Alert Low,HH-Alert High <-Panic Low,>-Panic High,A-Abnormal,AA-Critical Abnormal Performed at: 01 =G [address] [phone] Monet Murphy MD, HPV APTIMA Negative Negative [facility] Comment on above: This nucleic acid am plification test detects fourteen high- risk HPV types (16,18,31,33,35,39,45,51,52,56,58,59,66,68) without differentiation. Performed at: =G - [facility], [place] [id number] Network Diagnostic Support Specialist: Monet Murphy MD, Phone: [phone] Performed at: - [facility], [place] [id number] Network Diagnostic Support Specialist: Monet Murphy MD, Phone: [phone] IGP, APTIMA HPV, RFX 16/18,45 Note . [facility] Comment on above: TESTS RESULT FLAG UN ITS REF RANGE LAB DIAGNOSIS: 02 NEGATIVE FOR INTRAEPITHELIAL LESION OR MALIGNANCY. Specimen adequacy: 02 Satisfactory for evaluation. Endocervical and/or squamous metaplastic cells (endocervical component) are present. Performed by: William Healy, Fabric Lay Out Worker ([facility]) . 02 Note: Note 02 The Pap smear is a screening test designed to aid in the detection of premalignant and malignant conditions of the uterine cervix. It is not a diagnostic procedure and should not be used as the sole means of detecting cervical cancer. Both false-positive and false-negative reports do occur. Test Methodology: Note 02 This liquid based ThinPrep(R) pap test was screened with the use of an image guided system. HPV Genotype Reflex Note 02 Criteria not met, HPV Genotype not performed. FLAG LEGEND: L-Low Normal,H-High Normal,LL-Alert Low,HH-Alert High <-Panic Low,>-Panic High,A-Abnormal,AA-Critical Abnormal Performed at: 02 [facility] [place] [address] [place], [place] [address] Monet Murphy MD, BRUSH-SPATULA CERVIX ENDOCERVIX [facility] Ambulatory Visit Summaryon 0 09-07-2024 Ambulatory Visit [...] Schedule the Following Appointments Follow Up with KATIE ANSARI FAM When: Medications What How Much When Why Instructions New brompheniramine/ dextromethorphan/ PSE (Bromfed DM oral syrup) 10 Milliliter By Mouth 4 times a day Viral URI with cough Duration: 5 Days Pickup at [id number] Unchanged buPROPion (buPROPion 150 mg/ 24 hours XL Tab) TAKE 1 TABLET BY MOUTH EVERY DAY IN THE MORNING FOR 30 DAYS Contact prescribing physician if questions or concerns Pharmacy Information [id number]: [address], [place] [phone] Allergies Dimetapp Cold & Cough (Hives) Problems [...] for choosing us for your care. Normal [facility] Family Medicine Office/Clini c Noteon 09-07-2024 Family [...] with voice recognition software. Occasional wrong-word or ???kvznj-m-gsee??? substitutions may have occurred due to the inherent limitations of voice recognition software. 34-year-old female presents with complaints of productive cough, sinus congestion for the last 2 weeks. She started today with a sore throat. She denies any fever or chills. No chest pain, wheezing or shortness of breath. Patient has not been using any ddyu-pix-ccfgbeu medications for her symptoms. She denies that [...] for 5 day(s), 200 mL, Refill(s) 0, [facility]/pharmacy #[id number], 178, cm, 09/07/24 15:44:00 EST, Height/Length Dosing, 108.1, kg, 09/07/24 15:44:00 EST, Weight Dosing Follow-up With When Contact Information KATIE ANSARI FAM Additional Instructions: Patient Education Viral Respiratory Infection, Qqyj-Ul-Kmvs Cough, Adult, Whcc-kj-Lgqb Problem List/Past Medical History Ongoing Abnormal thyroid [...] Use:. Ciga (more content not included)... Normal [facility] Comment on above: Result Comment: Elec tronically [...] and ligamentum flavum changes, which results in gjmz-gw-iktbnckm central spinal stenosis. L4-5: Moderate diffuse disc [...] (Electronic Signature): 06/12/2024 1:06 pm Signed by: Ramiro Bourgeois MD Transcribed by: TONI Technologist: EDWIGE Technical Comments None Normal [facility] MARGO w/Reflex if POSon 2023 Nuclear Ab Ql (S) Negative Invalid Interpretation Code Negative [facility] Comment on above: Result Comment: Perf ormed at: [facility] [address] [id number] PhD Roosevelt Howard Performed By: #### 1 [id number] #### [facility] [address] [place] [address] BECAK and PE, Serumon 05-25-20 24 Albumin [Mass/Vol] 3.7 g/dL Invalid Interpretation Code 2.9-4.4 [facility] Comment on above: Performed By: #### 1 [id number] #### [facility] [address] [place] [address] Albumin/Globulin [Mass ratio] 1.2 {ratio} Invalid Interpretation Code 0.7-1.7 [facility] Comment on above: Performed By: #### 1 [id number] #### [facility] [address] [place] [address] Alpha 1 globulin Elph [Mass/Vol] 0.2 g/dL Invalid Interpretation Code 0.0-0.4 [facility] Comment on above: Performed By: #### 1 [id number] #### [facility] [address] [place] [address] Alpha 2 globulin Elph [Mass/Vol] 0.6 g/dL Invalid Interpretation Code 0.4-1.0 [facility] Comment on above: Performed By: #### 1 [id number] #### [facility] [address] [place] [address] Beta globulin Elph [Mass/Vol] 0.9 g/dL Invalid Interpretation Code 0.7-1.3 [facility] Comment on above: Performed By: #### 1 [id number] #### [facility] [address] [place] [address] Gamma globulin Elph [Mass/Vol] 1.5 g/dL Invalid Interpretation Code 0.4-1.8 [facility] Comment on above: Performed By: #### 1 [id number] #### [facility] [address] [place] [address] Globulin (S) [Mass/Vol] 3.3 g/dL Invalid Interpretation Code 2.2-3.9 [facility] Comment on above: Performed By: #### 1 [id number] #### [facility] [address] [place] [address] IgA [Mass/Vol] 452 mg/dL High 87-352 [facility] [place] Comment on above: Performed By: #### 1 [id number] #### [facility] [address] [place] [address] IgG [Mass/Vol] 1425 mg/dL Invalid Interpretation Code 586-1602 [facility] Comment on above: Performed By: #### 1 [id number] #### [facility] [address] [place] [address] IgM [Mass/Vol] 164 mg/dL Invalid Interpretation Code [facility] Comment on above: Performed By: #### 1 [id number] #### [facility] [address] [place] [address] Interpretation IEP [Interp] Comment Invalid Interpretation Code [facility] Comment on above: Result Comment: No m onoclonality detected. Performed By: #### 1 [id number] #### [facility] [address] [place] [address] Laboratory comment Arash (Report) Comment Invalid Interpretation Code [facility] Comment on above: Result Comment: Prot ein electrophoresis scan will follow via computer, mail, or turf and grounds supervisor delivery. Performed at: [facility] [id number] PhD Roosevelt Howard Performed By: #### 1 [id number] #### [facility] [address] [place] [address] Protein [Mass/Vol] 7.0 g/dL Invalid Interpretation Code 6.0-8.5 [facility] Comment on above: Performed By: #### 1 [id number] #### [facility] [address] [place] [address] Protein.monoclonal Elph [Mass/Vol] Not Observed Invalid Interpretation Code Not Observed [facility] Comment on above: Performed By: #### 1 [id number] #### [facility] [address] [place] [address] RF Quanton 05-25-2024 Rheumatoid factor Qn [IU]/mL Invalid Interpretation Code <14.0 [facility] Comment on above: Result Comment: [facility] [address] [place] [id number] PhD Roosevelt Howard Performed By: #### 1 [id number] #### [facility] [address] [place] [address] XR Hip Bilat 2 Views + Pelvi [...] TONI Technologist: MACARENA Technical Comments Radiation Dose: Ka,r in mGy = . DAP = . Normal [facility] Ambulatory Visit Summaryon 0 05-23-2024 Ambulatory Visit [...] mg Tab) fluticasone nasal (Flonase 0.05 mg/inh Baker) gabapentin (gabapentin 100 mg Cap) predniSONE (predniSONE [...] Low back pain, pp_set_radiology_sub specialty, [facility] [place] XR Hip 2-3 Views Left, 05/23/24, Routine, Order for future visit, Transport Mode: Ambulatory, Reason: Hip pain, No, Hip dysplasia, pp_set_radiology_sub specialty, [facility] [place] XR Hip 2-3 Views Right, 05/23/24, Routine, Order for future visit, Transport Mode: Ambulatory, Reason: Hip pain, No, Hip dysplasia, pp_set_radiology_sub specialty, [facility] [place] Medications What How Much When Why Instructions New gabapentin (gabapentin 100 mg Cap) 1 Capsules By Mouth 3 times a day Neuropathy Pickup at [facility] #37 New predniSONE (predniSONE 10 mg Tab) 10 Milligram By Mouth As Directed Lumbar disc herniation Lumbar canal stenosis Low back pain Duration: 16 Days 4 QDx4 days; 3 QDx4 d; 2 QDx4 d; 1 QDx4d; d/ c Pickup at [facility] #37 Unchanged buPROPion (buPROPion 150 mg/ 24 hours XL Tab) TAKE 1 TABLET BY MOUTH EVERY DAY IN THE MORNING FOR 30 DAYS Unchanged busPIRone (busPIRone 5 mg Tab) 1 Tablets By Mouth 2 times a day Unchanged fluticasone nasal (Flonase 0.05 mg/ inh Baker) 2 Sprays Nasal Inhalation Every day Chronic sinusitis of both maxillary sinuses each nostril Pharmacy Information [facility] #37: [address] [place], [place] [phone] Allergies Dimetapp Cold & Cough (Hives) Problems [...] for choosing us for your care. Normal [facility] CHEMISTRYOrdered By: SYSTEM SYSTEM on 05-23-2024 Cobalamin [...] 3 weeks ago Characteristics: lower lumbar pain 5/10 OTC tried: no meds History of Present [...] day(s), # 40 tab(s), Refills(s) 0, Pharmacy: [facility] #37, 178, cm, 05/23/24 13:10:00 EDT, Height/Length Dosing, 105.6, kg, 05/23/24 13:10:00 EDT, Weight Dosing MRI Spine Lumbar w/o Contrast 2. Lumbar canal stenosis (M48.061: Spinal stenosis, lumbar region without neurogenic claudication) see 1 Ordered: predniSONE, 10 mg, Oral, As Directed, 4 QDx4 days; 3 QDx4 d; 2 QDx4 d; 1 QDx4d; d/c, X 16 day(s), # 40 tab(s), Refills(s) 0, Pharmacy: [facility] #37, 178, cm, 05/23/24 13:10:00 EDT, Height/Length [...] day(s), # 40 tab(s), Refills(s) 0, Pharmacy: [facility] #37, 178, cm, 05/23/24 13:10:00 EDT, Height/Length [...] TID, # 90 cap(s), Refills(s) 0, Pharmacy: [facility] #37, 178, cm, 05/23/24 13:10:00 EDT, Height/Length [...] 1 tab(s), Oral, BID Flonase 0.05 mg/inh Baker, 2 spray(s), Nasal, Daily, 5 refills gabapentin [...] concerns: No., 09 (more content not included)... [facility] Comment on above: Result Comment: Elec tronically Signed By: KATIE ANSARI\ritika\Date and Time Signed: 05/23/24 14:16 EDT HEMATOLOGYOrdered By: Andres Saul on 05-23-2024 ESR (Bld) [Velocity] 8 mm/h Normal 0 - 34 mm/hr FT HemeAutoSS Consultation Noteon 02-22-20 Consultation Note [id number] #1.00TIFF [facility] Operative Reporton Operative Report [id number]# 1.00TIFF [facility] Consultation Noteon 01-17-20 Consultation Note [id number] #1.00TIFF [facility] [place] 01-10-2024 L Specimen: [id number] Received: 01/12/24 Status: RICHARDSON Gooden Num: [id number] Spec Type: Surgical Subm Dr: LUIGI DIANE MD Tissues: A Sinus Contents/Biopsy (RT SINUS CONTENTS) B Nasal Septum (SEPTUM) Procedures: HE, Gross/Micro L4, Level 1 Gross Age/ Patient Sex Location Account Attending Physician Dominique Coley 33/F [facility] [id number] LUIGI DIANE MD SPEC NUM: [id number] RECD: 01/12/24 STATUS: RICHARDSON GOODEN NUM: [id number] ARIES: 01/10/[address]: LUIGI DIANE MD ENTERED: 01/12/24 [facility] DR: Flaquito Otero SPEC TYPE: Surgical DEPT: [...] No sections are submitted to histology. Specimen: [id number] Received: 01/12/24 Status: RICHARDSON Giacomo Num: [id number] Spec Type: Surgical Subm Dr: LUIGI DIANE MD Tissues: A Sinus Contents/Biopsy (RT SINUS CONTENTS) B Nasal Septum (SEPTUM) Procedures: EDUARDO, Gross/Micro L4, Level 1 Gross Patient: Dominique Coley [id number] (Continued) Specimen: [id number] Received: 01/12/24 (Continued) Gross Description (Continued) Signed (signature on file) John Taylor MD 01/13/242046 Specimen: [id number] Received: 01/12/24 Status: RICHARDSON Arboledaalex Num: [id number] Spec Type: Surgical Subm Dr: LUIGI DIANE MD Tissues: A Sinus Contents/Biopsy (RT SINUS CONTENTS) B Nasal Septum (SEPTUM) Procedures: Hiren CLARK/Lionel Pham, Level 1 Gross Patient: Dominique Coley [id number] (Continued) Specimen: [id number] Received: 01/12/24 (Continued) Gross Description (Continued) Clinical history: Nasal sinus obstruction, recurrent nasal and or sinus infections. CPT Codes 20026, 85977 Specimen: [id number] Received: 01/12/24 Status: RICHARDSON Gooden Num: [id number] Spec Type: Surgical Subm Dr: LUIGI DIANE MD Tissues: A Sinus Contents/Biopsy (RT SINUS CONTENTS) B Nasal Septum (SEPTUM) Procedures: Hiren CLARK/Lionel Pham, Level 1 Gross Patient: Dominique Coley [id number] (Continued) Signed (signature on file) John Taylor MD 01/13/242046 Normal [facility] RAD - MISCon 01-04-2024 RAD - MIS [id number] #1.00TIFF Normal [facility] CT Maxillofacial w/o Contras ton 11-08-2023 CT [...] Harris MD Transcribed by: TONI Technologist: [place] Normal [facility] Consent for Treatmenton 10-27 Consent for Treatment [id number] #1.00TIFF [facility] Physician Orderon 11-04-2023 Physician Order [id number] #1.00TIFF Normal [facility] Ambulatory Visit Summaryon 0 10-26-2023 Ambulatory Visit Summary DOMINIQUE GILL :1990 Visit Date:10/26/2023 Ambulatory Visit Instructions Your Diagnosis Encounter for weight management Weight gain BMI 33.0-33.9,adult Non-smoker Your Care Team Attending Physician - Catehrine Motta Primary Care Physician - Catherine Motta This Is Your Medications List amoxicillin-clavulan ate (amoxicillin-clavula masood 875 mg-125 mg Tab) busPIRone (busPIRone 5 mg Tab) fluticasone nasal (Flonase 0.05 mg/inh Baker) Procedures Performed Insertion of IUD, LEEP (Loop electrosurgical excision procedure) of cervix. Discharge Vitals Heart Rate (Peripheral) 80 Respiratory Rate 18 Blood Pressure 128/78 Height 178 cm Height 70 in Weight 106.2 kg Weight 233.64 lb BMI 33.52 What to do next Scheduled Follow-Up Appointments Tuesday 12:00 PM EDT With: Where: [facility] 2023 11:20 AM EDT With: Catherine Motta Where: [facility] Family [facility] [place] Normal [facility] Family Medicine Office/Clini c Noteon 10-26-2023 Family [...] Daily, # 30 tab(s), Refills(s) 0, Pharmacy: [facility] #72, 178, cm, 10/26/23 11:33:00 EST, Height/Length Dosing, 106.2, kg, 10/26/23 11:33:00 EST, Weight Dosing 2. Weight gain (R63.5: Abnormal weight gain) pt having trouble losing weight Ordered: phentermine, 37.5 mg = 1 tab(s), Oral, Daily, # 30 tab(s), Refills(s) 0, Pharmacy: [facility] #[facility], 178, cm, 10/26/23 11:33:00 EST, Height/Length Dosing, 106.2, kg, 10/26/23 11:33:00 EST, Weight Dosing 3. BMI 33.0-33.9,adult (Z68.33: Body mass index [BMI] 33.0-33.9, adult) BMI education complete Ordered: phentermine, 37.5 mg = 1 tab(s), Oral, Daily, # 30 tab(s), Refills(s) 0, Pharmacy: [facility] #[facility], 178, cm, 10/26/23 11:33:00 EST, Height/Length Dosing, 106.2, kg, 10/26/23 11:33:00 EST, Weight Dosing 4. Non-smoker (Z78.9: Other specified health status) continue not smoking Ordered: phentermine, 37.5 mg = 1 tab(s), Oral, Daily, # 30 tab(s), Refills(s) 0, Pharmacy: [facility] #[facility], 178, cm, 10/26/23 11:33:00 EST, Height/Length [...] 1 tab(s), Oral, BID Flonase 0.05 mg/inh Baker, 2 spray(s), Nasal, Daily, 5 refills phentermine [...] - Not Given Patient Refuses SARS-CoV-2 mRNA (corrien 5y-11y) vac - Not Given Patient Refuses influenza virus vaccine, inactivated - Not Given Postpone due to refusal SARS-CoV-2 mRNA (tozinameran 5y-11y) vac - Not Given Postpone due to refusal measles/mumps/rubell a virus vaccine 01/16/2002 Recorded measles/mumps/rubell a virus vaccine 08/15/1991 Recorded Hib, unspecified fo (more content not included)... [facility] Comment on above: Result Comment: Elec tronically Signed By: Catherine Motta\.br\Date and Time Signed: 10/26/23 11:59 EST Medication Consenton 024 Medication Consent [id number] #1.00TIFF [facility] Consultation Noteon 10-07-19 Consultation Note [id number] #1.00TIFF [facility] Physician Orderon 10-07-2023 Physician Order [id number] #1.00TIFF [facility] Physician Referralon 024 Physician Referral [id number] 1#1.00TIFF [facility] Physician Referralon 024 Physician Referral [id number] 0#1.00TIFF [facility] Ambulatory Visit Summaryon 0 09-07-2023 Ambulatory [...] oral tablet) fluticasone nasal (Flonase 0.05 mg/inh Baker) Procedures Performed Insertion of IUD, LEEP (Loop electrosurgical excision procedure) of cervix. Discharge Vitals Heart Rate (Peripheral) 74 Respiratory Rate 18 Blood Pressure 118/80 Height 178 cm Height 70 in Weight 105.9 kg Weight 232.98 lb BMI 33.42 What to do next Scheduled Follow-Up Appointments Tuesday 11:20 AM EST With: Catherine Motta Where: [facility] [place] Invalid Interpretation Code Anxiety [facility] Auto Diffon 09-07-2023 Basophils/100 WBC (Bld) 0.3 % Normal 0.0-2.0 [facility] Comment on above: Order Comment: Order Added by Discern Expert. Performed By: #### 2 [id number], [id number], 8498040, [id number], [id number], [id number] ####[facility] [address] [place] [address] Basophils/Leukocytes Auto (Bld) [Pure # fraction] 0.0 E9/L Normal 0.0-0.2 [facility] Comment on above: Order Comment: Order Added by Discern Expert. Performed By: #### 2 735657, [id number], [id number], [id number], [id number], [id number] ####[facility] [address] [place] [address] Eosinophils/100 WBC (Bld) 2.8 % Normal 0.0-8.0 [facility] Comment on above: Order Comment: Order Added by Discern Expert. Performed By: #### 2 583835, [id number], 6457053, 27647029, 7303607, 3232436 ####[facility] [address] [place] [address] Eosinophils/Leukocyte s Auto (Bld) [Pure # fraction] 0.2 E9/L Normal 0.0-0.5 [facility] Comment on above: Order Comment: Order Added by Discern Expert. Performed By: #### 2 003213, 8456312, 0018484, [id number], 3750890, 0875024 ####[facility] [address] [place] [address] Lymphocytes/100 WBC (Bld) 29.8 % Normal 14.0-50.0 [facility] Comment on above: Order Comment: Order Added by Discern Expert. Performed By: #### 2 654127, 2169234, 8901636, 63372595, 9686532, 2775992 ####[address] [address] Lymphocytes/Leukocyte s Auto (Bld) [Pure # fraction] 2.0 E9/L Normal 1.0-4.0 [facility] Comment on above: Order Comment: Order Added by Discern Expert. Performed By: #### 2 423515, 8416056, 7121626, 10483545, 6268051, 7914698 ####[address] [address] Monocytes/100 WBC (Bld) 14.7 % High 4.0-14.0 [facility] Comment on above: Order Comment: Order Added by Discern Expert. Performed By: #### 2 577674, 8150140, 5009700, [id number], 2931044, 8569740 ####[address] [address] Monocytes/Leukocytes Auto (Bld) [Pure # fraction] 1.0 E9/L Normal 0.2-1.0 [facility] Comment on above: Order Comment: Order Added by Discern Expert. Performed By: #### 2 845820, 1374833, 1738380, 39358805, 2442395, 3269503 ####[address] [place] [address] Neutrophils/100 WBC (Bld) 52.4 % Normal 36.0-75.0 [facility] Comment on above: Order Comment: Order Added by Discern Expert. Performed By: #### 2 211492, 9426251, 8689906, 37192286, 4754666, 2252181 ####[address] [address] Neutrophils/Leukocyte s Auto (Bld) [Pure # fraction] 3.5 E9/L Normal 2.0-7.5 [facility] Comment on above: Order Comment: Order Added by Discern Expert. Performed By: #### 2 369829, 2236162, 6129699, 59205375, 9115280, 7593826 ####[address] [place] [address] CBC w/ Auto Diffon Erythrocyte distribution width (RBC) [Ratio] 13.8 % Normal 10.9-14.2 [facility] Comment on above: Performed By: #### 2 305787, 7279286, 2321567, 86893507, 9168171, 6484865 ####[address] [place] [address] Hematocrit (Bld) [Volume fraction] 40.5 % Normal 34.0-46.0 [facility] Comment on above: Performed By: #### 2 269936, 5729145, 8306822, 16782639, 3748229, 1222008 ####[facility] [address] [place] [address] Hemoglobin (Bld) [Mass/Vol] 13.4 g/dL Normal 12.0-16.0 [facility] Comment on above: Performed By: #### 2 566741, 4376583, 9783109, 62534978, 9641730, 3098700 ####[facility] [address] [place] [address] MCH (RBC) [Entitic mass] 30.0 pg Normal 27.0-34.0 [facility] Comment on above: Performed By: #### 2 795880, 9574493, 9432226, 71071410, 0602342, 8414264 ####[facility] [address] [place] [address] MCHC (RBC) [Mass/Vol] 33.1 g/dL Normal 31.4-36.0 [facility] Comment on above: Performed By: #### 2 918681, 5894191, 2574407, 54638198, 7357168, 7806107 ####[address] [place] [address] MCV (RBC) [Entitic vol] 90.6 fL Normal 80.0-100.0 [facility] Comment on above: Performed By: #### 2 496655, 1868068, 2224823, 95173100, 7799353, 8586841 ####[address] [address] Platelet mean volume (Bld) [Entitic vol] 8.8 fL Normal 6.4-10.8 [facility] Comment on above: Performed By: #### 2 308989, 9312012, 4338637, 05152608, 3055028, 6717055 ####[address] [address] Platelets (Bld) [#/Vol] 232.0 E9/L Normal 150.0-500.0 [facility] Comment on above: Performed By: #### 2 311344, 8663656, 8663273, 91491027, 3195926, 1692240 ####[address] [address] RBC (Bld) [#/Vol] 4.5 E12/L Normal 4.3-5.9 [facility] Comment on above: Performed By: #### 2 534676, 6990195, 2125747, 06917683, 7421585, 1197546 ####[address] [address] WBC corrected for nucl RBC Auto (Bld) [#/Vol] 6.7 E9/L Normal 4.0-11.0 [facility] Comment on above: Performed By: #### 2 486946, 0102572, 2070106, 00010288, 9556191, 2664311 ####[address] [address] CHEMISTRYOrdered By: SYSTEM SYSTEM on 09-07-2023 Albumin [...] 09-07-2023 Albumin [Mass/Vol] 3.7 g/dL Normal 3.3-5.0 [facility] Comment on above: Performed By: #### 2 909635, 0653619, 8810859, 75527281, 3403734, 2554430 ####[facility] [address] [place] [address] Albumin/Globulin [Mass ratio] 1.4 {ratio} Normal 1.1-2.2 [facility] Comment on above: Performed By: #### 2 394375, 4748159, 6806203, 73356012, 2060541, 5737532 ####[facility] [address] [place] [address] Alk Phos 67 Int._Unit/L Normal 21-98 [facility] Comment on above: Performed By: #### 2 090856, 3355295, 9049247, 09282303, 1586532, 2439616 ####[facility] [address] [place] [address] ALT 20 Int._Unit/L Normal 6-46 [facility] Comment on above: Performed By: #### 2 814902, 5566047, 7027875, 46217461, 0481557, 8328483 ####[facility] [address] [place] [address] Anion gap [Moles/Vol] 9 mmol/L Normal 6-16 [facility] Comment on above: Performed By: #### 2 053563, 8264006, 7900759, 78379686, 4023264, 5775097 ####[facility] [address] [place] [address] AST 19 Int._Unit/L Normal 5-43 [facility] Comment on above: Performed By: #### 2 066964, 7692803, 7688984, 06846155, 8040668, 8079338 ####[facility] [address] [place] [address] Bili Total 0.3 mg/dL Normal 0.0-1.1 [facility] Comment on above: Performed By: #### 2 317869, 9361413, 3666779, 41461122, 4729888, 8817516 ####[facility] [address] [place] [address] BUN/Creat Ratio 18 No Units Normal 10-20 [facility] Comment on above: Performed By: #### 2 386012, 4884880, 5785461, 98847653, 6163295, 5435655 ####[facility] [address] [place] [address] Calcium [Mass/Vol] 9.0 mg/dL Normal 8.9-11.1 [facility] Comment on above: Performed By: #### 2 572473, 7077592, 8305456, 89728582, 4294243, 8615066 ####[facility] [address] [place] [address] Chloride [Moles/Vol] 108 mmol/L Normal 101-111 [facility] Comment on above: Performed By: #### 2 557417, 9987592, 3079245, 28862115, 4988168, 2623415 ####[facility] [address] [place] [address] CO2 [Moles/Vol] 25 mmol/L Normal 21-31 [facility] Comment on above: Performed By: #### 2 405126, 4596627, 4225870, 27764468, 5497862, 6916341 ####[facility] [address] [place] [address] Creatinine [Mass/Vol] 0.9 mg/dL Normal 0.5-1.3 [facility] Comment on above: Performed By: #### 2 403502, 9734104, 2785795, 44000738, 1286512, 9106000 ####[facility] [address] [place] [address] Globulin (S) [Mass/Vol] 2.7 g/dL Normal 1.4-4.0 [facility] Comment on above: Performed By: #### 2 771977, 4109613, 5644605, 67181532, 3561059, 4496242 ####[facility] [address] [place] [address] Glucose [Mass/Vol] 75 mg/dL Normal 55-199 [facility] Comment on above: Performed By: #### 2 119117, 2675034, 3208553, 21953518, 9444091, 5674103 ####[facility] [address] [place] [address] Potassium [Moles/Vol] 4.0 mmol/L Normal 3.5-5.3 [facility] Comment on above: Performed By: #### 2 209363, 6029993, 4743003, 91979865, 9597003, 0737082 ####[facility] [address] [place] [address] Protein [Mass/Vol] 6.4 g/dL Normal 6.0-7.8 [facility] Comment on above: Performed By: #### 2 393836, 0201489, 7474206, 69222426, 7457031, 9601385 ####[facility] [address] [place] [address] Sodium [Moles/Vol] 138 mmol/L Normal 135-145 [facility] Comment on above: Performed By: #### 2 318038, 4655342, 7545600, 76329001, 0248472, 9477224 ####[facility] [address] [place] [address] Urea nitrogen [Mass/Vol] 16 mg/dL Normal 5-21 [facility] Comment on above: Performed By: #### 2 751013, 9614454, 4031319, 64298136, 9873787, 1640580 ####[facility] [address] [place] [address] Consenton 09-07-2023 Consent [id number]# 1.00TIFF Normal [facility] Family Medicine Office/Clini c Noteon 09-07-2023 Family Medicine Office/Clinic Note HPI Staff Dominique is a 33 year old female presenting to [facility] Care: History: Any previous diagnosis: History of seeing any specialist: When was your last doctors visit: Last provider: Dr Agudelo Any recent labs: none in the last year Health Maintenance UTD: Colonoscopy: no Mammogram: no , Breast cancer runs high on mom's side, would like [facility] Pelvic/Pap: 07/2023 normal, Dr belle Acute: [...] day(s), # 14 tab(s), Refills(s) 0, Pharmacy: [facility]/pharmacy #[id number], 178, cm, 09/07/23 11:44:00 EST, Height/Length Dosing, 105.9, kg, 09/07/23 11:44:00 EST, Weight Dosing triamcinolone, 40 mg = 1 mL, Injection, IntraMuscular, Once, Stop date 09/07/23 12:49:00 EST, Routine, Start date 09/07/23 12:49:00 EST, 09/07/23 12:49:00 EST CBC w/ Auto Diff Comprehensive Metabolic Panel [facility] External Ambulatory Referral Lab Specimen Collect [id number] Lipid Panel Thyroid Stimulating Hormone 2. Anxiety (F41.9: Anxiety disorder, unspecified) pt c/o worsening anxiety and depression. MARIPOSA and PQH -9 are positive today. her mother at an early age of over dose. but sttes her mom was bipolar and schizophrenic. She is requesting referral to psych and for counseling. will send to [facility] for referral. does not want to start medication at this time. Ordered: cefuroxime, 500 mg = 1 tab(s), Oral, BID, X 7 day(s), # 14 tab(s), Refills(s) 0, Pharmacy: [facility]/pharmacy #[id number], 178, cm, 09/07/23 11:44:00 EST, Height/Length Dosing, 105.9, kg, 09/07/23 11:44:00 EST, Weight Dosing triamcinolone, 40 mg = 1 mL, Injection, IntraMuscular, Once, Stop date 09/07/23 12:49:00 EST, Routine, Start date 09/07/23 12:49:00 EST, 09/07/23 12:49:00 EST CBC w/ Auto Diff Comprehensive Metabolic Panel [facility] External Ambulatory Referral Lab Specimen Collect 86045 Lipid Panel Thyroid Stimulating Hormone 3. Depression (F32.A: Depression, unspecified) see above Ordered: cefuroxime, 500 mg = 1 tab(s), Oral, BID, X 7 day(s), # 14 tab(s), Refills(s) 0, Pharmacy: [facility]/pharmacy #[id number], 178, cm, 09/07/23 11:44:00 EST, Height/Length Dosing, 105.9, kg, 09/07/23 11:44:00 EST, Weight Dosing triamcinolone, 40 mg = 1 mL, Injection, IntraMuscular, Once, Stop date 09/07/23 12:49:00 EST, Routine, Start date 09/07/23 12:49:00 EST, 09/07/23 12:49:00 EST CBC w/ Auto Diff Comprehensive Metabolic Panel [facility] External Ambulatory Referral Lab Specimen Collect [id number] Lipid Panel Thyroid Stimulating Hormone 4. Nasal drain (more content not included)... Normal [facility] Comment on above: Result Comment: Elec tronically Signed By: Catherine Motta\.br\Date and Time Signed: 09/07/23 16:30 EST HEMATOLOGYOrdered By: SYSTEM SYSTEM on 09-07-2023 Basophils/100 WBC (Bld) 0.3 % Normal 0.0 - 2.0 % [facility] HemeAutoSS Basophils/Leukocytes Auto (Bld) [Pure # fraction] [...] 33.1 g/dL Normal 31.4 - 36.0 gm/dL [facility] HemeAutoSS MCV (RBC) [Entitic vol] 90.6 fL Normal 80.0 - 100.0 fL [facility] HemeAutoSS Platelet mean volume (Bld) [Entitic vol] 8.8 fL Normal 6.4 - 10.8 fL [facility] HemeAutoSS Platelets (Bld) [#/Vol] 232.0 E9/L Normal 150.0 - 500.0 E9/L [facility] HemeAutoSS RBC (Bld) [#/Vol] 4.5 E12/L Normal 4.3 - 5.9 E12/L [facility] HemeAutoSS WBC corrected for nucl RBC Auto (Bld) [#/Vol] 6.7 E9/L Normal 4.0 - 11.0 E9/L [facility] HemeAutoSS Lipid Panelon 09-07-2023 Cholesterol [Mass/Vol] 128 mg/dL Normal 120-200 [facility] Comment on above: Performed By: #### 2 414691, 3993291, 3509522, 17215091, 1282552, 5433808 ####[facility] [address] [place] [address] Cholesterol in HDL [Mass/Vol] 61 mg/dL Invalid Interpretation Code [facility] Comment on above: Result Comment: '>= 60 LOW RISK' '<= 40 HIGH RISK' Performed By: #### 2 105248, 5547919, 3625651, 50025087, 2857481, 5498183 ####[facility] [address] [place] [address] Cholesterol in LDL [Mass/Vol] 61 mg/dL Normal <=129 [facility] Comment on above: Performed By: #### 2 200978, 0665192, 7125199, 02394936, 0228426, 5317404 ####[facility] [address] [place] [address] Cholesterol in VLDL [Mass/Vol] 10 mg/dL Normal 7-40 [facility] Comment on above: Performed By: #### 2 306656, 7651013, 4840875, 62370226, 8452041, 5386025 ####[facility] [address] [place] [place] [address] Triglyceride [Mass/Vol] 48 mg/dL Normal <=149 [facility] Comment on above: Performed By: #### 2 679974, 6990846, 7988991, 66961483, 5203584, 1833896 ####[facility] [address] [place] [address] Physician Orderon 09-07-2023 Physician Order [id number]# 1.00TIFF Normal [facility] TSHon 09-07-2023 TSH Qn 0.80 m[IU]/L Normal 0.34-5.60 [facility] Comment on above: Performed By: #### 2 616475, 5609688, 4532477, 10535070, 9642702, 8758954 ####[facility] [address] [place] [address] eGFRon 09-07-2023 GFR/1.73 sq M.predicted among non-blacks MDRD (S/P/Bld) [Vol rate/Area] mL/min/{1.73_m2} Normal >=59 [facility] Comment on above: Order Comment: Order added by Discern Expert. Performed By: #### 2 974155, 2218156, 9282013, 98004453, 7301542, 3524257 ####[facility] [address] [place] [address] Family Medicine Office/Clini c Noteon 08-28-2023 Family [...] nose History of Present Illness TANIKADOMINIQUE FLORES T is a 33 Years White Female presenting [...] day(s), # 14 cap(s), Refills(s) 0, Pharmacy: [facility]/pharmacy #[id number], 178, cm, 08/28/23 12:08:00 EST, Height/Length Dosing, 104, kg, 08/28/23 12:08:00 EST, Weight Dosing fluticasone nasal, 2 spray(s), Nasal, Daily, 16 gram, Refill(s) 1, each nostril, [facility]/pharmacy #[id number], 178, cm, 08/28/23 12:08:00 EST, [...] Koo MD, FAM, MED Only if needed [address] [place] [phone] Additional Instructions: Problem List/Past Medical History Ongoing [...] 1 cap(s), Oral, BID Flonase 0.05 mg/inh Baker, 2 spray(s), Nasal, Daily, 1 refills ParaGard [...] Hib, unspecified formulation 1990 Recorded Normal [facility] Comment on above: Result Comment: Elec [...] for choosing us for your care. Normal [facility] Family Medicine Office/Clini c Noteon 07-25-2023 Family Medicine Office/Clinic Note Chief Complaint Current pt headache, sinus congestion, ear pain HPI Staff Dominique, 33 yo female here today with sinus infection Symptoms began about 2 wks ago Complains of sinus congestion, ear pain, headache, Pt has taken mucinex History of Present Illness Reviewed and agree with above documented HPI by biomedical electronics technician. Portions of this record may have been created with voice recognition artificial intelligence software, specifically [employer] and or [employer]. Substitutions may have occurred due to the inherent limitations of voice recognition and artificial intelligence software. Patient is a 33-year-old female who presents to [facility], for sinus pressure, sinus drainage, bilateral ear pressure, sinus headache, patient states she does have a history of sinus infection, symptoms for started she has been taking bqzs-xry-gjtwerw Mucinex without any relief, states she has [...] at this time. 33-year-old female presents to [facility], for acute bacterial sinusitis, symptoms started over 2 weeks ago, patient did not appear ill or septic, no respiratory disorder or difficulty swallowing was noted. Patient instructed take lalg-kdy-uevxyrm ibuprofen Tylenol together every 8 hours with food, for body aches, headaches, fevers. Drink plenty water stay hydrated. Given a prescription for Augmentin. Follow-up with primary care provider. 1. Acute bacterial sinusitis (J01.90: Acute sinusitis, unspecified) See above Ordered: amoxicillin-clavulan ate, 1 tab(s), Oral, BID for 10 day(s), 20 tab(s), Refill(s) 0, [facility] #[id number], 178, cm, 07/25/23 17:14:00 EST, Height/Length Dosing, [...] With When Contact Information NONE, XXXX [phone] Additional Instructions: Patient Education BMI for Adults Sinus Infection, Adult, Ajcz-rw-Jdts Problem List/Past Medical History Ongoing Abnormal thyroid function test Acne Acute bacterial sinusitis BMI 30.0-30.9,adult Body mass index (BMI) of 31.0 to 31.9 in adult Cigarette smoker Dry skin Fatigue Generalized anxiety disorder Hair loss Hip pain, bilateral HPV in female Irregular menses Low back pain Lumbar canal stenosis Lumbar herniated disc Preventative health care Raymarkell p (more content not included)... Normal [facility] Comment on above: Result Comment: Elec tronically Signed By: ANASTACIO SOSA PA-C\.br\Date and Time Signed: 07/25/23 17:27 EST Patient [...] ? Medicines that treat allergies (antihistamines). ? Uzzb-lyd-xnarfhi pain relievers. ? If caused by bacteria, your doctor may wait to see if you will get better without treatment. You may be given antibiotic medicine if you have: ? A very bad infection. ? A weak body defense system. ? If caused by growths in the nose, surgery may be needed. Follow these instructions at home: Medicines ? Take, use, or apply hxjh-png-ttdaphu and prescription medicines only as told by [...] cannot use soap and water, use hand power checker. ? Do not smoke. Avoid being around [...] follow-up visits (more content not included)... Normal [facility] MARGO EIA W/REFLEX 5 BIOMARKER Son 12-08-2021 MARGO Direct Negative Normal Negative [facility] Comment on above: Performed By: #### A NARF #### [facility] [address] [place] [address] Dr. Bharat Taylor INSULINon 12-08-2021 Insulin 0.9 uIU/mL Critically low 2.6-24.9 [facility] Comment on above: Performed By: #### I NSULIN #### [facility] [address] [place] [address] Dr. Bharat Taylor CBC AUTO DIFFon 12-07-2021 BASO # 0.0 103/ul Normal 0.0-0.1 [facility] Comment on above: Performed By: #### C BC #### [facility] [address] [place] [address] Dr. Bharat Taylor Basophils/100 WBC (Bld) 0.6 % Normal 0.2-2.0 [facility] Comment on above: Performed By: #### C BC #### [facility] [address] [place] [address] Dr. Bharat Taylor EO # 0.1 103/ul Normal 0.0-0.7 [facility] Comment on above: Performed By: #### C BC #### [facility] [address] [place] [address] Dr. Bharat Taylor Eosinophils/100 WBC (Bld) 2.7 % Normal 0.9-7.0 [facility] Comment on above: Performed By: #### C BC #### [facility] [address] [place] [address] Dr. Bharat Taylor Erythrocyte distribution width (RBC) [Ratio] 12.5 % Normal 11.0-15.0 [facility] Comment on above: Performed By: #### C BC #### [facility] [address] [place] [address] Dr. Bharat Taylor Hematocrit (Bld) [Volume fraction] 42.4 % Normal 36.0-48.0 [facility] Comment on above: Performed By: #### C BC #### [facility] [address] [place] [address] Dr. Bharat Taylor Hemoglobin (Bld) [Mass/Vol] 14.2 g/dL Normal 12.0-16.0 [facility] Comment on above: Performed By: #### C BC #### [facility] [address] [place] [address] Dr. Bharat Taylor IG # 0.01 10e3/ul Normal 0.00-0.03 [facility] Comment on above: Performed By: #### C BC #### [facility] [address] [place] [address] Dr. Bharat Taylor IG % 0.2 % Normal 0.0-0.5 [facility] Comment on above: Performed By: #### C BC #### [facility] [address] [place] [address] Dr. Bharat Taylor LYMPH # 1.6 103/ul Normal 1.2-3.8 [facility] Comment on above: Performed By: #### C BC #### [facility] [address] [place] [address] Dr. Bharat Taylor Lymphocytes/100 WBC (Bld) 30.5 % Normal 20.5-60.0 [facility] Comment on above: Performed By: #### C BC #### [facility] [address] [place] [address] Dr. Bharat Taylor MANUAL DIFF REQ NO Normal [facility] Comment on above: Performed By: #### C BC #### [facility] [address] [place] [address] Dr. Bharat Taylor MCH (RBC) [Entitic mass] 31.1 pg Normal 26.7-34.0 [facility] Comment on above: Performed By: #### C BC #### [facility] [address] [place] [address] Dr. Bharat Taylor MCHC (RBC) [Mass/Vol] 33.5 g/dL Normal 29.9-35.2 [facility] Comment on above: Performed By: #### C BC #### [facility] [address] [address] [address] Bharat Taylor MCV (RBC) [Entitic vol] 92.8 fL Normal 81.0-99.0 [facility] Comment on above: Performed By: #### C BC #### [facility] [address] [place] [address] Dr. Bharat Taylor MONO # 1.0 103/ul Critically high 0.3-0.8 [facility] Comment on above: Performed By: #### C BC #### [facility] [address] [place] [address] Dr. Bharat Taylor Monocytes/100 WBC (Bld) 18.0 % Critically high 1.7-12.0 [facility] Comment on above: Performed By: #### C BC #### [facility] [address] [place] [address] Dr. Bharat Taylor NEUT # 2.5 103/ul Normal 1.4-6.5 [facility] Comment on above: Performed By: #### C BC #### [facility] [address] [place] [address] Dr. Bharat Taylor Neutrophils/100 WBC (Bld) 48.0 % Normal 43.0-75.0 [facility] Comment on above: Performed By: #### C BC #### [facility] [address] [place] [address] Dr. Bharat Taylor Platelet mean volume (Bld) [Entitic vol] 9.4 fL Critically low 9.5-13.5 [facility] Comment on above: Performed By: #### C BC #### [facility] [address] [place] [address] Dr. Bharat Taylor PLT 196 103/ul Normal 150-450 [facility] Comment on above: Performed By: #### C BC #### [facility] [address] [address] [address] Bharat Taylor RBC 4.57 106/ul Normal 4.20-5.40 [facility] Comment on above: Performed By: #### C BC #### [facility] [address] [address] [address] Bharat Taylor WBC 5.3 103/ul Normal 4.0-11.0 [facility] Comment on above: Performed By: #### C BC #### [facility] [address] [address] [address] Bharat Taylor CRPon 12-07-2021 CRP 1.0 mg/dL Normal <=1.0 [facility] Comment on above: Performed By: #### F T3, TSH, CMP, LIPID, CRP #### [facility] [address] [address] [address] Bharat Taylor FREE T3on 12-07-2021 FREE T3 2.03 pg/mlL Critically low 2.77-5.27 [facility] Comment on above: Performed By: #### F T3, TSH, CMP, LIPID, CRP #### [facility] [address] [place] [address] Dr. Bharat Taylor FREE T4on 12-07-2021 Free T4 [Mass/Vol] 1.02 ng/dL Normal 0.78-2.19 [facility] Comment on above: Performed By: #### V ITAD, FT4 #### [facility] [address] [place] [address] Dr. Bharat Taylor LIPID PROFILEon 12-07-2021 CHOL-HDL RATIO NORM SEE BELOW Normal [facility] Comment on above: Result Comment: 3.3 - 4.4 LOW RISK 4.4 - 7.1 AVERAGE RISK 7.1 - 11.0 MODERATE RISK >11.0 HIGH RISK Performed By: #### F T3, TSH, CMP, LIPID, CRP #### [facility] [address] [place] [address] Dr. Bharat Taylor Cholesterol [Mass/Vol] 121 mg/dL Normal <=200 [facility] Comment on above: Performed By: #### F T3, TSH, CMP, LIPID, CRP #### [facility] [address] [address] [address] Bharat Taylor Cholesterol in HDL [Mass/Vol] 61 mg/dL Critically high 40-60 [facility] Comment on above: Performed By: #### F T3, TSH, CMP, LIPID, CRP #### [facility] [address] [address] [address] Bharat Taylor Cholesterol in LDL [Mass/Vol] 53.4 mg/dL Normal [facility] Comment on above: Performed By: #### F T3, TSH, CMP, LIPID, CRP #### [facility] [address] [address] [address] Bharat Taylor Cholesterol.total/Cho lesterol in HDL [Mass ratio] 2.0 {ratio} Normal [facility] Comment on above: Performed By: #### F T3, TSH, CMP, LIPID, CRP #### [facility] [address] [address] [address] Bharat Taylor HDL NORMAL > or = 60 mg/dl - LOW CARDIOVASCULAR RISK <40 mg/dl - HIGH CARDIOVASCULAR RISK Normal [facility] Comment on above: Performed By: #### F T3, TSH, CMP, LIPID, CRP #### [facility] [facility] [address] [address] [address] Bharat Taylor LDL CALC NORMAL SEE BELOW Normal [facility] Comment on above: Result Comment: <100 mg/dl OPTIMAL 100 - 129 mg/dl NEAR OR ABOVE OPTIMAL 130 - 159 mg/dl BORDERLINE HIGH 160 - 189 mg/dl HIGH >190 mg/dl VERY HIGH Performed By: #### F T3, TSH, CMP, LIPID, CRP #### [facility] [address] [address] [address] Bharat Taylor Triglyceride [Mass/Vol] 33 mg/dL Normal <=150 [facility] Comment on above: Performed By: #### F T3, TSH, CMP, LIPID, CRP #### [facility] [address] [address] [address] Bharat Taylor VLDL CALC 6.6 mg/dL Normal [facility] Comment on above: Performed By: #### F T3, TSH, CMP, LIPID, CRP #### [facility] [address] [address] [address] Bharat Taylor PROF 14(COMP METB)on 022 Albumin [Mass/Vol] 3.5 g/dL Normal 3.4-5.0 [facility] Comment on above: Performed By: #### F T3, TSH, CMP, LIPID, CRP #### [facility] [address] [address] [address] Bharat Taylor Albumin/Globulin [Mass ratio] 1.0 {ratio} Normal [facility] Comment on above: Performed By: #### F T3, TSH, CMP, LIPID, CRP #### [facility] [address] [address] [address] Bharat Taylor ALP [Catalytic activity/Vol] 69 U/L Normal 46-116 [facility] Comment on above: Performed By: #### F T3, TSH, CMP, LIPID, CRP #### [facility] [address] [address] [address] Bharat Tyalor ALT [Catalytic activity/Vol] 23 U/L Normal 14-59 [facility] Comment on above: Performed By: #### F T3, TSH, CMP, LIPID, CRP #### [facility] [address] [address] [address] Bharat Taylor Anion gap [Moles/Vol] 12.6 mmol/L Normal [facility] Comment on above: Performed By: #### F T3, TSH, CMP, LIPID, CRP #### [facility] [address] [address] [address] Bharat Taylor AST [Catalytic activity/Vol] 15 U/L Normal 15-37 [facility] Comment on above: Performed By: #### F T3, TSH, CMP, LIPID, CRP #### [facility] [address] [address] [address] Bharat Taylor Bilirubin [Mass/Vol] 0.4 mg/dL Normal 0.2-1.3 [facility] Comment on above: Performed By: #### F T3, TSH, CMP, LIPID, CRP #### [facility] [address] [place] [address] Dr. Bharat Taylor Calcium [Mass/Vol] 8.4 mg/dL Critically low 8.5-10.1 Th e [facility] Comment on above: Performed By: #### F T3, TSH, CMP, LIPID, CRP #### [facility] [address] [place] [address] Dr. Bharat Taylor Chloride [Moles/Vol] 104 mmol/L Normal 98-107 [facility] Comment on above: Performed By: #### F T3, TSH, CMP, LIPID, CRP #### [facility] [address] [place] [address] Dr. Bharat Taylor CO2 [Moles/Vol] 26.7 mmol/L Normal 22.0-30.0 [facility] Comment on above: Performed By: #### F T3, TSH, CMP, LIPID, CRP #### [facility] [address] [place] [address] Dr. Bharat Taylor Creatinine [Mass/Vol] 0.69 mg/dL Normal 0.52-1.04 [facility] Comment on above: Performed By: #### F T3, TSH, CMP, LIPID, CRP #### [facility] [address] [place] [address] Dr. Bharat Taylor EGFR-AF EGYPTIAN >60 Normal >=60 [facility] Comment on above: Performed By: #### F T3, TSH, CMP, LIPID, CRP #### [facility] [address] [place] [address] Dr. Bharat Taylor EGFR-NON AF EGYPTIAN >60 Normal >=60 [facility] Comment on above: Performed By: #### F T3, TSH, CMP, LIPID, CRP #### [facility] [address] [place] [address] Dr. Bharat Taylor Globulin (S) [Mass/Vol] 3.6 g/dL Normal [facility] Comment on above: Performed By: #### F T3, TSH, CMP, LIPID, CRP #### [facility] [address] [address] [address] Bharat Taylor Glucose [Mass/Vol] 89 mg/dL Normal 74-106 [facility] Comment on above: Performed By: #### F T3, TSH, CMP, LIPID, CRP #### [facility] [address] [place] [address] Dr. Bharat Taylor Potassium [Moles/Vol] 4.3 mmol/L Normal 3.4-5.0 [facility] Comment on above: Performed By: #### F T3, TSH, CMP, LIPID, CRP #### [facility] [address] [address] [address] Bharat Taylor Protein [Mass/Vol] 7.1 g/dL Normal 6.1-8.2 [facility] Comment on above: Performed By: #### F T3, TSH, CMP, LIPID, CRP #### [facility] [address] [place] [address] Dr. Bharat Taylor Sodium [Moles/Vol] 139 mmol/L Normal 137-145 [facility] Comment on above: Performed By: #### F T3, TSH, CMP, LIPID, CRP #### [facility] [address] [place] [address] Dr. Bharat Taylor Urea nitrogen [Mass/Vol] 8.0 mg/dL Normal 7.0-18.0 [facility] Comment on above: Performed By: #### F T3, TSH, CMP, LIPID, CRP #### [facility] [address] [place] [address] Dr. Bharat Taylor Urea nitrogen/Creatinine [Mass ratio] 11.6 mg/mg Normal [facility] Comment on above: Performed By: #### F T3, TSH, CMP, LIPID, CRP #### [facility] [address] [place] [address] Dr. Bharat Taylor TSHon 12-07-2021 TSH 0.662 uIU/mL Normal 0.470-4.680 [facility] Comment on above: Performed By: #### F T3, TSH, CMP, LIPID, CRP #### [facility] [address] [address] [address] Bharat Taylor TSH RANGE SEE BELOW Normal [facility] Comment on above: Result Comment: <0.3 4 UIU/ml HYPERTHYROID 0.34-5.60 UIU/ml EUTHYROID >5.60 UIU/ml HYPOTHYROID Performed By: #### F T3, TSH, CMP, LIPID, CRP #### [facility] [address] [address] [address] Bharat Taylor VITAMIN D 25 OHon 12-07-2021 VIT D 25-OH 26.9 ng/mL Normal [facility] Comment on above: Performed By: #### V ITAD, FT4 #### [facility] [address] [place] [address] Dr. Bharat Taylor VIT D RANGES SEE BELOW Normal [facility] Comment on above: Result Comment: <20 ng/mL Vit D deficient 20 - <30 ng/mL Vit D insufficient 30 - 100 ng/mL Vit D sufficient >100 ng/mL Potential Toxicity Performed By: #### V ITAD, FT4 #### [facility] [address] [place] [address] Dr. Bharat Taylor PAP ACOG PANEL 2: 30 to 65on 08-04-2021 . . Normal [facility] Comment on above: Result Comment: Perf ormed at: WB Performed By: #### V ITAD, FT4 #### [facility] [address] [place] [address] Dr. Bharat Taylor Age Gdln ACOG Testing 30-65 Normal [facility] Comment on above: Performed By: #### V ITAD, FT4 #### [facility] [address] [place] [address] Dr. Bharat Taylor DIAGNOSIS: Comment Normal [facility] Comment on above: Result Comment: NEGA TIVE FOR INTRAEPITHELIAL LESION OR MALIGNANCY. Performed at: WB Performed By: #### V ITAD, FT4 #### [facility] [address] [place] [address] Dr. Bharat Taylor HPV Aptima Negative Normal Negative [facility] Comment on above: Result Comment: This nucleic acid amplification test detects fourteen high-risk HPV types (16,18,31,33,35,39,45,51,52,56,58,59,66,68) without differentiation. Performed at: =G Performed By: #### V ITAD, FT4 #### [facility] [address] [place] [address] Dr. Bharat Taylor Methodology: Comment Normal [facility] Comment on above: Result Comment: This liquid based ThinPrep(R) pap test was screened with the use of an image guided system. Performed at: WB Performed By: #### V ITAD, FT4 #### [facility] [address] [place] [address] Dr. Bharat Taylor Note: Comment Normal [facility] Comment on above: Result Comment: The [...] Performed By: #### V ITAD, FT4 #### [facility] [address] [place] [address] Dr. Bharat Taylor Performed by: Comment Normal [facility] Comment on above: Result Comment: Jory Falcon, Fabric Lay Out Worker (ASCP) Performed at: WB Performed By: #### V ITAD, FT4 #### [facility] [address] [place] [address] Dr. Bharat Taylor Specimen adequacy: Comment Normal [facility] Comment on above: Result Comment: Sati sfactory for evaluation. Endocervical and/or squamous metaplastic cells (endocervical component) are present. Performed at: WB Performed By: #### V ITAD, FT4 #### [facility] [address] [place], [place] [id number] Dr. Bharat Taylor Vital Signs Date Time Vital Sign Value Performing Clinician Rex ling 11-19-2024 14:14-0400 Body mass index (BMI) [Ratio] 34.15 kg/m2 Ankita ARCHULETA Work Phone: [facility] 11-19-2024 14:14-0400 Body weight 107.96 kg Ankita ARCHULETA Work Phone: [facility] 11-19-2024 14:14-0400 Diastolic blood pressure 68 mm[Hg] Ankita ARCHULETA Work Phone: [facility] 11-19-2024 14:14-0400 Systolic blood pressure 102 mm[Hg] Ankita ARCHULETA Work Phone: [facility] 09-07-2024 15:41-0500 Blood Pressure Location Michellevinita Hanksdner [facility] 09-07-2024 15:41-0500 Body temperature 98.06 [degF] Michelle Latonyadner [facility] 09-07-2024 15:41-0500 Diastolic blood pressure 70 mm[Hg] Michelle Bordner [facility] 09-07-2024 15:41-0500 Heart rate 74 /min Michelle Bordner [facility] 09-07-2024 15:41-0500 Respiratory rate 20 /min Michelle Latonyadner [facility] 09-07-2024 15:41-0500 SaO2% (BldA) [Mass fraction] 95 % Michelle Latonyadner [facility] 09-07-2024 15:41-0500 Systolic blood pressure 112 mm[Hg] Michelle Bordner [facility] 06-20-2024 13:39-0400 Body height 177.8 cm Luigi Diane MD Work Phone: [facility] 06-20-2024 13:39-0400 Body mass index (BMI) [Ratio] 33.72 kg/m2 Luigi Diane MD Work Phone: [facility] 06-20-2024 13:39-0400 Body weight 106.59 kg Luigi Diane MD Work Phone: [facility] 06-20-2024 13:39-0400 Diastolic blood pressure 63 mm[Hg] Luigi Diane MD Work Phone: [facility] 06-20-2024 13:39-0400 Systolic blood pressure 98 mm[Hg] Luigi Diane MD Work Phone: [facility] 05-23-2024 12:56-0400 Blood Pressure Location CURTIS STAFF[facility] 05-23-2024 12:56-0400 Diastolic blood pressure 62 mm[Hg] CURTIS STAFFORD [facility] 05-23-2024 12:56-0400 Heart rate 79 /min CURTIS STAFFORD [facility] 05-23-2024 12:56-0400 Respiratory rate 16 /min CURTIS STAFFORD [facility] 05-23-2024 12:56-0400 SaO2% (BldA) [Mass fraction] 98 % [facility]TIS STAFF[facility] 05-23-2024 12:56-0400 Systolic blood pressure 118 mm[Hg] CURTIS STAFFORD [facility] 08-28-2023 12:06-0500 Blood Pressure Location [place] Mattdimella [facility] 08-28-2023 12:06-0500 Body temperature 97.88 [degF] [place] Gudimella [facility] 08-28-2023 12:06-0500 Diastolic blood pressure 70 mm[Hg] [place] Gudimella [facility] 08-28-2023 12:06-0500 Heart rate 59 /min [place] Gudimella [facility] 08-28-2023 12:06-0500 SaO2% (BldA) [Mass fraction] 96 % [place] Gudimella [facility] 08-28-2023 12:06-0500 Systolic blood pressure 114 mm[Hg] [facility] Georgiadimella [facility] 07-25-2023 17:10-0500 Blood Pressure Location [place] [facility] 07-25-2023 17:10-0500 Body temperature 97.88 [degF] [place] [facility] 07-25-2023 17:10-0500 Diastolic blood pressure 76 mm[Hg] [place] [facility] 07-25-2023 17:10-0500 Heart rate 71 /min [place] [facility] 07-25-2023 17:10-0500 SaO2% (BldA) [Mass fraction] 97 % [place] [facility] 07-25-2023 17:10-0500 Systolic blood pressure 118 mm[Hg] [place] [facility] 2023 12:15-0400 Blood Pressure Location ANASTACIO SOSA [facility] 2023 12:15-0400 Body temperature 98.6 [degF] [place] [facility] 2023 12:15-0400 Diastolic blood pressure 78 mm[Hg] ANASTACIO FRYTIZ [facility] 2023 12:15-0400 Heart rate 62 /min ANASTACIO FRYTIZ [facility] 2023 12:15-0400 SaO2% (BldA) [Mass fraction] 98 % ANASTACIO FRYTIZ [facility] 2023 12:15-0400 Systolic blood pressure 120 mm[Hg] ANAST[place] SOSA [facility] 03-15-2023 16:09-0400 Blood Pressure Location Marissa JOHNIE [facility] 03-15-2023 16:09-0400 Body temperature 97.7 [degF] Marissa JETT [facility] 03-15-2023 16:09-0400 Diastolic blood pressure 72 mm[Hg] Marissa JETT [facility] 03-15-2023 16:09-0400 Heart rate 62 /min Marissa JOHNIE [facility] 03-15-2023 16:09-0400 SaO2% (BldA) [Mass fraction] 98 % Marissa JOHNIE [facility] 03-15-2023 16:09-0400 Systolic blood pressure 112 mm[Hg] Marissa JETT [facility] 09-02-2022 11:57-0500 Blood Pressure Location [employer] [facility] 09-02-2022 11:57-0500 Body temperature 98.06 [degF] Barbara Orzech [facility] 09-02-2022 11:57-0500 Diastolic blood pressure 78 mm[Hg] Barbara Orzech [facility] 09-02-2022 11:57-0500 Heart rate 88 /min Barbara Orzemarco antonio [facility] 09-02-2022 11:57-0500 SaO2% (BldA) [Mass fraction] 97 % Barbara Orzemarco antonio [facility] 09-02-2022 11:57-0500 Systolic blood pressure 124 mm[Hg] Barbara Orzemarco antonio [facility] 12-18-2021 13:02-0400 Blood Pressure Location Tran AGUDELO [facility] 12-18-2021 13:02-0400 Body temperature 97.7 [degF] Tran AGUDELO [facility] 12-18-2021 13:02-0400 Diastolic blood pressure 78 mm[Hg] Tran AGUDELO [facility] 12-18-2021 13:02-0400 Systolic blood pressure 126 mm[Hg] Tran AGUDELO [facility] Encounters Encounter Date Encounter Type Care Provider Facility Start: 04-15-2025 ambulatory AGENCY SERVICE REPRESENTATIVE-C CURTIS STAFFORD Facility:[facility] Start: 01-17-2025 End: 01-17-2025 ambulatory AGENCY SERVICE REPRESENTATIVE-C CURTIS STAFFORD Facility:[facility] Start: 01-15-2025 End: 01-15-2025 ambulatory AGENCY SERVICE REPRESENTATIVE-C CURTIS STAFFORD Facility:[facility] Start: 01-15-2025 End: 01-15-2025 Patient encounter procedure CURTIS STAFFORD [facility] Start: 12-20-2024 End: 12-20-2024 ambulatory AGENCY SERVICE REPRESENTATIVE-C CURTIS STAFFORD Facility:[facility] Start: 12-05-2024 End: 12-05-2024 ambulatory LUIGI DIANE Not Available Start: 12-05-2024 End: 12-05-2024 Clinisync Result Encounter Ankita ARCHULETA Work Phone: [facility] Unsolicited Start: 12-05-2024 End: 12-05-2024 Clinisync Result Encounter Ankita ARCHULETA Work Phone: [facility] Unsolicited Start: 11-19-2024 End: 11-19-2024 Bamboo flowsheet Ankita ARCHULETA Work Phone: [facility] Start: 11-19-2024 End: 11-22-2024 Bamboo flowsheet Ankita ARCHULETA Work Phone: [facility] Start: 11-19-2024 End: 11-22-2024 Clinisync Result Encounter Ankita ARCHULETA Work Phone: [facility] Unsolicited Start: 11-19-2024 End: 11-19-2024 Patient encounter procedure Ankita ARCHULETA Work Phone: [facility] Start: 11-19-2024 End: 11-19-2024 Periodic preventive med est patient 18-39 yrs Ankita ARCHULETA Work Phone: [facility] Comment on above: Well woman exam with routine gynecological exam; Encounter for intrauterine device placement; Menorrhagia with regular cycle Start: 11-19-2024 End: 11-19-2024 ambulatory ANKITA ALVARADO Not Available Start: 09-07-2024 End: 09-07-2024 ambulatory Michelle Charles Facility: [facility] Start: 09-07-2024 End: 09-07-2024 Patient encounter procedure Michelle C Araceli [facility] Start: 06-20-2024 End: 06-20-2024 Leena Diane MD Work Phone: [facility] Start: 06-20-2024 End: 06-20-2024 Bamboo victorina Diane MD Work Phone: [facility] Start: 06-20-2024 End: 06-20-2024 ambulatory LUIGI DIANE Not Available Start: 06-20-2024 End: 06-20-2024 Office outpatient visit 15 minutes Luigi Diane MD Work Phone: [facility] Comment on above: DNS (deviated nasal septum) (Primary Dx); Nasal valve blockage Start: 06-06-2024 End: 06-06-2024 ambulatory AGENCY SERVICE REPRESENTATIVE-C CURTIS STAFFORD Facility[facility] Start: 06-06-2024 End: 06-06-2024 Patient encounter procedure CURTIS STAFFORD [facility] Start: 05-23-2024 ambulatory CURTIS STAFFORD Fa cility:[facility] Start: 05-23-2024 End: 05-23-2024 Patient encounter procedure CURTIS STAFFORD [facility] Start: 05-23-2024 End: 05-23-2024 ambulatory CURTIS STAFFORD Facility:[facility] Start: 05-23-2024 End: 05-23-2024 Patient encounter procedure CURTIS STAFFORD [facility] Start: 02-22-2024 End: 02-22-2024 ambulatory LUIIG DIANE Not Available Start: 01-25-2024 End: 01-25-2024 ambulatory LUIGI H TIMMIS Not Available Start: 01-17-2024 End: 01-17-2024 ambulatory LUIGI H TIMMIS Not Available Start: 01-10-2024 End: 01-10-2024 ambulatory Luigi H Timmis Jr Facility:[facility] Start: 11-24-2023 End: 11-24-2023 ambulatory AGENCY SERVICE REPRESENTATIVE Catherine L Shoaib Facility:[facility] [place] Start: 11-21-2023 End: 11-21-2023 ambulatory LUIGI H TIMMIS Not Available Start: 11-07-2023 End: 11-07-2023 ambulatory Luigi H Timmis Facility:[facility] Start: 11-07-2023 End: 11-07-2023 Patient encounter procedure Luigi H Timmis [facility] Start: 10-26-2023 End: 10-26-2023 ambulatory AGENCY SERVICE REPRESENTATIVE Catherine L Shoaib Facility:[facility] [place] Start: 10-07-2023 Bamboo flowsheet Luigi H José Miguel is Work Phone: [facility] Start: 10-07-2023 Bamboo flowsheet Luigi H José Miguel is Work Phone: [facility] Start: 10-07-2023 End: 10-07-2023 ambulatory LUIGI H TIMMIS Not Available Start: 10-06-2023 Chart abstracting Luigi H Parish mis Work Phone: [facility] Start: 09-07-2023 End: 09-07-2023 Lab Drop off Catherine L Shoaib [facility] Start: 09-07-2023 End: 09-07-2023 ambulatory AGENCY SERVICE REPRESENTATIVE Catherine L Shoaib Facility[facility] Start: 09-06-2023 ambulatory Luigi Timmis Facility: [facility] Start: 08-28-2023 End: 08-28-2023 ambulatory [place] Gudimella Facility:[facility] Start: 08-28-2023 End: 08-28-2023 Patient encounter procedure [place] Koo [facility] Start: 07-27-2023 End: 07-27-2023 ambulatory AI BELLE Not Available Start: 07-25-2023 End: 07-25-2023 ambulatory ANASTACIO SOSA Facility:[facility] Start: 07-25-2023 End: 07-25-2023 Patient encounter procedure ANASTACIO SOSA [facility] Start: 2023 End: 2023 Patient encounter procedure ANASTACIO SOSA [facility] Start: 03-15-2023 End: 03-15-2023 Patient encounter procedure Marissa JETT [facility] Start: 09-02-2022 End: 09-02-2022 Patient encounter procedure Barbara Moreno [facility] Start: 12-18-2021 End: 12-18-2021 Patient encounter procedure Tran AGUDELO [facility] Start: 12-10-2021 Encounter for genera l adult medical examination without abnormal findings DR TRAN AGUDELO [facility] Start: 12-07-2021 End: 12-08-[address] TRAN AGUDELO Facility:[facility] Start: 12-07-2021 End: 12-08-2021 Encounter for general adult medical examination without abnormal findings DR TRAN AGUDELO Facility:[facility] Start: 07-30-2021 End: 07-30-[address] AI BELLE Facility:[facility] Start: 01-12-2021 ambulatory CARMEN VOGT Facility: [facility] Start: 12-30-2020 ambulatory CARMEN ROBERTS Facility:[facility] Procedures Date Procedure Procedure Detail Performing Clinician Start: 12-05-2024 ALL CBC WITH AUTO DIFF Ankita ARCHULETA Work Phone: Start: 11-19-2024 IGP,APTIMA HPV,AGE GDLN Ankita ARCHULETA Work Phone: Start: 07-30-2021 Microscopic observat ion [Identifier] in Cervix by Cyto stain Luigi Diane MD Work Phone: Augmentation rhinoplasty [facility] Insertion of intraut erine contraceptive device Tran AGUDELO Loop electrosurgical excision procedure of cervix Tran AGUDELO Plan of Treatment Date Care Activity Detail Author Start: 07-30-2026 Screening for malign ant neoplasm of cervix [facility] Start: 11-20-2025 End: 11-20-2025 Patient encounter procedure 11/20/2025 3:00 PM EDT Office Visit [facility] [address] [place] [phone] Ankita Alvarado PA [address] [place], [place] [phone] [facility] Start: 12-05-2024 End: 12-05-2024 Professional / ancillary services management 12/05/2024 3:00 PM EDT Ancillary Procedure [facility] [address] [place] [id number] [facility] Start: 11-19-2024 End: 11-19-2025 DHEA DHEA Lab Routine Menorrhagia with regular cycle Expected: 11/19/2024 (Approximate), Expires: 11/19/2025 [facility] Comment on above: Expected: 11/19/2024 (Approximate), Expires: 11/19/2025 Start: 11-19-2024 End: 11-19-2024 Patient encounter procedure 11/19/2024 2:00 PM EDT Office Visit [facility] OB [address] [place] [phone] Ankita Alvarado PA [address] [place] [address] Arrived [facility] Comment on above: Arrived Start: 11-19-2024 End: 11-19-2025 US Pelvis transvaginal US pelvis transvaginal Imaging Routine Encounter for intrauterine device placement Expected: 11/19/2024 (Approximate), Expires: 11/19/2025 [facility] Comment on above: Expected: 11/19/2024 (Approximate), Expires: 11/19/2025 Start: 10-07-2023 End: 10-07-2023 Patient encounter procedure 10/07/2023 9:20 AM EST Office Visit [facility] [address] [place] [id number] Luigi Diane MD [address] [place] [address] [address] [place] [address] [facility] Start: 04-29-2023 Influenza vaccination Influenza Vacc ine (#1) [facility] CBC W Auto Different ial panel - Blood CBC and differential Lab Routine Menorrhagia with regular cycle Ordered: 11/19/2024 [facility] Comment on above: Ordered: 11/19/2024 Cytology Cervical or vaginal smear or scraping study Pap Smear Pathology and Cytology Routine Well woman exam with routine gynecological exam Ordered: 11/19/2024 [facility] Work Phone: Comment on above: Ordered: 11/19/2024 DHEA-sulfate DHEA-sulfate Lab Routine Menorrhagia with regular cycle Ordered: 11/19/2024 [facility] Comment on above: Ordered: 11/19/2024 Follicle stimulating hormone Follicle stimulating hormone Lab Routine Menorrhagia with regular cycle Ordered: 11/19/2024 [facility] Comment on above: Ordered: 11/19/2024 hCG, quantitative, hCG, quantitative, Lab Routine Menorrhagia with regular cycle Ordered: 11/19/2024 [facility] Comment on above: Ordered: 11/19/2024 Hemoglobin A1c/Hemoglobin.total in Blood Hemoglobin A1c Lab Routine Menorrhagia with regular cycle Ordered: 11/19/2024 [facility] Comment on above: Ordered: 11/19/2024 Human papilloma viru s DNA [Presence] in Unspecified specimen by Probe with amplification HPV DNA probe, amplified Microbiology Routine Well woman exam with routine gynecological exam Ordered: 11/19/2024 [facility] Comment on above: Ordered: 11/19/2024 Luteinizing hormone Luteinizing hormone Lab Routine Menorrhagia with regular cycle Ordered: 11/19/2024 [facility] Comment on above: Ordered: 11/19/2024 Thyrotropin [Units/volume] in Serum or Plasma TSH Lab Routine Menorrhagia with regular cycle Ordered: 11/19/2024 [facility] Comment on above: Ordered: 11/19/2024 Thyroxine (T4) free [Mass/volume] in Serum or Plasma T4, free Lab Routine Menorrhagia with regular cycle Ordered: 11/19/2024 [facility] Comment on above: Ordered: 11/19/2024 Immunizations Immunization Date Immunization Notes Care Provider [place] 01-16-2002 measles, mumps and rubella virus vaccine [employer] [facility] 08-15-1991 Hib, unspecified formulation [employer] [facility] 08-15-1991 measles, mumps and rubella virus vaccine [employer] [facility] 1990 Hib, unspecified formulation [email or web address] [facility] NEGATED: Highlighted row has not occurred!2023 influenza virus vaccine, unspecified formulation [employer] [facility] NEGATED: Highlighted row has not occurred!2023 SARS-CoV-2 mRNA (tozinameran 5y-11y) vaccine [employer] [facility] NEGATED: Highlighted row has not occurred!09-02-2022 influenza virus vaccine, unspecified formulation [employer] [facility] NEGATED: Highlighted row has not occurred!09-02-2022 SARS-CoV-2 mRNA (toelias 5y-11y) vaccine Barbara Moreno [facility] Payers Date Payer Category Payer Self-pay 2020 [employer] Blue [employer] BCBS [id number] 2020 Unknown [id number] 2020 Unknown [id number] 1990 Unknown [id number] 2.16.840.1.669807.3.57 9.2.593 1990 Unknown [id number] 2.16.840.1.109116.3.57 9.2.593 1990 Unknown [id number] 2.16.840.1.008875.3.57 9.2.593 1990 Unknown [id number] 2.16.840.1.901358.3.57 9.2.593 1990 Unknown [id number] 2.16.840.1.376070.3.57 9.2.1259 1990 Unknown [id number] 2.16.840.1.559994.3.57 9.2.1259 1990 Unknown [id number] 2.16.840.1.671817.3.57 9.2.1259 1990 Unknown [id number] 2.16.840.1.493960.3.57 9.2.1259 1990 Unknown [id number] 2.16.840.1.753972.3.57 9.2.9 1990 Unknown [id number] 2.16.840.1.459542.3.57 9.2.1258 1990 Unknown [id number] 2.16.840.1.859958.3.57 9.2.727 1990 Unknown [id number] 2.16.840.1.731650.3.57 9.2.72 1990 Unknown [id number] 2.16.840.1.267278.3.57 9.2.72 1990 Unknown [id number] 2.16.840.1.207188.3.57 9.2. 1990 Unknown [id number] 2.16.840.1.709347.3.57 9.2.72 1990 Unknown [id number] 2.16.840.1.721573.3.57 9.2. 1990 Unknown [id number] 2.16.840.1.710752.3.57 9.2.7 1990 Unknown [id number] 2.16.840.1.924722.3.57 9.2. 1990 Unknown [id number] 2.16.840.1.365741.3.57 9.2.72 1990 Unknown [id number] 2.16.840.1.870029.3.57 9.2.1258 1990 Unknown [id number] 2.16.840.1.275908.3.57 9.2.1258 1990 Unknown [id number] 2.16.840.1.495289.3.57 9.2.1259 1990 Unknown [id number] 2.16.840.1.542190.3.57 9.2.727 1990 Unknown [id number] 2.16.840.1.012332.3.57 9.2.727 1990 Unknown [id number] 2.16.840.1.394134.3.57 9.2.727 1990 Unknown [id number] 2.16.840.1.575808.3.57 9.2.72 1990 Unknown [id number] 2.16.840.1.195167.3.57 9.2.727 1990 Unknown [id number] 2.16.840.1.551657.3.57 9.2.727 1959 Unknown [id number] Unknown [id number] 2.16.840.1.168776.3.57 9.2.531 Social History Date Type Detail Facility Start: 12-18-2021 End: 2023 Tobacco smoking status Light tobacco smoker (finding) [facility] Tobacco smoking status Never [facility] Start: 10-04-2023 End: 06-20-2024 Sex Assigned At Female [facility] Start: 07-25-2023 End: 12-20-2024 Tobacco smoking status Ex-smoker (finding) [facility] Start: 10-04-2023 [facility] History of tobacco use Cigarette Smoker [facility] Start: 10-04-2023 Tobacco use and exposure Smoke less tobacco non-user [facility] Start: 10-04-2023 End: 11-19-2024 Alcohol intake Ex-drinker (finding) [facility] Start: 10-04-2023 End: 06-20-2024 History of Social function [facility] Start: 1990 Sex Assigned At Not on file [facility] Sexual Orientation [facility] Start: 12-10-2009 Sex Female (finding) [facility] Functional Status Date Assessment Result Facility 09-07-2024 Functional Status N/A [facility] 05-23-2024 Functional Status N/A [facility] [place] 08-28-2023 Functional Status N/A [facility] 07-25-2023 Functional Status N/A [facility] 2023 Functional Status N/A [facility] 03-15-2023 Functional Status N/A [facility] 09-02-2022 Functional Status N/A [facility] Clinical Notes 09-25-2021 to 11-19-2024 [...] paragard by yoshi ALLERGIES Allergies Allergen Reactions Ctsfbumwitsjbtq-Vb-Ayjw Other Reaction(s): Hives Simple Syrup Unknown PROBLEMS Active Ambulatory Problems Diagnosis Date Noted Acne 10/04/2023 Anxiety 10/04/2023 Cigarette smoker 10/04/2023 Depression ([facility] 10/04/2023 Family history of breast cancer 10/04/2023 Generalized anxiety disorder ([facility]) 10/04/2023 Hip pain, bilateral 10/04/2023 HPV in [...] 02/05/2019 SINUS SURGERY 01/10/2024 septoplasty, RT MMA, 01/10/24Benoit REVIEW OF SYSTEMS Review of Systems: Review [...] nursing note reviewed. Exam conducted with a clean room technician present. Vitals: Estimated body mass index is [...] GEREMIAS Austin documented in this encounter [facility] 09-07-2024 Hospital Discharge instructions Patient Education 09/07/2024 20:08:25 Viral Respiratory Infection, Tzlb-Yw-Vcrw Viral Respiratory Infection A viral respiratory infection [...] at home: Managing pain and congestion Take redc-dyn-eoiwkaj and prescription medicines only as told by [...] cannot use soap and water, use hand power checker. ?Cover your mouth when you cough. Cover [...] provider. Document Revised: 11/19/2021 Document Reviewed: 11/19/2021 [employer] Patient Education 2023 [employer]. 09/07/2024 20:08:24 Cough, Adult, Adyi-jp-Thjc Cough, Adult A cough helps to clear [...] Follow these instructions at home: Medicines Take yjvr-csa-sjnkxdl and prescription medicines only as told by [...] provider. Document Revised: 04/15/2023 Document Reviewed: 04/15/2023 [employer] Patient Education 2023 [employer]. Follow Up Care 09/07/2024 14:20:19 With:KATIE ANSARI FAM Address:Unknown When: Unknown With:KATIE ANSARI FAM Address:Unknown When: Unknown [facility] 09-07-2024 Note Patient Education [...] these instructions at home: Medicines ??? Take zsjk-adn-mpjzerk and prescription medicines only as told by [...] provider. Document Revised: 04/15/2023 Document Reviewed: 04/15/2023 [employer] Patient Education ? 2023 [employer] Infectious Disease Viral Respiratory Infection A [...] home: Managing pain and congestion ??? Take wyey-usl-rbpsjsk and prescription medicines only as told by [...] is this pr (more content not included)... [facility] 06-20-2024 History of Present illness Narrative Subjective [...] RT MMA, 01/10/24, [place] Allergies Allergen Reactions Zsiimlxjnpmiqxe-Ju-Uroc Other Reaction(s): Hives Simple Syrup Unknown Current [...] septum) Nasal valve blockage At this point Dominique wants to hold off on referral to Dr Foy. If she changes her mind in the future she'll let us know. Recommend using flonase on RT as prescribed documented in this encounter [facility] 05-23-2024 Evaluation + Plan note Future Scheduled TestsMRI Spine Lumbar w/o Contrast 05/23/24 [facility] [place] 05-23-2024 Evaluation + Plan note Diagnostic Tests PendingANA w/Reflex if POS 05/23/24IFE and PE, Serum 05/23/24Rheumatoid Factor Quantitative 05/23/24 Future Scheduled TestsMRI Spine Lumbar w/o Contrast 05/23/24 [facility] 01-04-2024 Note [id number] [facility] 09-15-2023 Note Consult received for patient's positive depression screen. Through chart review it is noted that patient has requested a referral for counseling and this was sent to [facility]. SW will remain available. [facility] 08-28-2023 Hospital Discharge instructions Follow Up Care 08/28/2023 10:18:17 With:Janna Koo MD, [facility] Address: [address] [place] [phone] When: only if needed [facility] 07-25-2023 Hospital Discharge instructions [...] numbers. This can be done either in [place] ([place] or metric measurements. Note that charts and online BMI calculators are available to help you find your BMI quickly and easily without having to do these calculations yourself. To calculate your BMI in [place] ([place] measurements: 1.Measure your weight in pounds [...] Centers for Disease Control and Prevention: www.cdc.gov [place] Heart Association: www.heart.org National Heart, Lung, and Blood [place]: www.nhlbi.nih.gov Summary Body mass index (BMI) is a number that is calculated from a person's weight and height. BMI may help estimate how much of a person's weight is composed of fat. BMI can help identify those who may be at higher risk for certain medical problems. BMI can be measured using Chadian measurements or metric measurements. BMI charts are used to identify whether you are underweight, normal weight, overweight, or obese. This information is not intended to replace advice given to you by your health care provider. Make sure you discuss any questions you have with your health care provider. Document Revised: 05/07/2020 Document Reviewed: 03/14/2020 [employer] Patient Education 2022 [employer]. 07/25/2023 17:27:20 Sinus Infection, Adult, Ikyj-nz-Rmtl Sinus Infection, Adult A sinus infection is [...] saline washes). ?Medicines that treat allergies (antihistamines). ?Dwlb-fko-zojftvi pain relievers. If caused by bacteria, your doctor may wait to see if you will get better without treatment. You may be given antibiotic medicine if you have: ?A very bad infection. ?A weak body defense system. If caused by growths in the nose, surgery may be needed. Follow these instructions at home: Medicines Take, use, or apply ginb-tdt-irretim and prescription medicines only as told by [...] cannot use soap and water, use hand power checker. Do not smoke. Avoid being around people [...] provider. Document Revised: 07/20/2022 Document Reviewed: 07/20/2022 [employer] Patient Education 2022 [employer]. Follow Up Care 07/25/2023 10:17:49 With:NONE, XXXX Address: [phone] When: Unknown [facility] 2023 Hospital Discharge instructions [...] numbers. This can be done either in [place] ([place] or metric measurements. Note that charts and online BMI calculators are available to help you find your BMI quickly and easily without having to do these calculations yourself. To calculate your BMI in [place] ([place] measurements: 1.Measure your weight in pounds [...] Centers for Disease Control and Prevention: www.cdc.gov [place] Heart Association: www.heart.org National Heart, Lung, and Blood [place]: www.nhlbi.nih.gov Summary Body mass index (BMI) is a number that is calculated from a person's weight and height. BMI may help estimate how much of a person's weight is composed of fat. BMI can help identify those who may be at higher risk for certain medical problems. BMI can be measured using Chadian measurements or metric measurements. BMI charts are used to identify whether you are underweight, normal weight, overweight, or obese. This information is not intended to replace advice given to you by your health care provider. Make sure you discuss any questions you have with your health care provider. Document Revised: 05/07/2020 Document Reviewed: 03/14/2020 [employer] Patient Education 2022 [employer]el. 2023 14:20:11 Foot Sprain Foot Sprain A [...] cast on your foot. General instructions Take mgfl-ctw-uecdlbx and prescription medicines only as told by [...] provider. Document Revised: 12/05/2020 Document Reviewed: 12/05/2020 [employer] Patient Education 2022 [employer]. Follow Up Care 2023 11:35:27 With:NONE, XXXX Address: [phone] When: Unknown [facility] 03-15-2023 Hospital Discharge instructions Patient Education 03/15/2023 16:47:12 Cold Sore, Ysub-vv-Vmnh Cold Sore A cold sore, also called [...] instructions at home: Medicines Take or apply lbpz-wqi-ynwdmkj and prescription medicines only as told by [...] provider. Document Revised: 05/26/2022 Document Reviewed: 05/26/2022 [employer] Patient Education 2022 [employer]. 03/15/2023 16:47:05 BMI for Adults BMI for [...] numbers. This can be done either in [place] ([place] or metric measurements. Note that charts and online BMI calculators are available to help you find your BMI quickly and easily without having to do these calculations yourself. To calculate your BMI in [place] ([place] measurements: 1.Measure your weight in pounds [...] Centers for Disease Control and Prevention: www.cdc.gov [place] Heart Association: www.heart.org National Heart, Lung, and Blood [place]: www.nhlbi.nih.gov Summary Body mass index (BMI) is a number that is calculated from a person's weight and height. BMI may help estimate how much of a person's weight is composed of fat. BMI can help identify those who may be at higher risk for certain medical problems. BMI can be measured using Chadian measurements or metric measurements. BMI charts are used to identify whether you are underweight, normal weight, overweight, or obese. This information is not intended to replace advice given to you by your health care provider. Make sure you discuss any questions you have with your health care provider. Document Revised: 05/07/2020 Document Reviewed: 03/14/2020 [employer] Patient Education 2022 [employer]el. Follow Up Care 03/15/2023 15:38:21 With:Tran AGUDELO DO, FAM Address: [address] [phone]- When: Unknown [facility] 09-02-2022 Hospital Discharge instructions [...] Follow these instructions at home: Medicines Take liye-iyw-wwihkrt and prescription medicines only as told by [...] 08/12/2001 Document Revised: 11/02/2019 Document Reviewed: 11/02/2019 [employer] Patient Education 2020 [employer]el. 09/02/2022 12:22:11 Tobacco Use Disorder Tobacco Use [...] reduces withdrawal symptoms. NRT is available as: ?Gutp-zvm-uxdvmwl gums, lozenges, and skin patches. ?Prescription mouth [...] recovery for many people. General instructions Take kpak-myz-lmrbioo and prescription medicines only as told by your health care provider. Check with your health care provider before taking any new prescription or ytbn-bfk-xyfnayf medicines. Decide on a friend, family member, or smoking quit-line (such as 9-212-JJUA-NOW in the [place] that you can call [...] 04/20/2005 Document Revised: 08/02/2018 Document Reviewed: 08/02/2018 [employer] Patient Education 2020 [employer] 09/02/2022 12:22:10 BMI for Adults BMI for [...] height. This can be done either in [place] ([place] or metric measurements. Note that charts are available to help you find your BMI quickly and easily without having to do these calculations yourself. To calculate your BMI in [place] ([place] measurements, your health care provider will: [...] medical problems. BMI can be measured using Chadian measurements or metric measurements. To interpret your [...] 04/26/2005 Document Revised: 07/28/2018 Document Reviewed: 06/28/2018 [employer] Patient Education 2020 [employer]. Follow Up Care 09/02/2022 11:42:01 With:Tran AGUDELO DO, [facility] Address: [address] [place] [phone]- When: Unknown [facility] 09-25-2021 Evaluation + Plan note Future Scheduled TestsTestosterone Level Total 09/25/21 [facility] [place] 09-25-2021 Evaluation + Plan note Future Scheduled TestsTestosterone Level Total 09/25/21 [facility] Evaluation + Plan note Future Appointments Appointment Date:10/05/2023 11:20:00 AM Scheduled Provider:Catherine Motta Location:[facility] Appointment Type:[facility] Evaluation + Plan note Future Appointments Appointment Date:11/24/2023 11:20:00 AM Scheduled Provider:Catherine Motta Location:[facility] Appointment Type:[facility] Evaluation + Plan note Future Appointments Appointment Date:01/17/2025 11:00:00 AM Scheduled Provider:KATIE ANSARI Location:[facility] Appointment Type:[facility] [place] Evaluation note Diagnosis DNS (deviated nasal septum)- Primary Deviated nasal septum Nasal valve blockage [facility] Well woman exam with routine gynecological exam Routine gynecological examination Encounter for intrauterine device placement Insertion of intrauterine contraceptive device Menorrhagia with regular cycle [facility] N[facility] No data available for this section [facility] Hospital Discharge instructions No data available for this section [facility] Progress note No data available for this section [facility] Summary Purpose Family History [...] and content) DATE CREATED AUTHOR 12/11/2021 [facility] DATE CREATED AUTHOR AUTHOR'S ORGANIZ ATION 01/14/2024 [facility] DATE CREATED AUTHOR AUTHOR'S ORGANIZ ATION 02/23/2024 [facility] EPIC DATE CREATED AUTHOR AUTHOR'S ORGANIZ ATION 05/26/2024 [facility] DATE CREATED AUTHOR AUTHOR'S ORGANIZ ATION 05/27/2024 [facility] DATE CREATED AUTHOR AUTHOR'S ORGANIZ ATION 12/07/2024 [facility] DATE CREATED AUTHOR AUTHOR'S ORGANIZ ATION 01/23/2025 Pranay Wang [facility] Patient Care team informatio n (unrecognized section and content) 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 Start Date End Date Catherine Wolff MD [address] [place] [phone] Referring Physician Family Medicine 02/22/24 Curtis Stafford MD [address] [place] [address] [phone] Referring Physician Family Medicine 06/20/24 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 Start Date End Date Catherine Wolff MD [address] [place] [address] [phone] Referring Physician Family Medicine 02/22/24 Curtis Stafford MD [address] [place] [address] [phone] Referring Physician Family Medicine 06/20/24 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 Start Date End Date Catherine Wolff MD [address] [place] [address] [phone] Referring Physician Family Medicine 02/22/24 Curtis Stafford MD [address] [place] [address] [phone] Referring Physician Family Medicine 06/20/24 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 Start Date End Date Catherine Wolff MD [address] [place] [address] [phone] Referring Physician Family Medicine 02/22/24 Curtis Stafford MD [address] [place] [address] [phone] Referring Physician Family Medicine 06/20/24 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 Start Date End Date Catherine Wolff MD [address] [place] [address] [phone] Referring Physician Family Medicine 02/22/24 Curtis Stafford MD [address] [place] [address] [phone] Referring Physician Family Medicine 06/20/24 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 Start Date End Date Catherine Wolff MD [address] [place] [address] [phone] Referring Physician Family Medicine 02/22/24 Curtis Stafford MD [address] [place] [address] [phone] Referring Physician Family Medicine 06/20/24 Reason for [...] BE BASED ON THE PRIMARY CLINICAL RECORDS. [email or web address] provides no warranty or guarantee of the accuracy or completeness of information in this document.
[2025-02-10] MEDS: DOXYCYCLINE MONOHYDRATE 100 MG CAPSULE PO (16:40)
[2025-02-10] MEDS: KETOROLAC TROMETHAMINE 60 MG/2 ML VIAL IM (16:40)
--- NOTE | 2025-02-10 17:16 | PC.NURSE ---
Dr. Dumont at bedside talking with patient about symptoms and what the ER can offer her. pt became tearful and states she feels like her symptoms are not being taken seriously. RN informed pt that the Doctor and RN are trying to put her worries at ease. pt states she was told she has a slipped disk in her back and was seeing a Neurosurgeon in [place] but feels like her pain has not gotten better and she thinks the swelling in her groin is the cause of her pain. Dr. Dumont attempted to explain to the patient that the swelling in her groin and pain in her back are separate issues and she can treat the symptoms to make her more comfortable and pt can be referred to other providers for more follow up. RN collected urine sample and took to lab. pt was gone from room when RN returned from lab.
--- NOTE | 2025-02-10 17:29 | ED.GENADUL1 ---
HPI HPI - General Adult General Chief complaint: Back Pain/Injury Stated complaint: back pain Time Seen by Provider: 02/10/25 15:55 Source: patient Mode of arrival: walk-in Limitations: no limitations History of Present Illness HPI narrative: The patient is coming to the ER complaining of right hip pain she does have multiple concerns The patient had a spot of area that is tender in her perineum and for some reason the patient was concerned about her hip as well as her back she mentioned that she have a history of multiple dislocations that usually does not need any surgery or any procedure to put them back in place but she just keep moving around with no difficulty and just pain that comes and goes in certain position the patient denies right now that she is having any significant limitation of movement in the right hip but she does have the pain Patient also have a history of back disc issues and apparently was referred to neurosurgery at outpatient Related Data Home Medications ?Medication ?Instructions ?Recorded ?Confirmed phentermine 37.5 mg tablet 37.5 mg PO DAILY 02/10/25 02/10/25 Previous Rx's ?Medication ?Instructions ?Recorded diclofenac sodium 75 mg 75 mg PO BID PRN pain #14 tabs 02/10/25 tablet,delayed release doxycycline hyclate 100 mg capsule 100 mg PO BID 7 days #14 caps 02/10/25 Allergies Allergy/AdvReac Type Severity Reaction Status Date / Time brompheniramine (From Allergy Rash Verified 01/03/24 12:48 Dimetapp Cold-Allergy (PE)) phenylephrine (From Dimetapp Allergy Rash Verified 01/03/24 12:48 Cold-Allergy (PE)) Opioid HPI Opioid Management Most Recent Opioid Data: Last Pain Scale 4 Today, 15:48 Review of Systems ROS Status of ROS 10 or more systems reviewed and unremarkable except as noted in history and below [facility] Medical History (Updated 02/10/25 @ 17:29 by Elisabet Dumont MD) Herniated disc Seasonal allergies ?J30.2 - Other seasonal allergic rhinitis (ICD-10) Back pain ?M54.9 - Dorsalgia, unspecified (ICD-10) Arthritis ?M19.90 - Unspecified osteoarthritis, unspecified site (ICD-10) Insomnia ?G47.00 - Insomnia, unspecified (ICD-10) PTSD (post-traumatic stress disorder) ?F43.10 - Post-traumatic stress disorder, unspecified (ICD-10) Depression ?F32.A - Depression, unspecified (ICD-10) Anxiety ?F41.9 - Anxiety disorder, unspecified (ICD-10) Electronic cigarette use ?Z78.9 - Other specified health status (ICD-10) COVID-19 ?U07.1 - COVID-19 (ICD-10) Migraine ?G43.909 - Migraine, unspecified, not intractable, without status migrainosus (ICD-10) Abdominal bloating ?R14.0 - Abdominal distension (gaseous) (ICD-10) Thyroid disorder ?E07.9 - Disorder of thyroid, unspecified (ICD-10) Vaginal Pap smear with ASC-US ?R87.620 - Atypical squamous cells of undetermined significance on cytologic smear of vagina (ASC-US) (ICD-10) Ethmoid sinusitis ?J32.2 - Chronic ethmoidal sinusitis (ICD-10) Maxillary sinusitis ?J32.0 - Chronic maxillary sinusitis (ICD-10) History of LEEP (loop electrosurgical excision procedure) of cervix complicating in second trimester ?O34.42 - Maternal care for other abnormalities of cervix, second trimester (ICD-10) ?Z98.890 - Other specified postprocedural states (ICD-10) Surgical History (Updated 01/10/24 @ 10:03 by Kellen Graves RN) H/O LEEP ?Z98.890 - Other specified postprocedural states (ICD-10) Family History (Updated 01/03/24 @ 12:58 by Isela Velasquez NP) Other Family history of aneurysm Family history of bone cancer Family history of breast cancer Family history of diabetes mellitus Social History (Updated 01/03/24 @ 12:51 by Isela Velasquez NP) Within the past year, how often did you have a drink containing alcohol: monthly or less Smoking status: Current every day smoker What tobacco products do you use: cigarettes Cigarettes per day: 7 Years smoked: 4 Smoking pack-years: 1.40 Do you use any of these nicotine containing products: vaping products Non-prescribed substance use: denies use 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 Examination of the perineum: The exam was done with a senior facilities manager at the [facility] who is the nurse taking care of the patient The patient had a small area of folliculitis that almost after 1 cm of induration at the base of one of the follicles with the area recently shaved possible also lymphadenopathy in the groin area There is no fluctuation there is no surrounding redness but there is Tenderness on palpation General: Well-appearing and in no apparent distress. Skin: Warm, dry, no pallor noted. No rash. Head: Normocephalic, atraumatic. Neck: Supple, non-tender. Cardiovascular: Regular Rate and Rhythm without murmur, gallop or rub. Respiratory: No accessory muscle use or respiratory distress. Lungs are clear to auscultation, no wheezing, rales or rhonchi Chest Wall: no tenderness Back: No midline thoracic or lumbar vertebral tenderness. No CVA tenderness Musculoskeletal: normal ROM, no calf or popliteal tenderness, no lower extremity edema/swelling GI: Abdomen is soft, non-distended. Normal bowel sounds. No masses appreciated. No tenderness to palpation. No rebound, guarding, or rigidity noted. Neurological: A&O x4. No cranial nerve dysfunction observed. No truncal ataxia. Moves all extremities. Sensation intact. Psychiatric: Cooperative and interactive. Normal mood and affect. Constitutional Vital Signs, click to edit/add: Last Vital Signs Temp 97.9 F 02/10/25 15:48 Pulse 73 02/10/25 15:48 Resp 18 02/10/25 15:48 BP 118/77 02/10/25 15:48 Pulse Ox 97 02/10/25 15:48 O2 Del Method Room Air 02/10/25 15:48 Course Vital Signs Vital signs: Vital Signs Temperature 97.9 F 02/10/25 15:48 Pulse Rate 73 02/10/25 15:48 Respiratory Rate 18 02/10/25 15:48 Blood Pressure 118/77 02/10/25 15:48 Pulse Oximetry 97 02/10/25 15:48 Oxygen Delivery Method Room Air 02/10/25 15:48 Temperature 97.9 F 02/10/25 15:48 Pulse Rate 73 02/10/25 15:48 Respiratory Rate 18 02/10/25 15:48 Blood Pressure 118/77 02/10/25 15:48 Pulse Oximetry 97 02/10/25 15:48 Oxygen Delivery Method Room Air 02/10/25 15:48 Medical Decision Making MDM Narrative Medical decision making narrative: The was very concerned about multiple issues and it had to present to the bedside at least 3 times for reevaluation every time she had a new concern The patient apparently she think that this folliculitis area it could be related to her right hip and her right back pain and she keeps talking about an MRI that was done after her complaining of hip pain and eventually they found that she have disc issues The patient never had a surgery in her back neither and her hip and her presentation is not concerning at all of any dislocation especially with the patient being able to move and she have a full range of movement in her right hip Even with that I did offer the patient an x-ray but she started talking about the x-ray does not help and usually she is MRI patient then started thinking about STD and she said although she does not have any vaginal discharge she want to be tested and I did send her urine to be evaluated for chlamydia gonorrhea I did cover the patient with the doxycycline for folliculitis and The patient did not wait for any discharge paper she just stormed out of the room and called back to the ER asking if we are going to send the prescription Patient left even before signing an AMA and she just stormed out from outside asking about the prescription I presented the patient multiple time trying to clarify her concerns but it seems that she is anxious about her pain although she does not know what would help her control the pain The patient was provided with Toradol in the ER and was given Voltaren for the pain as well I clarified extensively multiple times the concern that the patient Although clinically the patient presentation seems at a simple folliculitis and she need to apply warm sitz bath with antibiotic and monitor his symptoms in case of worsening she is to come back to the ER Discharge Plan Discharge Stand Alone Forms: Portal Instructions Chief Complaint: Back Pain/Injury Clinical Impression: Folliculitis, Chronic hip pain Patient Disposition: Left Against Medical Advice Time of Disposition Decision: 17:29 Prescriptions / Home Meds: New diclofenac sodium 75 mg tablet,delayed release (DR/EC) 75 mg PO BID PRN (Reason: pain) Qty: 14 0RF doxycycline hyclate 100 mg capsule 100 mg PO BID 7 Days Qty: 14 0RF No Action phentermine 37.5 mg tablet 37.5 mg PO DAILY Print Language: German Referrals: Mary Stafford NP [Primary Care Provider] - 1 week Discharge Date/Time: 02/10/25 17:24
[2025-02-13 03:07] LABS: Neisseria gonorrhoeae, NAA Negative (Negative)
== END 2025-02-10 17:24 | disposition left against medical advice (07) ==
PROVIDERS: Emergency Provider Emergency Medicine; PCP Nurse Practitioner Family
DX: L73.9 Follicular disorder, unspecified (principal); Z53.29 Procedure and treatment not carried out because of patient's decision for other reasons; F17.210 Nicotine dependence, cigarettes, uncomplicated; M25.551 Pain in right hip; G89.29 Other chronic pain
CPT/HCPCS: 87491; 87591; 96372; 99284; J1885